=== PATIENT | female | born 1935 | race Caucasian/White ===

== ENCOUNTER → 2016-05-14 | Outpatient (CLI) | payer OTHER ==
[~2016-05-14] MED LIST: ACET-1256 PO; ASPI81TA28 PO; ATOR80TA PO; CLTP PO; CRG40 PO; CYM/30 PO; DOCU100C31 PO; GABA-112 PO; GLIM1TAB2 PO; ISOS120T5 PO; LEVO50TA PO; NTRGSL/4 UT; OMEP40CA PO; POLY1SOL6; POLY335040 PO; PSYL48.59 PO; REGADENOSON 0.4 MG/5 ML SYR ONE
--- NOTE | 2016-05-15 14:21 | MYOCARDIAL PERFUSION SCAN ---
ONE-DAY NUCLEAR MEDICINE TECHNETIUM-99M CARDIOLITE MYOCARDIAL PERFUSION SCAN CLINICAL HISTORY: The patient has known coronary artery disease and has recently developed exertional chest discomfort. COMPARISON: None. TECHNIQUE: For the stress portion of the study, 32.3 mCi of Technetium 99 m Cardiolite IV was injected at 1:45 p.m. on 05/14/2016. Thirty minutes following the injection, imaging of the heart was performed in multiple projection. For the rest portion of the study, 11.0 mCi of Technetium 99 m Cardiolite was injected IV at 11:30 a.m. One hour following the injection, imaging of the heart was performed in the same projections. For the stress portion of the study, 0.4 mg of Lexiscan was injected intravenously as per protocol. The patient tolerated the infusion without difficulty. There was no chest discomfort nor EKG changes. Following the study, the patient was hemodynamically stable without complaints. FINDINGS: The short axis, vertical long axis, and horizontal long axis images were reviewed in detail. There is normal myocardial perfusion at both stress and rest. Therefore, no evidence of a prior myocardial infarction or stress induced myocardial ischemia. The left ventricle demonstrates hyperdynamic systolic function with an ejection fraction of greater than 70%. There are no wall motion abnormalities. IMPRESSION: 1. No scintigraphic evidence of a myocardial infarction or myocardial ischemia. 2. No Lexiscan induced chest pain. 3. No Lexiscan induced EKG changes. 4. Hyperdynamic left ventricular systolic function with an ejection fraction of greater than 70%. There are no wall motion abnormalities.
== END | disposition home or self-care (01) ==
LOC: C.NUCL 10:49
PROVIDERS: ATTEND Internal Medicine Cardiovascular Disease
DX: I25.119 Atherosclerotic heart disease of native coronary artery with unspecified angina pectoris (principal); R06.02 Shortness of breath

== ENCOUNTER → 2016-06-18 | Outpatient (CLI) | payer OTHER ==
[~2016-06-18] MED LIST changes: -REGADENOSON 0.4 MG/5 ML SYR ONE
--- NOTE | 2016-06-18 18:35 | DIAGNOSTIC IMAGING REPORT ---
LEFT ANKLE 3 VIEWS HISTORY: M25.572 Ankle pain, left COMPARISON: None. FINDINGS: There is no fracture or dislocation. Soft tissues are unremarkable. No radiopaque foreign bodies. Tiny plantar heel spur. IMPRESSION: No fractures. Electronically signed by: Javier Noriega M.D. 06/18/2016 6:32 PM Dictated Date/Time: 06/18/2016 6:31 PM
--- NOTE | 2016-06-18 18:39 | DIAGNOSTIC IMAGING REPORT ---
CHEST 2 VIEWS ROUTINE HISTORY: R06.09 Dyspnea on exertion COMPARISON: Chest 04/29/2015. FINDINGS: There are few linear densities within the right medial lung base suggesting subsegmental atelectasis are scarring. The lungs are otherwise clear. No pleural effusions. No pneumothorax. Mild pectus excavatum deformity. This likely results in the slight enlargement and the cardiac silhouette. This remains unchanged. No evidence for pulmonary edema. IMPRESSION: No significant change compared to the prior study. No acute process. Electronically signed by: Javier Noriega M.D. 06/18/2016 6:37 PM Dictated Date/Time: 06/18/2016 6:35 PM
[2016-06-18 19:16] LABS: ALT/SGPT 27 U/L (12-78); AST/SGOT 18 U/L (15-37); BLOOD UREA NITROGEN 32 mg/dl (7-18); BUN/CREATININE RATIO 19.7 (10-20); CALCIUM 9.5 mg/dl (8.5-10.1); CARBON DIOXIDE 31 mmol/L (21-32); CHLORIDE 106 mmol/L (98-107); GLUCOSE 104 mg/dl (70-99); POTASSIUM 4.2 mmol/L (3.5-5.1); SODIUM 142 mmol/L (136-145)
[2016-06-18 19:18] LABS: ALB/GLOB RATIO 1.2 (0.9-2); ALKALINE PHOSPHATASE 111 U/L (45-117)
[2016-06-18 19:40] LABS: HEMATOCRIT 40.5 % (37-47); MEAN CELL VOLUME 96.4 fL (80-100); MEAN CORPUSCULAR HEMOGLOBIN 32.1 pg (25-34); MEAN CORPUSCULAR HGB CONC 33.3 g/dl (32-36); MEAN PLATELET VOLUME 9.4 fL (7.4-10.4); PLATELET COUNT 192 K/uL (130-400); WHITE BLOOD COUNT 6.91 K/uL (4.8-10.8)
== END | disposition home or self-care (01) ==
LOC: C.RAD 17:58
PROVIDERS: ATTEND Internal Medicine
DX: M25.572 Pain in left ankle and joints of left foot (principal); R06.09 Other forms of dyspnea; Z87.898 Personal history of other specified conditions

== ENCOUNTER → 2016-06-21 | Outpatient (CLI) | payer OTHER ==
--- NOTE | 2016-06-21 10:13 | DIAGNOSTIC IMAGING REPORT ---
BILATERAL CAROTID DOPPLER STUDY HISTORY: Mental status change HX SYNCOPE COMPARISON: None. TECHNIQUE: Real-time, grayscale, and color Doppler sonography of the carotid arteries was performed. Imaging reviewed in the transverse and longitudinal planes. All measurements were calculated based on NASCET criteria. FINDINGS: Antegrade flow is seen in the bilateral vertebral arteries. The brachial pressures are hemodynamically similar. Moderate plaque dimension bilaterally The peak systolic velocity within the right ICA is 67. The right systolic ratio is 0.9. The peak systolic velocity within the left ICA is 61. The left systolic ratio is 0.8. IMPRESSION: No hemodynamically significant stenosis seen within the carotid arteries. Mild plaque formation bilaterally Electronically signed by: Bowen Karimi M.D. 06/21/2016 10:11 AM Dictated Date/Time: 06/21/2016 10:11 AM
== END | disposition home or self-care (01) ==
LOC: C.ULTR 09:35
PROVIDERS: ATTEND Internal Medicine
DX: Z87.898 Personal history of other specified conditions (principal); I65.23 Occlusion and stenosis of bilateral carotid arteries

== ENCOUNTER → 2016-07-17 | Outpatient (CLI) | payer OTHER ==
--- NOTE | 2016-07-17 09:01 | DIAGNOSTIC IMAGING REPORT ---
MRI OF THE BRAIN WITHOUT CONTRAST CLINICAL HISTORY: Syncope, confusion. COMPARISON STUDY: 04/17/2009 FINDINGS: Sagittal T1, axial diffusion, proton density and T2 weighted axial, coronal FLAIR, and axial T1-weighted images were acquired. The patient was imaged under 0.7 Jessica open MRI scanner. No intra or extra-axial mass lesions are visualized Axial diffusion-weighted images reveal no evidence of acute or subacute infarction. There is no evidence of ventricular dilatation. Proton density T2-weighted and FLAIR images reveal scattered foci of increased T2 signal within the white matter, likely on a small vessel basis. The findings remain similar to the preceding study. There are no abnormal flow voids. There are foci of increased T2 signal within the left inferior mastoid, likely inflammatory. IMPRESSION: No significant change from the prior 2009 study. No acute intracranial findings. No evidence of acute or subacute infarction. Electronically signed by: Eze Lopez M.D. 07/17/2016 9:00 AM Dictated Date/Time: 07/17/2016 8:53 AM
== END | disposition home or self-care (01) ==
LOC: C.OPENMRI 07:37
PROVIDERS: ATTEND Psychiatry & Neurology Neurology
DX: F44.89 Other dissociative and conversion disorders (principal); R55 Syncope and collapse

== ENCOUNTER → 2016-07-18 | Outpatient (CLI) | payer OTHER ==
--- NOTE | 2016-07-19 16:42 | EEG Procedure Note ---
EEG Procedure Note Date of Service July 18, 2016. Start / End Times Start Time: 1408 End Time: [address] Caceres History 80 year old with confusional state and syncope, question seizure Home Medication List Scheduled Aspirin (Aspirin Ec), 81 MG PO DAILY Atorvastatin Calcium (Lipitor), 40 MG PO DAILY Calcium/Vitamin D (Caltrate 600 Plus *), 1 TAB PO QAM Docusate Sodium (Docusate Sodium), 1 CAP PO DAILY Duloxetine HCl (Cymbalta), 1 CAP PO DAILY Gabapentin (Neurontin), 2 CAP PO HS Glimepiride (Glimepiride), 0.5 TAB PO DAILY Isosorbide Mononitrate Ext Rel (Imdur Ext Rel), 120 MG PO QAM Levothyroxine Sodium (Synthroid), 50 MCG PO QAM Nadolol (Corgard *), 40 MG PO QAM Nitroglycerin (Nitrostat), 0.4 MG UT PRN Omeprazole (Prilosec), 40 MG PO DAILY PRN Polyethylene (Miralax Powder Packet), 17 GM PO DAILY Polyethylene Glycol-Propylene (Systane Ultra), UD Psyllium (Metamucil), 1 TBS PO DAILY Scheduled PRN Acetaminophen (Tylenol), 2 TAB PO TID PRN for PN Description This is a 21 electrode EEG with a single channel dedicated to limited EKG. The electrodes were placed in accordance with the International 10-20 system. Interpretation the predominant background activity consists of a somewhat irregular 8.5 Hz activity of up to 30-40 V in amplitude seen symmetrically over the posterior head regions bilaterally spreading anteriorly. This activity attenuates nicely with eye opening and other alerting procedures. A mild amount of muscle and movement artifact activity contaminated the recording but do not hinder interpretation to any significant degree. Photic stimulation produced some driving response at mid flash frequencies with no abnormalities noted. Hyperventilation was not performed. Throughout the waking portion of the recording, no focal abnormalities, potentially epileptogenic discharges or abnormal slow activity was seen. She had a drowsy state for prolonged periods of time and intermittently she went into stage II sleep without further activation or abnormalities. Overall, this 1 hour study, is unremarkable during wakefulness and sleep. No focal abnormalities were noted and no potentially epileptogenic discharges were seen Clinical Correlation a normal EEG does not exclude a seizure disorder and clinical correlation is required.
== END | disposition home or self-care (01) ==
LOC: C.NEUR 13:51
PROVIDERS: ATTEND Psychiatry & Neurology Neurology
DX: F44.89 Other dissociative and conversion disorders (principal)

== ENCOUNTER → 2016-08-27 | Outpatient (CLI) | payer OTHER ==
[2016-08-27 14:44] LABS: HEMATOCRIT 38.5 % (37-47); MEAN CELL VOLUME 99.7 fL (80-100); MEAN CORPUSCULAR HEMOGLOBIN 32.9 pg (25-34); MEAN PLATELET VOLUME 9.2 fL (7.4-10.4); PLATELET COUNT 177 K/uL (130-400); RED BLOOD COUNT 3.86 M/uL (4.2-5.4); WHITE BLOOD COUNT 5.95 K/uL (4.8-10.8)
[2016-08-27 15:10] LABS: BLOOD UREA NITROGEN 32 mg/dl (7-18); BUN/CREATININE RATIO 18.5 (10-20); CALCIUM 8.9 mg/dl (8.5-10.1); CARBON DIOXIDE 28 mmol/L (21-32); CHLORIDE 105 mmol/L (98-107); GLUCOSE 108 mg/dl (70-99); POTASSIUM 4.2 mmol/L (3.5-5.1); SODIUM 141 mmol/L (136-145)
[2016-08-27 15:22] LABS: ALB/GLOB RATIO 1.1 (0.9-2); ALKALINE PHOSPHATASE 103 U/L (45-117); ALT/SGPT 25 U/L (12-78); AST/SGOT 16 U/L (15-37); THYROID STIMULATING HORMONE 0.877 uIu/ml (0.300-4.500)
[2016-08-28 06:24] LABS: ESTIMATED AVERAGE GLUCOSE 128 mg/dl; HA1C FLAG Normal (Normal)
== END | disposition home or self-care (01) ==
LOC: C.LAB1850 12:42
PROVIDERS: ATTEND Internal Medicine
DX: E78.5 Hyperlipidemia, unspecified (principal); E11.29 Type 2 diabetes mellitus with other diabetic kidney complication; E03.9 Hypothyroidism, unspecified; I10 Essential (primary) hypertension; R42 Dizziness and giddiness; E55.9 Vitamin D deficiency, unspecified

== ENCOUNTER → 2016-08-30 | Outpatient (CLI) | payer OTHER ==
--- NOTE | 2016-09-02 13:17 | MAMMOGRAPHY REPORT ---
BILATERAL DIGITAL SCREENING MAMMOGRAM WITH CAD: 08/30/2016 CLINICAL HISTORY: Routine screening. Patient has no complaints. TECHNIQUE: Current study was also evaluated with a Computer Aided Detection (CAD) system. Bilateral CC and MLO views were obtained. COMPARISON: Comparison is made to exams dated: 08/30/2015 mammogram, 08/24/2014 ultrasound, 08/24/2014 mammogram, 08/13/2013 mammogram, 08/12/2012 mammogram, and 08/12/2011 mammogram - [facility]. BREAST COMPOSITION: The tissue of both breasts is heterogeneously dense, which may obscure small mas ses. FINDINGS: No suspicious masses, calcifications, or areas of architectural distortion are noted in ei ther breast. There has been no significant interval change compared to prior exams. Bilateral asymme tries and scattered bilateral benign-appearing calcifications are not significantly changed. IMPRESSION: ACR BI-RADS CATEGORY 2: BENIGN There is no mammographic evidence of malignancy. A 1 year screening mammogram is recommended. The pa tient will receive written notification of the results. Approximately 10% of breast cancers are not detected with mammography. A negative mammographic report should not delay biopsy if a clinically suggestive mass is present. Huma Kirk M.D. /:08/30/2016 16:27:20 Side Door Worker: Lily Vega, [facility] letter sent: Normal 1/2 BI-RADS Code: ACR BI-RADS Category 2: Benign
== END | disposition home or self-care (01) ==
LOC: C.MAMM 11:40
PROVIDERS: ATTEND Internal Medicine
DX: Z12.31 Encounter for screening mammogram for malignant neoplasm of breast (principal)

== ENCOUNTER → 2017-01-01 | Outpatient (CLI) | payer OTHER ==
[2017-01-01 12:32] LABS: ALT/SGPT 22 U/L (12-78); BLOOD UREA NITROGEN 26 mg/dl (7-18); BUN/CREATININE RATIO 16.4 (10-20); CALCIUM 9.4 mg/dl (8.5-10.1); CARBON DIOXIDE 29 mmol/L (21-32); CHLORIDE 106 mmol/L (98-107); CHOLESTEROL 157 mg/dl (0-200); CREATININE 1.57 mg/dl (0.60-1.20); GLUCOSE 145 mg/dl (70-99); POTASSIUM 4.3 mmol/L (3.5-5.1); SODIUM 141 mmol/L (136-145); TRIGLYCERIDES 100 mg/dl (0-150); VERY LOW DENSITY LIPOPROT CALC 20 mg/dl
[2017-01-01 12:34] LABS: ALB/GLOB RATIO 1.2 (0.9-2); ALKALINE PHOSPHATASE 93 U/L (45-117); AST/SGOT 13 U/L (15-37); CHOLESTEROL/HDL RATIO 2.5; HDL CHOLESTEROL 63 mg/dl; LDL CHOLESTEROL CALCULATED 74 mg/dl
[2017-01-01 12:43] LABS: ESTIMATED AVERAGE GLUCOSE 134 mg/dl; HA1C FLAG Normal (Normal)
[2017-01-01 18:16] LABS: URINE APPEARANCE CLEAR (CLEAR); URINE BILIRUBIN NEG (NEG); URINE COLOR YELLOW; URINE NITRITE NEG (NEG); URINE PH 5.5 (4.5-7.5); URINE SPECIFIC GRAVITY 1.014 (1.000-1.030); UROBILINOGEN NEG (NEG)
[2017-01-01 18:29] LABS: MANUAL MICROSCOPIC REQUIRED? NO; REVIEW REQ? NO
== END | disposition home or self-care (01) ==
LOC: C.LABBFT 07:49
PROVIDERS: ATTEND Internal Medicine
DX: R35.0 Frequency of micturition (principal); R39.15 Urgency of urination; I10 Essential (primary) hypertension; E03.9 Hypothyroidism, unspecified; E78.5 Hyperlipidemia, unspecified; E55.9 Vitamin D deficiency, unspecified; R42 Dizziness and giddiness; E11.29 Type 2 diabetes mellitus with other diabetic kidney complication

== ENCOUNTER → 2017-04-02 | Outpatient (CLI) | payer OTHER | END | disposition home or self-care (01) | LOC: C.LABSPEC 13:06 | PROVIDERS: ATTEND Internal Medicine | DX: R39.9 Unspecified symptoms and signs involving the genitourinary system (principal) ==

== ENCOUNTER → 2017-04-10 | Outpatient (CLI) | payer OTHER | END | disposition home or self-care (01) | LOC: C.LABSPEC 16:09 | PROVIDERS: ATTEND Internal Medicine | DX: R35.0 Frequency of micturition (principal); R39.15 Urgency of urination ==

== ENCOUNTER → 2017-07-01 | Outpatient (CLI) | payer OTHER ==
[2017-07-01 12:15] LABS: HEMATOCRIT 39.5 % (37-47); MEAN CORPUSCULAR HEMOGLOBIN 32.6 pg (25-34); MEAN CORPUSCULAR HGB CONC 32.9 g/dl (32-36); MEAN PLATELET VOLUME 9.6 fL (7.4-10.4); PLATELET COUNT 161 K/uL (130-400); RED CELL DISTRIBUTION WIDTH CV 14.6 % (11.5-14.5); RED CELL DISTRIBUTION WIDTH SD 52.7 fL (36.4-46.3); WHITE BLOOD COUNT 5.34 K/uL (4.8-10.8)
[2017-07-01 12:30] LABS: ALBUMIN 3.8 gm/dl (3.4-5.0); ALT/SGPT 31 U/L (12-78); AST/SGOT 21 U/L (15-37); BLOOD UREA NITROGEN 28 mg/dl (7-18); CALCIUM 9.2 mg/dl (8.5-10.1); CARBON DIOXIDE 31 mmol/L (21-32); CREATININE 1.61 mg/dl (0.60-1.20); GLUCOSE 151 mg/dl (70-99); POTASSIUM 4.5 mmol/L (3.5-5.1); SODIUM 139 mmol/L (136-145)
[2017-07-01 12:33] LABS: ALKALINE PHOSPHATASE 91 U/L (45-117)
== END | disposition home or self-care (01) ==
LOC: C.LABBFT 08:31
PROVIDERS: ATTEND Internal Medicine Nephrology
DX: I12.9 Hypertensive chronic kidney disease with stage 1 through stage 4 chronic kidney disease, or unspecified chronic kidney disease (principal); N18.3 Chronic kidney disease, stage 3 (moderate); R80.9 Proteinuria, unspecified; E55.9 Vitamin D deficiency, unspecified

== ENCOUNTER → 2017-07-03 | Outpatient (CLI) | payer OTHER ==
[2017-07-03 10:31] LABS: HEMOGLOBIN A1C 6.8 % (4.5-5.6)
== END | disposition home or self-care (01) ==
LOC: C.LAB1850 09:26
PROVIDERS: ATTEND Internal Medicine
DX: I10 Essential (primary) hypertension (principal); E11.9 Type 2 diabetes mellitus without complications; E78.5 Hyperlipidemia, unspecified; E03.9 Hypothyroidism, unspecified

== ENCOUNTER 2020-09-30 11:41 | Inpatient (IN) ==
--- NOTE | 2020-09-30 11:58 | Emergency Department Note ---
History of Present Illness General Chief Complaint: Fall Stated Complaint: FALL, WEAKNESS, GLOBAL PAIN Time Seen by Provider: 09/30/20 11:57 Source: patient and family Limitations: no limitations History of Present Illness Provider complaint: fall Onset (ago): hour(s) Fall from: out of bed Fall witnessed: no Place fall occurred: home Loss of consciousness: none Prolonged down time: no Symptoms prior to fall: none Treatments prior to arrival: + none Context: + climbed out of bed Location of injury: no head, no face, no mouth, no eyes, no neck, no chest, no back, no abdomen or no pelvis Home Medications Medication Instructions Recorded Confirmed Type aspirin 81 mg tablet,delayed 81 mg PO QAM 12/10/17 09/30/20 History release (Aspirin Low Dose) acetaminophen 325 mg tablet 325 mg PO Q4H PRN MDD 3 GM APAP05/15/19 09/30/20 History HOURS calcium carbonate 500 mg (1,250 1 tab PO QAM 05/15/19 09/30/20 History mg)-vitamin D3 200 unit tablet (Oyster Shell Calcium-Vit D3) docusate sodium 100 mg capsule 100 mg PO BID #60 cap 06/01/19 09/30/20 Rx (Stool Softener) peg 400-propylene glycol 0.4 %-0.3 1 drp OPB BID 08/19/19 09/30/20 History % eye drops nitroglycerin 0.4 mg sublingual See Rx Instructions .ROUTE 05/22/20 09/30/20 Rx tablet .COMPLEX #25 tablet pantoprazole 40 mg tablet,delayed 40 mg PO BID #180 tab 05/22/20 09/30/20 Rx release atorvastatin 40 mg tablet 40 mg PO HS 09/04/20 09/30/20 History cyanocobalamin (vitamin B-12) 500 1,000 mcg PO QAM 09/04/20 09/30/20 History mcg tablet duloxetine 30 mg capsule,delayed 30 mg PO QAM 09/04/20 09/30/20 History release (Cymbalta) gabapentin 300 mg capsule 300 mg PO HS 09/04/20 09/30/20 History isosorbide mononitrate 120 mg 120 mg PO QAM 09/04/20 09/30/20 History tablet,extended release 24 hr levothyroxine 50 mcg tablet 50 mcg PO QAM 09/04/20 09/30/20 History nadolol 40 mg tablet 40 mg PO QAM 09/04/20 09/30/20 History solifenacin 5 mg tablet (Vesicare) 5 mg PO QAM 09/04/20 09/30/20 History Allergies Allergy/AdvReac Type Severity Reaction Status Date / Time verapamil Allergy Severe RASH Verified 09/25/20 09:21 oxybutynin Allergy Intermediate ITCHING Verified 09/25/20 09:21 adhesive Allergy Mild redness Verified 09/25/20 09:21 latex Allergy Mild ITCHING Verified 09/25/20 09:21 meperidine AdvReac Severe HYPOTENSION Verified 09/25/20 09:21 sodium phosphate AdvReac Severe DECREASED Verified 09/25/20 09:21 [From OsmoPrep] KIDNEY FUNCTION atenolol AdvReac Intermediate tachycardia; Verified 09/25/20 09:21 nervousness diazepam AdvReac Intermediate crying; Verified 09/25/20 09:21 depression fluoxetine AdvReac Intermediate crying; Verified 09/25/20 09:21 depression ibuprofen AdvReac Intermediate low kidney Verified 09/25/20 09:21 function Iodinated Contrast Media AdvReac Intermediate IVP DYE - Verified 09/25/20 09:21 low kidney function lidocaine AdvReac Intermediate Altered Verified 09/25/20 09:21 Mental Status with ointment ONLY naproxen AdvReac Intermediate Low kidney Verified 09/25/20 09:21 function sertraline AdvReac Intermediate crying; Verified 09/25/20 09:21 depression venlafaxine AdvReac Intermediate Nervous Verified 09/25/20 09:21 tramadol AdvReac Mild dizziness Verified 09/25/20 09:21 Past Med/Surg History Medical History Abdominal pain (03/24/13) Anxiety CAD (coronary artery disease) Chronic back pain Chronic throat clearing CKD (chronic kidney disease), stage III Closed head injury Depression Diabetes mellitus, type 2 Diverticular disease Diverticulitis History of colon cancer Hyperlipidemia Hypertension Hypothyroidism Osteoarthritis Pneumonia SBO (small bowel obstruction) Small bowel obstruction due to adhesions Stable angina Syncope Surgical History H/O umbilical hernia repair History of bilateral tubal ligation History of bowel resection History of cardiac cath History of cataract surgery History of colonoscopy History of dilatation and curettage History of discectomy History of esophagogastroduodenoscopy (EGD) History of hysterectomy Family History Mother Heart disease Breast cancer Cancer Myocardial infarction Sister Colorectal cancer Lung disease Cancer Father Hearing loss Heart disease Other Hypertension No family history of adverse response to anesthesia Denies family history of Ovarian cancer Prostate cancer Coronary heart disease Social History Smoking Status: Never smoker Second Hand Exposure: No; Hx Alcohol Use: No Hx Substance Use: No Preferred Language: Syriac Communication Ability: Effective Hearing Ability: Normal Blood Bank Laboratory Technician Required: No Beliefs That Will Affect Care: None marital status: / Current Living Situation: Alone current occupational status: retired Feels Safe at Home: Yes Childhood Exposure to Second-Hand Smoke: No caffeine: Yes during the past year weight has: remained stable Dental Care, Regularly: Yes Physical Activity Frequency: 1-2 Times per Week Seatbelt Use: always Sunscreen Use: Yes Assistive Devices: Glasses Review of Systems See HPI for pertinent positives & negatives. and A total of 10 systems reviewed and were otherwise negative Physical Exam Vital Signs Vital Signs - 24 hr 09/30/20 11:52 09/30/20 12:42 09/30/20 13:00 Temperature 36.6 C Temperature Source Oral Pulse Rate 92 H 62 63 Pulse Rate [Radial] Respiratory Rate 18 20 17 Respiratory Effort / Characteristics Non-Labored Spontaneous Respiratory Depth Normal Respiratory Pattern Regular Blood Pressure 182/88 H 183/91 H Blood Pressure [Left Arm] Blood Pressure Mean 119 121 Blood Pressure Mean [Left Arm] Blood Pressure Position Lying Pulse Oximetry 98 98 93 Oxygen Delivery Method Room Air Room Air Sepsis Recent Fever Within 48 Hours No Sepsis New/Unexplained Change in Mental Status No Sepsis Action Taken by Nursing No Action Required 09/30/20 13:30 09/30/20 14:00 09/30/20 16:40 Temperature Temperature Source Pulse Rate 64 63 Pulse Rate [Radial] 72 Respiratory Rate 23 20 Respiratory Effort / Characteristics Respiratory Depth Respiratory Pattern Blood Pressure 170/99 H 170/106 H Blood Pressure [Left Arm] 149/81 H Blood Pressure Mean 122 127 Blood Pressure Mean [Left Arm] 103 Blood Pressure Position Pulse Oximetry 97 98 Oxygen Delivery Method Sepsis Recent Fever Within 48 Hours Sepsis New/Unexplained Change in Mental Status Sepsis Action Taken by Nursing GENERAL: Fatigued in appearance, wearing a mask. NAD, non-toxic. EYE EXAM: Normal conjunctiva. PERRL, no anisocoria and EOM's grossly intact w/o pain. OROPHARYNX: Moist mucus membranes. Grossly normal dentition. NECK: Supple, no nuchal rigidity, no adenopathy, non-tender. No signs of mening ismus. LUNGS: Clear to auscultation. Normal chest wall mechanics. HEART: NSR, no MRG. ABDOMEN: Abdomen soft, non-tender, normo-active bowel sounds, no masses, no rebound or guarding. BACK: No CVA TTP. SKIN: No rashes and no bruising. UPPER EXTREMITIES: Upper extremities are grossly normal. LOWER EXTREMITIES: Mild pain to the bilateral hips, no obvious leg length discrepancy. NEURO EXAM: A&O x3, cranial nerves II-XII grossly intact, normal speech, decreased range of motion bilateral lower extremity secondary to pain. Course Course Cardiac monitoring: An order was placed for continuous cardiac monitoring. The monitor shows a rate of 72 with sinus rhythm. Administered Medications Sodium Chloride (Nss) 500 mls @ 80 mls/hr IV .[id number] KAREN Stop: 10/30/20 14:59 Last Admin: 09/30/20 15:59 Dose: 80 mls/hr Documented by: [id number] Discontinued Medications Acetaminophen (Acetaminophen 325 Mg Tab) 650 mg PO NOW STA Stop: 09/30/20 14:49 Last Admin: 09/30/20 15:06 Dose: 650 mg Documented by: [id number] Medical Decision Making Differential Diagnosis Infection, dehydration, metabolic abnormality, hypo/hyperglycemia, electrolyte disturbance, anemia, hypoxia, cardiac sources, intracerebral event, toxicologic, neurologic, as well as other pathologies. Medical Records Attestation: I reviewed the patient's medical records. Home Medications Current Medication List: was personally reviewed by me Laboratory Data Attestation: I reviewed the patient's lab results. Result diagrams: 09/30/20 12:58 09/30/20 12:58 Lab Results 09/30/20 09/30/20 09/30/20 Range/Units 12:40 12:58 12:58 WBC 6.98 (4.8-10.8) K/uL RBC 3.80 L (4.2-5.4) M/uL Hgb 12.6 (12.0-16.0) g/dL Hct 36.9 L (37-47) % MCV 97.1 (80-100) fL MCH 33.2 (25-34) pg MCHC 34.1 (32-36) g/dL RDW Std Deviation 55.9 H (36.4-46.3) fL RDW Coeff of Shaji 15.9 H (11.5-14.5) % Plt Count 210 (130-400) K/uL MPV 8.5 (7.4-10.4) fL Immature Gran % (Auto) 0.7 % Neut % (Auto) 65.2 % Lymph % (Auto) 18.9 % Towns % (Auto) 7.7 % Eos % (Auto) 7.2 % Baso % (Auto) 0.3 % Neut # (Auto) 4.55 (1.4-6.5) K/uL Lymph # (Auto) 1.32 (1.2-3.4) K/uL Towns # (Auto) 0.54 (0.11-0.59) K/uL Eos # (Auto) 0.50 (0-0.5) K/uL Baso # (Auto) 0.02 (0-0.2) K/uL Immature Gran # (Auto) 0.05 H (0.00-0.02) K/uL Sodium 141 (136-145) mmol/L Potassium 3.6 (3.5-5.1) mmol/L Chloride 106 (98-107) mmol/L Carbon Dioxide 33 H (21-32) mmol/L Anion Gap 2.0 L (3-11) BUN 22 H (7-18) mg/dl Creatinine 1.27 H (0.6-1.2) mg/dl Est Cr Clr Drug Dosing 33.9 ml/min Est GFR ( Amer) 44.9 ml/min Est GFR (Non-Af Amer) 38.7 ml/min BUN/Creatinine Ratio 17.5 (10-20) Glucose 141 H (70-99) mg/dl Calcium 9.6 (8.5-10.1) mg/dl Total Bilirubin 1.0 (0.2-1) mg/dl AST 19 (15-37) U/L ALT 26 (12-78) U/L Alkaline Phosphatase 85 (45-117) U/L Troponin I < 0.015 (0-0.045) ng/ml Total Protein 6.9 (6.4-8.2) gm/dl Albumin 3.5 (3.4-5.0) gm/dl Globulin 3.4 (2.5-4.0) gm/dl Albumin/Globulin Ratio 1.0 (0.9-2) TSH 1.730 (0.300-4.500) uIu/ml Urine Color Yellow Urine Appearance Clear (Clear) Urine pH 8.0 H (4.5-7.5) Ur Specific [place] 1.006 (1.000-1.030) Urine Protein Negative (Negative) Urine Glucose (UA) Negative (Negative) Urine Ketones Negative (Negative) Urine Blood Negative (Negative) Urine Nitrite Negative (Negative) Urine Bilirubin Negative (Negative) Urine Urobilinogen Negative (Negative) Ur Leukocyte Esterase Negative (Negative) COVID-19 Eval Order SARS-CoV-2 (PCR) (Negative) 09/30/20 09/30/20 Range/Units 13:33 13:33 WBC (4.8-10.8) K/uL RBC (4.2-5.4) M/uL Hgb (12.0-16.0) g/dL Hct (37-47) % MCV (80-100) fL MCH (25-34) pg MCHC (32-36) g/dL RDW Std Deviation (36.4-46.3) fL RDW Coeff of Shaji (11.5-14.5) % Plt Count (130-400) K/uL MPV (7.4-10.4) fL Immature Gran % (Auto) % Neut % (Auto) % Lymph % (Auto) % Towns % (Auto) % Eos % (Auto) % Baso % (Auto) % Neut # (Auto) (1.4-6.5) K/uL Lymph # (Auto) (1.2-3.4) K/uL Towns # (Auto) (0.11-0.59) K/uL Eos # (Auto) (0-0.5) K/uL Baso # (Auto) (0-0.2) K/uL Immature Gran # (Auto) (0.00-0.02) K/uL Sodium (136-145) mmol/L Potassium (3.5-5.1) mmol/L Chloride (98-107) mmol/L Carbon Dioxide (21-32) mmol/L Anion Gap (3-11) BUN (7-18) mg/dl Creatinine (0.6-1.2) mg/dl Est Cr Clr Drug Dosing ml/min Est GFR ( Amer) ml/min Est GFR (Non-Af Amer) ml/min BUN/Creatinine Ratio (10-20) Glucose (70-99) mg/dl Calcium (8.5-10.1) mg/dl Total Bilirubin (0.2-1) mg/dl AST (15-37) U/L ALT (12-78) U/L Alkaline Phosphatase (45-117) U/L Troponin I (0-0.045) ng/ml Total Protein (6.4-8.2) gm/dl Albumin (3.4-5.0) gm/dl Globulin (2.5-4.0) gm/dl Albumin/Globulin Ratio (0.9-2) TSH (0.300-4.500) uIu/ml Urine Color Urine Appearance (Clear) Urine pH (4.5-7.5) Ur Specific [place] (1.000-1.030) Urine Protein (Negative) Urine Glucose (UA) (Negative) Urine Ketones (Negative) Urine Blood (Negative) Urine Nitrite (Negative) Urine Bilirubin (Negative) Urine Urobilinogen (Negative) Ur Leukocyte Esterase (Negative) COVID-19 Eval Order Covid19 at [facility] SARS-CoV-2 (PCR) NEGATIVE (Negative) Imaging Data Radiologist's Impression: Chest X-Ray 09/30/20 12:34 XR chest 1V portable CLINICAL HISTORY: weakness COMPARISON STUDY: Chest radiograph May 05, 2020. FINDINGS: Lung volumes are normal. Lungs are clear. There is no pneumothorax or pleural effusion. Cardiomegaly is unchanged. Mediastinal contours are normal. There is no evidence for pulmonary edema. IMPRESSION: No acute cardiopulmonary findings. No change in appearance of the chest. ACT 112: Negative or not required by law. Electronically signed by: José Luis Hudson M.D. 09/30/2020 12:[address] 09/30/20 12:34 CT OF THE HEAD WITHOUT CONTRAST CLINICAL HISTORY: weak COMPARISON STUDY: Head CT May 05, 2020. CT DOSE: 537.48 mGy.cm TECHNIQUE: Helical axial images of the head were obtained without IV contrast. Automated exposure control was utilized for the study. A dose lowering technique was utilized adhering to the principles of ALARA. FINDINGS: No acute intracranial hemorrhage, midline shift or mass effect is present. The ventricular system is unremarkable. The basal cisterns are patent. White matter hypodensities are unchanged and favor small vessel disease. No extra-axial collections are present. There are no findings to suggest acute dural sinus thrombosis or acute territorial infarct. No significant calvarial abnormalities are present. Visualized portions of the sinuses and mastoid air cells are clear. IMPRESSION: No acute intracranial findings. No change in appearance of the brain. ACT 112: Negative or not required by law. Electronically signed by: José Luis Hudson M.D. 09/30/2020 1:34 PM Hip/Pelvis X-Ray 09/30/20 12:49 XR hips MEGAN 1v w pelvis CLINICAL HISTORY: Bilateral hip pain. COMPARISON: CT of the abdomen and pelvis April 21, 2019. FINDINGS: Pelvic calcifications reflect phleboliths. No acute fracture within the pelvis or hips is identified. There is no evidence for avascular necrosis of the femoral heads. There is mild to moderate joint space narrowing and osteophytosis of both hips. IMPRESSION: 1. No acute fracture within the pelvis or hips. 2. Mild to moderate osteoarthritis of both hips. ACT 112: Negative or not required by law. Electronically signed by: José Luis Hudson M.D. 09/30/2020 1:12 PM ECG Data Attestation: I personally reviewed and interpreted this ECG as follows: Additional Comments: Normal sinus rhythm, rate of sixty-one, normal intervals, normal axis, to inversion in lead III, to inversion anteriorly. No significant change from comparison EKG May 05, 2020. MDM Narrative Patient was seen due to concern for generalized weakness. The patient reports that she had been trying to get up and out of bed but it slipped from the side of the bed downward and was unable to get back up. The patient states that she did not have any LOC or head strike. The patient has no head or neck pain. The patient denies any fevers chills chest pains or shortness of breath. Patient's had slightly decreased appetite. The patient does currently live by herself. The patient is vaccinated for Covid. The patient denies abdominal pain nausea or vomiting. Blood work was obtained along with an EKG CT head x-ray of the bilateral hips and chest x-ray. Patient has a normal white count and hemoglobin. Platelet count is unremarkable. The patient does have mild elevated creatinine at 1.27. Troponin is not detectable. Urinalysis does not show evidence of obvious infection. Covid negative. Chest x-ray clear. CT of the head with no ICH. Case management did go speak with the patient to see if she was amenable to rehab which she has not. The patient would like long-term placement at this time. This is unable to be facilitated and the patient cannot be discharged safely home at this time. I did speak the on-call hospitalist Dr. Crowley and the patient was admitted to the medicine service. Impression & Plan Weakness, Fall Discharge Plan Visit Data Chief Complaint: Fall Stated Complaint: FALL, WEAKNESS, GLOBAL PAIN ED Provider: Herve Leon Patient Disposition: Admitted As Inpatient Prescriptions Prescriptions: No Action docusate sodium [Stool Softener] 100 mg capsule 100 mg PO BID Qty: 60 RF: 2 pantoprazole 40 mg tablet,delayed release (DR/EC) 40 mg PO BID Qty: 180 RF: 3 nitroglycerin 0.4 mg tablet, sublingual See Rx Instructions .ROUTE .COMPLEX Qty: 25 RF: 3 peg 400-propylene glycol 0.4-0.3 % drops 1 drp OPB BID RF: 0 acetaminophen 325 mg Tablet 325 mg PO Q4H MDD 3 GM APAP/24 HOURS PRN (Reason: Pain) RF: 0 calcium carbonate-vitamin D3 [Oyster Shell Calcium-Vit D3] 500 mg(1,250mg) - 200 unit Tablet 1 tab PO QAM RF: 0 aspirin [Aspirin Low Dose] 81 mg Tablet,Delayed Release (Dr/Ec) 81 mg PO QAM RF: 0 atorvastatin 40 mg tablet 40 mg PO HS RF: 0 isosorbide mononitrate 120 mg tablet extended release 24 hr 120 mg PO QAM RF: 0 cyanocobalamin (vitamin B-12) 500 mcg tablet 1,000 mcg PO QAM RF: 0 levothyroxine 50 mcg tablet 50 mcg PO QAM RF: 0 gabapentin 300 mg capsule 300 mg PO HS RF: 0 nadolol 40 mg tablet 40 mg PO QAM RF: 0 duloxetine [Cymbalta] 30 mg capsule,delayed release(DR/EC) 30 mg PO QAM RF: 0 solifenacin [Vesicare] 5 mg tablet 5 mg PO QAM RF: 0
[2020-09-30 12:48] LABS: Appearance Urine Clear (Clear); Bilirubin Urine Negative (Negative); Blood Urine Negative (Negative); Color Urine Yellow; Glucose Urine UA Negative (Negative); Ketones Urine Negative (Negative); Leukocyte Esterase Urine Negative (Negative); Nitrite Urine Negative (Negative); Protein Urine Negative (Negative); Specific Gravity Urine 1.006 (1.000-1.030); Urobilinogen Urine Negative (Negative)
--- NOTE | 2020-09-30 12:50 | XRay Report ---
XR chest 1V portable CLINICAL HISTORY: weakness COMPARISON STUDY: Chest radiograph May 05, 2020. FINDINGS: Lung volumes are normal. Lungs are clear. There is no pneumothorax or pleural effusion. Car diomegaly is unchanged. Mediastinal contours are normal. There is no evidence for pulmonary edema. IMPRESSION: No acute cardiopulmonary findings. No change in appearance of the chest. ACT 112: Negative or not required by law. Electronically signed by: José Luis Hudson M.D. 09/30/2020 12:49 PM
[2020-09-30 13:04] LABS: Basophils # (auto) 0.02 K/uL (0-0.2); Basophils % (auto) 0.3 %; Eosinophils % (auto) 7.2 %; Hematocrit (blood only) 36.9 % (37-47); Hemoglobin 12.6 g/dL (12.0-16.0); Immature Granulocytes # (auto) 0.05 K/uL (0.00-0.02); Immature Granulocytes % (auto) 0.7 %; Lymphocytes # (auto) 1.32 K/uL (1.2-3.4); Lymphocytes % (auto) 18.9 %; Mean Corpuscular Hemoglobin 33.2 pg (25-34); Mean Corpuscular Hgb Conc 34.1 g/dL (32-36); Mean Corpuscular Volume 97.1 fL (80-100); Mean Platelet Volume 8.5 fL (7.4-10.4); Monocytes # (auto) 0.54 K/uL (0.11-0.59); Monocytes % (auto) 7.7 %; Neutrophils # (auto) 4.55 K/uL (1.4-6.5); Neutrophils % (auto) 65.2 %; Platelet Count 210 K/uL (130-400); RDW Coefficient of Variation 15.9 % (11.5-14.5); RDW Standard Deviation 55.9 fL (36.4-46.3); White Blood Count 6.98 K/uL (4.8-10.8)
--- NOTE | 2020-09-30 13:14 | XRay Report ---
XR hips MEGAN 1v w pelvis CLINICAL HISTORY: Bilateral hip pain. COMPARISON: CT of the abdomen and pelvis April 21, 2019. FINDINGS: Pelvic calcifications reflect phleboliths. No acute fracture within the pelvis or hips is identified. There is no evidence for avascular necrosis of the femoral heads. There is mild to modera te joint space narrowing and osteophytosis of both hips. IMPRESSION: 1. No acute fracture within the pelvis or hips. 2. Mild to moderate osteoarthritis of both hips. ACT 112: Negative or not required by law. Electronically signed by: José Luis Hudson M.D. 09/30/2020 1:12 PM
[2020-09-30 13:21] LABS: Alanine Aminotransferase 26 U/L (12-78); Albumin Level 3.5 gm/dl (3.4-5.0); Aspartate Aminotransferase 19 U/L (15-37); BUN Creatinine Ratio 17.5 (10-20); Blood Urea Nitrogen 22 mg/dl (7-18); Calcium 9.6 mg/dl (8.5-10.1); Carbon Dioxide 33 mmol/L (21-32); Chloride 106 mmol/L (98-107); Creatinine Clr Calc Pharmacy 33.9 ml/min; Est GFR (African American) 44.9 ml/min; Est GFR (Non-African American) 38.7 ml/min; Glucose 141 mg/dl (70-99); Potassium 3.6 mmol/L (3.5-5.1); Sodium 141 mmol/L (136-145)
[2020-09-30 13:31] LABS: Alkaline Phosphatase 85 U/L (45-117); Globulin 3.4 gm/dl (2.5-4.0); Total Protein 6.9 gm/dl (6.4-8.2); Troponin I < 0.015 ng/ml (0-0.045)
--- NOTE | 2020-09-30 13:35 | CT Scan Report ---
CT OF THE HEAD WITHOUT CONTRAST CLINICAL HISTORY: weak COMPARISON STUDY: Head CT May 05, 2020. CT DOSE: 537.48 mGy.cm TECHNIQUE: Helical axial images of the head were obtained without IV contrast. Automated exposure con trol was utilized for the study. A dose lowering technique was utilized adhering to the principles o f ALARA. FINDINGS: No acute intracranial hemorrhage, midline shift or mass effect is present. The ventricular system is unremarkable. The basal cisterns are patent. White matter hypodensities are unchanged and f avor small vessel disease. No extra-axial collections are present. There are no findings to suggest a cute dural sinus thrombosis or acute territorial infarct. No significant calvarial abnormalities are present. Visualized portions of the sinuses and mastoid air cells are clear. IMPRESSION: No acute intracranial findings. No change in appearance of the brain. ACT 112: Negative or not required by law. Electronically signed by: José Luis Hudson M.D. 09/30/2020 1:34 PM
[2020-09-30] MEDS ORDERED: ACETAMINOPHEN 325 MG TAB PO STA (14:48)
[2020-09-30] MEDS ORDERED: SODIUM CHLORIDE 0.9% 500 ML IV SCH (15:00)
--- NOTE | 2020-09-30 16:07 | History & Physical Report ---
Date of Service September 30, 2020 Assessment & Plan (1) Diabetes type 2, controlled: Plan: 85 y/o F Hx hypothyroid, HTN, HLD, DM II, CAD, CKD III, impaired gait. The pt states that she has spells where she is unable to bear weight. She could not apparently get out of bed today. She is reduced to crawling around in these instances. She did not suffer a fall and denies SOB, CP, nausea/vomiting, diarrhea, dysuria a rash or fevers. She denies specific joint pain but does have chronic pain in her lower extremities. She also states that recently, her lower extremity edema has worsened and her MD has ordered an echo as a result. This is currently pending. The pt has been undergoing PT at home. She states that it has not been consistent or helpful. She lives alone and is requesting placement in rehab therefore. Labs and imaging are unremarkable. She was fairly hypertensive at the time of admission. 1) Cannot ambulate - likely due to deconditioning as she does not have any focal signs or imaging abnormalities. We will consult PT/OT and case management for placement. Per her description, she may be better off with long-term or permanent placement. 2) HTN - will continue nadolol, Imdur and will add PRN hydralazine. She may need an additional agent on DC. 3) CAD - no evidence of ACS - cont Imdur, ASA, NTG PRN 4) Hypothyroidism - cont Synthroid 5) CKD - renal function is at baseline 6) DM is diet controlled Full code - Heparin prophylaxis Total time for this admit including review of labs, meds, imaging, records - discussion with pt and ER attending - 44 min (2) Hypertension: (3) Dyslipidemia: (4) Hypothyroidism: (5) Gait abnormality: History of Present Illness Chief Complaint: Cannot walk Primary Care Provider: Chris Espitia MD 85 y/o F Hx hypothyroid, HTN, HLD, DM II, CAD, CKD III, impaired gait. The pt states that she has spells where she is unable to bear weight. She could not apparently get out of bed today. She is reduced to crawling around in these instances. She did not suffer a fall and denies SOB, CP, nausea/vomiting, diarrhea, dysuria a rash or fevers. She denies specific joint pain but does have chronic pain in her lower extremities. She also states that recently, her lower extremity edema has worsened and her MD has ordered an echo as a result. This is currently pending. The pt has been undergoing PT at home. She states that it has not been consistent or helpful. She lives alone and is requesting placement in rehab therefore. Labs and imaging are unremarkable. She was fairly hypertensive at the time of admission. PMH: 1) HTN 2) HLD 3) Hypothyroid 4) DM II - diet controlled 5) CAD 6) CKD III 7) Impaired gait 8) Lower extremity edema Surgical: 1) Ventral hernia repair 2) Small bowel resection 3) Tubal ligation 4) JESUS-SBO 5) Lumbar discectomy 6) Cataracts Social: Does not drink or smoke Family: Father - CAD Mother - CAD/[place], breast CA Allergies Allergy/AdvReac Type Severity Reaction Status Date / Time verapamil Allergy Severe RASH Verified 09/25/20 09:21 oxybutynin Allergy Intermediate ITCHING Verified 09/25/20 09:21 adhesive Allergy Mild redness Verified 09/25/20 09:21 latex Allergy Mild ITCHING Verified 09/25/20 09:21 meperidine AdvReac Severe HYPOTENSION Verified 09/25/20 09:21 sodium phosphate AdvReac Severe DECREASED Verified 09/25/20 09:21 [From OsmoPrep] KIDNEY FUNCTION atenolol AdvReac Intermediate tachycardia; Verified 09/25/20 09:21 nervousness diazepam AdvReac Intermediate crying; Verified 09/25/20 09:21 depression fluoxetine AdvReac Intermediate crying; Verified 09/25/20 09:21 depression ibuprofen AdvReac Intermediate low kidney Verified 09/25/20 09:21 function Iodinated Contrast Media AdvReac Intermediate IVP DYE - Verified 09/25/20 09:21 low kidney function lidocaine AdvReac Intermediate Altered Verified 09/25/20 09:21 Mental Status with ointment ONLY naproxen AdvReac Intermediate Low kidney Verified 09/25/20 09:21 function sertraline AdvReac Intermediate crying; Verified 09/25/20 09:21 depression venlafaxine AdvReac Intermediate Nervous Verified 09/25/20 09:21 tramadol AdvReac Mild dizziness Verified 09/25/20 09:21 Home Medications Medication Instructions Recorded Confirmed Type aspirin 81 mg tablet,delayed 81 mg PO QAM 12/10/17 09/30/20 History release (Aspirin Low Dose) acetaminophen 325 mg tablet 325 mg PO Q4H PRN MDD 3 GM APAP05/15/19 09/30/20 History HOURS calcium carbonate 500 mg (1,250 1 tab PO QAM 05/15/19 09/30/20 History mg)-vitamin D3 200 unit tablet (Oyster Shell Calcium-Vit D3) docusate sodium 100 mg capsule 100 mg PO BID #60 cap 06/01/19 09/30/20 Rx (Stool Softener) peg 400-propylene glycol 0.4 %-0.3 1 drp OPB BID 08/19/19 09/30/20 History % eye drops nitroglycerin 0.4 mg sublingual See Rx Instructions .ROUTE 05/22/20 09/30/20 Rx tablet .COMPLEX #25 tablet pantoprazole 40 mg tablet,delayed 40 mg PO BID #180 tab 05/22/20 09/30/20 Rx release atorvastatin 40 mg tablet 40 mg PO HS 09/04/20 09/30/20 History cyanocobalamin (vitamin B-12) 500 1,000 mcg PO QAM 09/04/20 09/30/20 History mcg tablet duloxetine 30 mg capsule,delayed 30 mg PO QAM 09/04/20 09/30/20 History release (Cymbalta) gabapentin 300 mg capsule 300 mg PO HS 09/04/20 09/30/20 History isosorbide mononitrate 120 mg 120 mg PO QAM 09/04/20 09/30/20 History tablet,extended release 24 hr levothyroxine 50 mcg tablet 50 mcg PO QAM 09/04/20 09/30/20 History nadolol 40 mg tablet 40 mg PO QAM 09/04/20 09/30/20 History solifenacin 5 mg tablet (Vesicare) 5 mg PO QAM 09/04/20 09/30/20 History Past Med/Surg History Medical History Abdominal pain (03/24/13) Anxiety CAD (coronary artery disease) Chronic back pain Chronic throat clearing CKD (chronic kidney disease), stage III Closed head injury Depression Diabetes mellitus, type 2 Diverticular disease Diverticulitis History of colon cancer Hyperlipidemia Hypertension Hypothyroidism Osteoarthritis Pneumonia SBO (small bowel obstruction) Small bowel obstruction due to adhesions Stable angina Syncope Surgical History H/O umbilical hernia repair History of bilateral tubal ligation History of bowel resection History of cardiac cath History of cataract surgery History of colonoscopy History of dilatation and curettage History of discectomy History of esophagogastroduodenoscopy (EGD) History of hysterectomy Family History Mother Heart disease Breast cancer Cancer Myocardial infarction Sister Colorectal cancer Lung disease Cancer Father Hearing loss Heart disease Other Hypertension No family history of adverse response to anesthesia Denies family history of Ovarian cancer Prostate cancer Coronary heart disease Social History Smoking Status: Never smoker Second Hand Exposure: No; Hx Alcohol Use: No Hx Substance Use: No Preferred Language: Urdu Communication Ability: Effective Hearing Ability: Normal Personal Financial Advisor Required: No Beliefs That Will Affect Care: None marital status: / Current Living Situation: Alone current occupational status: retired Feels Safe at Home: Yes Childhood Exposure to Second-Hand Smoke: No caffeine: Yes during the past year weight has: remained stable Dental Care, Regularly: Yes Physical Activity Frequency: 1-2 Times per Week Seatbelt Use: always Sunscreen Use: Yes Assistive Devices: Glasses Review of Systems Review of Systems: Gen: Denies fevers, night sweats, rigors, fatigue, malaise, weight loss/gain ENT: Denies congestion, throat pain, hearing loss Eyes: Denies acute visual changes CV: Denies CP, palpitations Pulmonary: Denies SOB, cough, wheezing GI: Denies N/V, diarrhea, constipation Neuro: + gait impairment - cannot ambulate, no headache or acute visual changes Musculoskeletal: + edema and LE pain which is chronic Endocrine: Denies polydipsia, polyuria Skin: Denies acute rashes or ulcers Physical Exam Physical Exam: General: AAO x 3, no distress ENT: No erythema or exudates, no thrush Eyes: PEDRO PABLO, EOMI Head and neck: Normocephalic, atraumatic, No JVD, neck is supple. Chest/heart: Nontender, S1,2, RRR, no murmurs, no gallops Lungs: CTAB, no wheezing or crackles Abdomen: Nontender, nondistended, BS+ Neuro: AAO x 3, speech is clear, no unilateral weakness or loss of sensation, coordination intact Musculoskeletal: No joint inflammation + edema BL Skin: No acute rashes or ulcers Extremities: No clubbing, cyanosis Results & Data Results & Data ([facility]) Vital Signs (Past 12 Hours) Vital Signs Temp Pulse Resp BP Pulse Ox 09/30/20 14:00 63 20 170/106 H 98 09/30/20 13:30 64 23 170/99 H 97 09/30/20 13:00 63 17 183/91 H 93 09/30/20 12:42 62 20 98 09/30/20 11:52 97.9 F 92 H 18 182/88 H 98 Code Status & VTE Plan VTE Prophylaxis Plan VTE Prophylaxis will be ordered: Yes PG Care Time/CCT Total # of Minutes Spent Total Time Spent with Patient: Total time spent is greater than 50% in coordination of care (as documented) at patient's floor/unit and/or counseling patient: Coding Level of Care Code INT OBSERVATION CARE 70M LVL 3 Diagnoses Diabetes type 2, controlled E11.9 Hypertension I10 Dyslipidemia E78.5 Hypothyroidism E03.9 Gait abnormality R26.9
[2020-09-30] MEDS ORDERED: hydrALAZINE HCL 20 MG/ML VIAL IV ONE (16:18)
[2020-09-30] MEDS ORDERED: ACETAMINOPHEN 325 MG TAB PO PRN (17:00)
[2020-09-30] MEDS ORDERED: NITROGLYCERIN SL 0.4 MG/TAB TAB SL PRN (17:00)
[2020-09-30] MEDS: GABAPENTIN 300 MG CAP PO SCH (20:39)
[2020-09-30] MEDS: ATORVASTATIN 40 MG TAB PO SCH (20:39)
[2020-09-30] MEDS: DOCUSATE SODIUM 100 MG CAP PO SCH (20:39)
[2020-09-30] MEDS: PANTOprazole 40 MG TAB PO SCH (20:39)
[2020-09-30] MEDS: HEPARIN SOD 5,000 UNIT/0.5 ML VIAL SQ SCH (20:43)
[2020-10-01] MEDS: LEVOTHYROXINE SODIUM 50 MCG TABLET PO SCH (06:24)
[2020-10-01] MEDS: CYANOCOBALAMIN 500 MCG TABLET (VITAMIN B-12) PO SCH (08:09)
[2020-10-01] MEDS: HEPARIN SOD 5,000 UNIT/0.5 ML VIAL SQ SCH ×2 (08:09→21:28)
[2020-10-01] MEDS: PANTOprazole 40 MG TAB PO SCH ×2 (08:10→21:28)
[2020-10-01] MEDS: ASPIRIN 81 MG ECTAB PO SCH (08:10)
[2020-10-01] MEDS: DOCUSATE SODIUM 100 MG CAP PO SCH ×2 (08:10→21:28)
[2020-10-01] MEDS: nadoloL 40 MG TAB PO SCH (08:11)
[2020-10-01] MEDS: CALCIUM 600MG + VIT D 400 IU TAB PO SCH (08:11)
[2020-10-01] MEDS: ISOSORBIDE MONO EXTENDED REL 60 MG TABCR PO SCH (08:11)
[2020-10-01] MEDS: DULoxetine HCL 30 MG CAP PO SCH (08:12)
--- NOTE | 2020-10-01 11:28 | Electrocardiogram Report ---
Test Reason : Blood Pressure : / mmHG Vent. Rate : 061 BPM Atrial Rate : 061 BPM P-R Int : 194 ms QRS Dur : 076 ms QT Int : 448 ms P-R-T Axes : 049 -13 018 degrees QTc Int : 450 ms Normal sinus rhythm Low voltage QRS Cannot rule out Anterior infarct , age undetermined Nonspecific ST and T wave abnormality Abnormal ECG When compared with ECG of 05-MAY-2020 21:07, No significant change was found Confirmed by Jonel Hylton ([id number]) on 10/01/2020 11:28:05 AM Referred By: REFERRED SELF Confirmed By:Jonel Hylton
--- NOTE | 2020-10-01 15:45 | Hospitalist Progress Note ---
Date of Service October 01, 2020 Assessment & Plan (1) Gait abnormality: Plan: * May be secondary to diabetic peripheral neuropathy. Will obtain an A1c to assess control. * Lengthy discussion with patient that we should rule out all pathological causes for a staggering gait pattern. I wanted to pursue MRI; however, patient refusing at present. Initially refusing until I "cleared it with her it technical support specialist". I did speak with Dr. Aaron who agreed with work-up for ambula tory dysfunction. Patient now refusing until she "has a family meeting to discuss with daughters as they make decisions". I did attempt to call number listed with no answer. Will [place] back. * In the interim, will obtain a B12 level, vitamin D and A1c as mentioned above. * PT/OT consulted; however, patient claims that she is unwilling until she talks with daughters later today * In reviewing her recent visit with her PCP, PCP not overly concerned that there is in fact a medical/pathological issue ongoing but instead that patient may have progressing dementia * Currently, patient is answering all questions appropriately * Will attempt to reach out to daughters later today * Pending work-up, may benefit from neurology evaluation; however, patient not agreeable to any work-up right now (2) Edema: Plan: * Patient complains of progressive edema; however, no significant edema appreciated on exam. * Patient does have adiposity but only trace pitting edema * No BNP obtained but would be normal with right-sided CHF * Instead, I think an echocardiogram would be of value. Patient refusing for now. Initially refused until I spoke with her it technical support specialist. I have spoken to Dr. Aaron who agrees with work-up. Patient now refusing until she talks with her daughters. Lengthy discussion with patient that an echocardiogram is a noninvasive procedure but she still refuses at this time. (3) Diabetes type 2, controlled: Plan: * Obtain A1c. Perhaps contributing to her ambulatory dysfunction. Patient may have neuropathy causing a sensory ataxia (4) Hypertension: Plan: * Continue nadolol and Imdur (5) Dyslipidemia: Plan: * Continue atorvastatin (6) Hypothyroidism: Plan: * Continue Synthroid Plan: * Lengthy and multiple discussions with patient regarding her chief complaint/presentation and recommended work-up. I am uncertain as to what patient's desires are at this point. I do believe she should have a work-up to help differentiate the staggering gait pattern/ambulatory dysfunction in ad dition to an echocardiogram to assess LV function. She does not have significant pitting edema (trace at best) and has no respiratory symptoms. CXR showed no acute pulmonary vascular congestion. BNP not obtained but would not be helpful in right-sided failure if that is indeed ongoing. * No significant objective abnormality seen on exam * Patient refusing any further diagnostics or even PT/OT eval for now * Will reattempt to touch base with family later today * Patient answers all questions appropriately; however, she has a strange behavior and, uncertain if she is safe to be living alone. Admission and Anticipated Discharge Date Admission Date: October 01, 2020 Subjective Mrs. Marinelli is an 85-year-old white female who was hospitalized overnight for progressive gait abnormality with ambulatory dysfunction. She is a vague and inconsistent historian. She has a history of hypothyroidism, HLD, diabetes mellitus type 2, and CKD. She apparently lives alone and reports a staggering gait that has been progressive for the past 2 years. In addition, she has had worsening edema for approximately 3 to 4 weeks. She denies shortness of breath, dyspnea on exertion, orthopnea, PND, cough. Upon further prompting, does admit to paresthesias of her lower extremities bilaterally. Claims that she has not been evaluated for these symptoms; however, I can see that she saw her PCP on 09/25 for the symptoms. An echocardiogram was ordered but not yet performed. PCP was questioning the validity of any of the symptoms as there was nothing significant seen on exam. Dementia was considered. It is documented in his note that the patient got lost on the way to the office that day. Her granddaughter was driving and she directed her granddaughter to the wrong building despite being there for many office visits. In addition, patient reports to me that she has not seen her it technical support specialist since 2018. I see in office visit from July 2020. Patient could not give me the name of her it technical support specialist but made sure to stress the importance that I verify all orders with her it technical support specialist. Work-up in the ED was unremarkable. CBC, metabolic panel, TSH, urinalysis, Covid test all within normal limits/negative. Chest x-ray showed no acute pathology. Head CT was negative. X-ray of her right hip showed moderate arthritis but no acute pathology. I suggested further labs including a B12 in addition to an echocardiogram to assess LV function (which PCP wanted to obtain anyway). Last, I had suggested an MRI of the head to rule out any space-occupying lesion to further identify the staggering gait pattern. Patient refused until I got the blessing of her it technical support specialist. I did reach out to Dr. Aaron who agreed with working this patient up but now patient informs me that she needs to "have a family meeting with her daughters as they make all of the decisions" and she is not agreeable to any further testing until that is done. Last, patient lives alone and unsure if she can be home with this ambulatory dysfunction. She is not agreeable for placement or even PT/OT evaluation until she speaks with her daughters. patient is a diabetic but claims that she does not take medication for this as she "was told not to given the risk of her blood sugars being low as opposed to high" and she does not adhere to a carb consistent diet. Review of Systems Review of Systems: Unreliable but patient complains of edema of her upper and lower extremities, staggering gait All systems reviewed and are unremarkable except as noted in HPI and below Denies fevers, chills, headache, nasal congestion, sore throat, cough, chest pain, shortness of breath, orthopnea, PND, abdominal bloating, abdominal pain, nausea, vomiting, dysuria, hematuria, frequency, skin lesions or rashes. Physical Exam Physical Exam: General: Resting comfortably in her hospital bed. NAD. She does not have masked facies, a resting tremor or bradykinesia noted Neck: No JVD. Negative hepatojugular reflex Cardiac: RRR with 2/6 RON Lungs: CTA without W/R/R Abdomen: Normoactive X4. Soft and nontender in all quadrants. Extremities: Honestly, I do not appreciate any true pitting edema other than very mild. She does have adiposity of her upper and lower extremities but it is nonpitting Neuro: A&O. She is oriented to self/person, place, time and situation. Cranial nerves II through XII are grossly intact no focal neuro deficits. No cogwheeling. No resting tremor. Proprioception to the bilateral lower extremi ties is intact as patient able to differentiate up from down. She can differentiate sharp from dull. Skin: No obvious skin lesions or rashes Results & Data Results & Data ([facility]) Vital Signs (Past 12 Hours) Vital Signs Temp Pulse Resp BP Pulse Ox 10/01/20 15:06 36.6 C 62 16 96/60 L 94 10/01/20 07:28 36.7 C 57 L 16 142/84 H 92 Laboratory Results 09/30/20 12:58 09/30/20 12:58 Creatinine better than baseline (which seems to run 1.5-1.7) Diagnostic Findings CT of the head showed no acute pathology PG Care Time/CCT Total # of Minutes Spent Total Time Spent with Patient: Total time spent is greater than 50% in coordination of care (as documented) at patient's floor/unit and/or counseling patient: [place] [address] Subseq Hosp Care Lvl 3 Patient Type Established Medical Decision Making High Complexity Diagnoses Gait abnormality R26.9 Edema R60.9 Diabetes type 2, controlled E11.9 Hypertension I10 Dyslipidemia E78.5 Hypothyroidism E03.9 Time Spent (min) 60
[2020-10-01] MEDS ORDERED: LORazepam 1 MG TAB PO SCH (18:11)
[2020-10-01] MEDS: GABAPENTIN 300 MG CAP PO SCH (21:28)
[2020-10-01] MEDS: ATORVASTATIN 40 MG TAB PO SCH (21:28)
[2020-10-02] MEDS: LEVOTHYROXINE SODIUM 50 MCG TABLET PO SCH (06:15)
[2020-10-02 06:48] LABS: Basophils # (auto) 0.02 K/uL (0-0.2); Basophils % (auto) 0.3 %; Eosinophils # (auto) 0.56 K/uL (0-0.5); Eosinophils % (auto) 9.7 %; Hematocrit (blood only) 36.1 % (37-47); Hemoglobin 11.8 g/dL (12.0-16.0); Immature Granulocytes # (auto) 0.04 K/uL (0.00-0.02); Immature Granulocytes % (auto) 0.7 %; Lymphocytes # (auto) 1.91 K/uL (1.2-3.4); Mean Corpuscular Hemoglobin 32.9 pg (25-34); Mean Corpuscular Hgb Conc 32.7 g/dL (32-36); Mean Corpuscular Volume 100.6 fL (80-100); Mean Platelet Volume 8.7 fL (7.4-10.4); Monocytes # (auto) 0.44 K/uL (0.11-0.59); Monocytes % (auto) 7.6 %; Neutrophils # (auto) 2.81 K/uL (1.4-6.5); Neutrophils % (auto) 48.7 %; Platelet Count 231 K/uL (130-400); RDW Coefficient of Variation 16.3 % (11.5-14.5); RDW Standard Deviation 60.2 fL (36.4-46.3); Red Blood Count 3.59 M/uL (4.2-5.4); White Blood Count 5.78 K/uL (4.8-10.8)
--- NOTE | 2020-10-02 07:20 | Magnetic Resonance Report ---
MRI OF THE BRAIN WITHOUT CONTRAST CLINICAL HISTORY: abnormal gait COMPARISON STUDY: MRI of the brain July 17, 2016. Head CT September 30, 2020. TECHNIQUE: Utilizing a 1.5 Jessica magnet and dedicated coil, multiplanar, multiecho imaging of the bra in was performed without IV contrast. FINDINGS: There are no foci of restricted diffusion to suggest acute infarct. No acute intracranial h emorrhage, midline shift or mass effect is present. Ventricular system is unremarkable. Basal cistern s are patent. There are no extra-axial collections. No intracranial masses identified on this unenhan ramón examination. Numerous white matter T2 hyperintense foci suggest small vessel disease. These are s imilar to prior MRI. Calvarial signal is normal. IMPRESSION: 1. No acute intracranial findings. 2. No significant change in appearance of the brain since MRI of July 17, 2016. Numerous white matter T2 hyperintense foci suggestive of small vessel disease. ACT 112: Negative or not required by law. Electronically signed by: José Luis Hudson M.D. 10/02/2020 7:19 AM
[2020-10-02 07:25] LABS: BUN Creatinine Ratio 18.3 (10-20); Calcium 9.1 mg/dl (8.5-10.1); Creatinine Clr Calc Pharmacy 28.9 ml/min; Est GFR (Non-African American) 31.9 ml/min; Magnesium 2.1 mg/dl (1.8-2.4); Potassium 3.2 mmol/L (3.5-5.1)
[2020-10-02 07:33] LABS: Estimated Average Glucose 166 mg/dl; Hemoglobin A1C 7.4 % (4.5-5.6)
[2020-10-02] MEDS: CALCIUM 600MG + VIT D 400 IU TAB PO SCH (08:51)
[2020-10-02] MEDS: ISOSORBIDE MONO EXTENDED REL 60 MG TABCR PO SCH (08:51)
[2020-10-02] MEDS: ASPIRIN 81 MG ECTAB PO SCH (08:51)
[2020-10-02] MEDS: nadoloL 40 MG TAB PO SCH (08:51)
[2020-10-02] MEDS: CYANOCOBALAMIN 500 MCG TABLET (VITAMIN B-12) PO SCH (08:52)
[2020-10-02] MEDS: PANTOprazole 40 MG TAB PO SCH ×2 (08:52→20:52)
[2020-10-02] MEDS: DULoxetine HCL 30 MG CAP PO SCH (08:52)
[2020-10-02] MEDS: DOCUSATE SODIUM 100 MG CAP PO SCH ×2 (08:52→20:52)
[2020-10-02] MEDS: HEPARIN SOD 5,000 UNIT/0.5 ML VIAL SQ SCH ×2 (08:53→20:51)
--- NOTE | 2020-10-02 10:00 | XCELERA ---
[id number]
[2020-10-02] MEDS: POTASSIUM CHLORIDE CRTAB 20 MEQ TABCR PO SCH ×2 (10:35→20:51)
[2020-10-02] MEDS: ATORVASTATIN 40 MG TAB PO SCH (20:52)
[2020-10-02] MEDS: GABAPENTIN 300 MG CAP PO SCH (20:52)
--- NOTE | 2020-10-02 21:09 | Hospitalist Progress Note ---
Date of Service October 02, 2020 Assessment & Plan (1) Gait abnormality: Plan: * May be secondary to diabetic peripheral neuropathy. * MRI to evaluate for normal pressure hydrocephalus; however, patient refusing at present. Initially refusing until I "cleared it with her fan runner". Darcy Lucero did speak with Dr. Aaron who agreed with work-up for ambulatory dysfunction. Patient now refusing until she "has a family meeting to discuss with daughters as they make decisions". Darcy Lucero did attempt to call number listed with no answer. Will [place] back. * In the interim, supratherapeutic B12 level, normal vitamin D and A1c 7.4, she has had low thiamine level in the past * PT/OT consulted; however, patient claims that she is unwilling until she talks with daughters later today * In reviewing her recent visit with her PCP, PCP not overly concerned that there is in fact a medical/pathological issue ongoing but instead that patient may have progressing dementia * Currently, patient is answering all questions appropriately (2) Edema: Plan: * Patient complains of progressive edema; however, no significant edema appreciated on exam. * Patient does have adiposity but only trace pitting edema * No BNP obtained but would be normal with right-sided CHF * Echocardiogram performed October 02 shows preserved ejection fraction no significant valvular abnormalities mildly elevated right heart pressure (3) Diabetes type 2, controlled: Plan: * 7.4 A1c. Perhaps contributing to her ambulatory dysfunction. Patient may have neuropathy causing a sensory ataxia (4) Hypertension: Plan: * Continue nadolol and Imdur (5) Dyslipidemia: Plan: * Continue atorvastatin (6) Hypothyroidism: Plan: * Continue Synthroid Plan: * Lengthy and multiple discussions with patient regarding her chief complaint/presentation and recommended work-up. * Multiple somatic complaints seemingly none corroborated by physical exam perhaps thiamine deficiency we will institute thiamine replacement therapy and see if she improves continuing to offer physical occupational therapy Admission and Anticipated Discharge Date Admission Date: October 01, 2020 Subjective Patient remains having lengthy discussions regarding her difficulty ambulating without a direct focused inciting event stating that she has been feeling physical therapy as an outpatient and not been too tired to perform therapy when they came to see her Review of Systems Review of Systems: Mild distress and fatigue positive somatic complaints mostly related around weakness in lower extremity fatigue no headache, no visual changes no speech or swallowing issues no chest pain, pressure or palpitations no shortness of breath, cough or wheezes no abdominal pain, nausea or vomiting, diarrhea or constipation no dysuria, hematuria or frequency no focal joint pain or swelling no back pain, CVA tenderness or radicular pain states her back hurts all over no bruising, bleeding or rashes no focal signs of weakness or numbness or altered sensation states lower and upper extremities are extremely weak and no complaints of anxiety or depression.. Physical Exam Physical Exam: The patient appeared well nourished and normally developed. Vital signs as documented. Head exam is normocephalic atraumatic Neck is without JVD, thyromegaly, or carotid bruits. Lungs are clear to auscultation, no focal loss of breath sounds Cardiac exam, Rhythm is regular.. No murmurs, rubs or gallops. Abdominal exam reveals normal bowel sounds, soft non tender, no masses Extremities are nonedematous and both pedal pulses are present There is no pain with straight leg raising she is 4/5 strength bilateral lower extremities and upper extremities sensation is grossly intact Neurologic exam is alert and oriented, no focal loss of strength (although slightly less than expected) or sensation Skin is without bruises or rashes Psychologically is with questionably depression Results & Data Results & Data ([facility]) Vital Signs (Past 12 Hours) Vital Signs Temp Pulse Resp BP Pulse Ox 10/02/20 15:59 97.5 F L 58 L 18 124/77 97 PG Care Time/CCT Total # of Minutes Spent Total Time Spent with Patient: Total time spent is greater than 50% in coordination of care (as documented) at patient's floor/unit and/or counseling patient: Coding Level of Care Code 99544 Subseq Hosp Care Lvl 2 Diagnoses Gait abnormality R26.9 Edema R60.9 Diabetes type 2, controlled E11.9 Hypertension I10 Dyslipidemia E78.5 Hypothyroidism E03.9
[2020-10-02] MEDS ORDERED: THIAMINE HCL 200 MG in SODIUM CHLORIDE 0.9% 50 ML IV ONE (21:45)
[2020-10-03] MEDS: LEVOTHYROXINE SODIUM 50 MCG TABLET PO SCH (05:57)
[2020-10-03] MEDS: HEPARIN SOD 5,000 UNIT/0.5 ML VIAL SQ SCH ×2 (09:05→20:32)
[2020-10-03] MEDS: DULoxetine HCL 30 MG CAP PO SCH (09:06)
[2020-10-03] MEDS: ASPIRIN 81 MG ECTAB PO SCH (09:06)
[2020-10-03] MEDS: DOCUSATE SODIUM 100 MG CAP PO SCH ×2 (09:06→20:32)
[2020-10-03] MEDS: CYANOCOBALAMIN 500 MCG TABLET (VITAMIN B-12) PO SCH (09:06)
[2020-10-03] MEDS: ISOSORBIDE MONO EXTENDED REL 60 MG TABCR PO SCH (09:06)
[2020-10-03] MEDS: PANTOprazole 40 MG TAB PO SCH ×2 (09:06→20:33)
[2020-10-03] MEDS: CALCIUM 600MG + VIT D 400 IU TAB PO SCH (09:06)
[2020-10-03] MEDS: POTASSIUM CHLORIDE CRTAB 20 MEQ TABCR PO SCH (09:07)
[2020-10-03] MEDS: nadoloL 40 MG TAB PO SCH (09:07)
[2020-10-03] MEDS: THIAMINE HCL 200 MG in SODIUM CHLORIDE 0.9% 50 ML IV SCH (09:10)
[2020-10-03 13:46] LABS: BUN Creatinine Ratio 18.4 (10-20); Calcium 9.3 mg/dl (8.5-10.1); Creatinine Clr Calc Pharmacy 27.4 ml/min; Est GFR (African American) 34.7 ml/min; Potassium 4.4 mmol/L (3.5-5.1)
--- NOTE | 2020-10-03 18:42 | Hospitalist Progress Note ---
Date of Service October 03, 2020 Assessment & Plan (1) Gait abnormality: Plan: Unclear as to what etiology may be Differential diagnosis includes diabetic peripheral neuropathy, age, progressive dementia, vitamin imbalance Doing better with physical therapy Recommend snf for rehab with possible transition to long-term residence Accepted to [facility]. They will have a bed available on For now, continue PT OT Discussed with daughter Debbie on the phone. She is in agreement with plan (2) Edema: Plan: This seems to be improved. There is only trace edema on examination History of right-sided heart failure Preserved left ventricular ejection fraction with mildly elevated right heart pressure on previous echocardiogram Continue to monitor (3) Diabetes type 2, controlled: Plan: Hemoglobin A 1C is 7.4% Diet controlled Outpatient management (4) Hypertension: Plan: Generally controlled Continue Haldol Continue Imdur Monitor vital signs per protocol (5) Dyslipidemia: Plan: Continue atorvastatin Outpatient management (6) Hypothyroidism: Plan: Continue Synthroid (7) CKD (chronic kidney disease), stage III: Plan: Creatinine 1.57 This appears to be stable and consistent with baseline creatinine (8) Hypokalemia: Plan: Resolved Potassium 3.2 yesterday and 4.4 today (9) DVT prophylaxis: Plan: Heparin 5000 units subcu every 12 hours (10) Diabetic neuropathy: Plan: Disposition: Referral made to [facility] today Patient was accepted and a bed will be available on Discussed with patient and daughter who are in agreement Admission and Anticipated Discharge Date Admission Date: October 01, 2020 Subjective Attending: Dr. Joseph Patient doing well this morning Seen in bedside chair Discussion with daughter Patient doing better with physical therapy and denies pain with ambulation Continues with weakness per patient report Awaiting bed placement at [facility] No further acute complaints Review of Systems Review of Systems: All systems reviewed & are unremarkable except as noted in Subjective Physical Exam Physical Exam: GENERAL : No acute distress EYES: No icterus, gaze conjugate NOSE: No evidence of epistaxis MOUTH: No lesions or candidiasis NECK: Supple LUNGS: CTA B/L, no wheezes, rales or rhonchi HEART: Regular, rate controlled ABDOMEN: Soft, NT, ND, BS Present EXTREMITIES: Trace bilateral LE edema, pedal pulses intact and equal bilaterally. NEURO: A&OX3 Results & Data Results & Data ([facility]) Vital Signs (Past 12 Hours) Vital Signs Temp Pulse Resp BP Pulse Ox 10/03/20 15:14 36.4 C L 61 16 108/71 95 10/03/20 07:46 36.5 C 60 18 174/97 H 97 Laboratory Results 10/02/20 06:22 10/03/20 13:03 PG Care Time/CCT Total # of Minutes Spent Total Time Spent with Patient: Total time spent is greater than 50% in coordination of care (as documented) at patient's floor/unit and/or counseling patient: Coding Level of Care Code 21780 Subseq Hosp Care Lvl 2 Diagnoses Gait abnormality R26.9 Edema R60.9 Diabetes type 2, controlled E11.9 Hypertension I10 Dyslipidemia E78.5 Hypothyroidism E03.9 CKD (chronic kidney disease), stage III N18.3 Hypokalemia E87.6 DVT prophylaxis Z29.9 Diabetic neuropathy E11.40 Time Spent (min) 40 Comment Total 40-minute spent including discharge planning with case management, patient, daughter
[2020-10-03] MEDS: ATORVASTATIN 40 MG TAB PO SCH (20:31)
[2020-10-03] MEDS: GABAPENTIN 300 MG CAP PO SCH (20:32)
[2020-10-04] MEDS: LEVOTHYROXINE SODIUM 50 MCG TABLET PO SCH (06:06)
[2020-10-04] MEDS: DOCUSATE SODIUM 100 MG CAP PO SCH ×2 (08:58→21:09)
[2020-10-04] MEDS: CYANOCOBALAMIN 500 MCG TABLET (VITAMIN B-12) PO SCH (08:59)
[2020-10-04] MEDS: CALCIUM 600MG + VIT D 400 IU TAB PO SCH (08:59)
[2020-10-04] MEDS: ASPIRIN 81 MG ECTAB PO SCH (08:59)
[2020-10-04] MEDS: ISOSORBIDE MONO EXTENDED REL 60 MG TABCR PO SCH (09:00)
[2020-10-04] MEDS: HEPARIN SOD 5,000 UNIT/0.5 ML VIAL SQ SCH ×2 (09:00→21:08)
[2020-10-04] MEDS: nadoloL 40 MG TAB PO SCH (09:00)
[2020-10-04] MEDS: PANTOprazole 40 MG TAB PO SCH ×2 (09:00→21:09)
[2020-10-04] MEDS: DULoxetine HCL 30 MG CAP PO SCH (09:00)
[2020-10-04] MEDS: THIAMINE HCL 200 MG in SODIUM CHLORIDE 0.9% 50 ML IV SCH (10:55)
--- NOTE | 2020-10-04 16:04 | Hospitalist Progress Note ---
Date of Service October 04, 2020 Assessment & Plan (1) Gait abnormality: Plan: Unclear as to what etiology may be Differential diagnosis includes diabetic peripheral neuropathy, age, progressive dementia, vitamin imbalance Doing better with physical therapy Recommend fci for rehab with possible transition to long-term residence Accepted to [facility]. They will have a bed available on For now, continue PT OT Anticipate discharge transfer tomorrow (2) Edema: Plan: Trace edema on examination Pulmonary examination benign History of right-sided heart failure Preserved left ventricular ejection fraction with mildly elevated right heart pressure on previous echocardiogram Continue to monitor (3) Diabetes type 2, controlled: Plan: Hemoglobin A 1C is 7.4% Diet controlled No report of insulin use at home Outpatient management (4) Hypertension: Plan: Generally controlled Continue nadolol Continue Imdur Monitor vital signs per protocol (5) Dyslipidemia: Plan: Continue atorvastatin Outpatient management (6) Hypothyroidism: Plan: Continue Synthroid (7) CKD (chronic kidney disease), stage III: Plan: Creatinine 1.57 yesterday. This appears to be stable and consistent with baseline creatinine (8) Hypokalemia: Plan: Resolved Potassium 4.4 yesterday (9) DVT prophylaxis: Plan: Heparin 5000 units subcu every 12 hours Plan: Disposition: Referral made to [facility] and patient was accepted Anticipate transfer tomorrow Admission and Anticipated Discharge Date Admission Date: October 01, 2020 Subjective Attending: Dr. Joseph Patient seen at bedside. She is in bed sleeping. She was easily awoken. States that she did not sleep well last night and this is a first time she slept comfortably. Hallucinations have resolved with the increase in risperidone. No shortness of breath. No dyspnea with laying completely flat. No acute complaints. Review of Systems Review of Systems: All systems reviewed & are unremarkable except as noted in Subjective Physical Exam Physical Exam: GENERAL : No acute distress EYES: No icterus, gaze conjugate NOSE: No evidence of epistaxis MOUTH: No lesions or candidiasis NECK: Supple LUNGS: CTA B/L, no wheezes, rales or rhonchi HEART: Regular, rate controlled ABDOMEN: Soft, NT, ND, BS Present EXTREMITIES: Trace bilateral LE edema, pedal pulses intact and equal bilaterally. NEURO: A&OX3 Results & Data Results & Data ([facility]) Vital Signs (Past 12 Hours) Vital Signs Temp Pulse Resp BP BP Pulse Ox 10/04/20 15:53 36.2 C L 55 L 22 117/72 94 10/04/20 07:38 36.7 C 59 L 18 127/79 97 Laboratory Results 10/02/20 06:22 10/03/20 13:03 Diagnostic Findings No further imaging PG Care Time/CCT Total # of Minutes Spent Total Time Spent with Patient: Total time spent is greater than 50% in coordination of care (as documented) at patient's floor/unit and/or counseling patient: 20 minutes Coding Level of Care Code 76767 Inpt Consult Level 2 Diagnoses Gait abnormality R26.9 Edema R60.9 Diabetes type 2, controlled E11.9 Hypertension I10 Dyslipidemia E78.5 Hypothyroidism E03.9 CKD (chronic kidney disease), stage III N18.3 Hypokalemia E87.6 DVT prophylaxis Z29.9 Time Spent (min) 20
[2020-10-04] MEDS: ATORVASTATIN 40 MG TAB PO SCH (21:07)
[2020-10-04] MEDS: GABAPENTIN 300 MG CAP PO SCH (21:08)
[2020-10-05] MEDS: LEVOTHYROXINE SODIUM 50 MCG TABLET PO SCH (05:52)
[2020-10-05] MEDS: ASPIRIN 81 MG ECTAB PO SCH (09:05)
[2020-10-05] MEDS: PANTOprazole 40 MG TAB PO SCH (09:06)
[2020-10-05] MEDS: DULoxetine HCL 30 MG CAP PO SCH (09:06)
[2020-10-05] MEDS: nadoloL 40 MG TAB PO SCH (09:06)
[2020-10-05] MEDS: DOCUSATE SODIUM 100 MG CAP PO SCH (09:06)
[2020-10-05] MEDS: CALCIUM 600MG + VIT D 400 IU TAB PO SCH (09:06)
[2020-10-05] MEDS: ISOSORBIDE MONO EXTENDED REL 60 MG TABCR PO SCH (09:06)
[2020-10-05] MEDS: CYANOCOBALAMIN 500 MCG TABLET (VITAMIN B-12) PO SCH (09:06)
[2020-10-05] MEDS: HEPARIN SOD 5,000 UNIT/0.5 ML VIAL SQ SCH (09:11)
[2020-10-05] MEDS: THIAMINE HCL 200 MG in SODIUM CHLORIDE 0.9% 50 ML IV SCH (09:15)
--- NOTE | 2020-10-05 12:10 | Discharge Summary ---
Date of Service October 05, 2020 Admission HPI Per Admitting Provider 85 y/o F Hx hypothyroid, HTN, HLD, DM II, CAD, CKD III, impaired gait. The pt states that she has spells where she is unable to bear weight. She could not apparently get out of bed today. She is reduced to crawling around in these instances. She did not suffer a fall and denies SOB, CP, nausea/vomiting, diarrhea, dysuria a rash or fevers. She denies specific joint pain but does have chronic pain in her lower extremities. She also states that recently, her lower extremity edema has worsened and her MD has ordered an echo as a result. This is currently pending. The pt has been undergoing PT at home. She states that it has not been consistent or helpful. She lives alone and is requesting placement in rehab therefore. Labs and imaging are unremarkable. She was fairly hypertensive at the time of admission. PMH: 1) HTN 2) HLD 3) Hypothyroid 4) DM II - diet controlled 5) CAD 6) CKD III 7) Impaired gait 8) Lower extremity edema Surgical: 1) Ventral hernia repair 2) Small bowel resection 3) Tubal ligation 4) JESUS-SBO 5) Lumbar discectomy 6) Cataracts Social: Does not drink or smoke Family: Father - CAD Mother - CAD/IA, breast CA Admission Exam Per Admitting Provider General: AAO x 3, no distress ENT: No erythema or exudates, no thrush Eyes: PEDRO PABLO, EOMI Head and neck: Normocephalic, atraumatic, No JVD, neck is supple. Chest/heart: Nontender, S1,2, RRR, no murmurs, no gallops Lungs: CTAB, no wheezing or crackles Abdomen: Nontender, nondistended, BS+ Neuro: AAO x 3, speech is clear, no unilateral weakness or loss of sensation, coordination intact Musculoskeletal: No joint inflammation + edema BL Skin: No acute rashes or ulcers Extremities: No clubbing, cyanosis Principal Diagnosis Ambulatory dysfunction secondary to weakness and deconditioning Discharge Exam GENERAL : No acute distress EYES: No icterus, gaze conjugate NOSE: No evidence of epistaxis MOUTH: No lesions or candidiasis NECK: Supple LUNGS: CTA B/L, no wheezes, rales or rhonchi HEART: Regular, rate controlled ABDOMEN: Soft, NT, ND, BS Present EXTREMITIES: Trace bilateral LE edema, pedal pulses intact and equal bilaterally. NEURO: A&OX3 Discharge Data Allergies Allergy/AdvReac Type Severity Reaction Status Date / Time verapamil Allergy Severe RASH Verified 09/25/20 09:21 oxybutynin Allergy Intermediate ITCHING Verified 09/25/20 09:21 adhesive Allergy Mild redness Verified 09/25/20 09:21 latex Allergy Mild ITCHING Verified 09/25/20 09:21 meperidine AdvReac Severe HYPOTENSION Verified 09/25/20 09:21 sodium phosphate AdvReac Severe DECREASED Verified 09/25/20 09:21 [From OsmoPrep] KIDNEY FUNCTION atenolol AdvReac Intermediate tachycardia; Verified 09/25/20 09:21 nervousness diazepam AdvReac Intermediate crying; Verified 09/25/20 09:21 depression fluoxetine AdvReac Intermediate crying; Verified 09/25/20 09:21 depression ibuprofen AdvReac Intermediate low kidney Verified 09/25/20 09:21 function Iodinated Contrast Media AdvReac Intermediate IVP DYE - Verified 09/25/20 09:21 low kidney function lidocaine AdvReac Intermediate Altered Verified 09/25/20 09:21 Mental Status with ointment ONLY naproxen AdvReac Intermediate Low kidney Verified 09/25/20 09:21 function sertraline AdvReac Intermediate crying; Verified 09/25/20 09:21 depression venlafaxine AdvReac Intermediate Nervous Verified 09/25/20 09:21 tramadol AdvReac Mild dizziness Verified 09/25/20 09:21 Consultations 09/30/20 14:48 ED Decision to Admit Stat Ordered Studies 09/30/20 12:34 CT head/brain wo con Stat 10/02/20 18:15 MR brain wo con Routine Hospital Course (1) Gait abnormality: Unclear as to what etiology may be Differential diagnosis includes diabetic peripheral neuropathy, age, progressive dementia, vitamin imbalance, deconditioning, weakness Doing better with physical therapy Recommend correction for rehab with possible transition to long-term residence Accepted to [facility]. Discharge for PT OT and strengthening (2) Edema: Trace edema on examination Pulmonary examination benign History of right-sided heart failure Preserved left ventricular ejection fraction with mildly elevated right heart pressure on previous echocardiogram Continue to monitor (3) Diabetes type 2, controlled: Hemoglobin A 1C is 7.4% Diet controlled No report of insulin use at home Outpatient management with PCP (4) Hypertension: Generally controlled Continue nadolol Continue Imdur (5) Dyslipidemia: Continue atorvastatin Outpatient management (6) Hypothyroidism: Continue Synthroid (7) CKD (chronic kidney disease), stage III: Creatinine 1.57 This appears to be stable and consistent with baseline creatinine Outpatient management (8) Hypokalemia: Resolved Potassium 4.4 Disposition: Discharged to [facility] Total Time Total Time Spent Total Time Spent (In Minutes): 35 minutes Discharge Plan Discharge Items Patient Disposition: Personal Shelter Reason For Visit: CANNOT WALK Discharge Diagnosis: Generalized weakness, ambulatory dysfunction Activity: Resume your previous activity Activity Comment: Home health and physical therapy scheduled Lifting: Gradually increase as tolerated Bathing: No limitations Exercise/Sports: Gradually increase as tolerated Weightbearing: Full weightbearing Non-emergency contact: Primary Care Provider Call non-emergency contact if: you have any medication questions, your symptoms worsen and you have a fever Follow-up/Referrals: Chris Espitia III, MD [Primary Care Provider] - 10/10/20 3:00 pm (You will be seeing Drake Alegria PA-C) Diet: Carb Consistent or DM2 and Heart Healthy Addtl Attending Provider Instructions: You were admitted for weakness and inability to ambulate. You has shown improvement with physical therapy. [facility] are being transferred to [facility] for rehabilitation. Please keep all of your outpatient appointments. Follow-up with your primary care provider with any questions or new concerns. Pending Studies at Discharge: No Stand-Alone Forms: My [employer], Smoking Cessation Skilled Items Patient informed of condition?: Yes DNR: No Discharge Level of Care: Skilled Communicable Disease: No Discharge Prognosis: Improving Lines: None Urinary Catheter: No Medications and DC Order Prescriptions: Continued docusate sodium [Stool Softener] 100 mg capsule 100 mg PO BID Qty: 60 RF: 2 pantoprazole 40 mg tablet,delayed release (DR/EC) 40 mg PO BID Qty: 180 RF: 3 nitroglycerin 0.4 mg tablet, sublingual See Rx Instructions .ROUTE .COMPLEX Qty: 25 RF: 3 (DME) Accu-Chek Debbie Plus test strp Strip See Rx Instructions .Route Qty: 100 RF: 5 peg 400-propylene glycol 0.4-0.3 % drops 1 drp OPB BID RF: 0 acetaminophen 325 mg Tablet 325 mg PO Q4H MDD 3 GM APAP/24 HOURS PRN (Reason: Pain) RF: 0 calcium carbonate-vitamin D3 [Oyster Shell Calcium-Vit D3] 500 mg(1,250mg) - 200 unit Tablet 1 tab PO QAM RF: 0 aspirin [Aspirin Low Dose] 81 mg Tablet,Delayed Release (Dr/Ec) 81 mg PO QAM RF: 0 atorvastatin 40 mg tablet 40 mg PO HS RF: 0 isosorbide mononitrate 120 mg tablet extended release 24 hr 120 mg PO QAM RF: 0 cyanocobalamin (vitamin B-12) 500 mcg tablet 1,000 mcg PO QAM RF: 0 levothyroxine 50 mcg tablet 50 mcg PO QAM RF: 0 gabapentin 300 mg capsule 300 mg PO HS RF: 0 nadolol 40 mg tablet 40 mg PO QAM RF: 0 duloxetine [Cymbalta] 30 mg capsule,delayed release(DR/EC) 30 mg PO QAM RF: 0 solifenacin [Vesicare] 5 mg tablet 5 mg PO QAM RF: 0 No Action diphenhydramine HCl [Benadryl] 25 mg capsule 25 mg PO HS PRN (Reason: sleep ) RF: 0 Discharge Orders: Discharge Order (Routine); Ordered 10/05/20 Ordered By: Hilton Nuñez/Other Patient Handouts: A1C, Managing Type 2 Diabetes, Fall Prevention Assessing Risk Admission Data Admit Date/Time: 10/01/20 12:42 Attending Provider: [place] Admit Provider: Swapnil Crowley Primary Care Provider: Chris Espitia III Other Providers: Swapnil Crowley Other Interventions: Discharge Summary Assessment (RN) Last Done: 10/05/20 10:18 Coding Level of Care Code D/C DAY MANAGEMENT >30 MINS Diagnoses Gait abnormality R26.9 Edema R60.9 Diabetes type 2, controlled E11.9 Hypertension I10 Dyslipidemia E78.5 Hypothyroidism E03.9 CKD (chronic kidney disease), stage III N18.3 Hypokalemia E87.6 Time Spent (min) 35
== END 2020-10-05 11:42 | disposition home or self-care (01) | DRG 74 ==
LOC: 3W 11:41 → ED 11:41 → SUATTDRO 15:45 → 3W 17:11 → SUATTDRO 10-01 12:42

== ENCOUNTER 2022-04-27 11:54 | Inpatient (IN) ==
--- NOTE | 2022-04-27 12:17 | Emergency Department Note ---
Impression & Plan COVID-19, Weakness, Acute hypokalemia ED Provider Note NAME: MICHELLE STEWART AGE: 86 SEX: F : 1935 ARRIVES VIA: Ambulance INFORMANT: Patient ED PROVIDER(S): Dillan Markham DO CHIEF COMPLAINT: fall HPI: Patient is an 86-year-old female with past medical history of CKD, CAD, hypertension, hyperlipidemia, who presents to the ER as she was getting up from toilet and fell. She denies hitting her head. No neck pain. No chest pain, shortness of breath, nausea, vomiting, or diarrhea. She denies all other complaints. Admits to chronic swelling of her lower extremities. Denies any fevers. Report notes that patient has had some cough and watery eyes. PAST MEDICAL HISTORY:See Below PAST SURGICAL HISTORY:See Below FAMILY HISTORY:See Below SOCIAL HISTORY:See Below HOME MEDICATIONS:See Below ALLERGIES:See Below VITALS:See Below PHYSICAL EXAMINATION: GENERAL: Sitting up in bed, alert, well appearing, well nourished, no distress, non-toxic EYE EXAM: normal conjunctiva. PERRL and EOM's grossly intact. OROPHARYNX: no exudate, no erythema, lips, buccal mucosa, and tongue normal and mucous membranes are moist NECK: supple, no nuchal rigidity, no adenopathy, non-tender LUNGS: Clear to auscultation. Normal chest wall mechanics HEART: no murmurs, S1 normal and S2 normal ABDOMEN: abdomen soft, non-tender, normo-active bowel sounds, no masses, no rebound or guarding. BACK: Back is symmetrical on inspection and there is no deformity, midline tenderness in the lower lumbar with bruising UPPER EXTREMITIES: upper extremities are grossly normal. LOWER EXTREMITIES: No pitting edema. NEURO EXAM: Normal sensorium, cranial nerves II-XII grossly intact, normal speech, no gross weakness of arms, no gross weakness of legs. MEDICAL DECISION MAKING: Patient is a 86-year-old female who presents the ER for cough, weakness and a fall. IV was established blood work was obtained. Labs show no significant leukocytosis. Mild anemia 11. BMP with a mild hypokalemia 3.3. Creatinine 1.4. LFTs bilirubin was unremarkable. Troponin was negative. UA was clean. Patient is positive for COVID. Chest x-ray was negative per my read. CT head and x-rays of lumbar spine were unremarkable. Patient was given IV fluids. She is updated bedside. She was unable to ambulate and consequently was discussed with patrizia self for further evaluation treatment and management from the hospitalist service. Family was updated at bedside as well. External records were reviewed. Report was obtained from EMS. Triage Nursing notes reviewed. Limited review of prior medical records performed Vital Signs: reviewed and remarkable for no significant abnormalities Differential diagnosis: Infection, dehydration, metabolic abnormality, hypo/hyperglycemia, electrolyte disturbance, anemia, hypoxia, cardiac sources, intracerebral event, toxicologic, neurologic, as well as other pathologies. ER treatment provided: See below Diagnostics interpreted by me include EKG and cardiac monitoring as listed below: -Cardiac Monitoring: An order was placed for continuous cardiac monitoring. The monitor shows a rate of 70 with sinus rhythm. -ECG: Sinus rhythm rate 61 T wave inversion in septal leads ST depressions in V3 QTc 465 -Laboratory studies:Interpreted by me as stated above in MDM and shown below. Imaging studies: Xrays: As interpreted by me: Portable AP upright 1 view per my read shows no focal infiltrate CTs show: CT head was negative X-rays of lumbar spine showed no acute fracture Consultation(s): As described in MDM Procedures:none Critical Care: None Past Med/Surg History Medical History Abdominal pain (03/24/13) Anxiety CAD (coronary artery disease) Chronic back pain Chronic throat clearing CKD (chronic kidney disease), stage III Closed head injury Depression Diabetes mellitus, type 2 NO MEDICATIONS. Diverticular disease Diverticulitis History of colon cancer 2011 -- COLON RESECTION. NO CHEMO/RADIATION Hyperlipidemia Hypertension Hypothyroidism Osteoarthritis Pneumonia hx of 2015 SBO (small bowel obstruction) Small bowel obstruction due to adhesions Stable angina LAST USED NITRO ~AUGUST 2017 Syncope HAS HAD CARDIAC WORK UP, EEG, AND MRI OF BRAIN WITH NO ABNORMALITIES Surgical History H/O umbilical hernia repair History of bilateral tubal ligation History of bowel resection 2011 History of cardiac cath NO STENTS. (2007) History of cataract surgery BILATERAL History of colonoscopy History of dilatation and curettage History of discectomy LUMBAR REGION History of esophagogastroduodenoscopy (EGD) History of hysterectomy JESUS WITH BSO Family History Mother Heart disease Breast cancer Cancer Myocardial infarction Sister Colorectal cancer Lung disease Cancer Father Hearing loss Heart disease Other Hypertension No family history of adverse response to anesthesia Denies family history of Ovarian cancer Prostate cancer Coronary heart disease Social History Smoking Status: Never smoker Second Hand Exposure: No; Hx Alcohol Use: No Hx Substance Use: No Preferred Language: [place]ican Communication Ability: Effective Hearing Ability: Normal 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 Beliefs That Will Affect Care: None marital status: / Current Living Situation: Personal Care Facility and Other Current Living Situation Comment: [facility] current occupational status: retired Feels Safe at Home: Yes Childhood Exposure to Second-Hand Smoke: No caffeine: Yes during the past year weight has: remained stable Dental Care, Regularly: Yes Physical Activity Frequency: 1-2 Times per Week Seatbelt Use: always Sunscreen Use: Yes Assistive Devices: Walker Allergies Allergies Allergy/AdvReac Type Severity Reaction Status Date / Time verapamil Allergy Severe RASH Verified 04/11/22 13:42 latex Allergy Intermediate ITCHING Verified 04/11/22 13:42 oxybutynin Allergy Intermediate ITCHING Verified 04/11/22 13:42 adhesive Allergy Mild redness Verified 04/11/22 13:42 meperidine AdvReac Severe HYPOTENSION Verified 04/11/22 13:42 sodium phosphate AdvReac Severe DECREASED Verified 04/11/22 13:42 [From OsmoPrep] KIDNEY FUNCTION atenolol AdvReac Intermediate tachycardia; Verified 04/11/22 13:42 nervousness diazepam AdvReac Intermediate crying; Verified 04/11/22 13:42 depression fluoxetine AdvReac Intermediate crying; Verified 04/11/22 13:42 depression ibuprofen AdvReac Intermediate low kidney Verified 04/11/22 13:42 function Iodinated Contrast Media AdvReac Intermediate IVP DYE - Verified 04/11/22 13:42 low kidney function lidocaine AdvReac Intermediate Altered Verified 04/11/22 13:42 Mental Status with ointment ONLY naproxen AdvReac Intermediate Low kidney Verified 04/11/22 13:42 function sertraline AdvReac Intermediate crying; Verified 04/11/22 13:42 depression tramadol AdvReac Intermediate dizziness Verified 04/11/22 13:42 venlafaxine AdvReac Intermediate Nervous Verified 04/11/22 13:42 Home Meds Home Medications Medication Instructions Recorded Confirmed aspirin 81 mg tablet,delayed 81 mg PO QAM 12/10/17 04/27/22 release (Wilma Low Dose Aspirin) calcium carbonate 500 mg-vitamin 1 tab PO QAM 05/15/19 04/27/22 D3 5 mcg (200 unit) tablet (Oyster Shell Calcium-Vitamin D3) acetaminophen 500 mg tablet 1,000 mg PO Q6H PRN Fever Or Pain 08/22/21 04/27/22 ondansetron HCl 4 mg tablet 4 mg PO Q6 PRN Nausea And Vomiting 08/22/21 04/27/22 bismuth subsalicylate 262 mg/15 mL 524 mg PO QID PRN 03/14/22 04/27/22 oral suspension (Pepto-Bismol) HEARTBURN/DIARRHEA diclofenac sodium 1 % topical gel 2 g topical TID PRN RIGHT SHOULDER 03/14/22 04/27/22 PAIN furosemide 40 mg tablet (Lasix) 40 mg PO QAM 03/14/22 04/27/22 loperamide 2 mg tablet 2 mg PO DIRECTED PRN Diarrhea 03/14/22 04/27/22 nitroglycerin 0.4 mg sublingual 0.4 mg sublingual DIRECTED PRN 04/08/22 04/27/22 tablet Chest Pain Previous Rx's Medication Instructions Recorded docusate sodium 100 mg capsule 100 mg PO BID #60 caps 06/01/19 (Stool Softener) gabapentin 300 mg capsule 300 mg PO HS Pain #90 caps 05/09/21 duloxetine 60 mg capsule,delayed 60 mg PO DAILY #90 caps 07/12/21 release omeprazole 40 mg capsule,delayed 40 mg PO DAILY Heartburn #90 caps 11/09/21 release levothyroxine 50 mcg tablet 50 mcg PO DAILYBB #90 tabs 11/15/21 isosorbide mononitrate 120 mg 120 mg PO DAILY #90 tabs 11/16/21 tablet,extended release 24 hr nadolol 40 mg tablet 40 mg PO QAM #30 tabs 01/08/22 famotidine 40 mg tablet (Pepcid) 40 mg PO DAILY #90 tabs 01/09/22 atorvastatin 40 mg tablet 40 mg PO HS #90 tabs 01/28/22 sitagliptin phosphate 25 mg tablet 25 mg PO DAILY #30 tabs 03/22/22 (Januvia) donepezil 10 mg tablet (Aricept) 10 mg PO DAILY 30 days #30 tabs 04/06/22 Results & Data (ED) Vital Signs Vital Signs - 24 hr 04/27/22 12:08 04/27/22 12:17 04/27/22 12:33 Temperature Temperature Source Pulse Rate 72 64 Pulse Rate [Apical] Pulse Rate from SpO2 Sensor Respiratory Rate 16 Respiratory Effort / Characteristics Non-Labored Respiratory Depth Normal Blood Pressure 129/62 Blood Pressure [Right Arm] Blood Pressure Mean 84 Blood Pressure Mean [Right Arm] Pulse Oximetry 97 Oxygen Delivery Method Room Air Room Air Sepsis Recent Fever Within 48 Hours No Sepsis New/Unexplained Change in Mental Status No Sepsis Action Taken by Nursing No Action Required 04/27/22 14:08 04/27/22 15:06 04/27/22 12:32 Temperature 36.9 C Temperature Source Oral Pulse Rate 64 Pulse Rate [Apical] 64 Pulse Rate from SpO2 Sensor Respiratory Rate 16 18 Respiratory Effort / Characteristics Non-Labored Respiratory Depth Normal Blood Pressure Blood Pressure [Right Arm] 129/64 Blood Pressure Mean Blood Pressure Mean [Right Arm] 85 Pulse Oximetry 99 Oxygen Delivery Method Room Air Sepsis Recent Fever Within 48 Hours Sepsis New/Unexplained Change in Mental Status Sepsis Action Taken by Nursing 04/27/22 14:18 04/27/22 14:20 04/27/22 14:30 Temperature Temperature Source Pulse Rate 68 63 63 Pulse Rate [Apical] Pulse Rate from SpO2 Sensor 63 63 63 Respiratory Rate 14 16 18 Respiratory Effort / Characteristics Respiratory Depth Blood Pressure Blood Pressure [Right Arm] Blood Pressure Mean Blood Pressure Mean [Right Arm] Pulse Oximetry 97 98 98 Oxygen Delivery Method Sepsis Recent Fever Within 48 Hours Sepsis New/Unexplained Change in Mental Status Sepsis Action Taken by Nursing 04/27/22 14:40 04/27/22 14:50 04/27/22 15:00 Temperature Temperature Source Pulse Rate 65 65 65 Pulse Rate [Apical] Pulse Rate from SpO2 Sensor 64 64 65 Respiratory Rate 18 19 32 H Respiratory Effort / Characteristics Respiratory Depth Blood Pressure Blood Pressure [Right Arm] Blood Pressure Mean Blood Pressure Mean [Right Arm] Pulse Oximetry 98 99 98 Oxygen Delivery Method Sepsis Recent Fever Within 48 Hours Sepsis New/Unexplained Change in Mental Status Sepsis Action Taken by Nursing 04/27/22 15:10 04/27/22 15:11 04/27/22 15:11 Temperature Temperature Source Pulse Rate 63 65 Pulse Rate [Apical] Pulse Rate from SpO2 Sensor 65 65 Respiratory Rate 18 20 Respiratory Effort / Characteristics Respiratory Depth Blood Pressure 176/81 H Blood Pressure [Right Arm] Blood Pressure Mean 112 Blood Pressure Mean [Right Arm] Pulse Oximetry 98 99 Oxygen Delivery Method Sepsis Recent Fever Within 48 Hours Sepsis New/Unexplained Change in Mental Status Sepsis Action Taken by Nursing 04/27/22 15:20 04/27/22 15:30 04/27/22 15:30 Temperature Temperature Source Pulse Rate 66 66 Pulse Rate [Apical] Pulse Rate from SpO2 Sensor 66 Respiratory Rate 22 17 Respiratory Effort / Characteristics Respiratory Depth Blood Pressure 155/89 H Blood Pressure [Right Arm] Blood Pressure Mean 111 Blood Pressure Mean [Right Arm] Pulse Oximetry 99 Oxygen Delivery Method Sepsis Recent Fever Within 48 Hours Sepsis New/Unexplained Change in Mental Status Sepsis Action Taken by Nursing 04/27/22 15:40 04/27/22 15:50 04/27/22 16:00 Temperature Temperature Source Pulse Rate 66 64 Pulse Rate [Apical] Pulse Rate from SpO2 Sensor 66 65 Respiratory Rate 19 14 Respiratory Effort / Characteristics Respiratory Depth Blood Pressure 157/81 H Blood Pressure [Right Arm] Blood Pressure Mean 106 Blood Pressure Mean [Right Arm] Pulse Oximetry 99 98 Oxygen Delivery Method Sepsis Recent Fever Within 48 Hours Sepsis New/Unexplained Change in Mental Status Sepsis Action Taken by Nursing 04/27/22 16:00 04/27/22 16:10 04/27/22 16:20 Temperature Temperature Source Pulse Rate 66 66 139 H Pulse Rate [Apical] Pulse Rate from SpO2 Sensor 68 67 Respiratory Rate 21 24 27 H Respiratory Effort / Characteristics Respiratory Depth Blood Pressure Blood Pressure [Right Arm] Blood Pressure Mean Blood Pressure Mean [Right Arm] Pulse Oximetry 99 99 Oxygen Delivery Method Sepsis Recent Fever Within 48 Hours Sepsis New/Unexplained Change in Mental Status Sepsis Action Taken by Nursing 04/27/22 16:30 04/27/22 16:30 04/27/22 16:53 Temperature Temperature Source Pulse Rate 65 67 Pulse Rate [Apical] Pulse Rate from SpO2 Sensor 63 Respiratory Rate 15 Respiratory Effort / Characteristics Respiratory Depth Blood Pressure 170/81 H Blood Pressure [Right Arm] Blood Pressure Mean 110 Blood Pressure Mean [Right Arm] Pulse Oximetry 98 Oxygen Delivery Method Sepsis Recent Fever Within 48 Hours Sepsis New/Unexplained Change in Mental Status Sepsis Action Taken by Nursing Laboratory Data 04/27/22 12:05 04/27/22 12:05 Lab Results 04/27/22 04/27/22 04/27/22 Range/Units 12:05 12:05 12:22 WBC 7.36 (4.8-10.8) K/ul RBC 3.36 L (4.20-5.40) M/uL Hgb 11.0 L (12.0-16.0) g/dl Hct 33.0 L (37.0-47.0) % MCV 98.2 (80.0-100.0) fL MCH 32.7 (25.0-34.0) pg MCHC 33.3 (32.0-36.0) g/dL RDW Std Deviation 53.6 H (36.4-46.3) fL RDW Coeff of Shaji 15.0 H (11.5-14.5) % Plt Count 174 (130-400) K/uL MPV 9.3 L (9.4-12.4) fL Immature Gran % (Auto) 0.5 % Neut % (Auto) 70.5 % Lymph % (Auto) 15.8 % [place] % (Auto) 11.7 % Eos % (Auto) 1.2 % Baso % (Auto) 0.3 % Neut # (Auto) 5.19 (1.40-6.50) K/uL Lymph # (Auto) 1.16 L (1.2-3.4) K/uL [place] # (Auto) 0.86 H (0.11-0.59) K/uL Eos # (Auto) 0.09 (0-0.50) K/uL Baso # (Auto) 0.02 (0-0.2) K/uL Immature Gran # (Auto) 0.04 (0.01-0.20) K/uL Sodium 138 (136-145) mmol/L Potassium 3.3 L (3.5-5.1) mmol/L Chloride 97 L (98-107) mmol/L Carbon Dioxide 34 H (21-32) mmol/L Anion Gap 7 (3-11) BUN 21 (6-23) mg/dl Creatinine 1.48 H (0.6-1.2) mg/dl Est Cr Clr Drug Dosing Not Reportable Est GFR ( Amer) 37.0 ml/min Est GFR (Non-Af Amer) 32.0 ml/min BUN/Creatinine Ratio 14.2 (10-20) Glucose 219 H (70-99(Fasting)) mg/dl Calcium 9.5 (8.5-10.1) mg/dl Total Bilirubin 0.7 (0.2-1.0) mg/dl AST 10 L (13-39) U/L ALT 11 (7-52) U/L Alkaline Phosphatase 78 (34-104) U/L Troponin I High Sens 6.6 (0-14) pg/ml Total Protein 6.5 (6.0-8.3) gm/dl Albumin 3.8 (3.4-5.0) gm/dl Globulin 2.7 (2.5-4.0) gm/dl Albumin/Globulin Ratio 1.4 (0.9-2) Lipase 19 (11-82) U/L Urine Color Urine Appearance (Clear) Urine pH (4.5-7.5) Ur Specific [place] (1.000-1.030) Urine Protein (Negative) Urine Glucose (UA) (Negative) Urine Ketones (Negative) Urine Blood (Negative) Urine Nitrite (Negative) Urine Bilirubin (Negative) Urine Urobilinogen (Negative) Ur Leukocyte Esterase (Negative) SARS-CoV-2 (PCR) POSITIVE A* (Negative) Influenza Type A (PCR) Negative (Neg) Influenza Type B (PCR) Negative (Neg) RSV (RT-PCR) Negative (Neg) 04/27/22 Range/Units 12:56 WBC (4.8-10.8) K/ul RBC (4.20-5.40) M/uL Hgb (12.0-16.0) g/dl Hct (37.0-47.0) % MCV (80.0-100.0) fL MCH (25.0-34.0) pg MCHC (32.0-36.0) g/dL RDW Std Deviation (36.4-46.3) fL RDW Coeff of Shaji (11.5-14.5) % Plt Count (130-400) K/uL MPV (9.4-12.4) fL Immature Gran % (Auto) % Neut % (Auto) % Lymph % (Auto) % [place] % (Auto) % Eos % (Auto) % Baso % (Auto) % Neut # (Auto) (1.40-6.50) K/uL Lymph # (Auto) (1.2-3.4) K/uL [place] # (Auto) (0.11-0.59) K/uL Eos # (Auto) (0-0.50) K/uL Baso # (Auto) (0-0.2) K/uL Immature Gran # (Auto) (0.01-0.20) K/uL Sodium (136-145) mmol/L Potassium (3.5-5.1) mmol/L Chloride (98-107) mmol/L Carbon Dioxide (21-32) mmol/L Anion Gap (3-11) BUN (6-23) mg/dl Creatinine (0.6-1.2) mg/dl Est Cr Clr Drug Dosing Est GFR ( Amer) ml/min Est GFR (Non-Af Amer) ml/min BUN/Creatinine Ratio (10-20) Glucose (70-99(Fasting)) mg/dl Calcium (8.5-10.1) mg/dl Total Bilirubin (0.2-1.0) mg/dl AST (13-39) U/L ALT (7-52) U/L Alkaline Phosphatase (34-104) U/L Troponin I High Sens (0-14) pg/ml Total Protein (6.0-8.3) gm/dl Albumin (3.4-5.0) gm/dl Globulin (2.5-4.0) gm/dl Albumin/Globulin Ratio (0.9-2) Lipase (11-82) U/L Urine Color Yellow Urine Appearance Clear (Clear) Urine pH 7.5 (4.5-7.5) Ur Specific [place] 1.007 (1.000-1.030) Urine Protein Negative (Negative) Urine Glucose (UA) Negative (Negative) Urine Ketones Negative (Negative) Urine Blood Negative (Negative) Urine Nitrite Negative (Negative) Urine Bilirubin Negative (Negative) Urine Urobilinogen Negative (Negative) Ur Leukocyte Esterase Negative (Negative) SARS-CoV-2 (PCR) (Negative) Influenza Type A (PCR) (Neg) Influenza Type B (PCR) (Neg) RSV (RT-PCR) (Neg) Administered Medications Discontinued Medications Sodium Chloride (Nss) 500 mls @ 999 mls/hr IV .Q31M ONE Stop: 04/27/22 12:48 Last Infusion: 04/27/22 14:25 Dose: 0 mls/hr Documented By: Admin: 04/27/22 12:21 Dose: 999 mls/hr Documented By: BASILIA Imaging Data Radiologist's Impression: Lumbar Spine X-Ray 04/27/22 12:14 XR lumbar spine 2-3V HISTORY: 86 years-old Female lower back pain . Acute low back pain without reported trauma COMPARISON: CT abdomen and pelvis 04/08/2022 TECHNIQUE: 3 views of the lumbar spine FINDINGS: Atherosclerosis of the aorta. Moderate colonic fecal retention. Demineralized appearance of the bones. Multilevel degenerative changes of the lumbar spine include severe disc space narrowing 2-L3, L4-L5 and L5-S1 with associated moderate spondylitic spurring and moderate to severe facet arthrosis. No acute fracture, subluxation or endplate erosion. IMPRESSION: No acute fracture or subluxation identified. ACT 112: Negative or not required by law. The above report was generated using voice recognition software. It may contain grammatical, syntax or spelling errors. Electronically signed by: Frank Andrade M.D. 04/27/2022 2:[address] 04/27/22 12:17 CT head/brain wo con CLINICAL HISTORY: 86 years-old Female with fall hxt of dementia. Acute head trauma status post fall TECHNIQUE: Multiple axial CT images of the head were obtained without contrast. A dose lowering technique was utilized adhering to the principles of ALARA. CT DOSE: 773.57 mGy.cm COMPARISON: 08/22/2021 FINDINGS: No acute intracranial hemorrhage, midline shift, intracranial mass, hydrocephalus, territorial ischemia or abnormal extra-axial collection. Involutional changes with chronic microvascular ischemic disease. Cerebral vascu lar calcifications. The calvarium is intact. Prior bilateral lens repair. The paranasal sinuses, mastoid air cells, and middle ear cavities are clear. IMPRESSION: No acute intracranial abnormality or calvarial fracture. ACT 112: Negative or not required by law. The above report was generated using voice recognition software. It may contain grammatical, syntax or spelling errors. Electronically signed by: Frank Andrade M.D. 04/27/2022 2:56 PM Chest X-Ray 04/27/22 15:06 XR chest 1V portable HISTORY: 86 years-old Female cough acute cough COMPARISON: 04/08/2022 TECHNIQUE: AP view of the chest FINDINGS: Cardiac silhouette is enlarged. No pneumothorax, pleural effusion, airspace consolidation or overt pulmonary edema. Mild right hemidiaphragmatic elevation. Degenerative changes of the shoulders and spine. Bilateral rotator cuff calcific tendinosis. IMPRESSION: No acute process. ACT 112: Negative or not required by law. The above report was generated using voice recognition software. It may contain grammatical, syntax or spelling errors. Electronically signed by: Frank Andrade M.D. 04/27/2022 3:59 PM Discharge Plan Visit Data Chief Complaint: Fall Stated Complaint: FALL, HEAD PAIN ED Provider: Dillan Markham Discharge Problem: COVID-19, Weakness, Acute hypokalemia Forms Stand Alone Forms: [facility] Prescriptions Prescriptions: No Action docusate sodium [Stool Softener] 100 mg capsule 100 mg PO BID Qty: 60 2RF gabapentin 300 mg capsule 300 mg PO HS Qty: 90 3RF omeprazole 40 mg capsule,delayed release(DR/EC) 40 mg PO DAILY Qty: 90 3RF levothyroxine 50 mcg tablet 50 mcg PO DAILYBB Qty: 90 1RF Rx Instructions: TAKE 1 TABLET BY MOUTH EVERY DAY isosorbide mononitrate 120 mg tablet extended release 24 hr 120 mg PO DAILY Qty: 90 3RF Rx Instructions: TAKE 1 TABLET BY MOUTH EVERY DAY nadolol 40 mg tablet 40 mg PO QAM Qty: 30 3RF famotidine [Pepcid] 40 mg tablet 40 mg PO DAILY Qty: 90 2RF atorvastatin 40 mg tablet 40 mg PO HS Qty: 90 3RF Hold Instructions: leg pain donepezil [Aricept] 10 mg tablet 10 mg PO DAILY 30 Days Qty: 30 2RF duloxetine 60 mg capsule,delayed release(DR/EC) 60 mg PO DAILY Qty: 90 3RF Januvia 25 mg tablet 25 mg PO DAILY Qty: 30 11RF calcium carbonate-vitamin D3 [Oyster Shell Calcium-Vit D3] 500 mg(1,250mg) - 200 unit Tablet 1 tab PO QAM aspirin [Wilma Low Dose Aspirin] 81 mg Tablet,Delayed Release (Dr/Ec) 81 mg PO QAM ondansetron HCl 4 mg tablet 4 mg PO Q6 PRN (Reason: Nausea And Vomiting) acetaminophen 500 mg Tablet 1,000 mg PO Q6H MDD 3 GRAMS/24 HOURS PRN (Reason: Fever Or Pain) furosemide [Lasix] 40 mg Tablet 40 mg PO QAM loperamide [Anti-Diarrhea] 2 mg Tablet 2 mg PO DIRECTED MDD 4 TABS/24 HOURS PRN (Reason: Diarrhea) Rx Instructions: TAKE 2 TABS AT START OF LOOSE STOOL, THEN 1 TAB AFTER EACH LOOSE STOOL, MAX 4 TABS/24 HOURS. bismuth subsalicylate [Pepto-Bismol] 262 mg/15 mL Suspension 524 mg PO QID PRN (Reason: HEARTBURN/DIARRHEA) diclofenac sodium [Voltaren] 1 % Gel 2 g TOPICAL TID PRN (Reason: RIGHT SHOULDER PAIN) nitroglycerin 0.4 mg tablet, sublingual 0.4 mg sublingual DIRECTED PRN (Reason: Chest Pain) Rx Instructions: 1 TAB UNDER THE TONGUE EVERY 5 MIN FOR UP TO 3 DOSE NEEDED FOR CHEST PAIN. CALL 911 PAIN PERSISTS Not for independent use. Needs supervision. Referrals Referrals: Jennifer Lyn MD [Primary Care Provider] -
[2022-04-27] MEDS ORDERED: SODIUM CHLORIDE 0.9% 500 ML IV ONE (12:18)
[2022-04-27 12:43] LABS: Basophils # (auto) 0.02 K/uL (0-0.2); Basophils % (auto) 0.3 %; Eosinophils # (auto) 0.09 K/uL (0-0.50); Eosinophils % (auto) 1.2 %; Immature Granulocytes # (auto) 0.04 K/uL (0.01-0.20); Immature Granulocytes % (auto) 0.5 %; Lymphocytes # (auto) 1.16 K/uL (1.2-3.4); Lymphocytes % (auto) 15.8 %; Mean Corpuscular Hemoglobin 32.7 pg (25.0-34.0); Mean Corpuscular Hgb Conc 33.3 g/dL (32.0-36.0); Mean Corpuscular Volume 98.2 fL (80.0-100.0); Mean Platelet Volume 9.3 fL (9.4-12.4); Monocytes # (auto) 0.86 K/uL (0.11-0.59); Monocytes % (auto) 11.7 %; Neutrophils # (auto) 5.19 K/uL (1.40-6.50); Neutrophils % (auto) 70.5 %; Platelet Count 174 K/uL (130-400); RDW Standard Deviation 53.6 fL (36.4-46.3); Red Blood Count 3.36 M/uL (4.20-5.40); White Blood Count 7.36 K/ul (4.8-10.8)
[2022-04-27 12:53] LABS: Alanine Aminotransferase 11 U/L (7-52); Albumin Globulin Ratio 1.4 (0.9-2); Albumin Level 3.8 gm/dl (3.4-5.0); Alkaline Phosphatase 78 U/L (34-104); Anion Gap 7 (3-11); Aspartate Aminotransferase 10 U/L (13-39); BUN Creatinine Ratio 14.2 (10-20); Bilirubin,Total 0.7 mg/dl (0.2-1.0); Blood Urea Nitrogen 21 mg/dl (6-23); Calcium 9.5 mg/dl (8.5-10.1); Carbon Dioxide 34 mmol/L (21-32); Chloride 97 mmol/L (98-107); Globulin 2.7 gm/dl (2.5-4.0); Glucose 219 mg/dl (70-99(Fasting)); Lipase 19 U/L (11-82); Potassium 3.3 mmol/L (3.5-5.1); Sodium 138 mmol/L (136-145); Total Protein 6.5 gm/dl (6.0-8.3)
[2022-04-27 12:59] LABS: Troponin I High Sensitivity 6.6 pg/ml (0-14)
[2022-04-27 13:08] LABS: Appearance Urine Clear (Clear); Bilirubin Urine Negative (Negative); Blood Urine Negative (Negative); Color Urine Yellow; Glucose Urine UA Negative (Negative); Ketones Urine Negative (Negative); Leukocyte Esterase Urine Negative (Negative); Nitrite Urine Negative (Negative); Protein Urine Negative (Negative); Specific Gravity Urine 1.007 (1.000-1.030); Urobilinogen Urine Negative (Negative); pH Urine 7.5 (4.5-7.5)
[2022-04-27 13:13] LABS: Influenza A virus by PCR Negative (Neg); Influenza B virus by PCR Negative (Neg); RSV by PCR Negative (Neg)
[2022-04-27 13:52] LABS: SARS CoV2 RNA(COVID-19) Ceph POSITIVE (Negative)
--- NOTE | 2022-04-27 14:29 | XRay Report ---
XR lumbar spine 2-3V HISTORY: 86 years-old Female lower back pain . Acute low back pain without reported trauma COMPARISON: CT abdomen and pelvis 04/08/2022 TECHNIQUE: 3 views of the lumbar spine FINDINGS: Atherosclerosis of the aorta. Moderate colonic fecal retention. Demineralized appearance of the bones . Multilevel degenerative changes of the lumbar spine include severe disc space narrowing 2-L3, L4-L5 and L5-S1 with associated moderate spondylitic spurring and moderate to severe facet arthrosis. No a cute fracture, subluxation or endplate erosion. IMPRESSION: No acute fracture or subluxation identified. ACT 112: Negative or not required by law. The above report was generated using voice recognition software. It may contain grammatical, syntax o r spelling errors. Electronically signed by: Frank Andrade M.D. 04/27/2022 2:27 PM
--- NOTE | 2022-04-27 14:58 | CT Scan Report ---
CT head/brain wo con CLINICAL HISTORY: 86 years-old Female with fall hxt of dementia. Acute head trauma status post fall TECHNIQUE: Multiple axial CT images of the head were obtained without contrast. A dose lowering tech nique was utilized adhering to the principles of ALARA. CT DOSE: 773.57 mGy.cm COMPARISON: 08/22/2021 FINDINGS: No acute intracranial hemorrhage, midline shift, intracranial mass, hydrocephalus, territorial ischem ia or abnormal extra-axial collection. Involutional changes with chronic microvascular ischemic disea se. Cerebral vascular calcifications. The calvarium is intact. Prior bilateral lens repair. The paranasal sinuses, mastoid air cells, and m iddle ear cavities are clear. IMPRESSION: No acute intracranial abnormality or calvarial fracture. ACT 112: Negative or not required by law. The above report was generated using voice recognition software. It may contain grammatical, syntax o r spelling errors. Electronically signed by: Frank Andrade M.D. 04/27/2022 2:56 PM
--- NOTE | 2022-04-27 16:01 | XRay Report ---
XR chest 1V portable HISTORY: 86 years-old Female cough acute cough COMPARISON: 04/08/2022 TECHNIQUE: AP view of the chest FINDINGS: Cardiac silhouette is enlarged. No pneumothorax, pleural effusion, airspace consolidation or overt pu lmonary edema. Mild right hemidiaphragmatic elevation. Degenerative changes of the shoulders and spin e. Bilateral rotator cuff calcific tendinosis. IMPRESSION: No acute process. ACT 112: Negative or not required by law. The above report was generated using voice recognition software. It may contain grammatical, syntax o r spelling errors. Electronically signed by: Frank Andrade M.D. 04/27/2022 3:59 PM
--- NOTE | 2022-04-27 16:38 | History & Physical Report ---
Date of Service April 27, 2022 Assessment & Plan (1) COVID: Plan: COVID-positive O2 sat 99% on room air CXR normal Creatinine 1.41.57 on baseline, admitting creatinine 1.48. Age-adjusted GFR 32. Congestive you are not currently indicated. EKG without acute changes, at bedtime troponin normal In absence of hypoxia will defer remdesivir/dexamethasone at this time Isolation precautions PT/OT pending Venous Stasis vs CHF - Chronic leg swelling, gradually worsening bilat - REd, warm but bilateral - Nontender to the touch - Continue lasix, suspect stasis CAD History of RCA disease, stress echo 2014 with mild ischemia Continue compression stockings Lasix 40 mg daily Aspirin daily Atorvastatin daily DM Hold home antiglycemic's SSI Hypothyroidism Continue Synthroid TSH pending Age-related cognitive decline Continue donepezil, delirium precautions DVT prophylaxis: Heparin CODE STATUS: Disposition: Medical surgical Diet: Heart healthy, DM 2 (2) CAD (coronary artery disease): (3) Acute hypokalemia: (4) Hypothyroidism: (5) Weakness: History of Present Illness Primary Care Provider: Jennifer Lyn MD Pura Marinelli is an 86-year-old female with past medical history of CKD, CAD, hyperlipidemia, hypertension who fell getting up from the toilet. Patient is COVID-positive, is not hypoxic but is with significantly worsened weakness and unable to ambulate and perform ADLs/IADLs and has been recommended for admission for monitoring of COVID and ambulatory dysfunction. No leukocytosis Hemoglobin 11.0 Sodium is normal Potassium is 3.3 Creatinine is with baseline appearing around 1.41.57, creatinine on admission 1.48. High-sensitivity troponin is normal UA is uninfected appearing CXR: Normal CThead: No acute findings L-spine: No acute findings EKG: Poor quality tracing, no territorial ST segment elevations depressions +cough, sore throat for 3-4 days few days of loose bowels 2-3 days ago +fatigue x1 week CAD no history of stends Chronic falls with bruises Globally weak, no focal weakness chronic leg swelling for several months. increased redness bilaterally and soreness Medical History: Reviewed Medications: Reviewed Surgical History: Reviewed Allergies: Reviewed Social History: No tobacco product use, no alcohol use Code Status: DNR Allergies Allergy/AdvReac Type Severity Reaction Status Date / Time verapamil Allergy Severe RASH Verified 04/11/22 13:42 latex Allergy Intermediate ITCHING Verified 04/11/22 13:42 oxybutynin Allergy Intermediate ITCHING Verified 04/11/22 13:42 adhesive Allergy Mild redness Verified 04/11/22 13:42 meperidine AdvReac Severe HYPOTENSION Verified 04/11/22 13:42 sodium phosphate AdvReac Severe DECREASED Verified 04/11/22 13:42 [From OsmoPrep] KIDNEY FUNCTION atenolol AdvReac Intermediate tachycardia; Verified 04/11/22 13:42 nervousness diazepam AdvReac Intermediate crying; Verified 04/11/22 13:42 depression fluoxetine AdvReac Intermediate crying; Verified 04/11/22 13:42 depression ibuprofen AdvReac Intermediate low kidney Verified 04/11/22 13:42 function Iodinated Contrast Media AdvReac Intermediate IVP DYE - Verified 04/11/22 13:42 low kidney function lidocaine AdvReac Intermediate Altered Verified 04/11/22 13:42 Mental Status with ointment ONLY naproxen AdvReac Intermediate Low kidney Verified 04/11/22 13:42 function sertraline AdvReac Intermediate crying; Verified 04/11/22 13:42 depression tramadol AdvReac Intermediate dizziness Verified 04/11/22 13:42 venlafaxine AdvReac Intermediate Nervous Verified 04/11/22 13:42 Home Medications Medication Instructions Recorded Confirmed Type aspirin 81 mg tablet,delayed 81 mg PO QAM 12/10/17 04/27/22 History release (Wilma Low Dose Aspirin) calcium carbonate 500 mg-vitamin 1 tab PO QAM 05/15/19 04/27/22 History D3 5 mcg (200 unit) tablet (Oyster Shell Calcium-Vitamin D3) docusate sodium 100 mg capsule 100 mg PO BID #60 caps 06/01/19 04/27/22 Rx (Stool Softener) gabapentin 300 mg capsule 300 mg PO HS Pain #90 caps 05/09/21 04/27/22 Rx duloxetine 60 mg capsule,delayed 60 mg PO DAILY #90 caps 07/12/21 04/27/22 Rx release acetaminophen 500 mg tablet 1,000 mg PO Q6H PRN Fever Or Pain 08/22/21 04/27/22 History ondansetron HCl 4 mg tablet 4 mg PO Q6 PRN Nausea And Vomiting 08/22/21 04/27/22 History omeprazole 40 mg capsule,delayed 40 mg PO DAILY Heartburn #90 caps 11/09/21 04/27/22 Rx release levothyroxine 50 mcg tablet 50 mcg PO DAILYBB #90 tabs 11/15/21 04/27/22 Rx isosorbide mononitrate 120 mg 120 mg PO DAILY #90 tabs 11/16/21 04/27/22 Rx tablet,extended release 24 hr nadolol 40 mg tablet 40 mg PO QAM #30 tabs 01/08/22 04/27/22 Rx famotidine 40 mg tablet (Pepcid) 40 mg PO DAILY #90 tabs 01/09/22 04/27/22 Rx atorvastatin 40 mg tablet 40 mg PO HS #90 tabs 01/28/22 04/27/22 Rx bismuth subsalicylate 262 mg/15 mL 524 mg PO QID PRN 03/14/22 04/27/22 History oral suspension (Pepto-Bismol) HEARTBURN/DIARRHEA diclofenac sodium 1 % topical gel 2 g topical TID PRN RIGHT SHOULDER 03/14/22 04/27/22 History PAIN furosemide 40 mg tablet (Lasix) 40 mg PO QAM 03/14/22 04/27/22 History loperamide 2 mg tablet 2 mg PO DIRECTED PRN Diarrhea 03/14/22 04/27/22 History sitagliptin phosphate 25 mg tablet 25 mg PO DAILY #30 tabs 03/22/22 04/27/22 Rx (Januvia) donepezil 10 mg tablet (Aricept) 10 mg PO DAILY 30 days #30 tabs 04/06/22 04/27/22 Rx nitroglycerin 0.4 mg sublingual 0.4 mg sublingual DIRECTED PRN 04/08/22 04/27/22 History tablet Chest Pain Past Med/Surg History Medical History (Updated 04/27/22 @ 19:49 by Kam Camp MD) Abdominal pain (03/24/13) Anxiety CAD (coronary artery disease) Chronic back pain Chronic throat clearing CKD (chronic kidney disease), stage III Closed head injury Depression Diabetes mellitus, type 2 NO MEDICATIONS. Diverticular disease Diverticulitis History of colon cancer 2011 -- COLON RESECTION. NO CHEMO/RADIATION Hyperlipidemia Hypertension Hypothyroidism Osteoarthritis Pneumonia hx of 2015 SBO (small bowel obstruction) Small bowel obstruction due to adhesions Stable angina LAST USED NITRO ~AUGUST 2017 Syncope HAS HAD CARDIAC WORK UP, EEG, AND MRI OF BRAIN WITH NO ABNORMALITIES Surgical History H/O umbilical hernia repair History of bilateral tubal ligation History of bowel resection 2011 History of cardiac cath NO STENTS. (2007) History of cataract surgery BILATERAL History of colonoscopy History of dilatation and curettage History of discectomy LUMBAR REGION History of esophagogastroduodenoscopy (EGD) History of hysterectomy JESUS WITH BSO Family History Mother Heart disease Breast cancer Cancer Myocardial infarction Sister Colorectal cancer Lung disease Cancer Father Hearing loss Heart disease Other Hypertension No family history of adverse response to anesthesia Denies family history of Ovarian cancer Prostate cancer Coronary heart disease Social History Smoking Status: Never smoker Second Hand Exposure: No; Hx Alcohol Use: No Hx Substance Use: No Preferred Language: Tajik Communication Ability: Effective Hearing Ability: Normal Collection Systems Worker Required: No Beliefs That Will Affect Care: None marital status: / Current Living Situation: Personal Care Facility and Other Current Living Situation Comment: [facility] current occupational status: retired Feels Safe at Home: Yes Childhood Exposure to Second-Hand Smoke: No caffeine: Yes during the past year weight has: remained stable Dental Care, Regularly: Yes Physical Activity Frequency: 1-2 Times per Week Seatbelt Use: always Sunscreen Use: Yes Assistive Devices: Walker Review of Systems Review of Systems: All systems reviewed & are unremarkable except as noted in Subjective Physical Exam Physical Exam: General: A&Ox3. NAD. Cooperative. HEENT: Atraumatic, normocephalic. Pulm: CTAB A&P. -wheezes, -rales, -rhonchi. Symmetrical chest rise. No increased work of breathing. No respiratory distress. Cardiac: RRR, -mrg. Radial pulses intact and symmetrical. Abdominal: Nontender, nondistended, soft. BS present. Results & Data Results & Data ([facility]) Vital Signs (Past 12 Hours) Vital Signs Temp Pulse Pulse Resp BP BP Pulse Ox 04/27/22 16:30 65 15 98 04/27/22 16:30 170/81 H 04/27/22 16:20 139 H 27 H 04/27/22 16:10 66 24 99 04/27/22 16:00 66 21 99 04/27/22 16:00 157/81 H 04/27/22 15:50 64 14 98 04/27/22 15:40 66 19 99 04/27/22 15:30 66 17 04/27/22 15:30 155/89 H 04/27/22 15:20 66 22 99 04/27/22 15:11 65 20 99 04/27/22 15:11 176/81 H 04/27/22 15:10 63 18 98 04/27/22 15:00 65 32 H 98 04/27/22 14:50 65 19 99 04/27/22 14:40 65 18 98 04/27/22 14:30 63 18 98 04/27/22 14:20 63 16 98 04/27/22 14:18 68 14 97 04/27/22 12:32 64 18 04/27/22 15:06 36.9 C 04/27/22 14:08 64 16 129/64 99 04/27/22 12:33 64 04/27/22 12:17 04/27/22 12:08 72 16 129/62 97 O2 Del Method 04/27/22 16:30 04/27/22 16:30 04/27/22 16:20 04/27/22 16:10 04/27/22 16:00 04/27/22 16:00 04/27/22 15:50 04/27/22 15:40 04/27/22 15:30 04/27/22 15:30 04/27/22 15:20 04/27/22 15:11 04/27/22 15:11 04/27/22 15:10 04/27/22 15:00 04/27/22 14:50 04/27/22 14:40 04/27/22 14:30 04/27/22 14:20 04/27/22 14:18 04/27/22 12:32 04/27/22 15:06 04/27/22 14:08 Room Air 04/27/22 12:33 04/27/22 12:17 Room Air 04/27/22 12:08 Room Air PG Care Time/CCT Total # of Minutes Spent Total Time Spent with Patient: Total time spent is greater than 50% in coordination of care (as documented) at patient's floor/unit and/or counseling patient: Coding Level of Care Code 34488 INT INP/OBS CARE MIN Diagnoses COVID U07.1 CAD (coronary artery disease) I25.10 Acute hypokalemia E87.6 Hypothyroidism E03.9 Weakness R53.1
[2022-04-27] MEDS ORDERED: GLUCAGON FOR INJ 1 MG VIAL SQ PRN (19:59)
[2022-04-27] MEDS ORDERED: CARBOHYDRATES FOR HYPOGLYCEMIA PO PRN (19:59)
[2022-04-27] MEDS ORDERED: GLUCOSE 40% GEL 15 GM TUBE PO PRN (19:59)
[2022-04-27] MEDS ORDERED: GLUCOSE 10 TAB/TUBE PO PRN (19:59)
[2022-04-27] MEDS ORDERED: DEXTROSE 50% 50 ML SYRINGE IV PRN (19:59)
[2022-04-27] MEDS ORDERED: PHARMACY GLYCEMIC MGMT CONSULT PRN (19:59)
[2022-04-27] MEDS ORDERED: ONDANSETRON 4 MG OD TAB PO PRN (20:08)
[2022-04-27] MEDS: FUROSEMIDE 40 MG TAB PO SCH (20:40)
[2022-04-27] MEDS ORDERED: LANTUS PER UNIT CHARGE SQ SCH (21:00)
[2022-04-27] MEDS: INSULIN ASPART PER UNIT SC SCH (21:28)
[2022-04-27] MEDS: POTASSIUM CHLORIDE CRTAB 20 MEQ TABCR PO SCH (22:03)
[2022-04-27] MEDS: ATORVASTATIN 40 MG TAB PO SCH (22:04)
[2022-04-27] MEDS: DOCUSATE SODIUM 100 MG CAP PO SCH (22:04)
[2022-04-27] MEDS: GABAPENTIN 300 MG CAP PO SCH (22:04)
[2022-04-27] MEDS: HEPARIN SOD 5,000 UNIT/0.5 ML VIAL SQ SCH (22:37)
[2022-04-28] MEDS: HEPARIN SOD 5,000 UNIT/0.5 ML VIAL SQ SCH ×3 (04:05→20:34)
[2022-04-28] MEDS: LEVOTHYROXINE SODIUM 50 MCG TABLET PO SCH (04:05)
[2022-04-28 07:53] LABS: Basophils # (auto) 0.02 K/uL (0-0.2); Basophils % (auto) 0.3 %; Eosinophils # (auto) 0.04 K/uL (0-0.50); Eosinophils % (auto) 0.7 %; Hematocrit (blood only) 34.6 % (37.0-47.0); Hemoglobin 11.7 g/dl (12.0-16.0); Immature Granulocytes # (auto) 0.05 K/uL (0.01-0.20); Immature Granulocytes % (auto) 0.9 %; Lymphocytes % (auto) 20.9 %; Mean Corpuscular Hemoglobin 33.1 pg (25.0-34.0); Mean Corpuscular Hgb Conc 33.8 g/dL (32.0-36.0); Mean Corpuscular Volume 97.7 fL (80.0-100.0); Mean Platelet Volume 9.2 fL (9.4-12.4); Monocytes # (auto) 0.93 K/uL (0.11-0.59); Monocytes % (auto) 16.2 %; Platelet Count 159 K/uL (130-400); RDW Coefficient of Variation 15.1 % (11.5-14.5); Red Blood Count 3.54 M/uL (4.20-5.40); White Blood Count 5.74 K/ul (4.8-10.8)
[2022-04-28 08:00] LABS: Anion Gap 7 (3-11); BUN Creatinine Ratio 13.1 (10-20); Blood Urea Nitrogen 19 mg/dl (6-23); Calcium 9.1 mg/dl (8.5-10.1); Carbon Dioxide 36 mmol/L (21-32); Chloride 98 mmol/L (98-107); Est GFR (Non-African American) 32.8 ml/min; Glucose 188 mg/dl (70-99(Fasting)); Potassium 3.3 mmol/L (3.5-5.1); Sodium 141 mmol/L (136-145)
[2022-04-28] MEDS: POTASSIUM CHLORIDE CRTAB 20 MEQ TABCR PO SCH ×2 (08:12→12:17)
[2022-04-28] MEDS: FUROSEMIDE 40 MG TAB PO SCH (08:12)
[2022-04-28] MEDS: FAMOTIDINE 40 MG TABLET PO SCH (08:12)
[2022-04-28] MEDS: DONEPEZIL HCL 10 MG TAB PO SCH (08:13)
[2022-04-28] MEDS: DULoxetine HCL 60 MG CAP PO SCH (08:13)
[2022-04-28] MEDS: DOCUSATE SODIUM 100 MG CAP PO SCH ×3 (08:13→21:04)
[2022-04-28] MEDS: nadoloL 40 MG TAB PO SCH (08:13)
[2022-04-28] MEDS: ASPIRIN 81 MG ECTAB PO SCH (08:13)
[2022-04-28] MEDS: ISOSORBIDE MONO EXTENDED REL 60 MG TABCR PO SCH (08:13)
[2022-04-28] MEDS ORDERED: POTASSIUM CHLORIDE CRTAB 20 MEQ TABCR PO STA (08:22)
[2022-04-28] MEDS: INSULIN ASPART PER UNIT SC SCH ×4 (08:33→20:45)
[2022-04-28] MEDS: LANTUS PER UNIT CHARGE SQ SCH ×2 (08:34→20:46)
[2022-04-28] MEDS ORDERED: LANTUS PER UNIT CHARGE SQ SCH (09:00)
[2022-04-28 09:11] LABS: Magnesium 1.8 mg/dl (1.7-2.4)
--- NOTE | 2022-04-28 11:07 | Electrocardiogram Report ---
Test Reason : Blood Pressure : / mmHG Vent. Rate : 061 BPM Atrial Rate : 061 BPM P-R Int : 200 ms QRS Dur : 080 ms QT Int : 462 ms P-R-T Axes : 059 -14 003 degrees QTc Int : 465 ms Poor data quality, interpretation may be adversely affected Normal sinus rhythm Abnormal ECG When compared with ECG of 08-APR-2022 16:01, Significant changes have occurred Confirmed by Jonel Hylton ([id number]) on 04/28/2022 11:06:44 AM Referred By: REFERRED SELF Confirmed By:Jonel Hylton
--- NOTE | 2022-04-28 12:07 | Pharmacy Report ---
Pharmacy Glycemic Short Note 2 - Date of Service April 28, 2022 - Glycemic Short BSG Results (Last 24 hours): 04/27/22 04/27/22 04/28/22 12:05 20:43 07:27 Glucose 219 H 188 H POC Glucose 169 H 04/28/22 04/28/22 07:55 11:37 Glucose POC Glucose 175 H 193 H OUTPATIENT ANTIDIABETIC REGIMEN: * Januvia 25 mg PO daily * HbA1C = 9% (02/15/22) ASSESSMENT: * Ms Marinelli is an 86 y/o F with a PMH of T2DM who presents with COVID and ambulatory dysfuntion. * BSG on admission was 169 mg/dL. Patient received no insulin on day of admission. * Fasting today is 175 mg/dL. * Start Lantus weight-based stress of 2. Lower dose available for lower BSG. * Novolog weight-based stress of 2. PLAN FOR INPATIENT GLYCEMIC CONTROL: * Hold outpatient oral diabetes medications * Basal insulin * Lantus 15 units SQ BID (10 units if BSG < 140 mg/dL) * Bolus insulin * NovoLog per scale ACHS or Q6hrs while NPO * Goal Range: Low 110 mg/dL - High 140 mg/dL * Correction Factor: 30 mg/dL/unit * Nutritional / Prandial insulin per carb ratio of 1 unit per 10 grams CHO consumed
--- NOTE | 2022-04-28 14:54 | Hospitalist Progress Note ---
Date of Service April 28, 2022 Assessment & Plan (1) COVID: Plan: Patient has typical "flu-like" symptoms from her COVID. Fortunately lung exam is normal, O2 sats are high 90s in RA, and CXR is clear. At this time no indication for steroids or Remdesivir. CRP is elevated; will repeat in am. Weakness/fatigue is largest complaint - will ask PT/OT to see. Pt appears mildly volume contracted - give 500cc of fluid today; hold afternoon lasix. Cont airborne isolation. (2) CAD (coronary artery disease): Plan: no ischemic symptoms at this time cont statin cont asa 81mg daily cont imdur no beta shahzad due to bradycardia? (3) Acute hypokalemia: Plan: replete repeat BMP am mag level noted to be normal (4) Hypothyroidism: Plan: check TSH am cont synthroid (5) Weakness: Plan: 2nd to #1 above PT, OT evals (6) Chronic kidney disease, stage IV (severe): Plan: CrCl baseline is 25-30 daily BMP for stability especially given lasix usage (7) Diabetes mellitus, type 2: Plan: a1c pending pharmacy on consult for glycemic management appreciate their assistance cont basal-bolus SC insulin (8) History of colon cancer: (9) Cognitive impairment: Plan: noted (10) Frequent falls: Plan: despite h/o recent fall no apparent injuries on exam today CT head neg l-spine x-rays neg for acute fracture PT, OT evals (11) DVT prophylaxis: Plan: heparin 5000 TID Plan daughter updated by phone this evening Admission and Anticipated Discharge Date Admission Date: April 27, 2022 Subjective patient with multiple COVID complaints including fatigue, weakness, poor PO intake, myalgias, cough, a little nausea no dyspnea no orthopnea staff report she is weak with trying to walk having chills at times Review of Systems Review of Systems: cv - denies chest pain; no pleuritic pain pulm - no dyspnea at rest musculo - myalgias; no focal limb pain despite report of falls recently neuro - no headache this am GI - no vomiting; having constipation Physical Exam Physical Exam: gen - NAD; weak & fatigued, however mouth - MM slightly dry neck - no JVD heart - RRR, s1 s2 lungs - CTA b/l, no rales, no wheeze abd - soft NT BS+; slightly distended ext - trace edema, chronic venous stasis changes b/l shins (hyperpigmentation with slightly pink skin) musculo - with passive ROM of hips she has no pain; with passive ROM of arms no pain; palpation of pelvis - no pain; no deformities any location Results & Data Results & Data ([facility]) Vital Signs (Past 12 Hours) Vital Signs Temp Pulse Resp BP BP Pulse Ox O2 Del Method 04/28/22 11:30 36.5 C 56 L 18 110/72 91 Room Air 04/28/22 07:43 37.6 C H 65 20 120/75 94 Room Air Laboratory Results Laboratory Results - last 48 hr 04/27/22 04/27/22 04/27/22 12:05 12:05 12:22 WBC 7.36 RBC 3.36 L Hgb 11.0 L Hct 33.0 L MCV 98.2 MCH 32.7 MCHC 33.3 RDW Std Deviation 53.6 H RDW Coeff of Shaji 15.0 H Plt Count 174 MPV 9.3 L Immature Gran % (Auto) 0.5 Neut % (Auto) 70.5 Lymph % (Auto) 15.8 Casey % (Auto) 11.7 Eos % (Auto) 1.2 Baso % (Auto) 0.3 Neut # (Auto) 5.19 Lymph # (Auto) 1.16 L Casey # (Auto) 0.86 H Eos # (Auto) 0.09 Baso # (Auto) 0.02 Immature Gran # (Auto) 0.04 Sodium 138 Potassium 3.3 L Chloride 97 L Carbon Dioxide 34 H Anion Gap 7 BUN 21 Creatinine 1.48 H Est Cr Clr Drug Dosing Not Reportable Est GFR ( Amer) 37.0 Est GFR (Non-Af Amer) 32.0 BUN/Creatinine Ratio 14.2 Glucose 219 H POC Glucose Estimat Average Glucose Hemoglobin A1c Calcium 9.5 Magnesium Total Bilirubin 0.7 AST 10 L ALT 11 Alkaline Phosphatase 78 Total Creatine Kinase Troponin I High Sens 6.6 C-Reactive Protein Total Protein 6.5 Albumin 3.8 Globulin 2.7 Albumin/Globulin Ratio 1.4 Lipase 19 TSH Urine Color Urine Appearance Urine pH Ur Specific Hesperus Urine Protein Urine Glucose (UA) Urine Ketones Urine Blood Urine Nitrite Urine Bilirubin Urine Urobilinogen Ur Leukocyte Esterase SARS-CoV-2 (PCR) POSITIVE A* Influenza Type A (PCR) Negative Influenza Type B (PCR) Negative RSV (RT-PCR) Negative 04/27/22 04/27/22 04/28/22 12:56 20:43 07:27 WBC RBC Hgb Hct MCV MCH MCHC RDW Std Deviation RDW Coeff of Shaji Plt Count MPV Immature Gran % (Auto) Neut % (Auto) Lymph % (Auto) Casey % (Auto) Eos % (Auto) Baso % (Auto) Neut # (Auto) Lymph # (Auto) Casey # (Auto) Eos # (Auto) Baso # (Auto) Immature Gran # (Auto) Sodium 141 Potassium 3.3 L Chloride 98 Carbon Dioxide 36 H Anion Gap 7 BUN 19 Creatinine 1.45 H Est Cr Clr Drug Dosing Not Reportable Est GFR ( Amer) 38.0 Est GFR (Non-Af Amer) 32.8 BUN/Creatinine Ratio 13.1 Glucose 188 H POC Glucose 169 H Estimat Average Glucose Hemoglobin A1c Calcium 9.1 Magnesium Total Bilirubin AST ALT Alkaline Phosphatase Total Creatine Kinase Troponin I High Sens C-Reactive Protein 11.40 H Total Protein Albumin Globulin Albumin/Globulin Ratio Lipase TSH Urine Color Yellow Urine Appearance Clear Urine pH 7.5 Ur Specific Hesperus 1.007 Urine Protein Negative Urine Glucose (UA) Negative Urine Ketones Negative Urine Blood Negative Urine Nitrite Negative Urine Bilirubin Negative Urine Urobilinogen Negative Ur Leukocyte Esterase Negative SARS-CoV-2 (PCR) Influenza Type A (PCR) Influenza Type B (PCR) RSV (RT-PCR) 04/28/22 04/28/22 04/28/22 07:27 07:27 07:27 WBC 5.74 RBC 3.54 L Hgb 11.7 L Hct 34.6 L MCV 97.7 MCH 33.1 MCHC 33.8 RDW Std Deviation 54.0 H RDW Coeff of Shaji 15.1 H Plt Count 159 MPV 9.2 L Immature Gran % (Auto) 0.9 Neut % (Auto) 61.0 Lymph % (Auto) 20.9 Casey % (Auto) 16.2 Eos % (Auto) 0.7 Baso % (Auto) 0.3 Neut # (Auto) 3.50 Lymph # (Auto) 1.20 Casey # (Auto) 0.93 H Eos # (Auto) 0.04 Baso # (Auto) 0.02 Immature Gran # (Auto) 0.05 Sodium Potassium Chloride Carbon Dioxide Anion Gap BUN Creatinine Est Cr Clr Drug Dosing Est GFR ( Amer) Est GFR (Non-Af Amer) BUN/Creatinine Ratio Glucose POC Glucose Estimat Average Glucose 186 Hemoglobin A1c 8.1 H Calcium Magnesium 1.8 Total Bilirubin AST ALT Alkaline Phosphatase Total Creatine Kinase 93 Troponin I High Sens C-Reactive Protein Total Protein Albumin Globulin Albumin/Globulin Ratio Lipase TSH Urine Color Urine Appearance Urine pH Ur Specific Hesperus Urine Protein Urine Glucose (UA) Urine Ketones Urine Blood Urine Nitrite Urine Bilirubin Urine Urobilinogen Ur Leukocyte Esterase SARS-CoV-2 (PCR) Influenza Type A (PCR) Influenza Type B (PCR) RSV (RT-PCR) 04/28/22 04/28/22 04/28/22 07:55 11:37 17:18 WBC RBC Hgb Hct MCV MCH MCHC RDW Std Deviation RDW Coeff of Shaji Plt Count MPV Immature Gran % (Auto) Neut % (Auto) Lymph % (Auto) Casey % (Auto) Eos % (Auto) Baso % (Auto) Neut # (Auto) Lymph # (Auto) Casey # (Auto) Eos # (Auto) Baso # (Auto) Immature Gran # (Auto) Sodium Potassium Chloride Carbon Dioxide Anion Gap BUN Creatinine Est Cr Clr Drug Dosing Est GFR ( Amer) Est GFR (Non-Af Amer) BUN/Creatinine Ratio Glucose POC Glucose 175 H 193 H 138 H Estimat Average Glucose Hemoglobin A1c Calcium Magnesium Total Bilirubin AST ALT Alkaline Phosphatase Total Creatine Kinase Troponin I High Sens C-Reactive Protein Total Protein Albumin Globulin Albumin/Globulin Ratio Lipase TSH Urine Color Urine Appearance Urine pH Ur Specific Hesperus Urine Protein Urine Glucose (UA) Urine Ketones Urine Blood Urine Nitrite Urine Bilirubin Urine Urobilinogen Ur Leukocyte Esterase SARS-CoV-2 (PCR) Influenza Type A (PCR) Influenza Type B (PCR) RSV (RT-PCR) PG Care Time/CCT Total # of Minutes Spent Total Time Spent with Patient: Total time spent is greater than 50% in coordination of care (as documented) at patient's floor/unit and/or counseling patient: Coding Level of Care Code 57948 SUB INP/OBS CARE 2/35MIN Diagnoses COVID U07.1 CAD (coronary artery disease) I25.10 Acute hypokalemia E87.6 Hypothyroidism E03.9 Weakness R53.1 Chronic kidney disease, stage IV (severe) N18.4 Diabetes mellitus, type 2 E11.9 History of colon cancer Z85.038 Cognitive impairment R41.89 Frequent falls R29.6 DVT prophylaxis Z29.9
[2022-04-28] MEDS: POLYETHYLENE (MIRALAX) 17 GM PACK PO SCH (16:07)
[2022-04-28] MEDS ORDERED: SODIUM CHLORIDE 0.9% 500 ML IV SCH (18:30)
[2022-04-28] MEDS: ATORVASTATIN 40 MG TAB PO SCH (20:31)
[2022-04-28] MEDS: GABAPENTIN 300 MG CAP PO SCH (20:31)
[2022-04-29] MEDS: HEPARIN SOD 5,000 UNIT/0.5 ML VIAL SQ SCH ×3 (06:17→21:52)
[2022-04-29] MEDS: LEVOTHYROXINE SODIUM 50 MCG TABLET PO SCH (06:17)
[2022-04-29 06:56] LABS: Basophils # (auto) 0.02 K/uL (0-0.2); Basophils % (auto) 0.4 %; Eosinophils # (auto) 0.06 K/uL (0-0.50); Eosinophils % (auto) 1.1 %; Hemoglobin 10.6 g/dl (12.0-16.0); Immature Granulocytes # (auto) 0.03 K/uL (0.01-0.20); Immature Granulocytes % (auto) 0.5 %; Lymphocytes # (auto) 1.65 K/uL (1.2-3.4); Lymphocytes % (auto) 29.4 %; Mean Corpuscular Hemoglobin 32.9 pg (25.0-34.0); Mean Corpuscular Hgb Conc 34.2 g/dL (32.0-36.0); Mean Corpuscular Volume 96.3 fL (80.0-100.0); Mean Platelet Volume 9.3 fL (9.4-12.4); Monocytes % (auto) 14.2 %; Neutrophils # (auto) 3.06 K/uL (1.40-6.50); Neutrophils % (auto) 54.4 %; Platelet Count 152 K/uL (130-400); RDW Coefficient of Variation 15.2 % (11.5-14.5); Red Blood Count 3.22 M/uL (4.20-5.40); White Blood Count 5.62 K/ul (4.8-10.8)
[2022-04-29 07:08] LABS: Anion Gap 5 (3-11); BUN Creatinine Ratio 14.8 (10-20); Blood Urea Nitrogen 22 mg/dl (6-23); C Reactive Protein 9.41 mg/dl (0-0.5); Calcium 9.2 mg/dl (8.5-10.1); Carbon Dioxide 32 mmol/L (21-32); Chloride 102 mmol/L (98-107); Est GFR (African American) 36.7 ml/min; Est GFR (Non-African American) 31.7 ml/min; Glucose 136 mg/dl (70-99(Fasting)); Potassium 3.8 mmol/L (3.5-5.1); Sodium 139 mmol/L (136-145)
[2022-04-29 08:06] LABS: Estimated Average Glucose 186 mg/dl; Hemoglobin A1C 8.1 % (4.5-5.6)
[2022-04-29] MEDS: ISOSORBIDE MONO EXTENDED REL 60 MG TABCR PO SCH (08:53)
[2022-04-29] MEDS: DONEPEZIL HCL 10 MG TAB PO SCH (08:54)
[2022-04-29] MEDS: DULoxetine HCL 60 MG CAP PO SCH (08:54)
[2022-04-29] MEDS: FAMOTIDINE 40 MG TABLET PO SCH (08:54)
[2022-04-29] MEDS: nadoloL 40 MG TAB PO SCH (08:54)
[2022-04-29] MEDS: FUROSEMIDE 40 MG TAB PO SCH (08:54)
[2022-04-29] MEDS: ASPIRIN 81 MG ECTAB PO SCH (08:54)
[2022-04-29] MEDS: DOCUSATE SODIUM 100 MG CAP PO SCH ×2 (08:56→21:52)
[2022-04-29] MEDS: POLYETHYLENE (MIRALAX) 17 GM PACK PO SCH (08:57)
[2022-04-29] MEDS: LANTUS PER UNIT CHARGE SQ SCH ×2 (09:16→21:30)
[2022-04-29] MEDS: INSULIN ASPART PER UNIT SC SCH ×4 (09:16→21:29)
--- NOTE | 2022-04-29 18:42 | Hospitalist Progress Note ---
Date of Service April 29, 2022 Assessment & Plan (1) COVID: Plan: Stable, improving. Lingering weakness/fatigue. Fortunately lung exam remains normal, O2 sats wnl, and CXR is clear. Still no indication for steroids or Remdesivir. CRP still elevated but improved (11 --> 9). Cont airborne isolation. Cont supportive care. Cont PT/OT. Will likely need SNF for rehab unless [facility] feels they can accommodate her needs in current state. (2) CAD (coronary artery disease): Plan: no ischemic symptoms cont statin cont asa 81mg daily cont imdur no beta shahzad due to bradycardia? (3) Acute hypokalemia: Plan: repleted resolved mag level noted to be normal (4) Hypothyroidism: Plan: TSH wnl cont synthroid (5) Weakness: Plan: 2nd to #1 above PT, OT appreciated (6) Chronic kidney disease, stage IV (severe): Plan: CrCl baseline is 25-30 BMP stable today (7) Diabetes mellitus, type 2: Plan: a1c 8.1% pharmacy on consult for glycemic management appreciate their assistance cont basal-bolus SC insulin (8) History of colon cancer: Plan: noted no GI symptoms at this time (9) Cognitive impairment: Plan: mild (10) Frequent falls: Plan: despite h/o recent fall no apparent bony injuries (scattered bruises but nothing more severe) CT head neg l-spine x-rays neg for acute fracture cont PT, OT (11) DVT prophylaxis: Plan: heparin 5000 TID Plan daughter updated by phone this evening as well as yesterday she is aware of PT/OT findings and probable need for SNF she agrees her mother is very weak Admission and Anticipated Discharge Date Admission Date: April 28, 2022 Subjective sitting in chair during my visit OT was working with her while I was there she needed considerable assistance to stand from the chair only able to take a few steps with rolling walker she typically is able to get up from a chair and walk fully unassisted at [facility] pt reports "feeling better" today staff report good appetite still very tired, however myalgias still remain minimal cough no dyspnea or ISLAS no pain any location Review of Systems Review of Systems: gen - no fevers or chills cv - no cp, no chest tightness pulm - minimal cough without dyspnea GI - no abd pain, nausea, emesis Physical Exam Physical Exam: gen - NAD; weak, but looks better today mouth - MMM neck - no JVD heart - RRR, s1 s2, no murmur lungs - CTA b/l, no rales, no wheeze abd - soft NT BS+ ND ext - trace-1+ edema b/l, chronic venous stasis changes b/l shins (hyperpigmentation with slightly pink skin with scale) skin - scattered bruises base of back/flank; bruise right elbow region (recent falls) Results & Data Results & Data ([facility]) Vital Signs (Past 12 Hours) Vital Signs Temp Pulse Resp BP BP Pulse Ox O2 Del Method 04/29/22 17:46 36.7 C 88 18 115/70 95 Room Air 04/29/22 15:00 36.3 C L 60 18 98/61 L 93 Room Air 04/29/22 08:17 37.1 C 58 L 18 131/75 93 Room Air Laboratory Results Laboratory Results - last 24 hr 04/28/22 04/28/22 04/29/22 07:27 20:37 06:10 WBC 5.62 RBC 3.22 L Hgb 10.6 L Hct 31.0 L MCV 96.3 MCH 32.9 MCHC 34.2 RDW Std Deviation 54.0 H RDW Coeff of Shaji 15.2 H Plt Count 152 MPV 9.3 L Immature Gran % (Auto) 0.5 Neut % (Auto) 54.4 Lymph % (Auto) 29.4 [place] % (Auto) 14.2 Eos % (Auto) 1.1 Baso % (Auto) 0.4 Neut # (Auto) 3.06 Lymph # (Auto) 1.65 [place] # (Auto) 0.80 H Eos # (Auto) 0.06 Baso # (Auto) 0.02 Immature Gran # (Auto) 0.03 Sodium Potassium Chloride Carbon Dioxide Anion Gap BUN Creatinine Est Cr Clr Drug Dosing Est GFR ( Amer) Est GFR (Non-Af Amer) BUN/Creatinine Ratio Glucose POC Glucose 110 H Estimat Average Glucose 186 Hemoglobin A1c 8.1 H Calcium C-Reactive Protein TSH 04/29/22 04/29/22 04/29/22 06:10 06:10 08:15 WBC RBC Hgb Hct MCV MCH MCHC RDW Std Deviation RDW Coeff of Shaji Plt Count MPV Immature Gran % (Auto) Neut % (Auto) Lymph % (Auto) [place] % (Auto) Eos % (Auto) Baso % (Auto) Neut # (Auto) Lymph # (Auto) [place] # (Auto) Eos # (Auto) Baso # (Auto) Immature Gran # (Auto) Sodium 139 Potassium 3.8 Chloride 102 Carbon Dioxide 32 Anion Gap 5 BUN 22 Creatinine 1.49 H Est Cr Clr Drug Dosing Not Reportable Est GFR ( Amer) 36.7 Est GFR (Non-Af Amer) 31.7 BUN/Creatinine Ratio 14.8 Glucose 136 H POC Glucose 152 H Estimat Average Glucose Hemoglobin A1c Calcium 9.2 C-Reactive Protein 9.41 H TSH 1.897 04/29/22 04/29/22 12:18 17:01 WBC RBC Hgb Hct MCV MCH MCHC RDW Std Deviation RDW Coeff of Shaji Plt Count MPV Immature Gran % (Auto) Neut % (Auto) Lymph % (Auto) [place] % (Auto) Eos % (Auto) Baso % (Auto) Neut # (Auto) Lymph # (Auto) [place] # (Auto) Eos # (Auto) Baso # (Auto) Immature Gran # (Auto) Sodium Potassium Chloride Carbon Dioxide Anion Gap BUN Creatinine Est Cr Clr Drug Dosing Est GFR ( Amer) Est GFR (Non-Af Amer) BUN/Creatinine Ratio Glucose POC Glucose 179 H 155 H Estimat Average Glucose Hemoglobin A1c Calcium C-Reactive Protein TSH PG Care Time/CCT Total # of Minutes Spent Total Time Spent with Patient: Total time spent is greater than 50% in coordination of care (as documented) at patient's floor/unit and/or counseling patient: Coding Level of Care Code 27437 SUB INP/OBS CARE 2/35MIN Diagnoses COVID U07.1 CAD (coronary artery disease) I25.10 Acute hypokalemia E87.6 Hypothyroidism E03.9 Weakness R53.1 Chronic kidney disease, stage IV (severe) N18.4 Diabetes mellitus, type 2 E11.9 History of colon cancer Z85.038 Cognitive impairment R41.89 Frequent falls R29.6 DVT prophylaxis Z29.9
[2022-04-29] MEDS: GABAPENTIN 300 MG CAP PO SCH (21:52)
[2022-04-29] MEDS: ATORVASTATIN 40 MG TAB PO SCH (21:52)
[2022-04-30] MEDS: HEPARIN SOD 5,000 UNIT/0.5 ML VIAL SQ SCH ×3 (05:22→21:52)
[2022-04-30] MEDS: LEVOTHYROXINE SODIUM 50 MCG TABLET PO SCH (05:22)
--- NOTE | 2022-04-30 08:18 | Hospitalist Progress Note ---
Date of Service April 30, 2022 Assessment & Plan (1) COVID: Plan: Acute moderate risk, no respiratory symptoms just profound fatigue and mechanical fall Metabolic encephalopathy secondary to covid and impacting baseline memory impairment/Dementia Lingering weakness/fatigue. lung exam remains normal, O2 sats wnl, and CXR is clear. no indication for steroids or Remdesivir. CRP elevated Cont airborne isolation. Cont PT/OT. supportive care Will likely need SNF for rehab unless [facility] feels they can accommodate her needs in current state. (2) CAD (coronary artery disease): Plan: Chronic stable no ischemic symptoms cont asa 81mg daily, imdur atorvastatin no beta shahzad due to bradycardia? (3) Diabetes mellitus, type 2: Plan: chronic and unstable , a1c 8.1% pharmacy on consult for glycemic management cont basal-bolus SC insulin (4) Acute hypokalemia: Plan: acute self limited repleted mag level noted to be normal (5) Hypothyroidism: Plan: TSH wnl cont synthroid (6) Chronic kidney disease, stage IV (severe): Plan: chronic and stable (7) DVT prophylaxis: Plan: heparin 5000 TID Admission and Anticipated Discharge Date Admission Date: April 28, 2022 Subjective pt was doing well, sitting up in bed, she had no focal complaints but was feeling very fatigued and just wanted to sleep Physical Exam Physical Exam: Patient was awake and alert appropriate she was fatigued her neck is without lymphadenopathy her lungs were clear with decreased breath sounds at the bases but no wheezes or concerning auscultative sounds. Her abdomen NABS soft and nontender and extremities without edema Results & Data Results & Data ([facility]) Vital Signs (Past 12 Hours) Vital Signs Temp Pulse Resp BP Pulse Ox O2 Del Method 04/29/22 21:51 63 94 Room Air 04/29/22 20:33 60 16 04/29/22 20:32 97.9 F 59 L 16 105/66 93 Room Air PG Care Time/CCT Total # of Minutes Spent Total Time Spent with Patient: Total time spent is greater than 50% in coordination of care (as documented) at patient's floor/unit and/or counseling patient: Coding Level of Care Code 01375 SUB INP/OBS CARE 2/35MIN Diagnoses COVID U07.1 CAD (coronary artery disease) I25.10 Diabetes mellitus, type 2 E11.9 Acute hypokalemia E87.6 Hypothyroidism E03.9 Chronic kidney disease, stage IV (severe) N18.4 DVT prophylaxis Z29.9
[2022-04-30] MEDS: ASPIRIN 81 MG ECTAB PO SCH (08:46)
[2022-04-30] MEDS: ISOSORBIDE MONO EXTENDED REL 60 MG TABCR PO SCH (08:46)
[2022-04-30] MEDS: FUROSEMIDE 40 MG TAB PO SCH (08:46)
[2022-04-30] MEDS: DONEPEZIL HCL 10 MG TAB PO SCH (08:46)
[2022-04-30] MEDS: POLYETHYLENE (MIRALAX) 17 GM PACK PO SCH (08:47)
[2022-04-30] MEDS: FAMOTIDINE 40 MG TABLET PO SCH (08:47)
[2022-04-30] MEDS: nadoloL 40 MG TAB PO SCH (08:47)
[2022-04-30] MEDS: DOCUSATE SODIUM 100 MG CAP PO SCH ×2 (08:47→21:52)
[2022-04-30] MEDS: DULoxetine HCL 60 MG CAP PO SCH (08:47)
--- NOTE | 2022-04-30 08:53 | Pharmacy Report ---
Pharmacy Glycemic Short Note 2 - Date of Service April 30, 2022 - Glycemic Short BSG Results (Last 24 hours): 04/29/22 04/29/22 04/29/22 12:18 17:01 20:29 POC Glucose 179 H 155 H 150 H 04/30/22 08:45 POC Glucose 135 H OUTPATIENT ANTIDIABETIC REGIMEN: * Januvia 25 mg PO daily * HbA1C = 9% (02/15/22) ASSESSMENT: 04/30 * Patient received total of 45 units of insulin yesterday, of which 25 units were basal insulin * Fasting BSG 135 mg/dL - will continue with same basal insulin today * BSGs slightly above goal range yesterday, may tighten CF more today 04/28 * Ms Marinelli is an 86 y/o F with a PMH of T2DM who presents with COVID and ambulatory dysfuntion. * BSG on admission was 169 mg/dL. Patient received no insulin on day of admission. * Fasting today is 175 mg/dL. * Start Lantus weight-based stress of 2. Lower dose available for lower BSG. * Novolog weight-based stress of 2. PLAN FOR INPATIENT GLYCEMIC CONTROL: * Hold outpatient oral diabetes medications * Basal insulin * Lantus 15 units Qam * Lantus 10 units Qpm * Bolus insulin * NovoLog per scale ACHS or Q6hrs while NPO * Goal Range: Low 110 mg/dL - High 140 mg/dL * Correction Factor: 30 mg/dL/unit * Nutritional / Prandial insulin per carb ratio of 1 unit per 10 grams CHO consumed
[2022-04-30] MEDS: INSULIN ASPART PER UNIT SC SCH ×4 (09:28→21:25)
[2022-04-30] MEDS: LANTUS PER UNIT CHARGE SQ SCH ×2 (09:29→21:25)
[2022-04-30] MEDS: ATORVASTATIN 40 MG TAB PO SCH (21:51)
[2022-04-30] MEDS: ACETAMINOPHEN 500 MG TAB PO PRN (21:52)
[2022-04-30] MEDS: GABAPENTIN 300 MG CAP PO SCH (21:52)
[2022-05-01] MEDS: HEPARIN SOD 5,000 UNIT/0.5 ML VIAL SQ SCH ×3 (05:33→23:35)
[2022-05-01] MEDS: LEVOTHYROXINE SODIUM 50 MCG TABLET PO SCH (05:33)
[2022-05-01] MEDS: FUROSEMIDE 40 MG TAB PO SCH (09:35)
[2022-05-01] MEDS: nadoloL 40 MG TAB PO SCH (09:36)
[2022-05-01] MEDS: ISOSORBIDE MONO EXTENDED REL 60 MG TABCR PO SCH (09:36)
[2022-05-01] MEDS: FAMOTIDINE 40 MG TABLET PO SCH (09:36)
[2022-05-01] MEDS: DONEPEZIL HCL 10 MG TAB PO SCH (09:37)
[2022-05-01] MEDS: ASPIRIN 81 MG ECTAB PO SCH (09:37)
[2022-05-01] MEDS: DOCUSATE SODIUM 100 MG CAP PO SCH ×2 (09:37→20:07)
[2022-05-01] MEDS: DULoxetine HCL 60 MG CAP PO SCH (09:37)
[2022-05-01] MEDS: POLYETHYLENE (MIRALAX) 17 GM PACK PO SCH (09:38)
[2022-05-01] MEDS: INSULIN ASPART PER UNIT SC SCH ×4 (09:41→22:29)
[2022-05-01] MEDS: LANTUS PER UNIT CHARGE SQ SCH ×2 (09:46→22:52)
--- NOTE | 2022-05-01 17:48 | Hospitalist Progress Note ---
Date of Service May 01, 2022 Assessment & Plan (1) COVID: Plan: Acute moderate risk, no respiratory symptoms just profound fatigue and mechanical fall Metabolic encephalopathy secondary to covid and impacting baseline memory impairment/Dementia Lingering weakness/fatigue. Metabolic encephalopathy limits/inhibits her ability to return to personal-[facility] lung exam remains normal, O2 sats wnl, and CXR is clear. no indication for steroids or Remdesivir. CRP elevated Cont airborne isolation. Cont PT/OT. supportive care Will likely need SNF patient will need to be on 10-day isolation before being able to go to senior care facility to be May 07, 2022 or later (2) CAD (coronary artery disease): Plan: Chronic stable no ischemic symptoms cont asa 81mg daily, imdur atorvastatin no beta shahzad due to bradycardia (3) Diabetes mellitus, type 2: Plan: chronic and unstable , a1c 8.1% pharmacy on consult for glycemic management cont basal-bolus SC insulin (4) Acute hypokalemia: Plan: acute self limited repleted mag level noted to be normal (5) Hypothyroidism: Plan: TSH wnl cont synthroid (6) Chronic kidney disease, stage IV (severe): Plan: chronic and stable (7) DVT prophylaxis: Plan: heparin 5000 TID Admission and Anticipated Discharge Date Admission Date: April 28, 2022 Subjective pt was doing well, sitting up in bed, she had no focal complaints patient feels improved she is up in her room her blinds are open sunshine is coming and she is sitting on the potty chair she has no focal complaints or problems Physical Exam Physical Exam: Patient was awake and alert appropriate she was fatigued her neck is without lymphadenopathy her lungs were clear with decreased breath sounds at the bases but no wheezes or concerning auscultative sounds. Her abdomen NABS soft and nontender and extremities without edema Results & Data Results & Data ([facility]) Vital Signs (Past 12 Hours) Vital Signs Temp Pulse Resp BP Pulse Ox O2 Del Method 05/01/22 15:10 97.9 F 60 18 127/75 93 Room Air 05/01/22 07:17 Room Air 05/01/22 07:11 97.9 F 55 L 18 123/71 96 Room Air PG Care Time/CCT Total # of Minutes Spent Total Time Spent with Patient: Total time spent is greater than 50% in coordination of care (as documented) at patient's floor/unit and/or counseling patient: Coding Level of Care Code 48379 SUB INP/OBS CARE MIN Diagnoses COVID U07.1 CAD (coronary artery disease) I25.10 Diabetes mellitus, type 2 E11.9 Acute hypokalemia E87.6 Hypothyroidism E03.9 Chronic kidney disease, stage IV (severe) N18.4 DVT prophylaxis Z29.9
[2022-05-01] MEDS: GABAPENTIN 300 MG CAP PO SCH (20:05)
[2022-05-01] MEDS: ATORVASTATIN 40 MG TAB PO SCH (20:05)
[2022-05-02] MEDS: LEVOTHYROXINE SODIUM 50 MCG TABLET PO SCH (06:34)
[2022-05-02] MEDS: HEPARIN SOD 5,000 UNIT/0.5 ML VIAL SQ SCH ×3 (06:34→23:44)
[2022-05-02] MEDS: nadoloL 40 MG TAB PO SCH (08:37)
[2022-05-02] MEDS: FUROSEMIDE 40 MG TAB PO SCH (08:37)
[2022-05-02] MEDS: ASPIRIN 81 MG ECTAB PO SCH (08:37)
[2022-05-02] MEDS: FAMOTIDINE 40 MG TABLET PO SCH (08:37)
[2022-05-02] MEDS: DONEPEZIL HCL 10 MG TAB PO SCH (08:37)
[2022-05-02] MEDS: DULoxetine HCL 60 MG CAP PO SCH (08:38)
[2022-05-02] MEDS: ISOSORBIDE MONO EXTENDED REL 60 MG TABCR PO SCH (08:38)
[2022-05-02] MEDS: DOCUSATE SODIUM 100 MG CAP PO SCH ×2 (08:38→21:22)
[2022-05-02] MEDS: POLYETHYLENE (MIRALAX) 17 GM PACK PO SCH (08:39)
[2022-05-02] MEDS: INSULIN ASPART PER UNIT SC SCH ×4 (08:42→23:24)
[2022-05-02] MEDS: LANTUS PER UNIT CHARGE SQ SCH (08:44)
[2022-05-02] MEDS: ACETAMINOPHEN 500 MG TAB PO PRN (08:49)
[2022-05-02 08:51] LABS: Anion Gap 7 (3-11); Blood Urea Nitrogen 27 mg/dl (6-23); Carbon Dioxide 30 mmol/L (21-32); Chloride 104 mmol/L (98-107); Est GFR (Non-African American) 29.3 ml/min; Glucose 106 mg/dl (70-99(Fasting)); Potassium 3.5 mmol/L (3.5-5.1); Sodium 141 mmol/L (136-145)
--- NOTE | 2022-05-02 12:32 | Pharmacy Report ---
Pharmacy Glycemic Short Note 2 - Date of Service May 02, 2022 - Glycemic Short BSG Results (Last 24 hours): 05/01/22 05/01/22 05/01/22 12:40 17:25 21:20 Glucose POC Glucose 188 H 117 H 127 H 05/02/22 05/02/22 05/02/22 07:45 08:30 12:05 Glucose 106 H POC Glucose 137 H 226 H OUTPATIENT ANTIDIABETIC REGIMEN: * Januvia 25 mg PO daily * HbA1C = 9% (02/15/22) ASSESSMENT: 05/02 * Patient fasting blood sugar at goal past two days, continue current regimen * Blood sugars rising throughout the day, especially breakfast to lunch, tightened CR, if this continues will consider tighter CR at breakfast only 04/30 * Patient received total of 45 units of insulin yesterday, of which 25 units were basal insulin * Fasting BSG 135 mg/dL - will continue with same basal insulin today * BSGs slightly above goal range yesterday, may tighten CF more today 04/28 * Ms Marinelli is an 86 y/o F with a PMH of T2DM who presents with COVID and ambulatory dysfuntion. * BSG on admission was 169 mg/dL. Patient received no insulin on day of admission. * Fasting today is 175 mg/dL. * Start Lantus weight-based stress of 2. Lower dose available for lower BSG. * Novolog weight-based stress of 2. PLAN FOR INPATIENT GLYCEMIC CONTROL: * Hold outpatient oral diabetes medications * Basal insulin * Lantus 15 units Qam * Lantus 10 units Qpm * Bolus insulin * NovoLog per scale ACHS or Q6hrs while NPO * Goal Range: Low 110 mg/dL - High 140 mg/dL * Correction Factor: 30 mg/dL/unit * Nutritional / Prandial insulin per carb ratio of 1 unit per 8 grams CHO consumed
--- NOTE | 2022-05-02 16:49 | Hospitalist Progress Note ---
Date of Service May 02, 2022 Assessment & Plan (1) COVID: Plan: Acute moderate risk, no respiratory symptoms just profound fatigue and mechanical fall Metabolic encephalopathy secondary to covid and impacting baseline memory impairment/Dementia Lingering weakness/fatigue. Metabolic encephalopathy limits/inhibits her ability to return to personal-assisted lung exam remains normal, O2 sats wnl, and CXR is clear. no indication for steroids or Remdesivir. CRP elevated Cont airborne isolation. Cont PT/OT. supportive care Will likely need SNF patient will need to be on 10-day isolation before being able to go to snf facility to be May 07, 2022 or later Patient is stable on 05/03 (2) CAD (coronary artery disease): Plan: Chronic stable no ischemic symptoms cont asa 81mg daily, imdur atorvastatin no beta shahzad due to bradycardia (3) Diabetes mellitus, type 2: Plan: chronic and unstable , a1c 8.1% pharmacy on consult for glycemic management cont basal-bolus SC insulin (4) Acute hypokalemia: Plan: acute self limited repleted mag level noted to be normal (5) Hypothyroidism: Plan: TSH wnl cont synthroid (6) Chronic kidney disease, stage IV (severe): Plan: chronic and stable (7) DVT prophylaxis: Plan: heparin 5000 TID Admission and Anticipated Discharge Date Admission Date: April 28, 2022 Subjective 86 yo female reports feeling well. She has no new complaints. Review of Systems Review of Systems: All systems reviewed & are unremarkable except as noted in HPI & below Physical Exam Physical Exam: Patient was awake and alert appropriate her neck is without lymphadenopathy her lungs were clear with decreased breath sounds at the bases but no wheezes or concerning auscultative sounds. Her abdomen NABS soft and nontender and extremities without edema Results & Data Results & Data ([facility]) Vital Signs (Past 12 Hours) Vital Signs Temp Pulse Resp BP Pulse Ox O2 Del Method 05/02/22 07:13 36.4 C L 52 L 16 125/70 98 Room Air PG Care Time/CCT Total # of Minutes Spent Total Time Spent with Patient: Total time spent is greater than 50% in coordination of care (as documented) at patient's floor/unit and/or counseling patient: Coding Level of Care Code 30471 SUB INP/OBS CARE 2/35MIN Diagnoses COVID U07.1 CAD (coronary artery disease) I25.10 Diabetes mellitus, type 2 E11.9 Acute hypokalemia E87.6 Hypothyroidism E03.9 Chronic kidney disease, stage IV (severe) N18.4 DVT prophylaxis Z29.9
[2022-05-02] MEDS: GABAPENTIN 300 MG CAP PO SCH (21:22)
[2022-05-02] MEDS: ATORVASTATIN 40 MG TAB PO SCH (21:22)
[2022-05-03] MEDS: LANTUS PER UNIT CHARGE SQ SCH ×3 (00:05→21:31)
[2022-05-03] MEDS: LEVOTHYROXINE SODIUM 50 MCG TABLET PO SCH (06:06)
[2022-05-03] MEDS: HEPARIN SOD 5,000 UNIT/0.5 ML VIAL SQ SCH ×3 (06:06→21:35)
[2022-05-03] MEDS: INSULIN ASPART PER UNIT SC SCH ×4 (09:34→21:21)
[2022-05-03] MEDS: FUROSEMIDE 40 MG TAB PO SCH (09:41)
[2022-05-03] MEDS: FAMOTIDINE 40 MG TABLET PO SCH (09:41)
[2022-05-03] MEDS: ISOSORBIDE MONO EXTENDED REL 60 MG TABCR PO SCH (09:42)
[2022-05-03] MEDS: ASPIRIN 81 MG ECTAB PO SCH (09:42)
[2022-05-03] MEDS: nadoloL 40 MG TAB PO SCH (09:42)
[2022-05-03] MEDS: DOCUSATE SODIUM 100 MG CAP PO SCH ×2 (09:43→21:36)
[2022-05-03] MEDS: DONEPEZIL HCL 10 MG TAB PO SCH (09:43)
[2022-05-03] MEDS: DULoxetine HCL 60 MG CAP PO SCH (09:43)
[2022-05-03] MEDS: POLYETHYLENE (MIRALAX) 17 GM PACK PO SCH (09:44)
--- NOTE | 2022-05-03 14:28 | Pharmacy Report ---
Pharmacy Glycemic Short Note 2 - Date of Service May 03, 2022 - Glycemic Short BSG Results (Last 24 hours): 05/02/22 05/02/22 05/02/22 17:07 21:04 23:53 POC Glucose 98 126 H 120 H 05/03/22 05/03/22 08:27 12:03 POC Glucose 126 H 259 H OUTPATIENT ANTIDIABETIC REGIMEN: * Januvia 25 mg PO daily * HbA1C = 9% (02/15/22) ASSESSMENT: 05/03/22 * Patient's BSGs yesterday were 957-831-71-126 mg/dL. Patient received 43 units of insulin (25 units of basal and 18 units of bolus). * Fasting today is 126 mg/dL. Continue basal. * For Novolog, had tightened CR to 6 for breakfast but lunch was elevated at 259 mg/dL. * For Novolog, will continue this tighter CR at breakfast (now changed to 5). Loosen CF since patient tends to overcorrect at higher BSGs. 05/02 * Patient fasting blood sugar at goal past two days, continue current regimen * Blood sugars rising throughout the day, especially breakfast to lunch, tightened CR, if this continues will consider tighter CR at breakfast only 04/30 * Patient received total of 45 units of insulin yesterday, of which 25 units were basal insulin * Fasting BSG 135 mg/dL - will continue with same basal insulin today * BSGs slightly above goal range yesterday, may tighten CF more today 04/28 * Ms Marinelli is an 86 y/o F with a PMH of T2DM who presents with COVID and ambulatory dysfuntion. * BSG on admission was 169 mg/dL. Patient received no insulin on day of admission. * Fasting today is 175 mg/dL. * Start Lantus weight-based stress of 2. Lower dose available for lower BSG. * Novolog weight-based stress of 2. PLAN FOR INPATIENT GLYCEMIC CONTROL: * Hold outpatient oral diabetes medications * Basal insulin * Lantus 15 units Qam * Lantus 10 units Qpm * Bolus insulin * NovoLog per scale ACHS or Q6hrs while NPO * Goal Range: Low 110 mg/dL - High 140 mg/dL * Correction Factor: 40 mg/dL/unit * Nutritional / Prandial insulin per carb ratio of 1 unit per 8 grams CHO consumed ( 1 unit per 5 grams CHO consumed at breakfast)
[2022-05-03] MEDS: GABAPENTIN 300 MG CAP PO SCH (21:35)
[2022-05-03] MEDS: ATORVASTATIN 40 MG TAB PO SCH (21:35)
--- NOTE | 2022-05-03 22:25 | Hospitalist Progress Note ---
Date of Service May 03, 2022 Assessment & Plan (1) COVID: Plan: Acute moderate risk, no respiratory symptoms just profound fatigue and mechanical fall Metabolic encephalopathy secondary to covid and impacting baseline memory impairment/Dementia Lingering weakness/fatigue. Metabolic encephalopathy limits/inhibits her ability to return to personal-skilled nursing lung exam remains normal, O2 sats wnl, and CXR is clear. no indication for steroids or Remdesivir. CRP elevated Cont airborne isolation. Cont PT/OT. supportive care Will likely need SNF patient will need to be on 10-day isolation before being able to go to [facility]pc facility to be May 07, 2022 or later No changes to above plan, remains on room air. (2) CAD (coronary artery disease): Plan: Chronic stable no ischemic symptoms cont asa 81mg daily, imdur atorvastatin no beta shahzad due to bradycardia (3) Diabetes mellitus, type 2: Plan: chronic and unstable , a1c 8.1% pharmacy on consult for glycemic management cont basal-bolus SC insulin (4) Acute hypokalemia: Plan: acute self limited repleted mag level noted to be normal (5) Hypothyroidism: Plan: TSH wnl cont synthroid (6) Chronic kidney disease, stage IV (severe): Plan: chronic and stable (7) DVT prophylaxis: Plan: heparin 5000 TID Admission and Anticipated Discharge Date Admission Date: April 28, 2022 Subjective Patient reports no new symptoms. Review of Systems Review of Systems: All systems reviewed & are unremarkable except as noted in HPI & below Physical Exam Physical Exam: Patient was awake and alert appropriate her neck is without lymphadenopathy her lungs were clear with decreased breath sounds at the bases but no wheezes or concerning auscultative sounds. Her abdomen NABS soft and nontender and extremities without edema Results & Data Results & Data ([facility]) Vital Signs (Past 12 Hours) Vital Signs Temp Pulse Resp BP Pulse Ox O2 Del Method 05/03/22 21:08 36.5 C 68 16 118/71 96 Room Air 05/03/22 16:14 36.7 C 59 L 18 131/73 96 Room Air PG Care Time/CCT Total # of Minutes Spent Total Time Spent with Patient: Total time spent is greater than 50% in coordination of care (as documented) at patient's floor/unit and/or counseling patient: Coding Level of Care Code 72399 SUB INP/OBS CARE 2/35MIN Diagnoses COVID U07.1 CAD (coronary artery disease) I25.10 Diabetes mellitus, type 2 E11.9 Acute hypokalemia E87.6 Hypothyroidism E03.9 Chronic kidney disease, stage IV (severe) N18.4 DVT prophylaxis Z29.9
[2022-05-04] MEDS: HEPARIN SOD 5,000 UNIT/0.5 ML VIAL SQ SCH ×3 (05:30→20:59)
[2022-05-04] MEDS: LEVOTHYROXINE SODIUM 50 MCG TABLET PO SCH (05:30)
[2022-05-04] MEDS: INSULIN ASPART PER UNIT SC SCH ×4 (08:54→20:47)
[2022-05-04] MEDS: LANTUS PER UNIT CHARGE SQ SCH ×2 (08:55→20:47)
[2022-05-04] MEDS: nadoloL 40 MG TAB PO SCH (09:01)
[2022-05-04] MEDS: DONEPEZIL HCL 10 MG TAB PO SCH (09:01)
[2022-05-04] MEDS: FUROSEMIDE 40 MG TAB PO SCH (09:01)
[2022-05-04] MEDS: DULoxetine HCL 60 MG CAP PO SCH (09:01)
[2022-05-04] MEDS: FAMOTIDINE 40 MG TABLET PO SCH (09:01)
[2022-05-04] MEDS: ISOSORBIDE MONO EXTENDED REL 60 MG TABCR PO SCH (09:01)
[2022-05-04] MEDS: POLYETHYLENE (MIRALAX) 17 GM PACK PO SCH (09:01)
[2022-05-04] MEDS: ASPIRIN 81 MG ECTAB PO SCH (09:02)
[2022-05-04] MEDS: DOCUSATE SODIUM 100 MG CAP PO SCH ×2 (09:02→21:00)
[2022-05-04] MEDS: ATORVASTATIN 40 MG TAB PO SCH (20:59)
[2022-05-04] MEDS: GABAPENTIN 300 MG CAP PO SCH (20:59)
--- NOTE | 2022-05-04 22:52 | Hospitalist Progress Note ---
Date of Service May 04, 2022 Assessment & Plan (1) COVID: Plan: Acute moderate risk, no respiratory symptoms just profound fatigue and mechanical fall Metabolic encephalopathy secondary to covid and impacting baseline memory impairment/Dementia Lingering weakness/fatigue. Metabolic encephalopathy limits/inhibits her ability to return to personal-[facility] lung exam remains normal, O2 sats wnl, and CXR is clear. no indication for steroids or Remdesivir. CRP elevated Cont airborne isolation. Cont PT/OT. supportive care Will likely need SNF patient will need to be on 10-day isolation before being able to go to detention facility to be May 07, 2022 or later No changes to above plan, remains on room air. Plan to discharge on 05/07 (2) CAD (coronary artery disease): Plan: Chronic stable no ischemic symptoms cont asa 81mg daily, imdur atorvastatin no beta shahzad due to bradycardia (3) Diabetes mellitus, type 2: Plan: chronic and unstable , a1c 8.1% pharmacy on consult for glycemic management cont basal-bolus SC insulin (4) Acute hypokalemia: Plan: acute self limited repleted mag level noted to be normal (5) Hypothyroidism: Plan: TSH wnl cont synthroid (6) Chronic kidney disease, stage IV (severe): Plan: chronic and stable (7) DVT prophylaxis: Plan: heparin 5000 TID Admission and Anticipated Discharge Date Admission Date: April 28, 2022 Subjective Patient reports feeling well. She has no new complaints. Review of Systems Review of Systems: All systems reviewed & are unremarkable except as noted in HPI & below Physical Exam Physical Exam: Patient was awake and alert appropriate her neck is without lymphadenopathy her lungs were clear Her abdomen NABS soft and nontender and extremities without edema Results & Data Results & Data ([facility]) Vital Signs (Past 12 Hours) Vital Signs Temp Pulse Resp BP Pulse Ox O2 Del Method 05/04/22 20:47 36.8 C 62 16 123/73 98 Room Air PG Care Time/CCT Total # of Minutes Spent Total Time Spent with Patient: Total time spent is greater than 50% in coordination of care (as documented) at patient's floor/unit and/or counseling patient: Coding Level of Care Code 58769 SUB INP/OBS CARE 2/35MIN Diagnoses COVID U07.1 CAD (coronary artery disease) I25.10 Diabetes mellitus, type 2 E11.9 Acute hypokalemia E87.6 Hypothyroidism E03.9 Chronic kidney disease, stage IV (severe) N18.4 DVT prophylaxis Z29.9
[2022-05-05] MEDS: LEVOTHYROXINE SODIUM 50 MCG TABLET PO SCH (05:39)
[2022-05-05] MEDS: HEPARIN SOD 5,000 UNIT/0.5 ML VIAL SQ SCH ×3 (05:39→21:00)
[2022-05-05] MEDS: INSULIN ASPART PER UNIT SC SCH ×4 (09:36→20:40)
[2022-05-05] MEDS: LANTUS PER UNIT CHARGE SQ SCH ×2 (09:47→20:40)
[2022-05-05] MEDS: ASPIRIN 81 MG ECTAB PO SCH (09:55)
[2022-05-05] MEDS: DULoxetine HCL 60 MG CAP PO SCH (09:56)
[2022-05-05] MEDS: FUROSEMIDE 40 MG TAB PO SCH (09:56)
[2022-05-05] MEDS: DONEPEZIL HCL 10 MG TAB PO SCH (09:56)
[2022-05-05] MEDS: ISOSORBIDE MONO EXTENDED REL 60 MG TABCR PO SCH (09:56)
[2022-05-05] MEDS: FAMOTIDINE 40 MG TABLET PO SCH (09:56)
[2022-05-05] MEDS: nadoloL 40 MG TAB PO SCH (09:56)
[2022-05-05] MEDS: DOCUSATE SODIUM 100 MG CAP PO SCH ×2 (09:56→20:56)
[2022-05-05] MEDS: ACETAMINOPHEN 500 MG TAB PO PRN (09:57)
[2022-05-05] MEDS: POLYETHYLENE (MIRALAX) 17 GM PACK PO SCH (09:57)
[2022-05-05] MEDS: ATORVASTATIN 40 MG TAB PO SCH (20:59)
[2022-05-05] MEDS: GABAPENTIN 300 MG CAP PO SCH (21:00)
--- NOTE | 2022-05-05 22:22 | Hospitalist Progress Note ---
Date of Service May 05, 2022 Assessment & Plan (1) COVID: Plan: Acute moderate risk, no respiratory symptoms just profound fatigue and mechanical fall Metabolic encephalopathy secondary to covid and impacting baseline memory impairment/Dementia Lingering weakness/fatigue. Metabolic encephalopathy limits/inhibits her ability to return to personal-snf lung exam remains normal, O2 sats wnl, and CXR is clear. no indication for steroids or Remdesivir. CRP elevated Cont airborne isolation. Cont PT/OT. supportive care Will likely need SNF patient will need to be on 10-day isolation before being able to go to assisted facility to be May 07, 2022 or later No changes to above plan, remains on room air. Plan to discharge on 05/06. (2) CAD (coronary artery disease): Plan: Chronic stable no ischemic symptoms cont asa 81mg daily, imdur atorvastatin no beta shahzad due to bradycardia (3) Diabetes mellitus, type 2: Plan: chronic and unstable , a1c 8.1% pharmacy on consult for glycemic management cont basal-bolus SC insulin (4) Acute hypokalemia: Plan: acute self limited repleted mag level noted to be normal (5) Hypothyroidism: Plan: TSH wnl cont synthroid (6) Chronic kidney disease, stage IV (severe): Plan: chronic and stable (7) DVT prophylaxis: Plan: heparin 5000 TID Admission and Anticipated Discharge Date Admission Date: April 28, 2022 Subjective 86 yo female reports no new symptoms. Review of Systems Review of Systems: All systems reviewed & are unremarkable except as noted in HPI & below Physical Exam Physical Exam: Patient was awake and alert appropriate her neck is without lymphadenopathy her lungs were clear Her abdomen NABS soft and nontender and extremities without edema Results & Data Results & Data ([facility]) Vital Signs (Past 12 Hours) Vital Signs Temp Pulse Resp BP BP Pulse Ox O2 Del Method 05/05/22 20:25 36.2 C L 61 16 112/69 95 Room Air 05/05/22 16:45 36.5 C 53 L 18 111/71 99 Room Air PG Care Time/CCT Total # of Minutes Spent Total Time Spent with Patient: Total time spent is greater than 50% in coordination of care (as documented) at patient's floor/unit and/or counseling patient: Coding Level of Care Code 02926 SUB INP/OBS CARE 2/35MIN Diagnoses COVID U07.1 CAD (coronary artery disease) I25.10 Diabetes mellitus, type 2 E11.9 Acute hypokalemia E87.6 Hypothyroidism E03.9 Chronic kidney disease, stage IV (severe) N18.4 DVT prophylaxis Z29.9
[2022-05-06] MEDS: HEPARIN SOD 5,000 UNIT/0.5 ML VIAL SQ SCH (06:23)
[2022-05-06] MEDS: LEVOTHYROXINE SODIUM 50 MCG TABLET PO SCH (06:23)
[2022-05-06] MEDS: INSULIN ASPART PER UNIT SC SCH (08:39)
[2022-05-06] MEDS: LANTUS PER UNIT CHARGE SQ SCH (08:40)
[2022-05-06] MEDS: DULoxetine HCL 60 MG CAP PO SCH (08:51)
[2022-05-06] MEDS: ISOSORBIDE MONO EXTENDED REL 60 MG TABCR PO SCH (08:51)
[2022-05-06] MEDS: FAMOTIDINE 40 MG TABLET PO SCH (08:52)
[2022-05-06] MEDS: nadoloL 40 MG TAB PO SCH (08:52)
[2022-05-06] MEDS: ASPIRIN 81 MG ECTAB PO SCH (08:52)
[2022-05-06] MEDS: FUROSEMIDE 40 MG TAB PO SCH (08:52)
[2022-05-06] MEDS: POLYETHYLENE (MIRALAX) 17 GM PACK PO SCH (08:53)
[2022-05-06] MEDS: DONEPEZIL HCL 10 MG TAB PO SCH (08:53)
[2022-05-06] MEDS: DOCUSATE SODIUM 100 MG CAP PO SCH (08:54)
--- NOTE | 2022-05-06 10:25 | Discharge Summary ---
Date of Service May 06, 2022 Admission HPI Per Admitting Provider Pura Marinelli is an 86-year-old female with past medical history of CKD, CAD, hyperlipidemia, hypertension who fell getting up from the toilet. Patient is COVID-positive, is not hypoxic but is with significantly worsened weakness and unable to ambulate and perform ADLs/IADLs and has been recommended for admission for monitoring of COVID and ambulatory dysfunction. No leukocytosis Hemoglobin 11.0 Sodium is normal Potassium is 3.3 Creatinine is with baseline appearing around 1.41.57, creatinine on admission 1.48. High-sensitivity troponin is normal UA is uninfected appearing CXR: Normal CThead: No acute findings L-spine: No acute findings EKG: Poor quality tracing, no territorial ST segment elevations depressions +cough, sore throat for 3-4 days few days of loose bowels 2-3 days ago +fatigue x1 week CAD no history of stends Chronic falls with bruises Globally weak, no focal weakness chronic leg swelling for several months. increased redness bilaterally and soreness Medical History: Reviewed Medications: Reviewed Surgical History: Reviewed Allergies: Reviewed Social History: No tobacco product use, no alcohol use Code Status: DNR Principal Diagnosis COVID 19 Discharge Exam Patient was awake and alert appropriate her neck is without lymphadenopathy her lungs were clear Her abdomen NABS soft and nontender and extremities without edema Discharge Data Allergies Allergy/AdvReac Type Severity Reaction Status Date / Time verapamil Allergy Severe RASH Verified 04/11/22 13:42 latex Allergy Intermediate ITCHING Verified 04/11/22 13:42 oxybutynin Allergy Intermediate ITCHING Verified 04/11/22 13:42 adhesive Allergy Mild redness Verified 04/11/22 13:42 meperidine AdvReac Severe HYPOTENSION Verified 04/11/22 13:42 sodium phosphate AdvReac Severe DECREASED Verified 04/11/22 13:42 [From OsmoPrep] KIDNEY FUNCTION atenolol AdvReac Intermediate tachycardia; Verified 04/11/22 13:42 nervousness diazepam AdvReac Intermediate crying; Verified 04/11/22 13:42 depression fluoxetine AdvReac Intermediate crying; Verified 04/11/22 13:42 depression ibuprofen AdvReac Intermediate low kidney Verified 04/11/22 13:42 function Iodinated Contrast Media AdvReac Intermediate IVP DYE - Verified 04/11/22 13:42 low kidney function lidocaine AdvReac Intermediate Altered Verified 04/11/22 13:42 Mental Status with ointment ONLY naproxen AdvReac Intermediate Low kidney Verified 04/11/22 13:42 function sertraline AdvReac Intermediate crying; Verified 04/11/22 13:42 depression tramadol AdvReac Intermediate dizziness Verified 04/11/22 13:42 venlafaxine AdvReac Intermediate Nervous Verified 04/11/22 13:42 Consultations 04/27/22 16:25 ED Decision to Admit Stat Ordered Studies 04/27/22 12:17 CT head/brain wo con Stat Hospital Course (1) COVID: Acute moderate risk, no respiratory symptoms just profound fatigue and mechanical fall Metabolic encephalopathy secondary to covid and impacting baseline memory impairment/Dementia Lingering weakness/fatigue. Metabolic encephalopathy limits/inhibits her ability to return to personal-custodial lung exam remains normal, O2 sats wnl, and CXR is clear. no indication for steroids or Remdesivir. CRP elevated Cont airborne isolation. Cont PT/OT. supportive care Once patient completed 10 day isolation, patient will be transferred to Will obtain PT while at SNF in hopes she can return to home. (2) CAD (coronary artery disease): Chronic stable no ischemic symptoms cont asa 81mg daily, imdur atorvastatin no beta shahzad due to bradycardia (3) Diabetes mellitus, type 2: chronic and unstable , a1c 8.1% pharmacy on consult for glycemic management cont basal-bolus SC insulin (4) Acute hypokalemia: acute self limited repleted mag level noted to be normal (5) Hypothyroidism: TSH wnl cont synthroid (6) Chronic kidney disease, stage IV (severe): chronic and stable (7) DVT prophylaxis: heparin 5000 TID Total Time Total Time Spent Total Time Spent (In Minutes): 32 Discharge Plan Discharge Items Patient Disposition: Transfer [facility] Reason For Visit: COVID,WEAKNESS Discharge Diagnosis: COVID Activity: Resume your previous activity Non-emergency contact: Primary Care Provider Call non-emergency contact if: you have any medication questions Follow-up/Referrals: Jennifer Lyn MD [Primary Care Provider] - Diet: Regular Addtl Attending Provider Instructions: You were hospitalized for weakness after a COVID 19 infection. Thankfully, your breathing was not an issue while you were here and you have been stable for the past few days. You will benefit from continued PT, and will recommend follow up with your PCP in 1-2 weeks. Pending Studies at Discharge: No Stand-Alone Forms: [facility] Skilled Items Patient informed of condition?: Yes DNR: Yes Discharge Level of Care: Skilled Communicable Disease: No Discharge Prognosis: Stable Lines: None Urinary Catheter: No Medications and DC Order Prescriptions: Continued docusate sodium [Stool Softener] 100 mg capsule 100 mg PO BID Qty: 60 2RF gabapentin 300 mg capsule 300 mg PO HS Qty: 90 3RF levothyroxine 50 mcg tablet 50 mcg PO DAILYBB Qty: 90 1RF Rx Instructions: TAKE 1 TABLET BY MOUTH EVERY DAY isosorbide mononitrate 120 mg tablet extended release 24 hr 120 mg PO DAILY Qty: 90 3RF Rx Instructions: TAKE 1 TABLET BY MOUTH EVERY DAY nadolol 40 mg tablet 40 mg PO QAM Qty: 30 3RF famotidine [Pepcid] 40 mg tablet 40 mg PO DAILY Qty: 90 2RF atorvastatin 40 mg tablet 40 mg PO HS Qty: 90 3RF Hold Instructions: leg pain donepezil [Aricept] 10 mg tablet 10 mg PO DAILY 30 Days Qty: 30 2RF duloxetine 60 mg capsule,delayed release(DR/EC) 60 mg PO DAILY Qty: 90 3RF Januvia 25 mg tablet 25 mg PO DAILY Qty: 30 11RF calcium carbonate-vitamin D3 [Oyster Shell Calcium-Vit D3] 500 mg(1,250mg) - 200 unit Tablet 1 tab PO QAM aspirin [Wilma Low Dose Aspirin] 81 mg Tablet,Delayed Release (Dr/Ec) 81 mg PO QAM ondansetron HCl 4 mg tablet 4 mg PO Q6 PRN (Reason: Nausea And Vomiting) acetaminophen 500 mg Tablet 1,000 mg PO Q6H MDD 3 GRAMS/24 HOURS PRN (Reason: Fever Or Pain) furosemide [Lasix] 40 mg Tablet 40 mg PO QAM loperamide 2 mg Tablet 2 mg PO DIRECTED MDD 4 TABS/24 HOURS PRN (Reason: Diarrhea) Rx Instructions: TAKE 2 TABS AT START OF LOOSE STOOL, THEN 1 TAB AFTER EACH LOOSE STOOL, MAX 4 TABS/24 HOURS. bismuth subsalicylate [Pepto-Bismol] 262 mg/15 mL Suspension 524 mg PO QID PRN (Reason: HEARTBURN/DIARRHEA) diclofenac sodium 1 % Gel 2 g TOPICAL TID PRN (Reason: RIGHT SHOULDER PAIN) nitroglycerin 0.4 mg tablet, sublingual 0.4 mg sublingual DIRECTED PRN (Reason: Chest Pain) Rx Instructions: 1 TAB UNDER THE TONGUE EVERY 5 MIN FOR UP TO 3 DOSE NEEDED FOR CHEST PAIN. CALL 911 PAIN PERSISTS Not for independent use. Needs supervision. Discontinued omeprazole 40 mg capsule,delayed release(DR/EC) 40 mg PO DAILY Qty: 90 3RF Discharge Orders: Discharge Order (Routine); Ordered 05/06/22 Ordered By: Oscar Nuñez/Other Patient Handouts: COVID-19 Home Care, Managing Type 2 Diabetes Admission Data Admit Date/Time: 04/28/22 14:53 Attending Provider: Oscar Junior Admit Provider: Kam Camp Primary Care Provider: Jennifer Lyn Other Providers: Kam Camp ; Rosamond,Care Other Interventions: Discharge Summary Assessment (RN) Last Done: 05/06/22 10:00 Coding Level of Care Code HOSP INP/OBS DISCH >30 MIN Diagnoses COVID U07.1 CAD (coronary artery disease) I25.10 Diabetes mellitus, type 2 E11.9 Acute hypokalemia E87.6 Hypothyroidism E03.9 Chronic kidney disease, stage IV (severe) N18.4 DVT prophylaxis Z29.9
== END 2022-05-06 10:56 | DRG 177 ==
LOC: ED 11:54 → EDINP 11:54 → SUATTDRO 16:53 → 2N 19:55 → SUATTDRO 04-28 14:53 → 3E 04-28 15:53

== ENCOUNTER 2023-06-15 13:19 | Inpatient (IN) ==
--- NOTE | 2023-06-15 13:49 | Emergency Department Note ---
Impression & Plan Hematoma of right lower extremity, Generalized weakness, Ambulatory dysfunction ED Provider Note Name: MICHELLE STEWART Age: 87 Sex: Female Arrives Via: Walk-In Informant: Patient and daughters ED Provider: Augusto Villegas MD Chief Complaint: Weakness Impression: As per impressions above Medical Decision Makin-year-old female from [facility] arrives for evaluation of rapidly worsening weakness over the last few days. Patient went from using her walker within the last week to now needing Tracy lift to be moved. She is alert and oriented though somewhat exhausted appearing. She had had an injury to the right lower leg about 2 weeks ago and now has a very large hematoma with overlying eschar/necrotic hematoma. Mild surrounding erythema though no overt evidence that it is clearly infected. I am worried though of underlying infection thus cultures lactic acid obtained. She reportedly had a UTI diagnosed yesterday/today. A straight cath UA does show some leuk esterase but no overt bacteria. I am not convinced that there is UTI. She is not septic appearing and I do not feel she is severe sepsis at time of hospitalization. I did discuss with the hospitalist given how weak she is in this very concerning hematoma bring her in and they agree. Discussed antibiotics with them and they will manage. I did touch base with general surgery who note they can be consulted during inpatient stay. At time of hospitalization there is no evidence of necrotizing fasciitis or severe sepsis. Triage/Nursing Notes reviewed by Me Differential:Infection, dehydration, metabolic abnormality, hypo/hyperglycemia, electrolyte disturbance, anemia, hypoxia, cardiac sources, intracerebral event, toxicologic, neurologic, as well as other pathologies. Vital Signs: reviewed and remarkable for no significant abnormalities Interventions: Dilaudid IV, normal saline bolus IV Labs:ED labs Reviewed by me and remarkable for no significant abnormalities Imaging:X-rays right tib-fib as per my interpretation no fracture or dislocation. No free air. Significant soft tissue edema x-ray chest 1 view as per my interpretation. No infiltrate, no effusion. chronic lung disease noted EKG: as per my interpretation. Indication weakness. Sinus bradycardia 57 bpm and PAC noted. There is no ischemia. QTc 463. Compared to EKG April 27, 2022 no significant change. Cardiac/Tele Monitoring: Cardiac Monitoring: An Order was placed for continuous cardiac monitoring. The monitor shows a rate of 60 with a normal sinus rhythm. Consults:Dr. Monroy of general surgery agrees that can be evaled as inpatient. [facility] discussion and will bring in for further management. Plan: Disposition:Hospitalization. Condition: Good History of Present Illness: 87-year-old female arrives for evaluation of worsening weakness. Patient with increasing weakness fatigue lack of appetite over the last 3 days. She lives at local nursing facility and has been getting around with a walker and wheelchair however the last 3 days not even getting out of bed. Associated with some mild confusion. Was reportedly diagnosed with a UTI this morning at her nursing facility. She also has increasing wound of the right lower leg. She had bumped it about 2 weeks ago diagnosed with a hematoma. It is increased in size, redness and now developing a black area over the top of it. No fevers, vomiting, headache, chest pain, shortness of breath or other concerning signs or symptoms. Past Medical History:See Below Home Medications:See Below Allergies:See Below Vitals:Blood Pressure: 113/61, Pulse 60, RR 20, T 36.8 C, O2 95% on RA Physical Exam: GENERAL: Patient is elderly/weak appearing and in moderate distress. Dehydrated and uncomfortable appearing RESPIRATORY: No dyspnea. Clear to auscultation and equal bilaterally. CARDIOVASCULAR: Regular rate and rhythm.No murmur appreciated. GASTROINTESTINAL: Abdomen soft, non-tender, no peritonitis. EXTREMITIES: Generalized weakness all extremities no cyanosis good pulses all 4. Moderate edema bilateral lower legs. There is a very large hematoma over the right lower anterior medial gaspar. There is surrounding mild erythema. There is a large central area of blackened/necrotic skin overlying the hematoma. NEUROLOGIC: Alert and oriented. No focal neurologic deficits appreciated generalized weakness SKIN: No rash, no jaundice, no diaphoresis. PSYCH: Appropriate GCS: 15 ED Course: Times/Reassessments: Patient stable. Mild hypoxia post narcotic. Agreeable to hospitalization. Augusto Villegas MD Past Med/Surg History Medical History DVT prophylaxis Closed head injury Chronic throat clearing Small bowel obstruction due to adhesions CKD (chronic kidney disease), stage III Diverticular disease Osteoarthritis Chronic back pain Depression Anxiety Diabetes mellitus, type 2 NO MEDICATIONS. Hypothyroidism History of colon cancer 2011 -- COLON RESECTION. NO CHEMO/RADIATION Syncope HAS HAD CARDIAC WORK UP, EEG, AND MRI OF BRAIN WITH NO ABNORMALITIES Pneumonia hx of 2016 Stable angina LAST USED NITRO ~AUGUST 2017 Hyperlipidemia Hypertension SBO (small bowel obstruction) Abdominal pain (03/24/13) CAD (coronary artery disease) Diverticulitis Surgical History History of esophagogastroduodenoscopy (EGD) History of dilatation and curettage History of bilateral tubal ligation History of cataract surgery BILATERAL History of discectomy LUMBAR REGION History of hysterectomy JESUS WITH BSO H/O umbilical hernia repair History of bowel resection 2011 History of colonoscopy History of cardiac cath NO STENTS. (2007) Family History Mother Heart disease Breast cancer Cancer Myocardial infarction Sister Colorectal cancer Lung disease Cancer Father Hearing loss Heart disease Other Hypertension No family history of adverse response to anesthesia Denies family history of Ovarian cancer Prostate cancer Coronary heart disease Social History Smoking Status: Never smoker Second Hand Exposure: No; Do You Dip or Chew Tobacco: No; Tobacco Cessation Education Requested by Patient: No Hx Alcohol Use: No Hx Substance Use: No Preferred Language: Beninese Communication Ability: Effective Hearing Ability: Normal Manager Winter Required: No Beliefs That Will Affect Care: None marital status: / Current Living Situation: Personal Care Facility Current Living Situation Comment: [facility]. current occupational status: retired Other Information That Helps Us Care for You: No Feels Safe at Home: Yes Safety Concerns: Feels Safe At This Time Childhood Exposure to Second-Hand Smoke: No Diet: regular caffeine: Yes during the past year weight has: remained stable Dental Care, Regularly: Yes Physical Activity Frequency: 1-2 Times per Week Seatbelt Use: always Sunscreen Use: Yes Assistive Devices: Glasses and Wheelchair Assistive Devices Comment: Glasses are readers. Allergies Allergies Allergy/AdvReac Type Severity Reaction Status Date / Time verapamil Allergy Severe RASH Verified 06/15/23 16:26 latex Allergy Intermediate ITCHING Verified 06/15/23 16:26 oxybutynin Allergy Intermediate ITCHING Verified 06/15/23 16:26 adhesive Allergy Mild redness Verified 06/15/23 16:26 meperidine AdvReac Severe HYPOTENSION Verified 06/15/23 16:26 sodium phosphate AdvReac Severe DECREASED Verified 06/15/23 16:26 [From OsmoPrep] KIDNEY FUNCTION atenolol AdvReac Intermediate tachycardia; Verified 06/15/23 16:26 nervousness diazepam AdvReac Intermediate crying; Verified 06/15/23 16:26 depression fluoxetine AdvReac Intermediate crying; Verified 06/15/23 16:26 depression ibuprofen AdvReac Intermediate low kidney Verified 06/15/23 16:26 function Iodinated Contrast Media AdvReac Intermediate IVP DYE - Verified 06/15/23 16:26 low kidney function lidocaine AdvReac Intermediate Altered Verified 06/15/23 16:26 Mental Status with ointment ONLY naproxen AdvReac Intermediate Low kidney Verified 06/15/23 16:26 function sertraline AdvReac Intermediate crying; Verified 06/15/23 16:26 depression tramadol AdvReac Intermediate dizziness Verified 06/15/23 16:26 venlafaxine AdvReac Intermediate Nervous Verified 06/15/23 16:26 Home Meds Home Medications Medication Instructions Recorded Confirmed bismuth subsalicylate 262 mg/15 mL 524 mg PO Q6H PRN 03/14/22 06/15/23 oral suspension (Pepto-Bismol) HEARTBURN/DIARRHEA diclofenac sodium 1 % topical gel 2 g topical QID 03/14/22 06/15/23 furosemide 40 mg tablet (Lasix) 40 mg PO QAM 03/14/22 06/15/23 loperamide 2 mg tablet 2 mg PO Q4H PRN Diarrhea 03/14/22 06/15/23 nitroglycerin 0.4 mg sublingual 0.4 mg sublingual DIRECTED PRN 04/08/22 06/15/23 tablet Chest Pain potassium chloride 20 mEq 20 meq PO DAILY 08/29/22 06/15/23 tablet,extended release acetaminophen 325 mg tablet 650 mg PO Q6H PRN PAIN/FEVER 06/15/23 06/15/23 (Tylenol) calcium carbonate 500 mg-vitamin 1 tab PO DAILY 06/15/23 06/15/23 D3 5 mcg (200 unit) tablet (Calcium 500 + D) duloxetine 20 mg capsule,delayed 20 mg PO BIDM 06/15/23 06/15/23 release methyl salicylate 15 %-menthol 10 1 applic topical TID 06/15/23 06/15/23 % topical cream mineral oil-isopropyl myristat 1 applic topical BID 06/15/23 06/15/23 lotion oxycodone 5 mg tablet 5 mg PO Q6H PRN PAIN (5-10) 06/15/23 06/15/23 pantoprazole 40 mg tablet,delayed 40 mg PO BID 06/15/23 06/15/23 release peg 400-propylene glycol 0.4 %-0.3 2 drp OPB TID 06/15/23 06/15/23 % eye drops (Systane (propylene glycol)) polyethylene glycol 3350 17 17 g PO DAILY 06/15/23 06/15/23 gram/dose oral powder (Miralax) zinc oxide-cod liver oil 40 % 1 applic topical DAILY 06/15/23 06/15/23 topical paste (Desitin) Previous Rx's Medication Instructions Recorded docusate sodium 100 mg capsule 100 mg PO BID #60 caps 06/01/19 (Stool Softener) gabapentin 300 mg capsule 300 mg PO HS Pain #90 caps 05/09/21 levothyroxine 50 mcg tablet 50 mcg PO DAILYBB #90 tabs 11/15/21 isosorbide mononitrate 120 mg 120 mg PO DAILY #90 tabs 11/16/21 tablet,extended release 24 hr nadolol 40 mg tablet 40 mg PO QAM #30 tabs 01/08/22 famotidine 40 mg tablet (Pepcid) 40 mg PO DAILY #90 tabs 01/09/22 atorvastatin 40 mg tablet 40 mg PO HS #90 tabs 01/28/22 sitagliptin phosphate 25 mg tablet 25 mg PO DAILY #30 tabs 03/22/22 (Januvia) donepezil 10 mg tablet (Aricept) 10 mg PO DAILY 30 days #30 tabs 04/06/22 Results & Data (ED) Vital Signs Vital Signs - 24 hr 06/15/23 13:20 06/15/23 13:46 06/15/23 13:51 Temperature 36.5 C Temperature Source Oral Pulse Rate 65 58 L 59 L Pulse Rate from SpO2 Sensor 59 L Respiratory Rate 18 17 Respiratory Effort / Characteristics Non-Labored Spontaneous Respiratory Depth Normal Blood Pressure 110/65 Blood Pressure Mean 80 Pulse Oximetry 100 96 Oxygen Delivery Method Room Air Sepsis Recent Fever Within 48 Hours No Sepsis New/Unexplained Change in Mental Status N/A Sepsis Action Taken by Nursing No Action Required 06/15/23 14:00 06/15/23 14:30 06/15/23 14:37 Temperature Temperature Source Pulse Rate 55 L 65 Pulse Rate from SpO2 Sensor 55 L Respiratory Rate 27 H 15 20 Respiratory Effort / Characteristics Respiratory Depth Blood Pressure Blood Pressure Mean Pulse Oximetry 94 Oxygen Delivery Method Sepsis Recent Fever Within 48 Hours Sepsis New/Unexplained Change in Mental Status Sepsis Action Taken by Nursing 06/15/23 14:37 06/15/23 15:00 06/15/23 15:00 Temperature Temperature Source Pulse Rate 57 L Pulse Rate from SpO2 Sensor 57 L Respiratory Rate 19 Respiratory Effort / Characteristics Respiratory Depth Blood Pressure 102/62 106/62 Blood Pressure Mean 73 88 Pulse Oximetry 99 Oxygen Delivery Method Sepsis Recent Fever Within 48 Hours Sepsis New/Unexplained Change in Mental Status Sepsis Action Taken by Nursing 06/15/23 15:30 06/15/23 15:30 06/15/23 16:00 Temperature Temperature Source Pulse Rate 59 L 59 L Pulse Rate from SpO2 Sensor 59 L 59 L Respiratory Rate 20 18 Respiratory Effort / Characteristics Respiratory Depth Blood Pressure 119/70 Blood Pressure Mean 85 Pulse Oximetry 100 100 Oxygen Delivery Method Sepsis Recent Fever Within 48 Hours Sepsis New/Unexplained Change in Mental Status Sepsis Action Taken by Nursing 06/15/23 16:00 06/15/23 16:30 06/15/23 16:30 Temperature Temperature Source Pulse Rate 55 L Pulse Rate from SpO2 Sensor 54 L Respiratory Rate 12 Respiratory Effort / Characteristics Respiratory Depth Blood Pressure 107/58 L 112/60 Blood Pressure Mean 81 83 Pulse Oximetry 100 Oxygen Delivery Method Sepsis Recent Fever Within 48 Hours Sepsis New/Unexplained Change in Mental Status Sepsis Action Taken by Nursing 06/15/23 17:00 06/15/23 17:00 Temperature Temperature Source Pulse Rate 57 L Pulse Rate from SpO2 Sensor 58 L Respiratory Rate 14 Respiratory Effort / Characteristics Respiratory Depth Blood Pressure 108/61 Blood Pressure Mean 78 Pulse Oximetry 99 Oxygen Delivery Method Sepsis Recent Fever Within 48 Hours Sepsis New/Unexplained Change in Mental Status Sepsis Action Taken by Nursing Laboratory Data 06/16/23 05:21 06/16/23 05:21 Lab Results 06/15/23 06/15/23 Range/Units 14:13 14:30 WBC 9.53 (4.8-10.8) K/ul RBC 3.26 L (4.20-5.40) M/uL Hgb 10.5 L (12.0-16.0) g/dl Hct 32.5 L (37.0-47.0) % MCV 99.7 (80.0-100.0) fL MCH 32.2 (25.0-34.0) pg MCHC 32.3 (32.0-36.0) g/dL RDW Std Deviation 54.1 H (36.4-46.3) fL RDW Coeff of Shaji 14.9 H (11.5-14.5) % Plt Count 348 (130-400) K/uL MPV 8.9 L (9.4-12.4) fL Immature Gran % (Auto) 0.8 % Neut % (Auto) 62.9 % Lymph % (Auto) 22.4 % Archuleta % (Auto) 9.2 % Eos % (Auto) 4.1 % Baso % (Auto) 0.6 % Neut # (Auto) 5.99 (1.40-6.50) K/uL Lymph # (Auto) 2.13 (1.20-3.40) K/uL Archuleta # (Auto) 0.88 H (0.11-0.59) K/uL Eos # (Auto) 0.39 (0.00-0.50) K/uL Baso # (Auto) 0.06 (0.00-0.20) K/uL Immature Gran # (Auto) 0.08 (0.01-0.20) K/uL Sodium 136 (136-145) mmol/L Potassium 3.9 (3.5-5.1) mmol/L Chloride 95 L (98-107) mmol/L Carbon Dioxide 33 H (21-32) mmol/L Anion Gap 8 (3-11) BUN 39 H (6-23) mg/dl Creatinine 1.66 H (0.6-1.2) mg/dl Est Cr Clr Drug Dosing Not Reportable Est GFR ( Amer) 32.0 ml/min Est GFR (Non-Af Amer) 27.6 ml/min BUN/Creatinine Ratio 23.5 H (10-20) Glucose 275 H (70-99(Fasting)) mg/dl Lactate 1.9 (0.4-2.0) mmol/L Calcium 9.1 (8.6-10.3) mg/dl Magnesium 2.0 (1.7-2.4) mg/dl Total Bilirubin 0.8 (0.2-1.0) mg/dl Direct Bilirubin 0.2 (0-0.2) mg/dl AST 12 L (13-39) U/L ALT 11 (7-52) U/L Alkaline Phosphatase 95 (34-104) U/L Troponin I High Sens 5.4 (0-14) pg/ml Total Protein 6.8 (6.0-8.3) gm/dl Albumin 3.6 (3.4-5.0) gm/dl Procalcitonin 0.09 (0-0.5) ng/ml Urine Color Yellow Urine Appearance Turbid A (Clear) Urine pH 8.0 H (4.5-7.5) Ur Specific [place] 1.012 (1.000-1.030) Urine Protein 2+ H (Negative) Urine Glucose (UA) Negative (Negative) Urine Ketones Negative (Negative) Urine Blood 2+ H (Negative) Urine Nitrite Negative (Negative) Urine Bilirubin Negative (Negative) Urine Urobilinogen Negative (Negative) Ur Leukocyte Esterase 3+ H (Negative) Urine WBC (Auto) 0 (0-5) /hpf Urine RBC (Auto) 0-4 (0-4) /hpf U Hyaline Cast (Auto) 1-5 (0-5) /lpf U Epithel Cells (Auto) 10-20 H (0-5) /lpf Urine Bacteria (Auto) Negative (Negative) Administered Medications Atorvastatin Calcium (Atorvastatin 40 Mg Tab) 40 mg PO HS KAREN Stop: 07/15/23 21:27 Last Admin: 06/15/23 22:01 Dose: 40 mg Documented By: MAYANK Docusate Sodium (Docusate Sodium 100 Mg Cap) 100 mg PO BID KAREN Stop: 07/15/23 21:27 Last Admin: 06/15/23 22:05 Dose: 100 mg Documented By: MAYANK Donepezil HCl (Donepezil Hcl 10 Mg Tab) 10 mg PO DAILY KAREN Stop: 07/16/23 08:59 Last Admin: 06/16/23 08:53 Dose: 10 mg Documented By: SWAPNA Duloxetine HCl (Duloxetine Hcl 20 Mg Cap) 20 mg PO BIDM KAREN Stop: 07/16/23 07:59 Last Admin: 06/16/23 08:53 Dose: 20 mg Documented By: SWAPNA Famotidine (Famotidine 40 Mg Tablet) 40 mg PO DAILY [facility] Stop: 07/16/23 08:59 Last Admin: 06/16/23 08:53 Dose: 40 mg Documented By: SWAPNA Gabapentin (Gabapentin 300 Mg Cap) 300 mg PO HS [facility] Stop: 07/15/23 21:27 Last Admin: 06/15/23 22:01 Dose: 300 mg Documented By: MAYANK Piperacillin Sod/Tazobactam (Sod 4.5 gm/ Dextrose) 100 mls @ 25 mls/hr IV Q8H [facility]; Protocol Stop: 06/19/23 00:00 Last Admin: 06/16/23 09:12 Dose: 25 mls/hr Documented By: Infusion: 06/16/23 03:45 Dose: Infused Documented By: Admin: 06/15/23 23:43 Dose: 25 mls/hr Documented By: MAYANK Sodium Chloride (Nss) 1,000 mls @ 70 mls/hr IV .[id number] [facility] Stop: 07/16/23 08:14 Last Admin: 06/16/23 08:53 Dose: 70 mls/hr Documented By: SWAPNA Insulin Aspart (Insulin Aspart Per Unit Charge) 0 units SC Q6 [facility] Stop: 07/15/23 21:44 Last Admin: 06/16/23 06:10 Dose: 2 units Documented By: MAYANK Co-signed By: JOO Admin: 06/15/23 22:13 Dose: 2 units Documented By: MAYANK Co-signed By: NATHANIEL Levothyroxine Sodium (Levothyroxine Sodium 50 Mcg Tablet) 50 mcg PO DAILYBB [facility] Stop: 07/16/23 06:29 Last Admin: 06/16/23 06:10 Dose: 50 mcg Documented By: MAYANK Nadolol (Nadolol 40 Mg Tab) 40 mg PO QAM [facility] Stop: 07/16/23 08:59 Last Admin: 06/16/23 08:25 Dose: Not Given Documented By: SWAPNA Oxycodone HCl (Oxycodone Hcl Ir 5 Mg Tab (Immediate Release)) 5 mg PO Q6H PRN PRN Reason: PAIN (5-10) Stop: 06/29/23 21:27 Last Admin: 06/15/23 22:04 Dose: 5 mg Documented By: MAYANK Pantoprazole Sodium (Pantoprazole 40 Mg Tab) 40 mg PO BID KAREN Stop: 07/15/23 21:27 Last Admin: 06/16/23 08:53 Dose: 40 mg Documented By: Admin: 06/15/23 22:02 Dose: 40 mg Documented By: MAYANK Polyethylene Glycol (Polyethylene (Miralax) 17 Gm Pack) 17 gm PO DAILY KAREN Stop: 07/16/23 08:59 Last Admin: 06/16/23 08:25 Dose: Not Given Documented By: SWAPNA Discontinued Medications Hydromorphone HCl (Hydromorphone Inj 0.5 Mg/0.5 Ml Syr) 0.25 mg IV NOW STA Stop: 06/15/23 13:46 Last Admin: 06/15/23 14:24 Dose: 0.25 mg Documented By: MERLIN Hydromorphone HCl (Hydromorphone Inj 0.5 Mg/0.5 Ml Syr) 0.25 mg IV NOW STA Stop: 06/16/23 03:23 Last Admin: 06/16/23 03:39 Dose: 0.25 mg Documented By: MAYANK Sodium Chloride (Nss) 1,000 mls @ 999 mls/hr IV .Q1H1M ONE Stop: 06/15/23 14:45 Last Infusion: 06/15/23 15:35 Dose: Infused Documented By: Admin: 06/15/23 14:25 Dose: 999 mls/hr Documented By: MERLIN Piperacillin Sod/Tazobactam Sod (Zosyn) 4.5 gm in 100 mls @ 200 mls/hr IV NOW ONE Stop: 06/15/23 17:59 Last Infusion: 06/15/23 18:14 Dose: Infused Documented By: Admin: 06/15/23 17:30 Dose: 200 mls/hr Documented By: KAVIN Ondansetron HCl (Ondansetron Inj 2 Mg/Ml 2 Ml Vial) 4 mg IV NOW STA Stop: 06/15/23 13:46 Last Admin: 06/15/23 14:23 Dose: 4 mg Documented By: MERLIN Discharge Plan Visit Data Chief Complaint: Leg Injury/Pain ED Provider: Augusto Villegas Discharge Problem: Hematoma of right lower extremity, Generalized weakness, Ambulatory dysfunction Patient Disposition: Admitted As Inpatient Discharge Instructions Interventions: ED Discharge Assessment Last Done: 06/15/23 21:30 Discharge Problem: Hematoma of right lower extremity Qualifiers: Encounter type: initial encounter Qualified Code(s): S80.11XA - Contusion of right lower leg, initial encounter
[2023-06-15] MEDS: ONDANSETRON INJ 2 MG/ML 2 ML VIAL IV STA (14:23)
[2023-06-15] MEDS: HYDROmorphone INJ 0.5 MG/0.5 ML SYR IV STA (14:24)
[2023-06-15] MEDS: SODIUM CHLORIDE 0.9% 1,000 ML IV ONE (14:25)
[2023-06-15 14:43] LABS: Basophils # (auto) 0.06 K/uL (0.00-0.20); Basophils % (auto) 0.6 %; Eosinophils # (auto) 0.39 K/uL (0.00-0.50); Eosinophils % (auto) 4.1 %; Hematocrit (blood only) 32.5 % (37.0-47.0); Hemoglobin 10.5 g/dl (12.0-16.0); Immature Granulocytes # (auto) 0.08 K/uL (0.01-0.20); Immature Granulocytes % (auto) 0.8 %; Lymphocytes # (auto) 2.13 K/uL (1.20-3.40); Lymphocytes % (auto) 22.4 %; Mean Corpuscular Hemoglobin 32.2 pg (25.0-34.0); Mean Corpuscular Hgb Conc 32.3 g/dL (32.0-36.0); Mean Corpuscular Volume 99.7 fL (80.0-100.0); Mean Platelet Volume 8.9 fL (9.4-12.4); Monocytes # (auto) 0.88 K/uL (0.11-0.59); Monocytes % (auto) 9.2 %; Neutrophils # (auto) 5.99 K/uL (1.40-6.50); Neutrophils % (auto) 62.9 %; Platelet Count 348 K/uL (130-400); RDW Coefficient of Variation 14.9 % (11.5-14.5); RDW Standard Deviation 54.1 fL (36.4-46.3); Red Blood Count 3.26 M/uL (4.20-5.40); White Blood Count 9.53 K/ul (4.8-10.8)
[2023-06-15 15:02] LABS: Alanine Aminotransferase 11 U/L (7-52); Albumin Level 3.6 gm/dl (3.4-5.0); Alkaline Phosphatase 95 U/L (34-104); Anion Gap 8 (3-11); Aspartate Aminotransferase 12 U/L (13-39); BUN Creatinine Ratio 23.5 (10-20); Bilirubin Direct 0.2 mg/dl (0-0.2); Bilirubin,Total 0.8 mg/dl (0.2-1.0); Blood Urea Nitrogen 39 mg/dl (6-23); Calcium 9.1 mg/dl (8.6-10.3); Carbon Dioxide 33 mmol/L (21-32); Chloride 95 mmol/L (98-107); Est GFR (Non-African American) 27.6 ml/min; Glucose 275 mg/dl (70-99(Fasting)); Potassium 3.9 mmol/L (3.5-5.1); Sodium 136 mmol/L (136-145); Total Protein 6.8 gm/dl (6.0-8.3); Troponin I High Sensitivity 5.4 pg/ml (0-14)
--- NOTE | 2023-06-15 15:44 | XRay Report ---
XR tibia fibula RT 2V CLINICAL HISTORY: hematoma worsening TECHNIQUE: 2 radiographic views of the right leg were obtained. Comparison: None available at the time of this dictation. FINDINGS: There is no evidence of an acute fracture. Joint spaces are well-preserved. Soft tissue density in th e anterior leg is compatible with hematoma. No evidence of acute fracture. IMPRESSION: No evidence of acute osseous injury. ACT 112: Negative or not required by law. Electronically signed by: Ted Caraballo M.D. 06/15/2023 3:43 PM
--- NOTE | 2023-06-15 15:46 | XRay Report ---
XR chest 1V portable CLINICAL HISTORY: Sepsis TECHNIQUE: Single frontal radiograph of the chest was obtained. Comparison: Comparison is made to chest radiograph 04/27/2022 FINDINGS: No lines and tubes are seen. Calcified aortic knob is seen. The lungs are clear. No evidence of pleur al effusion or pneumothorax. Calcific tendinopathy. IMPRESSION: No acute abnormalities and in particular no radiographic evidence of pneumonia. ACT 112: Negative or not required by law. Electronically signed by: Ted Caraballo M.D. 06/15/2023 3:44 PM
[2023-06-15 15:56] LABS: Appearance Urine Turbid (Clear); Bacteria Urine Automated Negative (Negative); Bilirubin Urine Negative (Negative); Blood Urine 2+ (Negative); Color Urine Yellow; Glucose Urine UA Negative (Negative); Ketones Urine Negative (Negative); Leukocyte Esterase Urine 3+ (Negative); Nitrite Urine Negative (Negative); RBC Urine Automated 0-4 /hpf (0-4); Specific Gravity Urine 1.012 (1.000-1.030); Urobilinogen Urine Negative (Negative); WBC Urine Automated 0 /hpf (0-5)
[2023-06-15 15:58] LABS: Protein Urine 2+ (Negative)
--- NOTE | 2023-06-15 16:37 | History & Physical Report ---
Date of Service June 15, 2023 Assessment & Plan (1) Hematoma of right lower leg: Plan: Patient struck RLE on her bedpost 3 weeks ago, and bruise progressively worsened Rapid decompensation over the past 5 days; ambulation with walker --> wheelchair No leukocytosis; afebrile Hemodynamically stable on arrival; non-septic appearing Procalcitonin WNL MRSA nares ordered, pending Blood cultures ordered, pending General surgery consulted as hematoma will likely require I&D Cardiac risk index 6% (hx of CHF) Given extensive necrosis of RLE, patient may require wound VAC postop Prophylactic antibiotic coverage with Zosyn 4.5gm IV q8h; recommend continuing for 3 days assuming no perioperative infection Acetaminophen for fever/pain 1-5 Oxycodone 5 mg p.o. q6h as needed for pain 6-10 Wound care nurse consulted Daily wound care A.m. CBC, BMP (2) UTI (urinary tract infection): Plan: UA positive for leukocytes on arrival, unclear if true UTI Clinically, patient denies burning with urination, dysuria, but does endorse some mild suprapubic discomfort Per [facility] urine culture results, grew Proteus mirabilis and Klebsiella oxytoca; sensitivity to Zosyn Zosyn (as above) (3) Diabetes type 2, controlled: Plan: Last A1c at 8.4% on 05/29/2023 Glucose 275 on admission Hold home medications SSI; with target BSG range 110-140mg/dL, CF 50, carb ratio 15 T2DM diet BSG ACHS Adjust regimen as needed (4) Hypertension: Plan: Hold isosorbide mononitrate for now (preop) Hold Lasix / K supplementation for now (preop) Continue nadolol Plan Disposition: Admit to [facility] telemetry DNR/DNI T2DM, AHA diet; n.p.o. at midnight VTE PPx: Hold mechanical DVT PPx and chemical DVT PPx in the setting of RLE hematoma (recommend starting on Lovenox postop, as patient is high risk for DVT/PE); History of Present Illness Chief Complaint: Right leg injury/pain Primary Care Provider: [facility] Pura is an 87-year-old female with PMH of T2DM, CKD stage III, CAD, frequent falls, orthostatic hypotension, and colon cancer. She presented via EMS from [facility] for right leg pain and swelling x 3 weeks. Patient reports that she struck her right lower leg on the edge of her bed board 3 weeks ago, and that it has been worsening since. Patient's daughters are at the bedside and provide additional history. Per daughter, patient initially struck it on 05/28. It was black and blue initially, then developed weeping on Wednesday 06/07. Became black/necrotic at some point this week. Patient has been taking Tylenol and oxycodone as needed for the pain, which she reports helps. Patient describes the pain as a constant pain with a burning sensation and occasional sharp stabbing pain; rates it 8/10 at present. She also notes some itching. Patient has been unable to bear weight on the RLE over the past 2 days. She normally ambulates with a walker at baseline, but has recently started requiring a wheelchair to get to the bathroom. Patient endorses a history of falls in the past, but nothing within the past several weeks. She does not use supplemental oxygen at home. Patient reports that she took all her regular morning medications; no recent change in medications. Last BM was 3 days ago. Patient denies smoking, alcohol use, and tobacco use. Patient is mildly bradycardic at 55 bpm; SpO2 100% on 2L NC; vitals otherwise stable at time of admission. ED course: Dilaudid 0.25 mg IV Zofran 4 mg IV NSS 1000 mL IV ROS: Patient endorses night-sweats (ongoing), BAILON (ongoing), abdominal discomfort, loss of appetite, constipation, mild suprapubic tenderness, worsening of chronic back pain over the past week, and mild itching/tingling/numbness in the right lower extremity. Patient denies fever, chills, dizziness, lightheadedness, chest pain, pleuritic CP, cough, chest palpitations, N/V/D, burning with urination, dysuria, and blood in urine/stool. Allergies Allergy/AdvReac Type Severity Reaction Status Date / Time verapamil Allergy Severe RASH Verified 06/15/23 16:26 latex Allergy Intermediate ITCHING Verified 06/15/23 16:26 oxybutynin Allergy Intermediate ITCHING Verified 06/15/23 16:26 adhesive Allergy Mild redness Verified 06/15/23 16:26 meperidine AdvReac Severe HYPOTENSION Verified 06/15/23 16:26 sodium phosphate AdvReac Severe DECREASED Verified 06/15/23 16:26 [From OsmoPrep] KIDNEY FUNCTION atenolol AdvReac Intermediate tachycardia; Verified 06/15/23 16:26 nervousness diazepam AdvReac Intermediate crying; Verified 06/15/23 16:26 depression fluoxetine AdvReac Intermediate crying; Verified 06/15/23 16:26 depression ibuprofen AdvReac Intermediate low kidney Verified 06/15/23 16:26 function Iodinated Contrast Media AdvReac Intermediate IVP DYE - Verified 06/15/23 16:26 low kidney function lidocaine AdvReac Intermediate Altered Verified 06/15/23 16:26 Mental Status with ointment ONLY naproxen AdvReac Intermediate Low kidney Verified 06/15/23 16:26 function sertraline AdvReac Intermediate crying; Verified 06/15/23 16:26 depression tramadol AdvReac Intermediate dizziness Verified 06/15/23 16:26 venlafaxine AdvReac Intermediate Nervous Verified 06/15/23 16:26 Home Medications Medication Instructions Recorded Confirmed Type docusate sodium 100 mg capsule 100 mg PO BID #60 caps 06/01/19 06/15/23 Rx (Stool Softener) gabapentin 300 mg capsule 300 mg PO HS Pain #90 caps 05/09/21 06/15/23 Rx levothyroxine 50 mcg tablet 50 mcg PO DAILYBB #90 tabs 11/15/21 06/15/23 Rx isosorbide mononitrate 120 mg 120 mg PO DAILY #90 tabs 11/16/21 06/15/23 Rx tablet,extended release 24 hr nadolol 40 mg tablet 40 mg PO QAM #30 tabs 01/08/22 06/15/23 Rx famotidine 40 mg tablet (Pepcid) 40 mg PO DAILY #90 tabs 01/09/22 06/15/23 Rx atorvastatin 40 mg tablet 40 mg PO HS #90 tabs 01/28/22 06/15/23 Rx bismuth subsalicylate 262 mg/15 mL 524 mg PO Q6H PRN 03/14/22 06/15/23 History oral suspension (Pepto-Bismol) HEARTBURN/DIARRHEA diclofenac sodium 1 % topical gel 2 g topical QID 03/14/22 06/15/23 History furosemide 40 mg tablet (Lasix) 40 mg PO QAM 03/14/22 06/15/23 History loperamide 2 mg tablet 2 mg PO Q4H PRN Diarrhea 03/14/22 06/15/23 History sitagliptin phosphate 25 mg tablet 25 mg PO DAILY #30 tabs 03/22/22 06/15/23 Rx (Januvia) donepezil 10 mg tablet (Aricept) 10 mg PO DAILY 30 days #30 tabs 04/06/22 06/15/23 Rx nitroglycerin 0.4 mg sublingual 0.4 mg sublingual DIRECTED PRN 04/08/22 06/15/23 History tablet Chest Pain potassium chloride 20 mEq 20 meq PO DAILY 08/29/22 06/15/23 History tablet,extended release acetaminophen 325 mg tablet 650 mg PO Q6H PRN PAIN/FEVER 06/15/23 06/15/23 History (Tylenol) calcium carbonate 500 mg-vitamin 1 tab PO DAILY 06/15/23 06/15/23 History D3 5 mcg (200 unit) tablet (Calcium 500 + D) duloxetine 20 mg capsule,delayed 20 mg PO BIDM 06/15/23 06/15/23 History release methyl salicylate 15 %-menthol 10 1 applic topical TID 06/15/23 06/15/23 History % topical cream mineral oil-isopropyl myristat 1 applic topical BID 06/15/23 06/15/23 History lotion oxycodone 5 mg tablet 5 mg PO Q6H PRN PAIN (5-10) 06/15/23 06/15/23 History pantoprazole 40 mg tablet,delayed 40 mg PO BID 06/15/23 06/15/23 History release peg 400-propylene glycol 0.4 %-0.3 2 drp OPB TID 06/15/23 06/15/23 History % eye drops (Systane (propylene glycol)) polyethylene glycol 3350 17 17 g PO DAILY 06/15/23 06/15/23 History gram/dose oral powder (Miralax) zinc oxide-cod liver oil 40 % 1 applic topical DAILY 06/15/23 06/15/23 History topical paste (Desitin) Past Med/Surg History Medical History DVT prophylaxis Closed head injury Chronic throat clearing Small bowel obstruction due to adhesions CKD (chronic kidney disease), stage III Diverticular disease Osteoarthritis Chronic back pain Depression Anxiety Diabetes mellitus, type 2 NO MEDICATIONS. Hypothyroidism History of colon cancer 2012 -- COLON RESECTION. NO CHEMO/RADIATION Syncope HAS HAD CARDIAC WORK UP, EEG, AND MRI OF BRAIN WITH NO ABNORMALITIES Pneumonia hx of 2016 Stable angina LAST USED NITRO ~AUGUST 2017 Hyperlipidemia Hypertension SBO (small bowel obstruction) Abdominal pain (03/24/13) CAD (coronary artery disease) Diverticulitis Surgical History History of esophagogastroduodenoscopy (EGD) History of dilatation and curettage History of bilateral tubal ligation History of cataract surgery BILATERAL History of discectomy LUMBAR REGION History of hysterectomy JESUS WITH BSO H/O umbilical hernia repair History of bowel resection 2011 History of colonoscopy History of cardiac cath NO STENTS. (2007) Family History Mother Heart disease Breast cancer Cancer Myocardial infarction Sister Colorectal cancer Lung disease Cancer Father Hearing loss Heart disease Other Hypertension No family history of adverse response to anesthesia Denies family history of Ovarian cancer Prostate cancer Coronary heart disease Social History Smoking Status: Never smoker Second Hand Exposure: No; Do You Dip or Chew Tobacco: No; Tobacco Cessation Education Requested by Patient: No Hx Alcohol Use: No Hx Substance Use: No Preferred Language: Lao Communication Ability: Effective Hearing Ability: Normal Monitoring Engineer Required: No Beliefs That Will Affect Care: None marital status: / Current Living Situation: Personal Care Facility Current Living Situation Comment: [facility]. current occupational status: retired Other Information That Helps Us Care for You: No Feels Safe at Home: Yes Safety Concerns: Feels Safe At This Time Childhood Exposure to Second-Hand Smoke: No Diet: regular caffeine: Yes during the past year weight has: remained stable Dental Care, Regularly: Yes Physical Activity Frequency: 1-2 Times per Week Seatbelt Use: always Sunscreen Use: Yes Assistive Devices: Glasses and Wheelchair Assistive Devices Comment: Glasses are readers. Review of Systems 2 Review of Systems: See HPI above Physical Exam 2 Physical Exam: General: no acute distress; pleasant affect; non-toxic appearing; well- nourished; cooperative; 100% SpO2 on 2L NC HEENT: normocephalic, atraumatic; no scleral icterus; PERRLA; moist mucus membrane Neck: supple; no lymphadenopathy; trachea midline Skin: warm, dry without signs of tenting; no cyanosis; no rashes, bruising, lesions, or erythema noted CV: chest wall NTP; RRR; S1/S2 normal; no murmurs/rubs/gallops; pulses intact and symmetric at radial, DP, and PT Lungs: no acute respiratory distress; symmetrical chest wall expansion; clear breath sounds across all lung wallace w/o adventitious sounds; no wheezing ABD: Soft, NTP; BS present; no rebound/guarding MSK: no tics or fasciculations RLE: Significant RLE swelling and erythema with tissue necrosis on the medial aspect of the patient's lower leg (see photo below); not malodorous or warm to touch; no signs of drainage, infection, or weeping; patient demonstrates ability to wiggle toes and bend her right ankle without difficulty; right foot neurovascular intact Neuro: A&Ox3; normal mood and affect; fluent speech; no focal deficits; sensation intact in the LEs b/l, with some decreased sensation on the medial aspect of RLE Results & Data Results & Data Vital Signs (Past 12 Hours) Vital Signs Temp Pulse Resp BP Pulse Ox O2 Del Method 06/15/23 16:00 107/58 L 06/15/23 16:00 59 L 18 100 06/15/23 15:30 59 L 20 100 06/15/23 15:30 119/70 06/15/23 15:00 57 L 19 99 06/15/23 15:00 106/62 06/15/23 14:37 102/62 06/15/23 14:37 65 20 06/15/23 14:30 55 L 15 94 06/15/23 14:00 27 H 06/15/23 13:51 59 L 06/15/23 13:46 58 L 17 96 06/15/23 13:20 36.5 C 65 18 110/65 100 Room Air Laboratory Results Abnormal lab results 06/15/23 06/15/23 Range/Units 14:13 14:30 RBC 3.26 L (4.20-5.40) M/uL Hgb 10.5 L (12.0-16.0) g/dl Hct 32.5 L (37.0-47.0) % RDW Std Deviation 54.1 H (36.4-46.3) fL RDW Coeff of Shaji 14.9 H (11.5-14.5) % MPV 8.9 L (9.4-12.4) fL [place] # (Auto) 0.88 H (0.11-0.59) K/uL Chloride 95 L (98-107) mmol/L Carbon Dioxide 33 H (21-32) mmol/L BUN 39 H (6-23) mg/dl Creatinine 1.66 H (0.6-1.2) mg/dl BUN/Creatinine Ratio 23.5 H (10-20) Glucose 275 H (70-99(Fasting)) mg/dl AST 12 L (13-39) U/L Urine Appearance Turbid A (Clear) Urine pH 8.0 H (4.5-7.5) Urine Protein 2+ H (Negative) Urine Blood 2+ H (Negative) Ur Leukocyte Esterase 3+ H (Negative) U Epithel Cells (Auto) 10-20 H (0-5) /lpf Diagnostic Findings Tibia/Fibula X-Ray 06/15/23 13:45 XR tibia fibula RT 2V CLINICAL HISTORY: hematoma worsening TECHNIQUE: 2 radiographic views of the right leg were obtained. Comparison: None available at the time of this dictation. FINDINGS: There is no evidence of an acute fracture. Joint spaces are well-preserved. Soft tissue density in the anterior leg is compatible with hematoma. No evidence of acute fracture. IMPRESSION: No evidence of acute osseous injury. ACT 112: Negative or not required by law. Electronically signed by: Ted Caraballo M.D. 06/15/2023 3:43 PM Chest X-Ray 06/15/23 13:46 XR chest 1V portable CLINICAL HISTORY: Sepsis TECHNIQUE: Single frontal radiograph of the chest was obtained. Comparison: Comparison is made to chest radiograph 04/27/2022 FINDINGS: No lines and tubes are seen. Calcified aortic knob is seen. The lungs are clear. No evidence of pleural effusion or pneumothorax. Calcific tendinopathy. IMPRESSION: No acute abnormalities and in particular no radiographic evidence of pneumonia. ACT 112: Negative or not required by law. Electronically signed by: Ted Caraballo M.D. 06/15/2023 3:44 PM Supervising Physician Co-Signing Physician Notes I personally saw and examined the patient. I independently reviewed the labs, EKG, imaging, problem list, medication list, past medical history and family history. I verified all lehman points and agree with Javier Khan PA-C with the following exceptions and/or additions: 87 year old female presents to the ER from [facility] with right lower leg hematoma and skin necrosis. No fever or chills. Initial injury on May 28. Started becoming necrotic on Friday. O/E HS RRR, no murmurs, Chest CTAB, Abdo SNT, hematoma of right lower extremity with skin necrosis as per picture above. A/P Hematoma of right lower leg hematoma with skin necrosis - Prophylactic antibiotics with IV Zosyn, MRSA nasal swab negative, no overt cellulitis on exam, NPO after midnight for surgery potentially tomorrow PG Care Time/CCT Total # of Minutes Spent Total Time Spent with Patient: Total time spent is greater than 50% in coordination of care (as documented) at patient's floor/unit and/or counseling patient: [place] [address] INT INP/OBS CARE 3/75MIN Patient Type Established Medical Decision Making Moderate Complexity Diagnoses Hematoma of right lower leg S80.11XA UTI (urinary tract infection) N39.0 Diabetes type 2, controlled E11.9 Hypertension I10
[2023-06-15] MEDS: PIPERACILLIN/TAZOBACTAM 4.5 GM/100 ML BAG IV ONE (17:30)
--- NOTE | 2023-06-15 17:36 | Surgery Consultation ---
Date of Consultation June 15, 2023 Assessment & Plan (1) Hematoma of right lower leg: Will need debridement in OR given size/ necrotic tissue. Discussed that these wounds can be slow to heal and will require wound care. Will make npo after DAV Carrington to take over tomorrow and hopefully can get it drained/ debrided tomorrow or Friday. (2) UTI (urinary tract infection): On antibiotics as per medicine. History of Present Illness Reason for Consultation: right lower extremity hematoma Requesting Physician: Javier Khan MD Attending Physician: Javier Khan MD History of Present Illness 87 yr old resident of [facility] here with decline of functional status after hitting her right lower leg about 3 weeks ago. Bumped it on her bed, began seeping and developed a hematoma which has progressively worsened. Was very tender and having more difficulty with bearing weight on it. Taking pain medicine to help with the constant pain. PMH of T2DM, CKD stage III, CAD, frequent falls, orthostatic hypotension, and colon cancer. Also found to have a urine infection on culture done at [facility] - she denies dysuria. Has frequency but is on lasix. Baseline LE edema. Daughters at bedside. Allergies Allergy/AdvReac Type Severity Reaction Status Date / Time verapamil Allergy Severe RASH Verified 06/15/23 16:26 latex Allergy Intermediate ITCHING Verified 06/15/23 16:26 oxybutynin Allergy Intermediate ITCHING Verified 06/15/23 16:26 adhesive Allergy Mild redness Verified 06/15/23 16:26 meperidine AdvReac Severe HYPOTENSION Verified 06/15/23 16:26 sodium phosphate AdvReac Severe DECREASED Verified 06/15/23 16:26 [From OsmoPrep] KIDNEY FUNCTION atenolol AdvReac Intermediate tachycardia; Verified 06/15/23 16:26 nervousness diazepam AdvReac Intermediate crying; Verified 06/15/23 16:26 depression fluoxetine AdvReac Intermediate crying; Verified 06/15/23 16:26 depression ibuprofen AdvReac Intermediate low kidney Verified 06/15/23 16:26 function Iodinated Contrast Media AdvReac Intermediate IVP DYE - Verified 06/15/23 16:26 low kidney function lidocaine AdvReac Intermediate Altered Verified 06/15/23 16:26 Mental Status with ointment ONLY naproxen AdvReac Intermediate Low kidney Verified 04/07/24 16:26 function sertraline AdvReac Intermediate crying; Verified 06/15/23 16:26 depression tramadol AdvReac Intermediate dizziness Verified 06/15/23 16:26 venlafaxine AdvReac Intermediate Nervous Verified 06/15/23 16:26 Home Medications Medication Instructions Recorded Confirmed Type docusate sodium 100 mg capsule 100 mg PO BID #60 caps 05/31/06/15/23 Rx (Stool Softener) gabapentin 300 mg capsule 300 mg PO HS Pain #90 caps 05/09/21 06/15/23 Rx levothyroxine 50 mcg tablet 50 mcg PO DAILYBB #90 tabs 11/15/21 06/15/23 Rx isosorbide mononitrate 120 mg 120 mg PO DAILY #90 tabs 11/16/21 06/15/23 Rx tablet,extended release 24 hr nadolol 40 mg tablet 40 mg PO QAM #30 tabs 01/08/22 06/15/23 Rx famotidine 40 mg tablet (Pepcid) 40 mg PO DAILY #90 tabs 01/09/22 06/15/23 Rx atorvastatin 40 mg tablet 40 mg PO HS #90 tabs 01/28/22 06/15/23 Rx bismuth subsalicylate 262 mg/15 mL 524 mg PO Q6H PRN 03/14/22 06/15/23 History oral suspension (Pepto-Bismol) HEARTBURN/DIARRHEA diclofenac sodium 1 % topical gel 2 g topical QID 03/14/22 06/15/23 History furosemide 40 mg tablet (Lasix) 40 mg PO QAM 03/14/22 06/15/23 History loperamide 2 mg tablet 2 mg PO Q4H PRN Diarrhea 03/14/22 06/15/23 History sitagliptin phosphate 25 mg tablet 25 mg PO DAILY #30 tabs 03/22/22 06/15/23 Rx (Januvia) donepezil 10 mg tablet (Aricept) 10 mg PO DAILY 30 days #30 tabs 04/06/22 06/15/23 Rx nitroglycerin 0.4 mg sublingual 0.4 mg sublingual DIRECTED PRN 04/08/22 06/15/23 History tablet Chest Pain potassium chloride 20 mEq 20 meq PO DAILY 08/29/22 06/15/23 History tablet,extended release acetaminophen 325 mg tablet 650 mg PO Q6H PRN PAIN/FEVER 06/15/23 06/15/23 History (Tylenol) calcium carbonate 500 mg-vitamin 1 tab PO DAILY 06/15/23 06/15/23 History D3 5 mcg (200 unit) tablet (Calcium 500 + D) duloxetine 20 mg capsule,delayed 20 mg PO BIDM 06/15/23 06/15/23 History release methyl salicylate 15 %-menthol 10 1 applic topical TID 06/15/23 06/15/23 History % topical cream mineral oil-isopropyl myristat 1 applic topical BID 06/15/23 06/15/23 History lotion oxycodone 5 mg tablet 5 mg PO Q6H PRN PAIN (5-10) 06/15/23 06/15/23 History pantoprazole 40 mg tablet,delayed 40 mg PO BID 06/15/23 06/15/23 History release peg 400-propylene glycol 0.4 %-0.3 2 drp OPB TID 06/15/23 06/15/23 History % eye drops (Systane (propylene glycol)) polyethylene glycol 3350 17 17 g PO DAILY 06/15/23 06/15/23 History gram/dose oral powder (Miralax) zinc oxide-cod liver oil 40 % 1 applic topical DAILY 06/15/23 06/15/23 History topical paste (Desitin) Patient History Medical History DVT prophylaxis Closed head injury Chronic throat clearing Small bowel obstruction due to adhesions CKD (chronic kidney disease), stage III Diverticular disease Osteoarthritis Chronic back pain Depression Anxiety Diabetes mellitus, type 2 NO MEDICATIONS. Hypothyroidism History of colon cancer 2011 -- COLON RESECTION. NO CHEMO/RADIATION Syncope HAS HAD CARDIAC WORK UP, EEG, AND MRI OF BRAIN WITH NO ABNORMALITIES Pneumonia hx of 2015 Stable angina LAST USED NITRO ~AUGUST 2017 Hyperlipidemia Hypertension SBO (small bowel obstruction) Abdominal pain (03/24/13) CAD (coronary artery disease) Diverticulitis Surgical History History of esophagogastroduodenoscopy (EGD) History of dilatation and curettage History of bilateral tubal ligation History of cataract surgery BILATERAL History of discectomy LUMBAR REGION History of hysterectomy JESUS WITH BSO H/O umbilical hernia repair History of bowel resection 2011 History of colonoscopy History of cardiac cath NO STENTS. (2007) Family History Mother Heart disease Breast cancer Cancer Myocardial infarction Sister Colorectal cancer Lung disease Cancer Father Hearing loss Heart disease Other Hypertension No family history of adverse response to anesthesia Denies family history of Ovarian cancer Prostate cancer Coronary heart disease Social History Smoking Status: Never smoker Second Hand Exposure: No; Do You Dip or Chew Tobacco: No; Hx Alcohol Use: No Hx Substance Use: No Preferred Language: Chinese Communication Ability: Effective Hearing Ability: Normal Endocrinology Teacher Required: No Beliefs That Will Affect Care: None marital status: / Current Living Situation: Shelter and Personal Care Facility Current Living Situation Comment: [facility] current occupational status: retired Feels Safe at Home: Yes Childhood Exposure to Second-Hand Smoke: No Diet: regular caffeine: Yes during the past year weight has: remained stable Dental Care, Regularly: Yes Physical Activity Frequency: 1-2 Times per Week Seatbelt Use: always Sunscreen Use: Yes Assistive Devices: Glasses and Walker Physical Exam Skin: medial side of right lower extremity has a 10 x 12 cm area of black eschar overlying a large hematoma occupying much of anterior and medial lower leg. No pus or cellulitic changes. Results & Data Vital Signs (Past 12 Hours) Vital Signs Temp Pulse Resp BP Pulse Ox O2 Del Method 06/15/23 16:00 107/58 L 06/15/23 16:00 59 L 18 100 06/15/23 15:30 59 L 20 100 06/15/23 15:30 119/70 06/15/23 15:00 57 L 19 99 06/15/23 15:00 106/62 06/15/23 14:37 102/62 06/15/23 14:37 65 20 06/15/23 14:30 55 L 15 94 06/15/23 14:00 27 H 06/15/23 13:51 59 L 06/15/23 13:46 58 L 17 96 06/15/23 13:20 36.5 C 65 18 110/65 100 Room Air Laboratory Results Abnormal lab results 06/15/23 06/15/23 Range/Units 14:13 14:30 RBC 3.26 L (4.20-5.40) M/uL Hgb 10.5 L (12.0-16.0) g/dl Hct 32.5 L (37.0-47.0) % RDW Std Deviation 54.1 H (36.4-46.3) fL RDW Coeff of Shaji 14.9 H (11.5-14.5) % MPV 8.9 L (9.4-12.4) fL [place] # (Auto) 0.88 H (0.11-0.59) K/uL Chloride 95 L (98-107) mmol/L Carbon Dioxide 33 H (21-32) mmol/L BUN 39 H (6-23) mg/dl Creatinine 1.66 H (0.6-1.2) mg/dl BUN/Creatinine Ratio 23.5 H (10-20) Glucose 275 H (70-99(Fasting)) mg/dl AST 12 L (13-39) U/L Urine Appearance Turbid A (Clear) Urine pH 8.0 H (4.5-7.5) Urine Protein 2+ H (Negative) Urine Blood 2+ H (Negative) Ur Leukocyte Esterase 3+ H (Negative) U Epithel Cells (Auto) 10-20 H (0-5) /lpf Diagnostic Findings tib / fib xray shows no fracture, does show the large anterior soft tissue density c/w hematoma
[2023-06-15] MEDS ORDERED: GLUCAGON FOR INJ 1 MG VIAL SQ PRN (21:28)
[2023-06-15] MEDS ORDERED: DEXTROSE 50% 50 ML SYRINGE IV PRN (21:28)
[2023-06-15] MEDS ORDERED: CARBOHYDRATES FOR HYPOGLYCEMIA PO PRN (21:28)
[2023-06-15] MEDS ORDERED: ACETAMINOPHEN 325 MG TAB PO PRN (21:28)
[2023-06-15] MEDS ORDERED: ONDANSETRON INJ 2 MG/ML 2 ML VIAL IV PRN (21:28)
[2023-06-15] MEDS ORDERED: MELATONIN 3 MG TAB PO PRN (21:28)
[2023-06-15] MEDS ORDERED: GLUCOSE 40% GEL 15 GM TUBE PO PRN (21:28)
[2023-06-15] MEDS ORDERED: GLUCOSE 10 TAB/TUBE PO PRN (21:28)
[2023-06-15] MEDS: ATORVASTATIN 40 MG TAB PO SCH (22:01)
[2023-06-15] MEDS: GABAPENTIN 300 MG CAP PO SCH (22:01)
[2023-06-15] MEDS: PANTOprazole 40 MG TAB PO SCH (22:02)
[2023-06-15] MEDS: oxyCODONE HCL IR 5 MG TAB (IMMEDIATE RELEASE) PO PRN (22:04)
[2023-06-15] MEDS: DOCUSATE SODIUM 100 MG CAP PO SCH (22:05)
[2023-06-15] MEDS: INSULIN ASPART PER UNIT CHARGE SC SCH (22:13)
[2023-06-15] MEDS ORDERED: PIPERACILLIN/TAZOBACTAM 4.5 GM in DEXTROSE 5% MINI-B 100 ML IV SCH (23:00)
[2023-06-15] MEDS: PIPERACILLIN/TAZOBACTAM 4.5 GM in DEXTROSE 5% MINI-B 100 ML IV SCH (23:43)
[2023-06-16] MEDS: HYDROmorphone INJ 0.5 MG/0.5 ML SYR IV STA (03:39)
[2023-06-16 06:07] LABS: Basophils # (auto) 0.05 K/uL (0.00-0.20); Basophils % (auto) 0.6 %; Eosinophils # (auto) 0.41 K/uL (0.00-0.50); Eosinophils % (auto) 4.6 %; Hematocrit (blood only) 29.1 % (37.0-47.0); Hemoglobin 9.9 g/dl (12.0-16.0); Immature Granulocytes # (auto) 0.09 K/uL (0.01-0.20); Lymphocytes # (auto) 1.87 K/uL (1.20-3.40); Lymphocytes % (auto) 20.8 %; Mean Corpuscular Hemoglobin 32.8 pg (25.0-34.0); Mean Corpuscular Volume 96.4 fL (80.0-100.0); Mean Platelet Volume 8.9 fL (9.4-12.4); Monocytes # (auto) 0.92 K/uL (0.11-0.59); Monocytes % (auto) 10.2 %; Neutrophils # (auto) 5.67 K/uL (1.40-6.50); Neutrophils % (auto) 62.8 %; Platelet Count 327 K/uL (130-400); RDW Coefficient of Variation 14.9 % (11.5-14.5); RDW Standard Deviation 52.8 fL (36.4-46.3); Red Blood Count 3.02 M/uL (4.20-5.40); White Blood Count 9.01 K/ul (4.8-10.8)
[2023-06-16] MEDS: LEVOTHYROXINE SODIUM 50 MCG TABLET PO SCH (06:10)
--- NOTE | 2023-06-16 06:12 | Electrocardiogram Report ---
Test Reason : Blood Pressure : / mmHG Vent. Rate : 057 BPM Atrial Rate : 057 BPM P-R Int : 200 ms QRS Dur : 076 ms QT Int : 476 ms P-R-T Axes : -07 -06 020 degrees QTc Int : 463 ms Sinus bradycardia with Premature atrial complexes Nonspecific ST abnormality Abnormal ECG When compared with ECG of 27-APR-2022 11:59, Premature atrial complexes are now Present Confirmed by Tristan Felder ([id number]) on 06/16/2023 6:12:02 AM Referred By: Confirmed By:Tristan Felder
[2023-06-16 06:30] LABS: BUN Creatinine Ratio 16.4 (10-20); Calcium 8.8 mg/dl (8.6-10.3); Creatinine Clr Calc Pharmacy 17.2 ml/min; Est GFR (African American) 21.4 ml/min; Est GFR (Non-African American) 18.4 ml/min; Potassium 4.1 mmol/L (3.5-5.1)
--- NOTE | 2023-06-16 07:34 | Hospitalist Progress Note ---
Date of Service June 16, 2023 Assessment & Plan (1) Hematoma of right lower leg: Plan: Patient struck RLE on her bedpost 3 weeks ago, and bruise progressively worsened Rapid decompensation over the past 5 days; ambulation with walker --> wheelchair No leukocytosis; afebrile. Lactic wnl. Procal 0.09. Does have +UTI findings, cx from 06/12. Procalcitonin WNL MRSA nares NEGATIVE, denied any prior hx MRSA elsewhere as well General surgery consulted IV abx: Zosyn (also covering for urine, rec proph continuing for 3 days assuming no periop infxn) WBC wnl, afebrile Blood cultures pending NPO this morning for I&D w/ Dr Carrington in the next hour Added IVF while NPO given elevated Cr, dehydration on exam Hgb 9.5, noting patient did get 1L IV on admission and will monitor on repeat --> adding iron studies to AM labs, along w/ B12/folate given MCV borderline for completeness Pain control - Tylenol (added IV for today as unable to take pills without applesauce reported), oxycodone Bowel regimen-- no BM x 2 days reported but does have +BS on exam, soft/NT Need wound care/likely wound vac given extent of hematoma PT/OT consults following surgery (from [facility]) Monitor labs on repeat (2) UTI (urinary tract infection): Plan: Urine cx /5 w/ proteus, klebsiella Placed on Zosyn for above, will need f/u urine cx. De-escalate once ensuring no infection for above to cover (sensitive to Ceftriaxone), blood cultures pending Monitor UOP, cxs (3) Diabetes type 2, controlled: Plan: Last A1c at 8.4% on 05/29/2023 Home sitagliptin Glu 275 on admit, placed on BSG AC/HS, SSI while inpatient POC 210 this morning, SSI adjustments made and consult for pharmacy for additional assistance Monitor BSGs (4) Hypertension: Plan: BP stable/borderline, dehydrated on exam Holding ISMN (no CP reported), also holding lasix given dehydration/SHERLY Remains on nadolol Monitor (5) SHERLY (acute kidney injury): Plan: BUn/Cr elevation 38/2.32 today, suspect 2nd to hematoma/blood loss from such as well as UTI as above Holding home lasix, IVF ordered while NPO. check iron studies/b12/folate Avoid nephrotoxins, renal dose meds as able Monitor labs on repeat (6) Ambulatory dysfunction: Plan: suspected 2nd to UTI/SHERLY/hematoma as above Will need PT/OT consults ordered following I&D as above (from [facility], suspect will return to such at dc but will monitor) Plan DVT proph: no mechanical DVT proph for now given hematoma, chemoproph deferred in setting of hematoma. Patient is high risk for DVT/PE and can consider chemoproph when deemed safe from surgery perspective Disposition: NPO for OR this morning Updated daughter at bedside 06/15 Admission and Anticipated Discharge Date Admission Date: June 15, 2023 Subjective Patient evaluated this morning, daughter at bedside. R lower leg hematoma, had been on aspirin and bumped her leg and had been walking w/ walker and progressive pain/swelling and hematoma causing her not to be able to bear weight. She notes she had only been on baby aspirin and daughter believes last dose was May 28 unless [facility] resumed this following. Has not moved her bowels in 2 days, will add bowel regimen. Urine cloudy in purewick, continued on ABX. For OR this morning, pain ok but needing something and was going to get 2 tylenol but oral and she usually takes pills with applesauce and is NPO. Will order IV tylenol, to go to OR in next hour and notify if needing additional pain control. Will likely need wound vac and wound care follow up as discussed w/ patient and daughter in room. Patient denies any CP/SOB reported. Questions/concerns addressed at this time. Physical Exam Physical Exam: General: 87yo female sitting up in bed, daughter at bedside, NAD but having some mild pain to her R leg Head atraumatic, normocephalic, mm slightly dry, trachea midline Resp: diminished in the bases, no w/c/r, on room air CV: bradycardic to 50-60s, no significant m/r/g, LE w/o pitting edema, pulse present GI:+BS, soft/NT : purewick draining concentrated/cloudy yellow urine MSK/Neuro: no slurred speech/facial droop, answering questions appropriately LLE w/ significant hematoma to anterior/medial aspect along with associated necrotic tissue/eschar overlying, +swelling, no active drainage or cellulitic changes (see note from day prior) Results & Data Results & Data Vital Signs (Past 12 Hours) Vital Signs Temp Pulse Pulse Resp BP Pulse Ox O2 Del Method 06/16/23 07:16 36.8 C 54 L 16 113/61 92 Room Air 06/15/23 21:42 36.8 C 61 18 116/70 98 Room Air 06/15/23 21:20 Room Air 06/15/23 21:20 Room Air 06/15/23 21:20 36.8 C 61 18 116/70 98 Room Air 06/15/23 20:20 90 18 107/62 97 Laboratory Results 06/16/23 06/16/23 06/15/23 Range/Units 05:58 05:21 22:05 WBC 9.01 (4.8-10.8) K/ul RBC 3.02 L (4.20-5.40) M/uL Hgb 9.9 L (12.0-16.0) g/dl Hct 29.1 L (37.0-47.0) % MCV 96.4 (80.0-100.0) fL MCH 32.8 (25.0-34.0) pg MCHC 34.0 (32.0-36.0) g/dL RDW Std Deviation 52.8 H (36.4-46.3) fL RDW Coeff of Shaji 14.9 H (11.5-14.5) % Plt Count 327 (130-400) K/uL MPV 8.9 L (9.4-12.4) fL Immature Gran % (Auto) 1.0 % Neut % (Auto) 62.8 % Lymph % (Auto) 20.8 % [place] % (Auto) 10.2 % Eos % (Auto) 4.6 % Baso % (Auto) 0.6 % Neut # (Auto) 5.67 (1.40-6.50) K/uL Lymph # (Auto) 1.87 (1.20-3.40) K/uL [place] # (Auto) 0.92 H (0.11-0.59) K/uL Eos # (Auto) 0.41 (0.00-0.50) K/uL Baso # (Auto) 0.05 (0.00-0.20) K/uL Immature Gran # (Auto) 0.09 (0.01-0.20) K/uL Sodium 138 (136-145) mmol/L Potassium 4.1 (3.5-5.1) mmol/L Chloride 98 (98-107) mmol/L Carbon Dioxide 33 H (21-32) mmol/L Anion Gap 7 (3-11) BUN 38 H (6-23) mg/dl Creatinine 2.32 H D (0.6-1.2) mg/dl Est Cr Clr Drug Dosing 17.2 Est GFR ( Amer) 21.4 ml/min Est GFR (Non-Af Amer) 18.4 ml/min BUN/Creatinine Ratio 16.4 (10-20) Glucose 206 H (70-99(Fasting)) mg/dl POC Glucose 210 H 210 H (70-99) mg/dl Lactate (0.4-2.0) mmol/L Calcium 8.8 (8.6-10.3) mg/dl Magnesium (1.7-2.4) mg/dl Total Bilirubin (0.2-1.0) mg/dl Direct Bilirubin (0-0.2) mg/dl AST (13-39) U/L ALT (7-52) U/L Alkaline Phosphatase (34-104) U/L Troponin I High Sens (0-14) pg/ml Total Protein (6.0-8.3) gm/dl Albumin (3.4-5.0) gm/dl Procalcitonin (0-0.5) ng/ml Urine Color Urine Appearance (Clear) Urine pH (4.5-7.5) Ur Specific [place] (1.000-1.030) Urine Protein (Negative) Urine Glucose (UA) (Negative) Urine Ketones (Negative) Urine Blood (Negative) Urine Nitrite (Negative) Urine Bilirubin (Negative) Urine Urobilinogen (Negative) Ur Leukocyte Esterase (Negative) Urine WBC (Auto) (0-5) /hpf Urine RBC (Auto) (0-4) /hpf U Hyaline Cast (Auto) (0-5) /lpf U Epithel Cells (Auto) (0-5) /lpf Urine Bacteria (Auto) (Negative) Nasal Screen MRSA (PCR) (Negative) 06/15/23 06/15/23 06/15/23 Range/Units 18:25 17:55 14:30 WBC (4.8-10.8) K/ul RBC (4.20-5.40) M/uL Hgb (12.0-16.0) g/dl Hct (37.0-47.0) % MCV (80.0-100.0) fL MCH (25.0-34.0) pg MCHC (32.0-36.0) g/dL RDW Std Deviation (36.4-46.3) fL RDW Coeff of [place] (11.5-14.5) % Plt Count (130-400) K/uL MPV (9.4-12.4) fL Immature Gran % (Auto) % Neut % (Auto) % Lymph % (Auto) % [place] % (Auto) % Eos % (Auto) % Baso % (Auto) % Neut # (Auto) (1.40-6.50) K/uL Lymph # (Auto) (1.20-3.40) K/uL [place] # (Auto) (0.11-0.59) K/uL Eos # (Auto) (0.00-0.50) K/uL Baso # (Auto) (0.00-0.20) K/uL Immature Gran # (Auto) (0.01-0.20) K/uL Sodium (136-145) mmol/L Potassium (3.5-5.1) mmol/L Chloride (98-107) mmol/L Carbon Dioxide (21-32) mmol/L Anion Gap (3-11) BUN (6-23) mg/dl Creatinine (0.6-1.2) mg/dl Est Cr Clr Drug Dosing Est GFR ( Amer) ml/min Est GFR (Non-Af Amer) ml/min BUN/Creatinine Ratio (10-20) Glucose (70-99(Fasting)) mg/dl POC Glucose 219 H (70-99) mg/dl Lactate (0.4-2.0) mmol/L Calcium (8.6-10.3) mg/dl Magnesium (1.7-2.4) mg/dl Total Bilirubin (0.2-1.0) mg/dl Direct Bilirubin (0-0.2) mg/dl AST (13-39) U/L ALT (7-52) U/L Alkaline Phosphatase (34-104) U/L Troponin I High Sens (0-14) pg/ml Total Protein (6.0-8.3) gm/dl Albumin (3.4-5.0) gm/dl Procalcitonin (0-0.5) ng/ml Urine Color Yellow Urine Appearance Turbid A (Clear) Urine pH 8.0 H (4.5-7.5) Ur Specific [place] 1.012 (1.000-1.030) Urine Protein 2+ H (Negative) Urine Glucose (UA) Negative (Negative) Urine Ketones Negative (Negative) Urine Blood 2+ H (Negative) Urine Nitrite Negative (Negative) Urine Bilirubin Negative (Negative) Urine Urobilinogen Negative (Negative) Ur Leukocyte Esterase 3+ H (Negative) Urine WBC (Auto) 0 (0-5) /hpf Urine RBC (Auto) 0-4 (0-4) /hpf U Hyaline Cast (Auto) 1-5 (0-5) /lpf U Epithel Cells (Auto) 10-20 H (0-5) /lpf Urine Bacteria (Auto) Negative (Negative) Nasal Screen MRSA (PCR) Negative (Negative) 06/15/23 Range/Units 14:13 WBC 9.53 (4.8-10.8) K/ul RBC 3.26 L (4.20-5.40) M/uL Hgb 10.5 L (12.0-16.0) g/dl Hct 32.5 L (37.0-47.0) % MCV 99.7 (80.0-100.0) fL MCH 32.2 (25.0-34.0) pg MCHC 32.3 (32.0-36.0) g/dL RDW Std Deviation 54.1 H (36.4-46.3) fL RDW Coeff of [place] 14.9 H (11.5-14.5) % Plt Count 348 (130-400) K/uL MPV 8.9 L (9.4-12.4) fL Immature Gran % (Auto) 0.8 % Neut % (Auto) 62.9 % Lymph % (Auto) 22.4 % [place] % (Auto) 9.2 % Eos % (Auto) 4.1 % Baso % (Auto) 0.6 % Neut # (Auto) 5.99 (1.40-6.50) K/uL Lymph # (Auto) 2.13 (1.20-3.40) K/uL [place] # (Auto) 0.88 H (0.11-0.59) K/uL Eos # (Auto) 0.39 (0.00-0.50) K/uL Baso # (Auto) 0.06 (0.00-0.20) K/uL Immature Gran # (Auto) 0.08 (0.01-0.20) K/uL Sodium 136 (136-145) mmol/L Potassium 3.9 (3.5-5.1) mmol/L Chloride 95 L (98-107) mmol/L Carbon Dioxide 33 H (21-32) mmol/L Anion Gap 8 (3-11) BUN 39 H (6-23) mg/dl Creatinine 1.66 H (0.6-1.2) mg/dl Est Cr Clr Drug Dosing Not Reportable Est GFR ( Amer) 32.0 ml/min Est GFR (Non-Af Amer) 27.6 ml/min BUN/Creatinine Ratio 23.5 H (10-20) Glucose 275 H (70-99(Fasting)) mg/dl POC Glucose (70-99) mg/dl Lactate 1.9 (0.4-2.0) mmol/L Calcium 9.1 (8.6-10.3) mg/dl Magnesium 2.0 (1.7-2.4) mg/dl Total Bilirubin 0.8 (0.2-1.0) mg/dl Direct Bilirubin 0.2 (0-0.2) mg/dl AST 12 L (13-39) U/L ALT 11 (7-52) U/L Alkaline Phosphatase 95 (34-104) U/L Troponin I High Sens 5.4 (0-14) pg/ml Total Protein 6.8 (6.0-8.3) gm/dl Albumin 3.6 (3.4-5.0) gm/dl Procalcitonin 0.09 (0-0.5) ng/ml Urine Color Urine Appearance (Clear) Urine pH (4.5-7.5) Ur Specific [place] (1.000-1.030) Urine Protein (Negative) Urine Glucose (UA) (Negative) Urine Ketones (Negative) Urine Blood (Negative) Urine Nitrite (Negative) Urine Bilirubin (Negative) Urine Urobilinogen (Negative) Ur Leukocyte Esterase (Negative) Urine WBC (Auto) (0-5) /hpf Urine RBC (Auto) (0-4) /hpf U Hyaline Cast (Auto) (0-5) /lpf U Epithel Cells (Auto) (0-5) /lpf Urine Bacteria (Auto) (Negative) Nasal Screen MRSA (PCR) (Negative) Diagnostic Findings Tibia/Fibula X-Ray 06/15/23 13:45 XR tibia fibula RT 2V CLINICAL HISTORY: hematoma worsening TECHNIQUE: 2 radiographic views of the right leg were obtained. Comparison: None available at the time of this dictation. FINDINGS: There is no evidence of an acute fracture. Joint spaces are well-preserved. Soft tissue density in the anterior leg is compatible with hematoma. No evidence of acute fracture. IMPRESSION: No evidence of acute osseous injury. ACT 112: Negative or not required by law. Electronically signed by: Ted Caraballo M.D. 06/15/2023 3:43 PM Chest X-Ray 06/15/23 13:46 XR chest 1V portable CLINICAL HISTORY: Sepsis TECHNIQUE: Single frontal radiograph of the chest was obtained. Comparison: Comparison is made to chest radiograph 04/27/2022 FINDINGS: No lines and tubes are seen. Calcified aortic knob is seen. The lungs are clear. No evidence of pleural effusion or pneumothorax. Calcific tendinopathy. IMPRESSION: No acute abnormalities and in particular no radiographic evidence of pneumonia. ACT 112: Negative or not required by law. Electronically signed by: Ted Caraballo M.D. 06/15/2023 3:44 PM PG Care Time/CCT Total # of Minutes Spent Total Time Spent with Patient: Total time spent is greater than 50% in coordination of care (as documented) at patient's floor/unit and/or counseling patient: Coding Level of Care Code 14262 SUB INP/OBS CARE 3/50MIN Diagnoses Hematoma of right lower leg S80.11XA UTI (urinary tract infection) N39.0 Diabetes type 2, controlled E11.9 Hypertension I10 SHERLY (acute kidney injury) N17.9 Ambulatory dysfunction R26.2
[2023-06-16] MEDS: POLYETHYLENE (MIRALAX) 17 GM PACK PO SCH (08:25)
[2023-06-16] MEDS: nadoloL 40 MG TAB PO SCH (08:25)
[2023-06-16 08:53] LABS: Ferritin 79.1 ng/ml (8-388)
[2023-06-16] MEDS: SODIUM CHLORIDE 0.9% 1,000 ML IV SCH (08:53)
[2023-06-16] MEDS: FAMOTIDINE 40 MG TABLET PO SCH (08:53)
[2023-06-16] MEDS: DONEPEZIL HCL 10 MG TAB PO SCH (08:53)
[2023-06-16] MEDS: DULoxetine HCL 20 MG CAP PO SCH (08:53)
[2023-06-16 09:36] LABS: Folate (Folic Acid),Ser orPlas 13.49 ng/ml (>5.38)
[2023-06-16] MEDS ORDERED: PHARMACY GLYCEMIC MGMT CONSULT PRN (09:45)
--- NOTE | 2023-06-16 09:59 | Surgery Progress Note ---
Date of Service June 16, 2023 Assessment & Plan (1) Hematoma of right lower leg: Plan: Will need debridement in OR given size/ necrotic tissue. Discussed that these wounds can be slow to heal and will require wound care. Will plan for OR today for incision and debridement of the hematoma right lower extremity. All questions answered, she is agreeable with the plan. Consent will be obtained in the preoperative area (2) UTI (urinary tract infection): Plan: On antibiotics as per medicine. Admission and Anticipated Discharge Date Admission Date: June 15, 2023 Subjective feeling okay this morning, still with pain in the right lower extremity. Physical Exam Physical Exam: NAD AFVSS A&Ox3 Resp: diminished in the bases, no w/c/r, on room air CV: bradycardic to 50-60s, no significant m/r/g, LE w/o pitting edema, pulse present LLE w/ significant hematoma to anterior/medial aspect along with associated necrotic tissue/eschar overlying, +swelling, no active drainage or cellulitic changes Results & Data Vital Signs (Past 12 Hours) Vital Signs Temp Pulse Resp BP Pulse Ox O2 Del Method 06/16/23 07:16 36.8 C 54 L 16 113/61 92 Room Air
--- NOTE | 2023-06-16 09:59 | History & Physical Bridge Note ---
Date of Service June 16, 2023 History & Physical Bridge Note I have examined the patient, reviewed the History & Physical and in the interval since the performance of the History & Physical I have noted the following changes of clinical significance: no changes noted
[2023-06-16] MEDS: ACETAMINOPHEN 1,000 MG/100 ML VIAL IV PRN (10:33)
--- NOTE | 2023-06-16 11:31 | Pharmacy Report ---
Pharmacy Glycemic Short Note 2 - Date of Service June 16, 2023 - Glycemic Short BSG Results (Last 24 hours): 06/15/23 06/15/23 06/15/23 14:13 18:25 22:05 Glucose 275 H POC Glucose 219 H 210 H 06/16/23 06/16/23 06/16/23 05:21 05:58 11:04 Glucose 206 H POC Glucose 210 H 168 H OUTPATIENT ANTIDIABETIC REGIMEN: * januvia 25 mg daily ASSESSMENT: * 87 year old admitted with RLE hematoma/UTI. Likely requiring debridement, NPO - Pharmacy consulted for glycemic management. Patient only on oral agent at home for DM. BSG >200 this AM, however trending down to 160s at lunch time check. Reasonable to tighten novolog more. Will hold basal as patient is NPO currently. PLAN FOR INPATIENT GLYCEMIC CONTROL: * Hold outpatient oral diabetes medications * Basal insulin * Lantus - hold * Bolus insulin * NovoLog per scale ACHS or Q6hrs while NPO * Goal Range: Low 110 mg/dL - High 140 mg/dL * Correction Factor: 20 mg/dL/unit * Nutritional / Prandial insulin per carb ratio of 1 unit per 11 grams CHO consumed
[2023-06-16] MEDS ORDERED: fentaNYL citrate PF 100 MCG/2 ML VIAL ONE (11:39)
--- NOTE | 2023-06-16 11:45 | Anesthesiology Consultation ---
Date of Service June 16, 2023 Assessment & Plan (1) Encounter for pre-operative examination: Chart Review Chart Review: Acceptable Risk for Surgery History Surgery Operation Date: 06/16/23 09:25 Proposed Procedures p Incision and Debridement Right Lower Extremity Wound - Ashu Carrington MD Height/Weight Height: 5 ft 4 in Weight: 74.4 kg Allergies Allergy/AdvReac Type Severity Reaction Status Date / Time verapamil Allergy Severe RASH Verified 06/15/23 16:26 latex Allergy Intermediate ITCHING Verified 06/15/23 16:26 oxybutynin Allergy Intermediate ITCHING Verified 06/15/23 16:26 adhesive Allergy Mild redness Verified 06/15/23 16:26 meperidine AdvReac Severe HYPOTENSION Verified 06/15/23 16:26 sodium phosphate AdvReac Severe DECREASED Verified 06/15/23 16:26 [From OsmoPrep] KIDNEY FUNCTION atenolol AdvReac Intermediate tachycardia; Verified 06/15/23 16:26 nervousness diazepam AdvReac Intermediate crying; Verified 06/15/23 16:26 depression fluoxetine AdvReac Intermediate crying; Verified 06/15/23 16:26 depression ibuprofen AdvReac Intermediate low kidney Verified 06/15/23 16:26 function Iodinated Contrast Media AdvReac Intermediate IVP DYE - Verified 06/15/23 16:26 low kidney function lidocaine AdvReac Intermediate Altered Verified 06/15/23 16:26 Mental Status with ointment ONLY naproxen AdvReac Intermediate Low kidney Verified 06/15/23 16:26 function sertraline AdvReac Intermediate crying; Verified 06/15/23 16:26 depression tramadol AdvReac Intermediate dizziness Verified 06/15/23 16:26 venlafaxine AdvReac Intermediate Nervous Verified 06/15/23 16:26 Medications Home Medications Medication Instructions Recorded Confirmed Last Taken docusate sodium 100 mg capsule 100 mg PO BID #60 caps 06/01/19 06/15/23 06/15/23 08:30 (Stool Softener) gabapentin 300 mg capsule 300 mg PO HS Pain #90 caps 05/09/21 06/15/23 06/14/23 levothyroxine 50 mcg tablet 50 mcg PO DAILYBB #90 tabs 11/15/21 06/15/23 06/15/23 isosorbide mononitrate 120 mg 120 mg PO DAILY #90 tabs 11/16/21 06/15/23 06/15/23 tablet,extended release 24 hr nadolol 40 mg tablet 40 mg PO QAM #30 tabs 01/08/22 06/15/23 06/15/23 famotidine 40 mg tablet (Pepcid) 40 mg PO DAILY #90 tabs 01/09/22 06/15/23 06/15/23 atorvastatin 40 mg tablet 40 mg PO HS #90 tabs 01/28/22 06/15/23 06/14/23 bismuth subsalicylate 262 mg/15 mL 524 mg PO Q6H PRN 03/14/22 06/15/23 Unknown oral suspension (Pepto-Bismol) HEARTBURN/DIARRHEA diclofenac sodium 1 % topical gel 2 g topical QID 03/14/22 06/15/23 06/15/23 12:30 furosemide 40 mg tablet (Lasix) 40 mg PO QAM 03/14/22 06/15/23 06/15/23 loperamide 2 mg tablet 2 mg PO Q4H PRN Diarrhea 03/14/22 06/15/23 Unknown sitagliptin phosphate 25 mg tablet 25 mg PO DAILY #30 tabs 03/22/22 06/15/23 06/15/23 (Januvia) donepezil 10 mg tablet (Aricept) 10 mg PO DAILY 30 days #30 tabs 04/06/22 06/15/23 06/15/23 nitroglycerin 0.4 mg sublingual 0.4 mg sublingual DIRECTED PRN 04/08/22 06/15/23 Unknown tablet Chest Pain potassium chloride 20 mEq 20 meq PO DAILY 08/29/22 06/15/23 06/15/23 tablet,extended release acetaminophen 325 mg tablet 650 mg PO Q6H PRN PAIN/FEVER 06/15/23 06/15/23 Unknown (Tylenol) calcium carbonate 500 mg-vitamin 1 tab PO DAILY 06/15/23 06/15/23 06/15/23 D3 5 mcg (200 unit) tablet (Calcium 500 + D) duloxetine 20 mg capsule,delayed 20 mg PO BIDM 06/15/23 06/15/23 06/15/23 08:30 release methyl salicylate 15 %-menthol 10 1 applic topical TID 06/15/23 06/15/23 06/15/23 08:30 % topical cream mineral oil-isopropyl myristat 1 applic topical BID 06/15/23 06/15/23 06/15/23 09:00 lotion oxycodone 5 mg tablet 5 mg PO Q6H PRN PAIN (5-10) 06/15/23 06/15/23 06/14/23 pantoprazole 40 mg tablet,delayed 40 mg PO BID 06/15/23 06/15/23 06/15/23 08:30 release peg 400-propylene glycol 0.4 %-0.3 2 drp OPB TID 06/15/23 06/15/23 06/15/23 06:30 % eye drops (Systane (propylene glycol)) polyethylene glycol 3350 17 17 g PO DAILY 06/15/23 06/15/23 06/15/23 gram/dose oral powder (Miralax) zinc oxide-cod liver oil 40 % 1 applic topical DAILY 06/15/23 06/15/23 06/15/23 topical paste (Desitin) Active Medications Generic Name Dose Route Start Last Admin Trade Name Freq PRN Reason Stop Dose Admin Atorvastatin Calcium 40 mg 06/15/23 21:28 06/15/23 22:01 Atorvastatin 40 Mg Tab PO 07/15/23 21:27 40 mg HS KAREN Administration Docusate Sodium 100 mg 06/15/23 21:28 06/15/23 22:05 Docusate Sodium 100 Mg Cap PO 07/15/23 21:27 100 mg BID KAREN Administration Gabapentin 300 mg 06/15/23 21:28 06/15/23 22:01 Gabapentin 300 Mg Cap PO 07/15/23 21:27 300 mg HS KAREN Administration Sodium Chloride 1,000 mls @ 70 mls/hr 06/16/23 08:15 06/16/23 08:53 Nss IV 07/16/23 08:14 70 mls/hr .[id number] KAREN Administration Acetaminophen 1,000 mg in 100 mls @ 400 mls/hr 06/16/23 09:33 06/16/23 11:07 Ofirmev IV 06/19/23 09:32 Infused Q8H PRN Infusion Pain or Fever Insulin Aspart 0 units 06/15/23 21:45 06/16/23 06:10 Insulin Aspart Per Unit Charge SC 07/15/23 21:44 2 units Q6 KAREN Administration Levothyroxine Sodium 50 mcg 06/16/23 06:30 06/16/23 06:10 Levothyroxine Sodium 50 Mcg Tablet PO 07/16/23 06:29 50 mcg DAILYBB KAREN Administration Nadolol 40 mg 06/16/23 09:00 06/16/23 08:25 Nadolol 40 Mg Tab PO 07/16/23 08:59 Not Given QAM KAREN Oxycodone HCl 5 mg 06/15/23 21:28 06/15/23 22:04 Oxycodone Hcl Ir 5 Mg Tab (Immediate Release) PO 06/29/23 21:27 5 mg Q6H PRN Administration PAIN (5-10) Pantoprazole Sodium 40 mg 06/15/23 21:28 06/15/23 22:02 Pantoprazole 40 Mg Tab PO 07/15/23 21:27 40 mg BID KAREN Administration Polyethylene Glycol 17 gm 06/16/23 09:00 06/16/23 08:25 Polyethylene (Miralax) 17 Gm Pack PO 07/16/23 08:59 Not Given DAILY KAREN NPO Date Last Intake of Fluids: 06/15/23 Time Last Intake of Fluids: 18:30 Date Last Intake of Solids: 06/15/23 Time Last Intake of Solids: 18:30 Past Medical History Medical History DVT prophylaxis Closed head injury Chronic throat clearing Small bowel obstruction due to adhesions CKD (chronic kidney disease), stage III Diverticular disease Osteoarthritis Chronic back pain Depression Anxiety Diabetes mellitus, type 2 NO MEDICATIONS. Hypothyroidism History of colon cancer 2011 -- COLON RESECTION. NO CHEMO/RADIATION Syncope HAS HAD CARDIAC WORK UP, EEG, AND MRI OF BRAIN WITH NO ABNORMALITIES Pneumonia hx of 2015 Stable angina LAST USED NITRO ~AUGUST 2017 Hyperlipidemia Hypertension SBO (small bowel obstruction) Abdominal pain (03/24/13) CAD (coronary artery disease) Diverticulitis Past Family History Family History Mother Heart disease Breast cancer Cancer Myocardial infarction Sister Colorectal cancer Lung disease Cancer Father Hearing loss Heart disease Other Hypertension No family history of adverse response to anesthesia Denies family history of Ovarian cancer Prostate cancer Coronary heart disease Past Surgical History Surgical History History of esophagogastroduodenoscopy (EGD) History of dilatation and curettage History of bilateral tubal ligation History of cataract surgery BILATERAL History of discectomy LUMBAR REGION History of hysterectomy JESUS WITH BSO H/O umbilical hernia repair History of bowel resection 2012 History of colonoscopy History of cardiac cath NO STENTS. (2007) Social History Smoking Status: Never smoker Do You Dip or Chew Tobacco: No Hx Alcohol Use: No Hx Substance Use: No substance use type: does not use Physical Exam Vital Signs Last Vital Signs Temp 36.7 C 06/16/23 11:09 Pulse 53 L 06/16/23 11:09 Resp 20 06/16/23 11:09 BP 111/55 L 06/16/23 11:09 Pulse Ox 93 06/16/23 11:09 O2 Del Method Room Air 06/16/23 11:09 Testing Laboratory Results 06/16/23 05:21 06/16/23 05:21 Urine Color Yellow 06/15/23 14:30 Urine Appearance Turbid (Clear) A 06/15/23 14:30 Urine pH 8.0 (4.5-7.5) H 06/15/23 14:30 Ur Specific [place] 1.012 (1.000-1.030) 06/15/23 14:30 Urine Protein 2+ (Negative) H 06/15/23 14:30 Urine Glucose (UA) Negative (Negative) 06/15/23 14:30 Urine Ketones Negative (Negative) 06/15/23 14:30 Urine Nitrite Negative (Negative) 06/15/23 14:30 Ur Leukocyte Esterase 3+ (Negative) H 06/15/23 14:30 Urine WBC (Auto) 0 /hpf (0-5) 06/15/23 14:30 Urine RBC (Auto) 0-4 /hpf (0-4) 06/15/23 14:30 U Hyaline Cast (Auto) 1-5 /lpf (0-5) 06/15/23 14:30 U Epithel Cells (Auto) 10-20 /lpf (0-5) H 06/15/23 14:30 Urine Bacteria (Auto) Negative (Negative) 06/15/23 14:30 06/16/23 06/16/23 11:04 05:58 POC Glucose 168 H 210 H
[2023-06-16] MEDS ORDERED: ATROPINE SULFATE 0.1 MG/ML 10ML SYR IV PRN (11:54)
[2023-06-16] MEDS ORDERED: ONDANSETRON INJ 2 MG/ML 2 ML VIAL IV PRN (11:54)
[2023-06-16] MEDS ORDERED: ONDANSETRON INJ 2 MG/ML 2 ML VIAL ONE (12:33)
[2023-06-16] MEDS ORDERED: PROPOFOL IV EMULSION 10 MG/ML 20 ML VIAL IV ONE (12:33)
[2023-06-16] MEDS ORDERED: DEXAMETHASONE SOD INJ 4 MG/ML VIAL ONE (12:33)
[2023-06-16] MEDS ORDERED: LIDOCAINE 2% 2 ML VIAL/AMP(20MG/ML) INFIL ONE (12:33)
[2023-06-16] MEDS ORDERED: GLYCOPYRROLATE 0.2 MG/ML VIAL ONE (12:33)
--- NOTE | 2023-06-16 12:47 | Post Operative Brief Note ---
Immediate Post Op Note v1 Date of Surgery June 16, 2023 Pre & Post Diagnosis Operation Date: 06/16/23 09:25 Pre-Op Diagnosis: Right lower extremity Hematoma Post-Op Diagnosis: Right lower extremity Hematoma I identified the patient and participated in the time-out.: Yes Procedure Operation Date: 06/16/23 09:25 Actual Procedures p Incision and Debridement Right Lower Extremity Wound(Right) - Ashu Carrington MD Surgeon Ashu Carrington MD Barrel Assembler ADOLFO Dewitt assisted with tissue retraction, camera op, closure Estimated Blood Loss 5 Findings Consistent with Post-Op Diagnosis
--- NOTE | 2023-06-16 12:51 | Operative Report ---
Post Operative Report Pre & Post Diagnosis Operation Date: 06/16/23 09:25 Pre-Op Diagnosis: Right lower extremity Hematoma Post-Op Diagnosis: Right lower extremity Hematoma I identified the patient and participated in the time-out.: Yes Procedure Operation Date: 06/16/23 09:25 Actual Procedures p Incision and Debridement Right Lower Extremity Wound(Right) - Ashu Carrington MD Surgeon Ashu Carrington MD Dental Office Receptionist ADOLFO Dewitt assisted with tissue retraction, camera op, closure Estimated Blood Loss 5 Findings Consistent with Post-Op Diagnosis dry gangrene eschar overlying large hematoma right lower extremity. Area of excised eschar 13 cm x 7 cm. The wound has 3 cm of undermining superiorly and 4 cm of undermining laterally. Specimens Right lower extremity eschar Drains none Anesthesia Type General Complications none Description of Procedure patient was taken to the operating room, placed supine on the operating table. A timeout was performed, perioperative antibiotics were administered, ST boots were placed. After adequate anesthesia and analgesia was obtained, the area was prepped and draped in the normal sterile fashion. We began by excising the dry gangrenous eschar. This was done with 15 blade scalpel. The eschar was removed in 1 piece. This unroofed a large amount of coagulated blood. This was removed. Excess skin, appearing necrotic, was ex cised. A pulse field marketing director was then used to irrigate the wound. Further hematoma was removed. There was good granulation tissue at the base of the wound. The wound was then packed with saline soaked Curlex. A wet-to-dry dressing was applied. The wound was wrapped with Kerlix. The area of eschar was 13 x 7 cm in diameter. The wound undermined 3 cm superiorly and 4 cm laterally, for a grand total debridement area of 176 cm. patient tolerated the procedure without complication, transferred in stable condition to the PACU. All instrument, needle, and sponge counts were correct at the end of the case. My ophthalmic assistant was necessary throughout the procedure for tissue retraction, possible camera operation, and closure of the wounds. I understand that section 1842(b)(7)(D) of the Social Security act generally prohibits Medicare physician fee schedule payment for the services of assistants at surgery in teaching hospitals when qualified residents are available to furnish such services. I certify that the services for which payment is claimed were medically necessary and that no qualified resident was available to perform the services. I further understand that these services are subject to postpayment review by the Medicare carrier. I attest to the content of the Intraoperative Record and any orders documented therein. Any exceptions are noted below.
[2023-06-16] MEDS: BUPIVACAINE 0.5 % 5 MG/1 ML MPF 30ML VIAL ONE (12:52)
[2023-06-16] MEDS: HYDROmorphone INJ 1 MG/ML SYRINGE IV PRN (13:03)
--- NOTE | 2023-06-16 13:19 | Anesthesiology Progress Note ---
Date of Service June 16, 2023 Anesthesia Post Procedure Vital Signs Vital Signs: Temp Pulse Pulse Pulse Resp BP BP 06/16/23 13:10 66 16 87/48 L 06/16/23 13:00 70 14 91/51 L 06/16/23 12:49 36.2 C L 65 12 112/58 L 06/16/23 11:09 36.7 C 53 L 20 111/55 L 06/16/23 10:57 06/16/23 07:16 36.8 C 54 L 16 113/61 06/15/23 21:42 36.8 C 61 18 116/70 06/15/23 21:20 06/15/23 21:20 06/15/23 21:20 36.8 C 61 18 116/70 06/15/23 20:20 90 18 107/62 06/15/23 19:00 59 L 17 111/51 L 06/15/23 18:31 62 15 06/15/23 18:30 57 L 14 117/58 L 06/15/23 17:44 55 L 06/15/23 17:30 55 L 15 06/15/23 17:30 114/78 06/15/23 17:00 57 L 14 06/15/23 17:00 108/61 06/15/23 16:30 112/60 06/15/23 16:30 55 L 12 06/15/23 16:00 107/58 L 06/15/23 16:00 59 L 18 06/15/23 15:30 59 L 20 06/15/23 15:30 119/70 06/15/23 15:00 57 L 19 06/15/23 15:00 106/62 06/15/23 14:37 102/62 06/15/23 14:37 65 20 06/15/23 14:30 55 L 15 06/15/23 14:00 27 H 06/15/23 13:51 59 L 06/15/23 13:46 58 L 17 06/15/23 13:20 36.5 C 65 18 110/65 Pulse Ox O2 Del Method O2 Flow Rate 06/16/23 13:10 90 Room Air 06/16/23 13:00 100 Oxymask 4 06/16/23 12:49 100 Oxymask 8 06/16/23 11:09 93 Room Air 06/16/23 10:57 Room Air 06/16/23 07:16 92 Room Air 06/15/23 21:42 98 Room Air 06/15/23 21:20 Room Air 06/15/23 21:20 Room Air 06/15/23 21:20 98 Room Air 06/15/23 20:20 97 06/15/23 19:00 06/15/23 18:31 06/15/23 18:30 06/15/23 17:44 06/15/23 17:30 91 06/15/23 17:30 06/15/23 17:00 99 06/15/23 17:00 06/15/23 16:30 06/15/23 16:30 100 06/15/23 16:00 06/15/23 16:00 100 06/15/23 15:30 100 06/15/23 15:30 06/15/23 15:00 99 06/15/23 15:00 06/15/23 14:37 06/15/23 14:37 06/15/23 14:30 94 06/15/23 14:00 06/15/23 13:51 06/15/23 13:46 96 06/15/23 13:20 100 Room Air Pain Intensity Right Lower Leg: Pain Intensity: 8 Transfer of Care Handoff Completed per policy Notes Mental Status: alert / awake / arousable Patient Amnestic to Procedure: Yes Nausea / Vomiting: adequately controlled Pain: adequately controlled Airway Patency, RR, SpO2: stable & adequate BP & HR: stable & adequate Hydration State: stable & adequate Anesthetic Complications: no major complications apparent
[2023-06-16] MEDS ORDERED: Nursing to Pharmacy Communication SCH (16:45)
[2023-06-16] MEDS: LANTUS PER UNIT CHARGE SC SCH (17:27)
[2023-06-16] MEDS: INSULIN ASPART PER UNIT CHARGE SC SCH (17:27)
[2023-06-16] MEDS: PIPERACILLIN/TAZOBACTAM 4.5 GM in DEXTROSE 5% MINI-B 100 ML IV SCH (21:03)
[2023-06-17 06:17] LABS: Basophils # (auto) 0.06 K/uL (0.00-0.20); Basophils % (auto) 0.7 %; Eosinophils # (auto) 0.09 K/uL (0.00-0.50); Hematocrit (blood only) 27.5 % (37.0-47.0); Hemoglobin 8.9 g/dl (12.0-16.0); Immature Granulocytes # (auto) 0.17 K/uL (0.01-0.20); Immature Granulocytes % (auto) 1.9 %; Lymphocytes # (auto) 1.45 K/uL (1.20-3.40); Mean Corpuscular Hemoglobin 32.2 pg (25.0-34.0); Mean Corpuscular Hgb Conc 32.4 g/dL (32.0-36.0); Mean Corpuscular Volume 99.6 fL (80.0-100.0); Mean Platelet Volume 8.8 fL (9.4-12.4); Monocytes # (auto) 0.72 K/uL (0.11-0.59); Neutrophils # (auto) 6.56 K/uL (1.40-6.50); Neutrophils % (auto) 72.4 %; Platelet Count 284 K/uL (130-400); RDW Coefficient of Variation 14.7 % (11.5-14.5); RDW Standard Deviation 53.7 fL (36.4-46.3); Red Blood Count 2.76 M/uL (4.20-5.40); White Blood Count 9.05 K/ul (4.8-10.8)
[2023-06-17 06:23] LABS: BUN Creatinine Ratio 17.9 (10-20); Calcium 8.4 mg/dl (8.6-10.3); Creatinine Clr Calc Pharmacy 22.3 ml/min; Est GFR (African American) 29.2 ml/min; Est GFR (Non-African American) 25.2 ml/min; Potassium 4.1 mmol/L (3.5-5.1)
[2023-06-17] MEDS: LANTUS PER UNIT CHARGE SC SCH ×2 (09:13→21:51)
[2023-06-17] MEDS: CYANOCOBALAMIN (B-12) 500 MCG TABLET PO SCH (09:55)
--- NOTE | 2023-06-17 10:12 | Surgery Progress Note ---
Date of Service June 17, 2023 Assessment & Plan (1) Hematoma of right lower leg: Plan: POD # 1 s/p I&D of large RLE hematoma avss postop pain controlled wound vac placed Plan: continue pain management continue wound vac will need wound care follow-up continue medical management our services signing off, please call with questions/concerns Discussed with Dr. lopez who agrees with above. (2) UTI (urinary tract infection): Plan: On antibiotics as per medicine. Admission and Anticipated Discharge Date Admission Date: June 15, 2023 Subjective having some right lower extremity pain, controlled with meds tolerating diet wound vac placed by Nevin this morning Physical Exam Constitutional: WD/WN, vitals as above no acute distress and not ill appearing Musculoskeletal: Right lower extremity with wound vac present Psychiatric: Orientation: alert and oriented x 3 Results & Data Vital Signs (Past 12 Hours) Vital Signs Temp Pulse Resp BP Pulse Ox O2 Del Method 06/17/23 07:28 36.4 C L 61 16 115/65 99 Room Air 06/17/23 02:46 36.4 C L 62 16 96/62 L 99 Room Air 06/16/23 23:28 36.4 C L 70 16 99/63 L 98 Room Air Laboratory Results 06/17/23 06/17/23 06/16/23 Range/Units 07:31 05:30 20:40 WBC 9.05 (4.8-10.8) K/ul RBC 2.76 L (4.20-5.40) M/uL Hgb 8.9 L (12.0-16.0) g/dl Hct 27.5 L (37.0-47.0) % MCV 99.6 (80.0-100.0) fL MCH 32.2 (25.0-34.0) pg MCHC 32.4 (32.0-36.0) g/dL RDW Std Deviation 53.7 H (36.4-46.3) fL RDW Coeff of Shaji 14.7 H (11.5-14.5) % Plt Count 284 (130-400) K/uL MPV 8.8 L (9.4-12.4) fL Immature Gran % (Auto) 1.9 % Neut % (Auto) 72.4 % Lymph % (Auto) 16.0 % [place] % (Auto) 8.0 % Eos % (Auto) 1.0 % Baso % (Auto) 0.7 % Neut # (Auto) 6.56 H (1.40-6.50) K/uL Lymph # (Auto) 1.45 (1.20-3.40) K/uL [place] # (Auto) 0.72 H (0.11-0.59) K/uL Eos # (Auto) 0.09 (0.00-0.50) K/uL Baso # (Auto) 0.06 (0.00-0.20) K/uL Immature Gran # (Auto) 0.17 (0.01-0.20) K/uL Sodium 138 (136-145) mmol/L Potassium 4.1 (3.5-5.1) mmol/L Chloride 103 (98-107) mmol/L Carbon Dioxide 29 (21-32) mmol/L Anion Gap 6 (3-11) BUN 32 H (6-23) mg/dl Creatinine 1.79 H D (0.6-1.2) mg/dl Est Cr Clr Drug Dosing 22.3 ml/min Est GFR ( Amer) 29.2 ml/min Est GFR (Non-Af Amer) 25.2 ml/min BUN/Creatinine Ratio 17.9 (10-20) Glucose 166 H (70-99(Fasting)) mg/dl POC Glucose 160 H 278 H (70-99) mg/dl Calcium 8.4 L (8.6-10.3) mg/dl Magnesium 2.0 (1.7-2.4) mg/dl Vitamin B1 Pending 06/16/23 06/16/23 06/16/23 Range/Units 20:39 16:39 14:28 WBC (4.8-10.8) K/ul RBC (4.20-5.40) M/uL Hgb (12.0-16.0) g/dl Hct (37.0-47.0) % MCV (80.0-100.0) fL MCH (25.0-34.0) pg MCHC (32.0-36.0) g/dL RDW Std Deviation (36.4-46.3) fL RDW Coeff of Shaji (11.5-14.5) % Plt Count (130-400) K/uL MPV (9.4-12.4) fL Immature Gran % (Auto) % Neut % (Auto) % Lymph % (Auto) % [place] % (Auto) % Eos % (Auto) % Baso % (Auto) % Neut # (Auto) (1.40-6.50) K/uL Lymph # (Auto) (1.20-3.40) K/uL [place] # (Auto) (0.11-0.59) K/uL Eos # (Auto) (0.00-0.50) K/uL Baso # (Auto) (0.00-0.20) K/uL Immature Gran # (Auto) (0.01-0.20) K/uL Sodium (136-145) mmol/L Potassium (3.5-5.1) mmol/L Chloride (98-107) mmol/L Carbon Dioxide (21-32) mmol/L Anion Gap (3-11) BUN (6-23) mg/dl Creatinine (0.6-1.2) mg/dl Est Cr Clr Drug Dosing ml/min Est GFR ( Amer) ml/min Est GFR (Non-Af Amer) ml/min BUN/Creatinine Ratio (10-20) Glucose (70-99(Fasting)) mg/dl POC Glucose 305 H* 218 H 196 H (70-99) mg/dl Calcium (8.6-10.3) mg/dl Magnesium (1.7-2.4) mg/dl Vitamin B1 06/16/23 06/16/23 Range/Units 12:49 11:04 WBC (4.8-10.8) K/ul RBC (4.20-5.40) M/uL Hgb (12.0-16.0) g/dl Hct (37.0-47.0) % MCV (80.0-100.0) fL MCH (25.0-34.0) pg MCHC (32.0-36.0) g/dL RDW Std Deviation (36.4-46.3) fL RDW Coeff of Shaji (11.5-14.5) % Plt Count (130-400) K/uL MPV (9.4-12.4) fL Immature Gran % (Auto) % Neut % (Auto) % Lymph % (Auto) % [place] % (Auto) % Eos % (Auto) % Baso % (Auto) % Neut # (Auto) (1.40-6.50) K/uL Lymph # (Auto) (1.20-3.40) K/uL [place] # (Auto) (0.11-0.59) K/uL Eos # (Auto) (0.00-0.50) K/uL Baso # (Auto) (0.00-0.20) K/uL Immature Gran # (Auto) (0.01-0.20) K/uL Sodium (136-145) mmol/L Potassium (3.5-5.1) mmol/L Chloride (98-107) mmol/L Carbon Dioxide (21-32) mmol/L Anion Gap (3-11) BUN (6-23) mg/dl Creatinine (0.6-1.2) mg/dl Est Cr Clr Drug Dosing ml/min Est GFR ( Amer) ml/min Est GFR (Non-Af Amer) ml/min BUN/Creatinine Ratio (10-20) Glucose (70-99(Fasting)) mg/dl POC Glucose 207 H 168 H (70-99) mg/dl Calcium (8.6-10.3) mg/dl Magnesium (1.7-2.4) mg/dl Vitamin B1
--- NOTE | 2023-06-17 14:48 | Pharmacy Report ---
Pharmacy Glycemic Short Note 2 - Date of Service June 17, 2023 - Glycemic Short BSG Results (Last 24 hours): 06/16/23 06/16/23 06/16/23 16:39 20:39 20:40 Glucose POC Glucose 218 H 305 H* 278 H 06/17/23 06/17/23 06/17/23 05:30 07:31 11:24 Glucose 166 H POC Glucose 160 H 217 H OUTPATIENT ANTIDIABETIC REGIMEN: * Januvia 25 mg daily HbA1c: 8.4% (05/29/23) ASSESSMENT: 06/17/23: * Blood sugars elevated yesterday and increased throughout the day * Fasting blood sugar of 160 mg/dL this morning * Will plan to increase basal and tighten Novolog parameters today * Anticipated having to loosen Novolog parameters today w/ discontinuation of steroids, but blood sugars remain elevated so will continue w/ aggressive parameters 06/16/23: * 87 year old admitted with RLE hematoma/UTI. Likely requiring debridement, NPO - Pharmacy consulted for glycemic management. Patient only on oral agent at home for DM. BSG >200 this AM, however trending down to 160s at lunch time check. Reasonable to tighten novolog more. Will hold basal as patient is NPO currently. PLAN FOR INPATIENT GLYCEMIC CONTROL: * Hold outpatient oral diabetes medications * Basal insulin * Lantus 10 units SC this AM * Lantus 0-5-10 units SC HS (see EHR for details) * Reassess in AM * Bolus insulin * NovoLog per scale ACHS or Q6hrs while NPO * Goal Range: Low 110 mg/dL - High 140 mg/dL * Correction Factor: 20 mg/dL/unit * Nutritional / Prandial insulin per carb ratio of 1 unit per 7 grams CHO consumed
--- NOTE | 2023-06-17 17:08 | Hospitalist Progress Note ---
Date of Service June 17, 2023 Assessment & Plan (1) Hematoma of right lower leg: Plan: POD #1 s/p evacuation of hematoma and debridement of necrotic, devitalized skin Wound vac now in place looking at operative note the hematoma did not contain any purulence thus, zosyn can be d/c schedule tylenol 1gm TID for pain control oxycodone prn appreciate gen surg and wound care assistance (2) UTI (urinary tract infection): Plan: Urine cx 4/5 w/ proteus, klebsiella d/c zosyn start rocephin IV today is day #4 of effective abx therapy (3) Diabetes type 2, controlled: Plan: Last A1c 8.4% on 05/29/2023 Hold Home sitagliptin cont basal-bolus insulin pharmacy glycemic team assistance appreciated (4) Hypertension: Plan: BPs low today - HOLD nadalol moving forward uncertain why she is on this particular beta shahzad (5) SHERLY (acute kidney injury): Plan: Peak Cr 2.32 Hold lasix Cont IVF Cr today improved to 1.7 which is about baseline Due to low BPs today cont IV fluids overnight BMP in am (6) Ambulatory dysfunction: Plan: suspected 2nd to UTI/SHERLY/hematoma as above Obtain PT/OT evals (7) Chronic kidney disease, stage IV (severe): Plan: CrCl at baseline 20s Superimposed SHERLY this admission Cr improving with fluids BMP am (8) Hypothyroidism: Plan: TSH 05/2023 wnl cont synthroid Plan DVT proph - since hematoma is resolved and woundvac is in place will ask surgery about heparin low-dose for DVT proph Admission and Anticipated Discharge Date Admission Date: June 15, 2023 Subjective only complaint is that of right leg pain no bowel movement (normal BM) since admission; last documented was "pebb les/hard" on 06/15/23 eating fair-good denies dyspnea Review of Systems Review of Systems: gen - no fevers or chills cv - no chest pain pulm - no dyspnea or cough Physical Exam Physical Exam: gen - pleasant, NAD mouth - MMM neck - no JVD heart - RRR, s1 s2 lungs - CTA b/l abd - mildly distended, BS+, NT, no HSM ext - mild R ankle/foot edema, none on left; pulses 2+ b/l feet skin - woundvac in place right distal gaspar; no surrounding cellulitis Results & Data Results & Data Vital Signs (Past 12 Hours) Vital Signs Temp Pulse Resp BP Pulse Ox O2 Del Method 06/17/23 16:56 58 L 99/60 L 06/17/23 15:32 36.4 C L 51 L 14 87/52 L 99 Room Air 06/17/23 11:28 Room Air 06/17/23 11:15 36.4 C L 52 L 18 112/64 100 Room Air 06/17/23 07:28 36.4 C L 61 16 115/65 99 Room Air Laboratory Results Laboratory Results - last 48 hr 06/16/23 06/16/23 06/16/23 05:21 11:04 12:49 WBC RBC Hgb Hct MCV MCH MCHC RDW Std Deviation RDW Coeff of Shaji Plt Count MPV Immature Gran % (Auto) Neut % (Auto) Lymph % (Auto) [place] % (Auto) Eos % (Auto) Baso % (Auto) Neut # (Auto) Lymph # (Auto) [place] # (Auto) Eos # (Auto) Baso # (Auto) Immature Gran # (Auto) Sodium Potassium Chloride Carbon Dioxide Anion Gap BUN Creatinine Est Cr Clr Drug Dosing Est GFR ( Amer) Est GFR (Non-Af Amer) BUN/Creatinine Ratio Glucose POC Glucose 168 H 207 H Calcium Magnesium Iron 53 TIBC 239 L Unsaturated IBC 186 Transferrin % Sat 22 Ferritin 79.1 Vitamin B12 296 Folate 13.49 06/16/23 06/16/23 06/16/23 14:28 16:39 20:39 WBC RBC Hgb Hct MCV MCH MCHC RDW Std Deviation RDW Coeff of Shaji Plt Count MPV Immature Gran % (Auto) Neut % (Auto) Lymph % (Auto) [place] % (Auto) Eos % (Auto) Baso % (Auto) Neut # (Auto) Lymph # (Auto) [place] # (Auto) Eos # (Auto) Baso # (Auto) Immature Gran # (Auto) Sodium Potassium Chloride Carbon Dioxide Anion Gap BUN Creatinine Est Cr Clr Drug Dosing Est GFR ( Amer) Est GFR (Non-Af Amer) BUN/Creatinine Ratio Glucose POC Glucose 196 H 218 H 305 H* Calcium Magnesium Iron TIBC Unsaturated IBC Transferrin % Sat Ferritin Vitamin B12 Folate 06/16/23 06/17/23 06/17/23 20:40 05:30 07:31 WBC 9.05 RBC 2.76 L Hgb 8.9 L Hct 27.5 L MCV 99.6 MCH 32.2 MCHC 32.4 RDW Std Deviation 53.7 H RDW Coeff of Shaji 14.7 H Plt Count 284 MPV 8.8 L Immature Gran % (Auto) 1.9 Neut % (Auto) 72.4 Lymph % (Auto) 16.0 [place] % (Auto) 8.0 Eos % (Auto) 1.0 Baso % (Auto) 0.7 Neut # (Auto) 6.56 H Lymph # (Auto) 1.45 [place] # (Auto) 0.72 H Eos # (Auto) 0.09 Baso # (Auto) 0.06 Immature Gran # (Auto) 0.17 Sodium 138 Potassium 4.1 Chloride 103 Carbon Dioxide 29 Anion Gap 6 BUN 32 H Creatinine 1.79 H D Est Cr Clr Drug Dosing 22.3 Est GFR ( Amer) 29.2 Est GFR (Non-Af Amer) 25.2 BUN/Creatinine Ratio 17.9 Glucose 166 H POC Glucose 278 H 160 H Calcium 8.4 L Magnesium 2.0 Iron TIBC Unsaturated IBC Transferrin % Sat Ferritin Vitamin B12 Folate 06/17/23 06/17/23 06/17/23 11:24 16:17 20:26 WBC RBC Hgb Hct MCV MCH MCHC RDW Std Deviation RDW Coeff of Shaji Plt Count MPV Immature Gran % (Auto) Neut % (Auto) Lymph % (Auto) [place] % (Auto) Eos % (Auto) Baso % (Auto) Neut # (Auto) Lymph # (Auto) [place] # (Auto) Eos # (Auto) Baso # (Auto) Immature Gran # (Auto) Sodium Potassium Chloride Carbon Dioxide Anion Gap BUN Creatinine Est Cr Clr Drug Dosing Est GFR ( Amer) Est GFR (Non-Af Amer) BUN/Creatinine Ratio Glucose POC Glucose 217 H 150 H 185 H Calcium Magnesium Iron TIBC Unsaturated IBC Transferrin % Sat Ferritin Vitamin B12 Folate Diagnostic Findings blood cx's negative urine cx (this admission) negative PG Care Time/CCT Total # of Minutes Spent Total Time Spent with Patient: Total time spent is greater than 50% in coordination of care (as documented) at patient's floor/unit and/or counseling patient: Coding Level of Care Code 20858 SUB INP/OBS CARE 2/35MIN Diagnoses Hematoma of right lower leg S80.11XA UTI (urinary tract infection) N39.0 Diabetes type 2, controlled E11.9 Hypertension I10 SHERLY (acute kidney injury) N17.9 Ambulatory dysfunction R26.2 Chronic kidney disease, stage IV (severe) N18.4 Hypothyroidism E03.9
[2023-06-17] MEDS: ACETAMINOPHEN 500 MG TAB PO SCH (21:47)
[2023-06-17] MEDS: cefTRIAXone SODIUM 1,000 MG in DEXTROSE 5 % MINI-B 50 ML IV SCH (22:26)
[2023-06-18 06:41] LABS: Basophils # (auto) 0.04 K/uL (0.00-0.20); Basophils % (auto) 0.5 %; Eosinophils # (auto) 0.34 K/uL (0.00-0.50); Eosinophils % (auto) 4.6 %; Hematocrit (blood only) 28.3 % (37.0-47.0); Hemoglobin 9.3 g/dl (12.0-16.0); Immature Granulocytes # (auto) 0.21 K/uL (0.01-0.20); Immature Granulocytes % (auto) 2.8 %; Lymphocytes # (auto) 2.22 K/uL (1.20-3.40); Lymphocytes % (auto) 30.1 %; Mean Corpuscular Hemoglobin 32.5 pg (25.0-34.0); Mean Corpuscular Hgb Conc 32.9 g/dL (32.0-36.0); Monocytes # (auto) 0.65 K/uL (0.11-0.59); Monocytes % (auto) 8.8 %; Neutrophils # (auto) 3.92 K/uL (1.40-6.50); Neutrophils % (auto) 53.2 %; Platelet Count 275 K/uL (130-400); RDW Coefficient of Variation 14.9 % (11.5-14.5); RDW Standard Deviation 53.2 fL (36.4-46.3); Red Blood Count 2.86 M/uL (4.20-5.40); White Blood Count 7.38 K/ul (4.8-10.8)
[2023-06-18 07:11] LABS: BUN Creatinine Ratio 15.2 (10-20); Calcium 8.2 mg/dl (8.6-10.3); Creatinine Clr Calc Pharmacy 20.7 ml/min; Est GFR (African American) 29.4 ml/min; Est GFR (Non-African American) 25.4 ml/min; Potassium 3.9 mmol/L (3.5-5.1)
[2023-06-18] MEDS: bisacodyL 10 MG SUPP PR STA (09:24)
[2023-06-18] MEDS: LANTUS PER UNIT CHARGE SC SCH ×2 (10:06→20:44)
--- NOTE | 2023-06-18 17:58 | Hospitalist Progress Note ---
Date of Service June 18, 2023 Assessment & Plan (1) Hematoma of right lower leg: Plan: POD #2 s/p evacuation of hematoma and debridement of necrotic, devitalized skin Wound vac now in place looking at operative note the hematoma did not contain any purulence thus, zosyn d/c cont scheduled tylenol TID for pain control change oxycodone prn to norco prn - former may be contributing to confusion appreciate gen surg and wound care assistance (2) UTI (urinary tract infection): Plan: Urine cx 4/5 w/ proteus, klebsiella d/c zosyn start rocephin IV today is day #5 of effective abx therapy plan 7 days in total of Rx (3) Diabetes type 2, controlled: Plan: Last A1c 8.4% on 05/29/2023 Hold Home sitagliptin cont basal-bolus insulin pharmacy glycemic team assistance appreciated (4) Hypertension: Plan: cont to HOLD nadalol daughter reports she has been on such for 30+ years resume when BPs allow (5) SHERLY (acute kidney injury): Plan: Peak Cr 2.32 Cont to hold lasix Cr improved to 1.7 which is about baseline stop fluids BMP in am for stability (6) Ambulatory dysfunction: Plan: suspected 2nd to UTI/SHERLY/hematoma as above deconditioned significantly Obtain PT/OT evals (7) Chronic kidney disease, stage IV (severe): Plan: CrCl at baseline 20s Superimposed SHERLY this admission SHERLY resolved stop fluids BMP am (8) Hypothyroidism: Plan: TSH 05/2023 wnl cont synthroid (9) Constipation: Plan: mod-severe did move bowels this am with suppos, but still bloated obtained KUB x-ray - my reading - no ileus, but copious left-sided stool all the way to rectum increase miralax to BID dosing add senna 2 tabs daily (10) Acute metabolic encephalopathy: Plan: 2nd to recent surgery, UTI, SHERLY, ?oxycodone, constipation, etc supportive care avoid benzos needs better sleep -- add melatonin HS Plan DVT proph - since hematoma is resolved and woundvac is in place surgery ok with low-dose heparin for DVT proph daughter updated at bedside today Admission and Anticipated Discharge Date Admission Date: June 15, 2023 Subjective did not eat well today tired did not sleep well last pm had moderate BM with the suppository today but still feels bloated and uncomfortable in her abdomen mild confusion noted by daughter today mild pain in right leg daughter at bedside during the visit Review of Systems Review of Systems: cv - no chest pain pulm - no dyspnea or cough GI - no vomiting, just bloated/distended; no pain Physical Exam Physical Exam: gen - pleasant, NAD, resting comfortably in bed; was sleeping initially, easily awoke mouth - MMM neck - no JVD heart - RRR, s1 s2, no murmur lungs - CTA b/l abd - mildly distended -slightly better than yesterday, BS+, NT, no HSM ext - minimal R ankle/foot edema, none on left; pulses 2+ b/l feet skin - woundvac in place right distal gaspar; no surrounding cellulitis Results & Data Results & Data Vital Signs (Past 12 Hours) Vital Signs Temp Pulse Pulse Resp BP Pulse Ox O2 Del Method 06/18/23 16:28 36.7 C 54 L 14 118/72 95 Room Air 06/18/23 11:41 36.6 C 56 L 12 118/72 95 Room Air 06/18/23 09:35 Room Air 06/18/23 08:39 36.5 C 54 L 12 156/72 H 98 Room Air Laboratory Results Laboratory Results - last 24 hr 06/18/23 06/18/23 06/18/23 11:31 16:49 20:30 POC Glucose 169 H 139 H 164 H 06/19/23 07:31 POC Glucose 126 H PG Care Time/CCT Total # of Minutes Spent Total Time Spent with Patient: Total time spent is greater than 50% in coordination of care (as documented) at patient's floor/unit and/or counseling patient: Coding Level of Care Code 18542 SUB INP/OBS CARE 2/35MIN Diagnoses Hematoma of right lower leg S80.11XA UTI (urinary tract infection) N39.0 Diabetes type 2, controlled E11.9 Hypertension I10 SHERLY (acute kidney injury) N17.9 Ambulatory dysfunction R26.2 Chronic kidney disease, stage IV (severe) N18.4 Hypothyroidism E03.9 Constipation K59.00 Acute metabolic encephalopathy G93.41
[2023-06-18] MEDS: HYDROCODONE/ACETAMOPHEN 5/325MG TAB PO PRN (20:04)
[2023-06-18] MEDS: ACETAMINOPHEN 500 MG TAB PO SCH (20:04)
[2023-06-18] MEDS: MELATONIN 3 MG TAB PO SCH (20:48)
[2023-06-18] MEDS: POLYETHYLENE (MIRALAX) 17 GM PACK PO SCH (21:13)
[2023-06-18] MEDS: SENNA 8.6 MG TAB PO SCH (21:13)
--- NOTE | 2023-06-19 07:49 | XRay Report ---
KUB HISTORY: abd bloating and pain COMPARISON: KUB 10/11/2021. FINDINGS: The bowel gas pattern is unremarkable. There are no dilated loops of small bowel to suggest an obstruction. No renal calculi. No ureteral calculi. Calcifications in the deep pelvis likely rep resent phleboliths. These remain unchanged. Suture material within the right lower quadrant. Mild to moderate fecal retention. No pneumoperitoneum or pneumatosis. IMPRESSION: 1. Nonobstructive bowel gas pattern. 2. Mild to moderate fecal retention. ACT 112: Negative or not required by law. Electronically signed by: Javier Noriega M.D. 06/19/2023 7:48 AM
[2023-06-19 08:17] LABS: BUN Creatinine Ratio 18.3 (10-20); Calcium 8.6 mg/dl (8.6-10.3); Creatinine Clr Calc Pharmacy 25.9 ml/min; Est GFR (African American) 38.7 ml/min; Est GFR (Non-African American) 33.4 ml/min; Potassium 3.9 mmol/L (3.5-5.1)
[2023-06-19] MEDS: LANTUS PER UNIT CHARGE SC SCH (08:30)
[2023-06-19] MEDS: DICLOFENAC SOD 1% GEL 100 GM TUBE EXT SCH (12:45)
--- NOTE | 2023-06-19 14:20 | Hospitalist Progress Note ---
Date of Service June 19, 2023 Assessment & Plan (1) Hematoma of right lower leg: Plan: POD #3 s/p evacuation of hematoma and debridement of necrotic, devitalized skin Wound vac now in place looking at operative note the hematoma did not contain any purulence thus, zosyn d/c cont scheduled tylenol TID for pain control cont norco prn pain appreciate gen surg and wound care assistance (2) UTI (urinary tract infection): Plan: Urine cx 4/5 w/ proteus, klebsiella cont rocephin IV today is day #6 of effective abx therapy plan 7 days in total of Rx then stop all abx (3) Diabetes type 2, controlled: Plan: Last A1c 8.4% on 05/29/2023 Hold Home sitagliptin cont basal-bolus insulin pharmacy glycemic team assistance appreciated control very satisfactory (4) Hypertension: Plan: cont to HOLD nadalol but suspect we can resume such tomorrow but would resume at 1/2 the dose daughter reports she has been on such for 30+ years BPs over last 24 hours -- mostly 110s and 120s systolic off of the nadalol & lasix (5) SHERLY (acute kidney injury): Plan: Peak Cr 2.32 Cont to hold lasix Cr baseline is about 1.6-1.7 today - Cr 1.4 SHERLY resolved (6) Ambulatory dysfunction: Plan: suspected 2nd to UTI/SHERLY/hematoma as above deconditioned significantly Obtain PT/OT evals (7) Chronic kidney disease, stage IV (severe): Plan: CrCl at baseline 20s Superimposed SHERLY this admission SHERLY resolved (8) Hypothyroidism: Plan: TSH 05/2023 wnl cont synthroid (9) Constipation: Plan: mod-severe resolved cont miralax BID cont senna 2 tabs daily (10) Acute metabolic encephalopathy: Plan: 2nd to recent surgery, UTI, SHERLY, ?oxycodone, constipation, etc improved/resolving supportive care avoid benzos cont melatonin HS Plan DVT proph - since hematoma is resolved and woundvac is in place surgery ok with low-dose heparin for DVT proph daughter updated at bedside today d/c back to [facility] tomorrow or Friday Admission and Anticipated Discharge Date Admission Date: June 15, 2023 Subjective daughter at bedside during the visit pt reports sleeping better overnight better appetite today abd bloating is improved multiple stools finally pain in RLE stable no new complaints except for mild back pain which is chronic Review of Systems Review of Systems: cv - no cp, no orthopnea pulm - no dyspnea GI - no pain or N/V Physical Exam Physical Exam: gen - pleasant, NAD, looks better today mouth - MMM neck - no JVD heart - RRR, s1 s2, no murmur lungs - CTA b/l abd - soft, NT, ND, BS+, no HSM; bloating/distension resolved today ext - minimal R ankle/foot edema, none on left; pulses 2+ b/l feet skin - woundvac in place right distal gaspar; no surrounding cellulitis -- no changes psych - awake/alert, mild difficult in recalling certain details & names Results & Data Results & Data Vital Signs (Past 12 Hours) Vital Signs Temp Pulse Resp BP Pulse Ox O2 Del Method 06/19/23 07:15 36.5 C 57 L 16 121/74 99 Room Air Laboratory Results Laboratory Results - last 24 hr 06/19/23 06/19/23 06/19/23 07:18 07:31 11:34 Sodium 142 Potassium 3.9 Chloride 108 H Carbon Dioxide 29 Anion Gap 5 BUN 26 H Creatinine 1.42 H D Est Cr Clr Drug Dosing 25.9 Est GFR ( Amer) 38.7 Est GFR (Non-Af Amer) 33.4 BUN/Creatinine Ratio 18.3 Glucose 126 H POC Glucose 126 H 147 H Calcium 8.6 06/19/23 06/19/23 16:42 20:21 Sodium Potassium Chloride Carbon Dioxide Anion Gap BUN Creatinine Est Cr Clr Drug Dosing Est GFR ( Amer) Est GFR (Non-Af Amer) BUN/Creatinine Ratio Glucose POC Glucose 141 H 160 H Calcium PG Care Time/CCT Total # of Minutes Spent Total Time Spent with Patient: Total time spent is greater than 50% in coordination of care (as documented) at patient's floor/unit and/or counseling patient: Coding Level of Care Code 29773 SUB INP/OBS CARE 2/35MIN Diagnoses Hematoma of right lower leg S80.11XA UTI (urinary tract infection) N39.0 Diabetes type 2, controlled E11.9 Hypertension I10 SHERLY (acute kidney injury) N17.9 Ambulatory dysfunction R26.2 Chronic kidney disease, stage IV (severe) N18.4 Hypothyroidism E03.9 Constipation K59.00 Acute metabolic encephalopathy G93.41
--- NOTE | 2023-06-20 08:42 | Pharmacy Report ---
Pharmacy Glycemic Short Note 2 - Date of Service June 20, 2023 - Glycemic Short BSG Results (Last 24 hours): 06/19/23 06/19/23 06/19/23 11:34 16:42 20:21 POC Glucose 147 H 141 H 160 H 06/20/23 07:28 POC Glucose 144 H OUTPATIENT ANTIDIABETIC REGIMEN: * Januvia 25 mg daily HbA1c: 8.4% (05/29/23) ASSESSMENT: 06/20/23: * Blood sugars remain well-controlled, ranging 126-169 mg/dL over past 48 hours * Receiving ~45 units insulin/day * Will slightly adjust basal scale this evening to allow for increased dose, as fasting blood sugar of 144 mg/dL this morning 06/17/23: * Blood sugars elevated yesterday and increased throughout the day * Fasting blood sugar of 160 mg/dL this morning * Will plan to increase basal and tighten Novolog parameters today * Anticipated having to loosen Novolog parameters today w/ discontinuation of steroids, but blood sugars remain elevated so will continue w/ aggressive parameters 06/16/23: * 87 year old admitted with RLE hematoma/UTI. Likely requiring debridement, NPO - Pharmacy consulted for glycemic management. Patient only on oral agent at home for DM. BSG >200 this AM, however trending down to 160s at lunch time check. Reasonable to tighten novolog more. Will hold basal as patient is NPO currently. PLAN FOR INPATIENT GLYCEMIC CONTROL: * Hold outpatient oral diabetes medications * Basal insulin * Lantus 10 units SC this AM * Lantus 10-15 units SC HS (see EHR for details) * Bolus insulin * NovoLog per scale ACHS or Q6hrs while NPO * Goal Range: Low 110 mg/dL - High 140 mg/dL * Correction Factor: 20 mg/dL/unit * Nutritional / Prandial insulin per carb ratio of 1 unit per 6 grams CHO consumed
[2023-06-20] MEDS: HEPARIN SOD 5,000 UNIT/0.5 ML VIAL SQ SCH (09:09)
--- NOTE | 2023-06-20 13:42 | Hospitalist Progress Note ---
Date of Service June 20, 2023 Assessment & Plan (1) Hematoma of right lower leg: Plan: POD #4 s/p evacuation of hematoma and debridement of necrotic, devitalized skin Wound vac now in place looking at operative note the hematoma did not contain any purulence thus, zosyn d/c cont scheduled tylenol TID for pain control cont norco prn pain appreciate gen surg and wound care assistance plan is exchange of vac M/W/F and close wound care clinic f/u weekly (2) UTI (urinary tract infection): Plan: Urine cx 4/5 w/ proteus, klebsiella cont rocephin IV today is day #7 of effective abx therapy stop all abx after today's dose (3) Diabetes type 2, controlled: Plan: Last A1c 8.4% on 05/29/2023 Hold Home sitagliptin cont basal-bolus insulin pharmacy glycemic team assistance appreciated control very satisfactory (4) Hypertension: Plan: cont to HOLD nadalol but suspect we can resume such tomorrow but would resume at 1/2 the dose daughter reports she has been on such for 30+ years BPs over last 24 hours -- mostly 110s and 120s systolic off of the nadalol & lasix (5) SHERLY (acute kidney injury): Plan: Peak Cr 2.32 Cont to hold lasix Cr baseline is about 1.6-1.7 today - Cr 1.4 SHERLY resolved (6) Ambulatory dysfunction: Plan: suspected 2nd to UTI/SHERLY/hematoma as above deconditioned significantly Obtain PT/OT evals (7) Chronic kidney disease, stage IV (severe): Plan: CrCl at baseline 20s Superimposed SHERLY this admission SHERLY resolved (8) Hypothyroidism: Plan: TSH 05/2023 wnl cont synthroid (9) Constipation: Plan: mod-severe resolved cont miralax BID cont senna 2 tabs daily (10) Acute metabolic encephalopathy: Plan: 2nd to recent surgery, UTI, SHERLY, ?oxycodone, constipation, etc improved/resolving supportive care avoid benzos cont melatonin HS (11) Chronic headaches: Plan: do not suspect temporal arteritis sed rate/crp minimally elevated not tender over either TA b/l deserves imaging - will obtain MRI brain if negative -- due to severe cervical spine disease (has chronic neck pain)?? re-eval after MRI is done (12) Chronic fatigue: Plan: recurrence of colon ca which was dx in 2011? CEA checked - wnl (certainly doesn't rule out recurrent disease, however) depression? B1 def? combo of issues? (13) Thiamine deficiency: Plan: could be contributing to chronic fatigue, memory issues, etc level is undetectable start thiamine 500mg IV q8h x 2 days, then 200mg BID x 1 month after that Plan DVT proph - since hematoma is resolved and woundvac is in place surgery ok with low-dose heparin for DVT proph daughter updated at bedside yesterday no d/c due to numerous complaints today Admission and Anticipated Discharge Date Admission Date: June 15, 2023 Subjective patient states "why am I so tired?" reports chronic fatigue, frequent napping, etc - many months always cold nearly daily headaches - frontal; wakes up with them, last a lot of the day takes tylenol prn has chronic low back pain and chronic neck pain uses bengay on back had another BM this am appetite "off" but she also reports poor appetite at times at the correction declines getting out of bed to chair today cont with pain over right leg - woundvac was exchanged today Review of Systems Review of Systems: see HPI copious amounts of complaints today - fatigue, weakness, poor appetite, cold, abdominal bloating, headaches, etc Physical Exam Physical Exam: gen - pleasant, NAD, looks same as yesterday - comfortable head - no tenderness over either temporal artery; no sinus pain to palpation any sinus mouth - MMM neck - no JVD; poor mobility of neck with passive ROM heart - RRR, s1 s2, no murmur lungs - CTA b/l abd - soft, NT, ND, BS+, no HSM ext - minimal R ankle/foot edema, none on left; pulses 2+ b/l feet skin - woundvac in place right distal gaspar; no surrounding cellulitis -- no changes psych - awake/alert, flat affect Results & Data Results & Data Vital Signs (Past 12 Hours) Vital Signs Temp Pulse Resp BP Pulse Ox O2 Del Method 06/20/23 07:26 36.5 C 58 L 20 142/83 H 96 Room Air Laboratory Results Laboratory Results - last 48 hr 06/17/23 06/19/23 06/19/23 05:30 11:34 16:42 WBC RBC Hgb Hct MCV MCH MCHC RDW Std Deviation RDW Coeff of Shaji Plt Count MPV Immature Gran % (Auto) Neut % (Auto) Lymph % (Auto) [place] % (Auto) Eos % (Auto) Baso % (Auto) Neut # (Auto) Lymph # (Auto) [place] # (Auto) Eos # (Auto) Baso # (Auto) Immature Gran # (Auto) ESR Sodium Potassium Chloride Carbon Dioxide Anion Gap BUN Creatinine Est Cr Clr Drug Dosing Est GFR ( Amer) Est GFR (Non-Af Amer) BUN/Creatinine Ratio Glucose POC Glucose 147 H 141 H Calcium Ammonia C-Reactive Protein Carcinoembryonic Ag Vitamin B1 <6 L 06/19/23 06/20/23 06/20/23 20:21 07:28 11:23 WBC RBC Hgb Hct MCV MCH MCHC RDW Std Deviation RDW Coeff of Shaji Plt Count MPV Immature Gran % (Auto) Neut % (Auto) Lymph % (Auto) [place] % (Auto) Eos % (Auto) Baso % (Auto) Neut # (Auto) Lymph # (Auto) [place] # (Auto) Eos # (Auto) Baso # (Auto) Immature Gran # (Auto) ESR Sodium Potassium Chloride Carbon Dioxide Anion Gap BUN Creatinine Est Cr Clr Drug Dosing Est GFR ( Amer) Est GFR (Non-Af Amer) BUN/Creatinine Ratio Glucose POC Glucose 160 H 144 H 244 H Calcium Ammonia C-Reactive Protein Carcinoembryonic Ag 06/20/23 06/20/23 14:15 16:15 WBC 7.30 RBC 3.13 L Hgb 10.1 L Hct 31.9 L MCV 101.9 H MCH 32.3 MCHC 31.7 L RDW Std Deviation 56.6 H RDW Coeff of Shaji 15.3 H Plt Count 292 MPV 8.7 L Immature Gran % (Auto) 2.2 Neut % (Auto) 65.2 Lymph % (Auto) 22.1 [place] % (Auto) 6.8 Eos % (Auto) 3.2 Baso % (Auto) 0.5 Neut # (Auto) 4.76 Lymph # (Auto) 1.61 [place] # (Auto) 0.50 Eos # (Auto) 0.23 Baso # (Auto) 0.04 Immature Gran # (Auto) 0.16 ESR 38 H Sodium 142 Potassium 3.9 Chloride 108 H Carbon Dioxide 27 Anion Gap 7 BUN 27 H Creatinine 1.41 H Est Cr Clr Drug Dosing 26.1 Est GFR ( Amer) 39.0 Est GFR (Non-Af Amer) 33.6 BUN/Creatinine Ratio 19.1 Glucose 170 H POC Glucose 80 Calcium 9.0 Ammonia 19.0 C-Reactive Protein 1.48 H Carcinoembryonic Ag 2.5 PG Care Time/CCT Total # of Minutes Spent Total Time Spent with Patient: Total time spent is greater than 50% in coordination of care (as documented) at patient's floor/unit and/or counseling patient: Coding Level of Care Code 68114 SUB INP/OBS CARE 3/50MIN Diagnoses Hematoma of right lower leg S80.11XA UTI (urinary tract infection) N39.0 Diabetes type 2, controlled E11.9 Hypertension I10 SHERLY (acute kidney injury) N17.9 Ambulatory dysfunction R26.2 Chronic kidney disease, stage IV (severe) N18.4 Hypothyroidism E03.9 Constipation K59.00 Acute metabolic encephalopathy G93.41 Chronic headaches R51.9; G89.29 Chronic fatigue R53.82 Thiamine deficiency E51.9
[2023-06-20 15:19] LABS: Basophils # (auto) 0.04 K/uL (0.00-0.20); Basophils % (auto) 0.5 %; Eosinophils # (auto) 0.23 K/uL (0.00-0.50); Eosinophils % (auto) 3.2 %; Hematocrit (blood only) 31.9 % (37.0-47.0); Hemoglobin 10.1 g/dl (12.0-16.0); Immature Granulocytes # (auto) 0.16 K/uL (0.01-0.20); Immature Granulocytes % (auto) 2.2 %; Lymphocytes # (auto) 1.61 K/uL (1.20-3.40); Lymphocytes % (auto) 22.1 %; Mean Corpuscular Hemoglobin 32.3 pg (25.0-34.0); Mean Corpuscular Hgb Conc 31.7 g/dL (32.0-36.0); Mean Corpuscular Volume 101.9 fL (80.0-100.0); Mean Platelet Volume 8.7 fL (9.4-12.4); Monocytes % (auto) 6.8 %; Neutrophils # (auto) 4.76 K/uL (1.40-6.50); Neutrophils % (auto) 65.2 %; Platelet Count 292 K/uL (130-400); RDW Coefficient of Variation 15.3 % (11.5-14.5); RDW Standard Deviation 56.6 fL (36.4-46.3); Red Blood Count 3.13 M/uL (4.20-5.40)
[2023-06-20 16:01] LABS: Potassium 3.9 mmol/L (3.5-5.1)
[2023-06-20 16:07] LABS: BUN Creatinine Ratio 19.1 (10-20); C Reactive Protein 1.48 mg/dl (0-0.5); Creatinine Clr Calc Pharmacy 26.1 ml/min; Est GFR (Non-African American) 33.6 ml/min
[2023-06-20] MEDS: LORazepam 0.5 MG TAB PO ONE ×2 (20:20→20:22)
--- NOTE | 2023-06-20 21:59 | Magnetic Resonance Report ---
Exam(s): MRI HEAD Without Contrast EXAM: MR Head Without Intravenous Contrast CLINICAL HISTORY: Reason for exam: daily headaches x several months. TECHNIQUE: Magnetic resonance images of the head/brain without intravenous contrast in multiple planes. COMPARISON: CT head 04/27/22 FINDINGS: Brain: Central and cortical cerebral volume loss. Periventricular and deep cerebral white matter foci of FLAIR signal hyperintensity in keeping with chronic small vessel ischemic disease. No acute intracranial hemorrhage. No mass-effect or midline shift. No diffusion restriction to suggest acute cerebral ischemia. Proximal intracranial flow voids appear normal. Ventricles: Unremarkable. No ventriculomegaly. Bones/joints: Unremarkable. No acute fracture. Sinuses: Unremarkable as visualized. No acute sinusitis. Mastoid air cells: Unremarkable as visualized. No mastoid effusion. Orbits: Bilateral lens replacements. IMPRESSION: No acute findings in the head/brain. Electronically signed by: Elfego Monsalve M.D. 06/20/23 21:58 PM
[2023-06-21] MEDS: THIAMINE HCL 500 MG in SODIUM CHLORIDE 0.9% 50 ML IV SCH (12:31)
--- NOTE | 2023-06-21 16:27 | Hospitalist Progress Note ---
Date of Service June 21, 2023 Assessment & Plan (1) Hematoma of right lower leg: Plan: POD #5 s/p evacuation of hematoma and debridement of necrotic, devitalized skin Wound vac now in place looking at operative note the hematoma did not contain any purulence path did return that the skin that was removed was gangrenous cont scheduled tylenol TID for pain control cont norco prn pain appreciate gen surg and wound care assistance plan is exchange of vac M/W/F and close wound care clinic f/u weekly previously completed 7 days of zosyn, then rocephin plan for course of PO keflex in light of the gangrene she had had of the RLE plan 5-7 days (2) UTI (urinary tract infection): Plan: Urine cx 4/5 w/ proteus, klebsiella s/p 7 days of IV abx for such (3) Diabetes type 2, controlled: Plan: Last A1c 8.4% on 05/29/2023 Hold Home sitagliptin cont basal-bolus insulin pharmacy glycemic team assistance appreciated control very satisfactory (4) Hypertension: Plan: resume nadalol but at lower dose of 20mg daily (1/2 prior dose) daughter reports she has been on such for 30+ years BPs this admission have been very well-controlled hold lasix - no edema, no pulmonary edema (5) SHERLY (acute kidney injury): Plan: Peak Cr 2.32 Cont to hold lasix Cr baseline is about 1.6-1.7 last Cr 1.4 SHERLY resolved (6) Ambulatory dysfunction: Plan: suspected 2nd to UTI/SHERLY/hematoma as above deconditioned significantly also with severe l-spine and c-spine DJD cont PT/OT (7) Chronic kidney disease, stage IV (severe): Plan: CrCl at baseline 20s Superimposed SHERLY this admission SHERLY now resolved BMP am (8) Hypothyroidism: Plan: TSH 05/2023 wnl cont synthroid (9) Constipation: Plan: mod-severe initially but now resolved cont miralax BID cont senna 2 tabs daily (10) Acute metabolic encephalopathy: Plan: 2nd to recent surgery, UTI, SHERLY, ?oxycodone, constipation, etc resolved supportive care avoid benzos cont melatonin HS (11) Chronic headaches: Plan: do not suspect temporal arteritis sed rate/crp minimally elevated not tender over either TA b/l MRI brain negative if negative -- due to severe cervical spine disease (has chronic neck pain)?? reports headaches start first thing in am - night-time hypoxia from central apnea or other sleep-disordered breathing? check overnight pulse oximetry study for neck DJD - voltaren gel qid (12) Chronic fatigue: Plan: recurrence of colon ca which was dx in 2011? CEA checked - wnl (certainly doesn't 100% rule out recurrent disease, however) depression? B1 def? combo of issues? replace low B1 on 20mg BID of cymbalta - continue such; could add remeron low-dose - will help with sleep and appetite explained to daughter by phone this evening that additional work-up could be pursued (additional CTs, repeat colonoscopy, etc) but would defer for now in the setting of her acute RLE issues (13) Thiamine deficiency: Plan: could be contributing to chronic fatigue, memory issues, etc level is undetectable started thiamine 500mg IV q8h x 2 days, then 200mg BID x 1 month after that Plan DVT proph - low-dose SC heparin BID daughter updated by phone this evening back to [facility] on Friday, 06/21? Admission and Anticipated Discharge Date Admission Date: June 15, 2023 Subjective better day today still with mild headache but not terribly bothersome had better appetite today continues to have BMs no abd pain better spirits today cont with pain over RLE but no worse than prior Review of Systems Review of Systems: gen - no fevers or chills cv - no cp, no orthopnea pulm - no dyspnea GI - no N/V Physical Exam Physical Exam: gen - pleasant, NAD, comfortable; looks good today mouth - MMM neck - no JVD; poor mobility of neck with passive ROM heart - RRR, s1 s2, no murmur lungs - CTA b/l; no rales abd - soft, NT, ND, BS+, no HSM ext - minimal R ankle/foot edema, minimal edema of right gaspar; none on left; pulses 2+ b/l feet skin - woundvac in place right distal gaspar; no surrounding cellulitis -- no changes psych - awake/alert, more cheerful today Results & Data Results & Data Vital Signs (Past 12 Hours) Vital Signs Temp Pulse Resp BP Pulse Ox O2 Del Method 06/21/23 15:27 36.8 C 64 16 148/83 H 98 Room Air 06/21/23 11:56 Room Air 06/21/23 07:36 36.5 C 66 16 135/78 98 Room Air Laboratory Results Laboratory Results - last 48 hr 06/17/23 06/20/23 06/20/23 05:30 07:28 11:23 WBC RBC Hgb Hct MCV MCH MCHC RDW Std Deviation RDW Coeff of Shaji Plt Count MPV Immature Gran % (Auto) Neut % (Auto) Lymph % (Auto) [place] % (Auto) Eos % (Auto) Baso % (Auto) Neut # (Auto) Lymph # (Auto) [place] # (Auto) Eos # (Auto) Baso # (Auto) Immature Gran # (Auto) ESR Sodium Potassium Chloride Carbon Dioxide Anion Gap BUN Creatinine Est Cr Clr Drug Dosing Est GFR ( Amer) Est GFR (Non-Af Amer) BUN/Creatinine Ratio Glucose POC Glucose 144 H 244 H Calcium Ammonia C-Reactive Protein Carcinoembryonic Ag Vitamin B1 <6 L 06/20/23 06/20/23 06/20/23 14:15 16:15 20:52 WBC 7.30 RBC 3.13 L Hgb 10.1 L Hct 31.9 L MCV 101.9 H MCH 32.3 MCHC 31.7 L RDW Std Deviation 56.6 H RDW Coeff of Shaji 15.3 H Plt Count 292 MPV 8.7 L Immature Gran % (Auto) 2.2 Neut % (Auto) 65.2 Lymph % (Auto) 22.1 [place] % (Auto) 6.8 Eos % (Auto) 3.2 Baso % (Auto) 0.5 Neut # (Auto) 4.76 Lymph # (Auto) 1.61 [place] # (Auto) 0.50 Eos # (Auto) 0.23 Baso # (Auto) 0.04 Immature Gran # (Auto) 0.16 ESR 38 H Sodium 142 Potassium 3.9 Chloride 108 H Carbon Dioxide 27 Anion Gap 7 BUN 27 H Creatinine 1.41 H Est Cr Clr Drug Dosing 26.1 Est GFR ( Amer) 39.0 Est GFR (Non-Af Amer) 33.6 BUN/Creatinine Ratio 19.1 Glucose 170 H POC Glucose 80 144 H Calcium 9.0 Ammonia 19.0 C-Reactive Protein 1.48 H Carcinoembryonic Ag 2.5 Vitamin B1 06/21/23 06/21/23 06/21/23 07:39 11:28 16:25 WBC RBC Hgb Hct MCV MCH MCHC RDW Std Deviation RDW Coeff of Shaji Plt Count MPV Immature Gran % (Auto) Neut % (Auto) Lymph % (Auto) [place] % (Auto) Eos % (Auto) Baso % (Auto) Neut # (Auto) Lymph # (Auto) [place] # (Auto) Eos # (Auto) Baso # (Auto) Immature Gran # (Auto) ESR Sodium Potassium Chloride Carbon Dioxide Anion Gap BUN Creatinine Est Cr Clr Drug Dosing Est GFR ( Amer) Est GFR (Non-Af Amer) BUN/Creatinine Ratio Glucose POC Glucose 133 H 183 H 149 H Calcium Ammonia C-Reactive Protein Carcinoembryonic Ag Vitamin B1 PG Care Time/CCT Total # of Minutes Spent Total Time Spent with Patient: Total time spent is greater than 50% in coordination of care (as documented) at patient's floor/unit and/or counseling patient: Coding Level of Care Code 87762 SUB INP/OBS CARE 3/50MIN Diagnoses Hematoma of right lower leg S80.11XA UTI (urinary tract infection) N39.0 Diabetes type 2, controlled E11.9 Hypertension I10 SHERLY (acute kidney injury) N17.9 Ambulatory dysfunction R26.2 Chronic kidney disease, stage IV (severe) N18.4 Hypothyroidism E03.9 Constipation K59.00 Acute metabolic encephalopathy G93.41 Chronic headaches R51.9; G89.29 Chronic fatigue R53.82 Thiamine deficiency E51.9
[2023-06-21] MEDS: nadoloL 40 MG TAB PO SCH (17:25)
[2023-06-21] MEDS: DICLOFENAC SOD 1% GEL 100 GM TUBE EXT SCH (17:25)
[2023-06-21] MEDS: LIDOCAINE 5% 1 PATCH TD SCH (17:52)
[2023-06-21] MEDS: cephALEXin 500 MG CAP PO SCH (20:18)
[2023-06-22 06:22] LABS: BUN Creatinine Ratio 22.6 (10-20); Creatinine Clr Calc Pharmacy 26.9 ml/min; Est GFR (African American) 40.4 ml/min; Est GFR (Non-African American) 34.8 ml/min; Potassium 4.4 mmol/L (3.5-5.1)
[2023-06-22] MEDS: LANTUS PER UNIT CHARGE SC SCH (08:48)
--- NOTE | 2023-06-22 18:33 | Hospitalist Progress Note ---
Date of Service June 22, 2023 Assessment & Plan (1) Hematoma of right lower leg: Plan: POD #6 s/p evacuation of hematoma and debridement of necrotic, devitalized skin Wound vac now in place looking at operative note the hematoma did not contain any purulence path did return that the skin that was removed was gangrenous cont scheduled tylenol TID for pain control cont norco prn pain appreciate gen surg and wound care assistance plan is exchange of vac M/W/F and close wound care clinic f/u weekly previously completed 7 days of zosyn, then rocephin plan for course of PO keflex in light of the gangrene she had had of the RLE plan 5-7 days -- today is day #2 of keflex (2) UTI (urinary tract infection): Plan: Urine cx 4/5 w/ proteus, klebsiella s/p 7 days of IV abx for such clinically resolved (3) Diabetes type 2, controlled: Plan: Last A1c 8.4% on 05/29/2023 Hold Home sitagliptin cont basal-bolus insulin pharmacy glycemic team assistance appreciated controlled (4) Hypertension: Plan: resumed nadalol at lower dose of 20mg daily (1/2 prior dose) daughter reports she has been on such for 30+ years BPs this admission have been very well-controlled hold lasix - no peripheral edema, no pulmonary edema, no volume overload her creatinine is the best it has been in quite some time likely due to being off lasix (5) SHERLY (acute kidney injury): Plan: Peak Cr 2.32 Cont to hold lasix Cr baseline is about 1.6-1.7 Cr 1.3 today SHERLY resolved (6) Ambulatory dysfunction: Plan: suspected 2nd to UTI/SHERLY/hematoma as above deconditioned significantly also with severe l-spine and c-spine DJD cont PT/OT (7) Chronic kidney disease, stage IV (severe): Plan: CrCl at baseline 20s Superimposed SHERLY this admission SHERLY now resolved Cr today 1.3 & very stable (8) Hypothyroidism: Plan: TSH 05/2023 wnl cont synthroid (9) Constipation: Plan: mod-severe initially but now resolved cont miralax but cut back to once daily dosing from BID cont senna 2 tabs daily (10) Acute metabolic encephalopathy: Plan: 2nd to recent surgery, UTI, SHERLY, ?oxycodone, constipation, etc resolved supportive care avoid benzos cont melatonin HS (11) Chronic headaches: Plan: do not suspect temporal arteritis sed rate/crp minimally elevated not tender over either TA b/l MRI brain negative if negative -- due to severe cervical spine disease (has chronic neck pain)?? reports headaches start first thing in am - night-time hypoxia from central apnea or other sleep-disordered breathing ruled out -- overnight oximetry study normal for neck DJD - voltaren gel qid if headaches persist consider outpatient neuro eval (12) Chronic fatigue: Plan: recurrence of colon ca which was dx in 2011? CEA checked - wnl (certainly doesn't 100% rule out recurrent disease, however) depression? B1 def? combo of issues? replace low B1 on 20mg BID of cymbalta - continue such; could add remeron low-dose - will help with sleep and appetite explained to daughter that additional work-up could be pursued (additional CTs, repeat colonoscopy, etc) but would defer for now in the setting of her acute RLE issues (13) Thiamine deficiency: Plan: B1 level undetectable could be contributing to chronic fatigue, memory issues, etc started thiamine 500mg IV q8h x 2 days, then 200mg BID x 1 month after that Plan DVT proph - low-dose SC heparin BID daughter updated at bedside plan to d/c back to [facility] tomorrow after wound care evals the wound Admission and Anticipated Discharge Date Admission Date: June 15, 2023 Subjective no new events or complaints daughter at bedside during the visit we discussed the normal MRI brain and normal overnight oximetry study she states she still has a very mild frontal headache but no worse than previous neck pain better with voltaren gel ate well today really the only complaint is the right leg hurts with movement at rest she is comfortable Review of Systems Review of Systems: gen - no fevers or chills; just chronic fatigue cv - no cp pulm - no dyspnea GI - ongoing stools; constipation resolved; no n/v Physical Exam Physical Exam: gen - pleasant, NAD, comfortable mouth - MMM neck - no JVD heart - RRR, s1 s2, no murmur lungs - CTA b/l; no rales abd - soft, NT, ND, BS+, no HSM ext - minimal edema of right gaspar; none on left; pulses 2+ b/l feet skin - woundvac in place right distal gaspar; no surrounding cellulitis psych - awake/alert Results & Data Results & Data Vital Signs (Past 12 Hours) Vital Signs Temp Pulse Pulse Resp BP Pulse Ox O2 Del Method 06/22/23 15:09 36.8 C 58 L 18 133/72 95 Room Air 06/22/23 07:32 36.5 C 61 18 133/78 98 Room Air Laboratory Results Laboratory Results - last 24 hr 06/21/23 06/22/23 06/22/23 20:15 05:43 07:32 Sodium 140 Potassium 4.4 Chloride 108 H Carbon Dioxide 28 Anion Gap 4 BUN 31 H Creatinine 1.37 H Est Cr Clr Drug Dosing 26.9 Est GFR ( Amer) 40.4 Est GFR (Non-Af Amer) 34.8 BUN/Creatinine Ratio 22.6 H Glucose 141 H POC Glucose 154 H 149 H Calcium 9.0 06/22/23 06/22/23 11:23 16:17 Sodium Potassium Chloride Carbon Dioxide Anion Gap BUN Creatinine Est Cr Clr Drug Dosing Est GFR ( Amer) Est GFR (Non-Af Amer) BUN/Creatinine Ratio Glucose POC Glucose 209 H 136 H Calcium PG Care Time/CCT Total # of Minutes Spent Total Time Spent with Patient: Total time spent is greater than 50% in coordination of care (as documented) at patient's floor/unit and/or counseling patient: Coding Level of Care Code 88173 SUB INP/OBS CARE 2/35MIN Diagnoses Hematoma of right lower leg S80.11XA UTI (urinary tract infection) N39.0 Diabetes type 2, controlled E11.9 Hypertension I10 SHERLY (acute kidney injury) N17.9 Ambulatory dysfunction R26.2 Chronic kidney disease, stage IV (severe) N18.4 Hypothyroidism E03.9 Constipation K59.00 Acute metabolic encephalopathy G93.41 Chronic headaches R51.9; G89.29 Chronic fatigue R53.82 Thiamine deficiency E51.9
--- NOTE | 2023-06-23 09:39 | Pharmacy Report ---
Pharmacy Glycemic Short Note 2 - Date of Service June 23, 2023 - Glycemic Short BSG Results (Last 24 hours): 06/22/23 06/22/23 06/22/23 11:23 16:17 20:39 POC Glucose 209 H 136 H 184 H 06/23/23 07:38 POC Glucose 122 H OUTPATIENT ANTIDIABETIC REGIMEN: * Januvia 25 mg daily HbA1c: 8.4% (05/29/23) ASSESSMENT: 06/23/23: * Patient received total of 55 units of insulin yesterday, of which 20 units were basal insulin * Fasting BSG 122 mg/dl - reasonable to continue same basal insulin * Lunch BSG tends to be highest BSG of the day, could consider tightening with breakfast tomorrow AM * Will plan to keep same novolog parameters today 06/20/23: * Blood sugars remain well-controlled, ranging 126-169 mg/dL over past 48 hours * Receiving ~45 units insulin/day * Will slightly adjust basal scale this evening to allow for increased dose, as fasting blood sugar of 144 mg/dL this morning 06/17/23: * Blood sugars elevated yesterday and increased throughout the day * Fasting blood sugar of 160 mg/dL this morning * Will plan to increase basal and tighten Novolog parameters today * Anticipated having to loosen Novolog parameters today w/ discontinuation of steroids, but blood sugars remain elevated so will continue w/ aggressive parameters 06/16/23: * 87 year old admitted with RLE hematoma/UTI. Likely requiring debridement, NPO - Pharmacy consulted for glycemic management. Patient only on oral agent at home for DM. BSG >200 this AM, however trending down to 160s at lunch time check. Reasonable to tighten novolog more. Will hold basal as patient is NPO currently. PLAN FOR INPATIENT GLYCEMIC CONTROL: * Hold outpatient oral diabetes medications * Basal insulin * Lantus 20 units daily * Bolus insulin * NovoLog per scale ACHS or Q6hrs while NPO * Goal Range: Low 110 mg/dL - High 140 mg/dL * Correction Factor: 30 mg/dL/unit * Nutritional / Prandial insulin per carb ratio of 1 unit per 6 grams CHO consumed
--- NOTE | 2023-06-23 15:41 | Discharge Summary ---
Date of Service June 23, 2023 Admission HPI Per Admitting Provider Pura is an 87-year-old female with PMH of T2DM, CKD stage III, CAD, frequent falls, orthostatic hypotension, and colon cancer. She presented via EMS from [facility] for right leg pain and swelling x 3 weeks. Patient reports that she struck her right lower leg on the edge of her bed board 3 weeks ago, and that it has been worsening since. Patient's daughters are at the bedside and provide additional history. Per daughter, patient initially struck it on 05/28. It was black and blue initially, then developed weeping on Wednesday 06/07. Became black/necrotic at some point this week. Patient has been taking Tylenol and oxycodone as needed for the pain, which she reports helps. Patient describes the pain as a constant pain with a burning sensation and occasional sharp stabbing pain; rates it 8/10 at present. She also notes some itching. Patient has been unable to bear weight on the RLE over the past 2 days. She normally ambulates with a walker at baseline, but has recently started requiring a wheelchair to get to the bathroom. Patient endorses a history of falls in the past, but nothing within the past several weeks. She does not use supplemental oxygen at home. Patient reports that she took all her regular morning medications; no recent change in medications. Last BM was 3 days ago. Patient denies smoking, alcohol use, and tobacco use. Patient is mildly bradycardic at 55 bpm; SpO2 100% on 2L NC; vitals otherwise stable at time of admission. ED course: Dilaudid 0.25 mg IV Zofran 4 mg IV NSS 1000 mL IV ROS: Patient endorses night-sweats (ongoing), BAILON (ongoing), abdominal discomfort, loss of appetite, constipation, mild suprapubic tenderness, worsening of chronic back pain over the past week, and mild itching/tingling/numbness in the right lower extremity. Patient denies fever, chills, dizziness, lightheadedness, chest pain, pleuritic CP, cough, chest palpitations, N/V/D, burning with urination, dysuria, and blood in urine/stool. Discharge Exam gen - pleasant, NAD, comfortable mouth - MMM neck - no JVD heart - RRR, s1 s2, no murmur lungs - CTA b/l; no rales abd - soft, NT, ND, BS+, no HSM ext - minimal edema of right gaspar; none on left; pulses 2+ b/l feet skin - woundvac in place right distal gaspar; no surrounding cellulitis psych - awake/alert Discharge Data Allergies Allergy/AdvReac Type Severity Reaction Status Date / Time verapamil Allergy Severe RASH Verified 06/17/23 09:58 latex Allergy Intermediate ITCHING Verified 06/17/23 09:58 oxybutynin Allergy Intermediate ITCHING Verified 06/17/23 09:58 adhesive Allergy Mild redness Verified 06/17/23 09:58 meperidine AdvReac Severe HYPOTENSION Verified 06/17/23 09:58 sodium phosphate AdvReac Severe DECREASED Verified 06/17/23 09:58 [From OsmoPrep] KIDNEY FUNCTION atenolol AdvReac Intermediate tachycardia; Verified 06/17/23 09:58 nervousness diazepam AdvReac Intermediate crying; Verified 06/17/23 09:58 depression fluoxetine AdvReac Intermediate crying; Verified 06/17/23 09:58 depression ibuprofen AdvReac Intermediate low kidney Verified 06/17/23 09:58 function Iodinated Contrast Media AdvReac Intermediate IVP DYE - Verified 06/17/23 09:58 low kidney function lidocaine AdvReac Intermediate Altered Verified 06/17/23 09:58 Mental Status with ointment ONLY naproxen AdvReac Intermediate Low kidney Verified 06/17/23 09:58 function sertraline AdvReac Intermediate crying; Verified 06/17/23 09:58 depression tramadol AdvReac Intermediate dizziness Verified 06/17/23 09:58 venlafaxine AdvReac Intermediate Nervous Verified 06/17/23 09:58 Consultations 06/15/23 16:47 ED Decision to Admit Stat 06/15/23 17:15 Consult General Surgery Routine Procedures Performed Operation Date: 06/16/23 09:25 Actual Procedures p Incision and Debridement Right Lower Extremity Wound(Right) - Ashu Carrington MD Ordered Studies 06/20/23 13:17 MR brain wo con Routine Hospital Course (1) Hematoma of right lower leg: POD #6 s/p evacuation of hematoma and debridement of necrotic, devitalized skin Wound vac now in place looking at operative note the hematoma did not contain any purulence path did return that the skin that was removed was gangrenous cont scheduled tylenol TID for pain control cont norco prn pain appreciate gen surg and wound care assistance plan is exchange of vac M/W/F and close wound care clinic f/u weekly previously completed 7 days of zosyn, then rocephin plan for course of PO keflex in light of the gangrene she had had of the RLE plan 5-7 days -- today is day #2 of keflex (2) UTI (urinary tract infection): Urine cx 4/5 w/ proteus, klebsiella s/p 7 days of IV abx for such clinically resolved (3) Diabetes type 2, controlled: Last A1c 8.4% on 05/29/2023 Hold Home sitagliptin cont basal-bolus insulin pharmacy glycemic team assistance appreciated controlled (4) Hypertension: resumed nadalol at lower dose of 20mg daily (1/2 prior dose) daughter reports she has been on such for 30+ years BPs this admission have been very well-controlled hold lasix - no peripheral edema, no pulmonary edema, no volume overload her creatinine is the best it has been in quite some time likely due to being off lasix (5) SHERLY (acute kidney injury): Peak Cr 2.32 Cont to hold lasix Cr baseline is about 1.6-1.7 Cr 1.3 today SHERLY resolved (6) Ambulatory dysfunction: suspected 2nd to UTI/SHERLY/hematoma as above deconditioned significantly also with severe l-spine and c-spine DJD cont PT/OT (7) Chronic kidney disease, stage IV (severe): CrCl at baseline 20s Superimposed SHERLY this admission SHERLY now resolved Cr today 1.3 & very stable (8) Hypothyroidism: TSH 05/2023 wnl cont synthroid (9) Constipation: mod-severe initially but now resolved cont miralax but cut back to once daily dosing from BID cont senna 2 tabs daily (10) Acute metabolic encephalopathy: 2nd to recent surgery, UTI, SHERLY, ?oxycodone, constipation, etc resolved supportive care avoid benzos cont melatonin HS (11) Chronic headaches: do not suspect temporal arteritis sed rate/crp minimally elevated not tender over either TA b/l MRI brain negative if negative -- due to severe cervical spine disease (has chronic neck pain)?? reports headaches start first thing in am - night-time hypoxia from central apnea or other sleep-disordered breathing ruled out -- overnight oximetry study normal for neck DJD - voltaren gel qid if headaches persist consider outpatient neuro eval (12) Chronic fatigue: recurrence of colon ca which was dx in 2011? CEA checked - wnl (certainly doesn't 100% rule out recurrent disease, however) depression? B1 def? combo of issues? replace low B1 on 20mg BID of cymbalta - continue such; could add remeron low-dose - will help with sleep and appetite explained to daughter that additional work-up could be pursued (additional CTs, repeat colonoscopy, etc) but would defer for now in the setting of her acute RLE issues (13) Thiamine deficiency: B1 level undetectable could be contributing to chronic fatigue, memory issues, etc started thiamine 500mg IV q8h x 2 days, then 200mg BID x 1 month after that Plan DVT proph - low-dose SC heparin BID daughter updated at bedside plan to d/c back to [facility] tomorrow after wound care evals the wound Discharge Plan Discharge Items Patient Disposition: Transfer Long Term Fac Reason For Visit: RLE HEMATOMA Discharge Diagnosis: 1. right leg hematoma requiring evacuation and debridement of nonviable skin - 06/16/23 - by Dr Ashu Carrington 2. placement of woundvac on ulcer 3. urinary tract infection - resolved 4. chronic frontal headaches - negative MRI brain for acute or chronic pathology 5. chronic fatigue 6. chronic neck pain due to DJD 7. chronic low back pain due to DJD 8. thiamine deficiency 9. history of colon cancer s/p hemicolectomy; CEA level this admission wnl 10. CKD stage 3 11. T2DM 12. hypothyroidism 13. mild left ankle pain - x-rays negative for fracture Activity: Resume your previous activity Activity Comment: as tolerated Bathing Comment: keep woundvac clean and dry during any shower Non-emergency contact: Primary Care Provider and Specialist Call non-emergency contact if: you have any medication questions, you have a fever, your wound has increased redness, your wound has increased drainage and your wound pain has increased Follow-up/Referrals: Pat Soriano DO, FACEP [Physician] - 06/30/23 8:00 am (Wound Care Center) [facility] [Primary Care Provider] - Diet: Carb Consistent or DM2 Addtl Attending Provider Instructions: Recommendations - 1. CBC, BMP in 4-5 days for stability. Results to district medical examiner. 2. WoundVac to right lower extremity wound at all times. WoundVac exchanges on Mondays, Wednesdays, and Fridays. 3. PT/OT - eval and Rx. 4. Fingerstick blood sugar checks before meals and at bedtime. 5. On Friday, Friday, and Friday please give 1 tablet of hydrocodone 5mg/acetaminophen approximately 1 hour prior to the WoundVac exchanges to help with pain. It was our pleasure to care for Mrs Marinelli! -Dr Mendiola Pending Studies at Discharge: No Stand-Alone Forms: [facility] Skilled Items Patient informed of condition?: Yes DNR: Yes Discharge Level of Care: Skilled Communicable Disease: No Discharge Prognosis: Stable Lines: None Urinary Catheter: No Medications and DC Order Prescriptions: New hydrocodone-acetaminophen 5-325 mg Tablet 1 tab PO Q6H PRN (Reason: pain) Qty: 30 0RF acetaminophen [Tylenol Extra Strength] 500 mg Tablet 500 mg PO TID 14 Days Qty: 42 0RF cephalexin 500 mg Capsule 500 mg PO BID 1 Days Qty: 2 0RF sennosides [Senokot] 8.6 mg Tablet 17.2 mg PO DAILY Qty: 60 0RF melatonin 3 mg Tablet 3 mg PO HS Qty: 30 0RF insulin glargine [Lantus U-100 Insulin] 100 unit/mL Solution 15 unit SC DAILY Qty: 10 0RF lidocaine 5 % Adhesive Patch,Medicated 2 patch transdermal QAM Qty: 30 0RF Rx Instructions: may apply to any area of pain - neck, low back, hips, etc. insulin aspart U-100 [Novolog U-100 Insulin aspart] 100 unit/mL Solution See Rx Instructions .ROUTE .COMPLEX Qty: 10 0RF Rx Instructions: sliding scale instructions, use with MEALS only; do not give at bedtime. For BSG of 140-180 give 5 units. For BSG of 181-220 give 7 units. For BSG of 221-260 give 9 units. For BSG of 261-300 give 11 units. thiamine HCl (vitamin B1) 100 mg tablet 200 mg PO BID 30 Days Qty: 120 0RF Continued docusate sodium [Stool Softener] 100 mg capsule 100 mg PO BID Qty: 60 2RF gabapentin 300 mg capsule 300 mg PO HS Qty: 90 3RF levothyroxine 50 mcg tablet 50 mcg PO DAILYBB Qty: 90 1RF Rx Instructions: TAKE 1 TABLET BY MOUTH EVERY DAY famotidine [Pepcid] 40 mg tablet 40 mg PO DAILY Qty: 90 2RF atorvastatin 40 mg tablet 40 mg PO HS Qty: 90 3RF Hold Instructions: leg pain donepezil [Aricept] 10 mg tablet 10 mg PO DAILY 30 Days Qty: 30 2RF loperamide 2 mg Tablet 2 mg PO Q4H PRN (Reason: Diarrhea) bismuth subsalicylate [Pepto-Bismol] 262 mg/15 mL Suspension 524 mg PO Q6H PRN (Reason: HEARTBURN/DIARRHEA) nitroglycerin 0.4 mg tablet, sublingual 0.4 mg sublingual DIRECTED PRN (Reason: Chest Pain) Rx Instructions: 1 TAB UNDER THE TONGUE EVERY 5 MIN FOR UP TO 3 DOSE NEEDED FOR CHEST PAIN. CALL 911 PAIN PERSISTS Not for independent use. Needs supervision. pantoprazole 40 mg Tablet,Delayed Release (Dr/Ec) 40 mg PO BID polyethylene glycol 3350 [Miralax] 17 gram/dose Powder 17 g PO DAILY Eucerin Lotion 1 applic TOPICAL BID Rx Instructions: BILATERAL LEGS/ARMS AND FACE Systane (propylene glycol) 0.4-0.3 % Drops 2 drp OPB TID Rx Instructions: 0630, 1430, 2230 duloxetine 20 mg Capsule,Delayed Release(Dr/Ec) 20 mg PO BIDM calcium carbonate-vitamin D3 [Calcium 500 + D] 500 mg-5 mcg (200 unit) Tablet 1 tab PO DAILY Bengay Greaseless 15-10 % Cream 1 applic TOPICAL TID Rx Instructions: APPLY TO LOWER BACK Desitin 40 % Paste 1 applic TOPICAL DAILY Rx Instructions: APPLY UNDER BREAST diclofenac sodium 1 % Gel 2 g TOPICAL QID Qty: 100 0RF Rx Instructions: APPLY LEFT KNEE, RIGHT SHOULDER, POSTERIOR NECK, OR LOW BACK. Changed furosemide [Lasix] 40 mg Tablet 20 mg PO DIRECTED Qty: 30 0RF Rx Instructions: TAKE on Friday AM, Friday AM, and Friday AM only. potassium chloride 10 mEq tablet extended release 10 meq PO DIRECTED Qty: 30 0RF Rx Instructions: TAKE only on Mondays, Wednesdays, and Fridays. nadolol 40 mg tablet 20 mg PO QAM Qty: 30 3RF Held isosorbide mononitrate 120 mg tablet extended release 24 hr 120 mg PO DAILY Qty: 90 3RF Hold Instructions: hold unless district medical examiner of SNF recommends resumption Rx Instructions: TAKE 1 TABLET BY MOUTH EVERY DAY Januvia 25 mg tablet 25 mg PO DAILY Qty: 30 11RF Hold Instructions: hold unless district medical examiner recommends resumption Discontinued acetaminophen [Tylenol] 325 mg Tablet 650 mg PO Q6H MDD 3 GRAMS APAP/24 HOURS PRN (Reason: PAIN/FEVER) oxycodone 5 mg Tablet 5 mg PO Q6H PRN (Reason: PAIN (5-10)) Discharge Orders: Discharge Order (Routine); Ordered 06/23/23 Ordered By: Naif Mendiola Admission Data Admit Date/Time: 06/15/23 17:27 Attending Provider: Naif Mendiola Admit Provider: Naif White Primary Care Provider: [facility] Other Providers: Naif White; Amber Monroy Other Interventions: Discharge Summary Assessment (RN) Last Done: 06/23/23 14:50 Coding Diagnoses Hematoma of right lower leg S80.11XA UTI (urinary tract infection) N39.0 Diabetes type 2, controlled E11.9 Hypertension I10 SHERLY (acute kidney injury) N17.9 Ambulatory dysfunction R26.2 Chronic kidney disease, stage IV (severe) N18.4 Hypothyroidism E03.9 Constipation K59.00 Acute metabolic encephalopathy G93.41 Chronic headaches R51.9; G89.29 Chronic fatigue R53.82 Thiamine deficiency E51.9
--- NOTE | 2023-06-23 16:09 | XRay Report ---
LEFT ANKLE 3 VIEWS CLINICAL HISTORY: Lateral malleolar pain. FINDINGS: 3 views of the left ankle are compared to study dated 06/18/2016. The skeletal structures ar e osteopenic. No fracture is seen. The ankle mortise is intact. There is a small plantar heel spur. N o ankle joint effusion is identified. Soft tissue swelling is present throughout the imaged left leg. IMPRESSION: Soft tissue swelling with no acute bony abnormality identified. Electronically signed by: Hilton Moon M.D. 06/23/2023 4:08 PM
== END 2023-06-23 17:00 | DRG 570 ==
LOC: ED 13:19 → SUATTDRO 17:27 → 3E 17:27

== ENCOUNTER 2024-04-18 13:41 | Inpatient (IN) ==
[2024-04-18 14:20] LABS: Basophils # (auto) 0.01 K/uL (0.00-0.20); Basophils % (auto) 0.1 %; Eosinophils # (auto) 0.01 K/uL (0.00-0.50); Eosinophils % (auto) 0.1 %; Hematocrit (blood only) 35.3 % (37.0-47.0); Hemoglobin 11.5 g/dl (12.0-16.0); Immature Granulocytes # (auto) 0.02 K/uL (0.01-0.20); Immature Granulocytes % (auto) 0.3 %; Lymphocytes # (auto) 1.47 K/uL (1.20-3.40); Lymphocytes % (auto) 18.8 %; Mean Corpuscular Hemoglobin 30.5 pg (25.0-34.0); Mean Corpuscular Hgb Conc 32.6 g/dL (32.0-36.0); Mean Corpuscular Volume 93.6 fL (80.0-100.0); Monocytes # (auto) 0.71 K/uL (0.11-0.59); Monocytes % (auto) 9.1 %; Neutrophils % (auto) 71.6 %; Platelet Count 138 K/uL (130-400); RDW Coefficient of Variation 16.1 % (11.5-14.5); RDW Standard Deviation 55.9 fL (36.4-46.3); Red Blood Count 3.77 M/uL (4.20-5.40); White Blood Count 7.82 K/ul (4.8-10.8)
--- NOTE | 2024-04-18 14:24 | XRay Report ---
EXAM: Radiograph of the Chest 1 View INDICATION: Cough and congestion. TECHNIQUE: Frontal view of the chest. COMPARISON: 06/15/2023 FINDINGS: Lungs and pleural spaces: Chronic interstitial scarring stable. No consolidation or pulmonary edema. No pleural effusion or pneumothorax. Heart: Stable cardiomegaly. Mediastinum: Normal contour. Bones/joints: Small osteochondroma associated with the right shoulder. No acute osseous abnormality. Soft tissues: No abnormality noted. No radiopaque foreign body noted. Vasculature: Stable ectatic calcified aorta. Upper abdomen: No abnormality noted. IMPRESSION: Stable chronic changes. No acute disease. ACT 112: Negative or not required by law. Electronically signed by Belkis Alcala 04-18-2024 2:23 PM
[2024-04-18 14:37] LABS: Albumin Globulin Ratio 1.3 (0.9-2); Albumin Level 3.5 gm/dl (3.4-5.0); BUN Creatinine Ratio 13.7 (10-20); Bilirubin,Total 0.5 mg/dl (0.2-1.0); Calcium 8.2 mg/dl (8.6-10.3); Creatinine Clr Calc Pharmacy 28.3 ml/min; Globulin 2.8 gm/dl (2.5-4.0); Potassium 3.9 mmol/L (3.5-5.1); Total Protein 6.3 gm/dl (6.0-8.3)
[2024-04-18 15:09] LABS: Adenovirus PCR Not Detected (NotDetected); Bordetella parapertussis PCR Not Detected (NotDetected); Bordetella pertussis PCR Not Detected (NotDetected); Chlamydia pneumoniae PCR Not Detected (NotDetected); Coronavirus 229E PCR Not Detected (NotDetected); Coronavirus CoV-2 (COVID19)PCR Not Detected (NotDetected); Coronavirus HKU1 PCR Not Detected (NotDetected); Coronavirus NL63 PCR Not Detected (NotDetected); Coronavirus OC43PCR Not Detected (NotDetected); Human Metapneumovirus PCR Not Detected (NotDetected); Influenza A (H3) PCR DETECTED (NotDetected); Influenza B PCR Not Detected (NotDetected); Mycoplasma pneumoniae PCR Not Detected (NotDetected); Parainfluenza Virus 1 PCR Not Detected (NotDetected); Parainfluenza Virus 2 PCR Not Detected (NotDetected); Parainfluenza Virus 3 PCR Not Detected (NotDetected); Parainfluenza Virus 4 PCR Not Detected (NotDetected); Respiratory Syncytial VirusPCR Not Detected (NotDetected); Rhinovirus/Enterovirus PCR Not Detected (NotDetected)
--- NOTE | 2024-04-18 16:12 | Emergency Department Note ---
Impression & Plan Influenza A, Weakness, Acute hypoxemic respiratory failure ED Provider Note NAME: MICHELLE STEWART AGE: 88 SEX: F : 1935 ARRIVES VIA: Ambulance INFORMANT: Patient, ED PROVIDER(S): Kari Contreras MD CHIEF COMPLAINT: Cough, chest congestion, headache HPI: This is a 88-year-old female presenting for cough, congestion. Patient notes that she has had generalized weakness and illness for the past few days. She has had chest congestion, headache, sore throat and shortness of breath. She has had chills. She has felt weak and has loss of appetite with diarrhea. She has diarrhea. Going on for multiple weeks but the other symptoms are new. She reports sick contacts at her nursing facility. ROS: See above HPI for pertinent positives & negatives. A total of 10 systems reviewed and were otherwise negative. PAST MEDICAL HISTORY: See Below PAST SURGICAL HISTORY: See Below FAMILY HISTORY: See Below SOCIAL HISTORY: See Below HOME MEDICATIONS: See Below ALLERGIES: See Below VITALS: See Below PHYSICAL EXAMINATION: General: resting comfortably in no acute distress Head: Normocephalic and atraumatic Eyes: Normal inspection, extraocular muscles intact Ear, nose, throat: Normal external exam Neck: Normal range of motion Respiratory: lungs clear to auscultation bilaterally Cardiovascular: Regular rate/rhythm, no murmur GI: soft, nontender, no guarding or rebound Extremities: nontender, moves all extremities Neuro: The patient awake and alert, appropriately conversive, no focal deficits, symmetric faces Skin: Warm, dry, and intact MEDICAL DECISION MAKING: This is AN 88-year-old female present for cough and congestion. Patient appears well however does appear somewhat sick. She is hypoxic requiring oxygen. She was 87% on room air. We have taken the oxygen off and she goes down to about 87 to 90%. Otherwise bloodwork is reviewed showing no significant leukocytosis, anemia, electrolyte or creatinine abnormality. Daughters mention that patient has had reduced p.o. intake over the past few days -Chest Xray independently interpreted by me showing no pneumothorax, focal opacity, or pleural effusions. -Patient positive for influenza A -As patient is hypoxic at this time, will admit for oxygen and further treatment Differential diagnosis: Upper respiratory infection, pneumonia, PE, weakness Independent History obtained from: Daughter Diagnostics interpreted by me: ECG: None Cardiac Monitoring: An order was placed for continuous cardiac monitoring. The monitor shows a rate of 56 with sinus rhythm. Past Med/Surg History Problem List (Updated 04/18/24 @ 17:09 by Kari Contreras MD) Acute hypoxemic respiratory failure (Acute) Weakness (Acute) Influenza A (Acute) Left knee DJD Left cervical radiculopathy Bursitis of right shoulder Bursitis of left shoulder Thiamine deficiency Chronic fatigue Chronic headaches Acute metabolic encephalopathy SHERLY (acute kidney injury) Ambulatory dysfunction (Acute) Generalized weakness (Acute) Hematoma of right lower extremity (Acute) Hematoma of right lower leg UTI (urinary tract infection) Right leg pain Right rotator cuff tear arthropathy Left hip pain Bilateral knee pain Frequent falls History of colon cancer 2011 -- COLON RESECTION. NO CHEMO/RADIATION Diabetes mellitus, type 2 NO MEDICATIONS. Chronic kidney disease, stage IV (severe) Hypothyroidism COVID CAD (coronary artery disease) (Chronic) Abdominal pain (03/24/13) Cellulitis (Acute) CKD (chronic kidney disease), stage III (Chronic) Diabetes type 2, controlled (Chronic) Hypertension (Chronic) Dyslipidemia (Chronic) Hypothyroidism (Chronic) Vitamin D deficiency (Acute) Urge incontinence of urine (Acute) Spinal stenosis (Acute) Rectocele (Acute) Proteinuria (Acute) Palpitations (Acute) Osteoarthritis (Acute) Orthostatic hypotension (Acute) History of syncope (Acute) History of malignant neoplasm of colon (Acute) Eczematous dermatitis (Acute) Depression (Acute) Cystocele, midline (Acute) Vitamin B12 deficiency Antiplatelet or antithrombotic long-term use Osteoarthritis of patellofemoral joints, bilateral Screening for colon cancer Postural lightheadedness Edema (Acute) Fatigue Gait abnormality (Acute) Hypokalemia Diabetic neuropathy Lab test negative for COVID-19 virus (Acute) Osteopenia Cognitive impairment COVID-19 (Acute) Weakness (Acute) Acute hypokalemia (Acute) Medical History DVT prophylaxis Closed head injury Chronic throat clearing Small bowel obstruction due to adhesions Diverticular disease Osteoarthritis Chronic back pain Depression Anxiety Syncope Pneumonia Stable angina Hyperlipidemia Hypertension SBO (small bowel obstruction) Diverticulitis Surgical History History of esophagogastroduodenoscopy (EGD) History of dilatation and curettage History of bilateral tubal ligation History of cataract surgery History of discectomy History of hysterectomy H/O umbilical hernia repair History of bowel resection History of colonoscopy History of cardiac cath Family History Mother Heart disease Breast cancer Cancer Myocardial infarction Sister Colorectal cancer Lung disease Cancer Father Hearing loss Heart disease Other Hypertension No family history of adverse response to anesthesia Denies family history of Ovarian cancer Prostate cancer Coronary heart disease Social History Smoking Status: Never smoker Second Hand Exposure: No; Do You Dip or Chew Tobacco: No; Hx Alcohol Use: No Hx Substance Use: No Preferred Language: Kiswahili Communication Ability: Effective Hearing Ability: Normal 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 current occupational status: retired Feels Safe at Home: Yes Childhood Exposure to Second-Hand Smoke: No Diet: regular caffeine: Yes during the past year weight has: remained stable Dental Care, Regularly: Yes Physical Activity Frequency: 1-2 Times per Week Seatbelt Use: always Sunscreen Use: Yes Assistive Devices: Walker Allergies Allergies Allergy/AdvReac Type Severity Reaction Status Date / Time verapamil Allergy Severe RASH Verified 04/06/24 11:01 latex Allergy Intermediate ITCHING Verified 04/06/24 11:01 oxybutynin Allergy Intermediate ITCHING Verified 04/06/24 11:01 adhesive Allergy Mild redness Verified 04/06/24 11:01 meperidine AdvReac Severe HYPOTENSION Verified 04/06/24 11:01 sodium phosphate AdvReac Severe DECREASED Verified 04/06/24 11:01 [From OsmoPrep] KIDNEY FUNCTION atenolol AdvReac Intermediate tachycardia; Verified 04/06/24 11:01 nervousness diazepam AdvReac Intermediate crying; Verified 04/06/24 11:01 depression fluoxetine AdvReac Intermediate crying; Verified 04/06/24 11:01 depression ibuprofen AdvReac Intermediate low kidney Verified 04/06/24 11:01 function Iodinated Contrast Media AdvReac Intermediate IVP DYE - Verified 04/06/24 11:01 low kidney function lidocaine AdvReac Intermediate Altered Verified 04/06/24 11:01 Mental Status with ointment ONLY naproxen AdvReac Intermediate Low kidney Verified 04/06/24 11:01 function sertraline AdvReac Intermediate crying; Verified 04/06/24 11:01 depression tramadol AdvReac Intermediate dizziness Verified 04/06/24 11:01 venlafaxine AdvReac Intermediate Nervous Verified 04/06/24 11:01 Home Meds Home Medications Medication Instructions Recorded Confirmed bismuth subsalicylate 262 mg/15 mL 524 mg PO Q6H PRN 03/14/22 04/18/24 oral suspension (Pepto-Bismol) HEARTBURN/DIARRHEA loperamide 2 mg tablet 2 mg PO Q4H PRN Diarrhea 03/14/22 04/18/24 nitroglycerin 0.4 mg sublingual 0.4 mg sublingual DIRECTED PRN 04/08/22 04/18/24 tablet Chest Pain calcium 500 mg (as 1 tab PO DAILY 06/15/23 04/18/24 carbonate)-vitamin D3 5 mcg (200 unit) tablet (Calcium 500 + D) duloxetine 20 mg capsule,delayed 20 mg PO BIDM 06/15/23 04/18/24 release methyl salicylate 15 %-menthol 10 1 applic topical TID 06/15/23 04/18/24 % topical cream pantoprazole 40 mg tablet,delayed 40 mg PO BID 06/15/23 04/18/24 release peg 400-propylene glycol 0.4 %-0.3 2 drp OPB TID 06/15/23 04/18/24 % eye drops (Systane (propylene glycol)) polyethylene glycol 3350 17 17 g PO DAILY 06/15/23 04/18/24 gram/dose oral powder (Miralax) aspirin 81 mg tablet,delayed 81 mg PO DAILY 04/06/24 04/18/24 release (Adult Low Dose Aspirin) benzonatate 200 mg capsule 200 mg PO TID 04/18/24 04/18/24 bisacodyl 10 mg rectal suppository 10 mg WA DAILY PRN Constipation 04/18/24 04/18/24 (Dulcolax (bisacodyl)) carboxymethylcellulose sodium 1 % 1 drp ophthalmic (eye) BID 04/18/24 04/18/24 eye liquid gel drops dextromethorphan-guaifenesin 10 10 ml PO Q6H PRN Cough 04/18/24 04/18/24 mg-100 mg/5 mL oral syrup hydrocodone 5 mg-acetaminophen 325 1 tab PO BID PAIN MANAGEMENT 04/18/24 04/18/24 mg tablet hydrocortisone 2.5 % topical cream 1 applic topical BID PRN 04/18/24 04/18/24 with perineal applicator Hemorrhoids ipratropium bromide 0.02 % 3 ml inhalation Q2H PRN sob 04/18/24 04/18/24 solution for inhalation magnesium hydroxide 400 mg/5 mL 30 ml PO DAILY PRN Constipation 04/18/24 04/18/24 oral suspension (Milk of Magnesia) thiamine HCl (vitamin B1) 100 mg 100 mg PO DAILY 04/18/24 04/18/24 tablet triamcinolone acetonide 0.1 % 1 applic topical TID PRN Rash 04/18/24 04/18/24 topical cream Previous Rx's Medication Instructions Recorded docusate sodium 100 mg capsule 100 mg PO BID #60 caps 06/01/19 (Stool Softener) gabapentin 300 mg capsule 300 mg PO HS Pain #90 caps 05/09/21 levothyroxine 50 mcg tablet 50 mcg PO DAILYBB #90 tabs 11/15/21 famotidine 40 mg tablet (Pepcid) 40 mg PO DAILY #90 tabs 01/09/22 atorvastatin 40 mg tablet 40 mg PO HS #90 tabs 01/28/22 donepezil 10 mg tablet (Aricept) 10 mg PO DAILY 30 days #30 tabs 04/06/22 diclofenac sodium 1 % topical gel 2 g topical QID #100 grams 06/23/23 furosemide 40 mg tablet (Lasix) 20 mg (1/2 x 40 mg) PO DIRECTED 06/23/23 #30 tabs hydrocodone 5 mg-acetaminophen 325 1 tab PO Q6H PRN pain #30 tabs 06/23/23 mg tablet insulin aspart U-100 100 unit/mL See Rx Instructions .Route 06/23/23 subcutaneous solution (Novolog .COMPLEX #10 mL U-100 Insulin aspart) insulin glargine 100 unit/mL 15 unit (0.15 mL) SC DAILY #10 mL 06/23/23 subcutaneous solution (Lantus U-100 Insulin) melatonin 3 mg tablet 3 mg PO HS #30 tabs 06/23/23 nadolol 40 mg tablet 20 mg (1/2 x 40 mg) PO QAM #30 tabs 06/23/23 potassium chloride 10 mEq 10 meq PO DIRECTED #30 tabs 06/23/23 tablet,extended release sennosides 8.6 mg tablet (Senokot) 17.2 mg (2 x 8.6 mg) PO DAILY #60 06/23/23 tabs Results & Data (ED) Vital Signs Vital Signs - 24 hr 04/18/24 13:50 04/18/24 13:50 04/18/24 14:10 Temperature 36.5 C Temperature Source Oral Pulse Rate 58 L Pulse Rate [Apical] 58 L Pulse Rhythm [Apical] Pulse Strength [Apical] Respiratory Rate 17 17 Respiratory Effort / Characteristics Non-Labored Spontaneous Respiratory Depth Normal Respiratory Pattern Blood Pressure 154/85 H Blood Pressure [Left Arm] 154/85 H Blood Pressure Mean 108 Blood Pressure Mean [Left Arm] 108 Blood Pressure Position [Left Arm] Pulse Oximetry 95 95 87 L Oxygen Delivery Method Room Air Room Air Sepsis Recent Fever Within 48 Hours No Sepsis New/Unexplained Change in Mental Status No Sepsis Action Taken by Nursing No Action Required Oxygen Flow Rate - Titration 2 Pulse Oximetry Post Tiitration 97 04/18/24 14:28 04/18/24 15:36 Temperature Temperature Source Pulse Rate 59 L Pulse Rate [Apical] 56 L Pulse Rhythm [Apical] Regular Pulse Strength [Apical] Normal Respiratory Rate 16 Respiratory Effort / Characteristics Non-Labored Respiratory Depth Normal Respiratory Pattern Regular Blood Pressure Blood Pressure [Left Arm] 151/75 H Blood Pressure Mean Blood Pressure Mean [Left Arm] 100 Blood Pressure Position [Left Arm] Lying Pulse Oximetry 90 Oxygen Delivery Method Room Air Sepsis Recent Fever Within 48 Hours Sepsis New/Unexplained Change in Mental Status Sepsis Action Taken by Nursing Oxygen Flow Rate - Titration Pulse Oximetry Post Tiitration Laboratory Data 04/18/24 14:06 04/18/24 14:06 Lab Results 04/18/24 Range/Units 14:06 WBC 7.82 (4.8-10.8) K/ul RBC 3.77 L (4.20-5.40) M/uL Hgb 11.5 L (12.0-16.0) g/dl Hct 35.3 L (37.0-47.0) % MCV 93.6 (80.0-100.0) fL MCH 30.5 (25.0-34.0) pg MCHC 32.6 (32.0-36.0) g/dL RDW Std Deviation 55.9 H (36.4-46.3) fL RDW Coeff of Shaji 16.1 H (11.5-14.5) % Plt Count 138 (130-400) K/uL MPV 9.0 L (9.4-12.4) fL Immature Gran % (Auto) 0.3 % Neut % (Auto) 71.6 % Lymph % (Auto) 18.8 % Toole % (Auto) 9.1 % Eos % (Auto) 0.1 % Baso % (Auto) 0.1 % Neut # (Auto) 5.60 (1.40-6.50) K/uL Lymph # (Auto) 1.47 (1.20-3.40) K/uL Toole # (Auto) 0.71 H (0.11-0.59) K/uL Eos # (Auto) 0.01 (0.00-0.50) K/uL Baso # (Auto) 0.01 (0.00-0.20) K/uL Immature Gran # (Auto) 0.02 (0.01-0.20) K/uL Sodium 139 (136-145) mmol/L Potassium 3.9 (3.5-5.1) mmol/L Chloride 104 (98-107) mmol/L Carbon Dioxide 28 (21-32) mmol/L Anion Gap 7 (3-11) BUN 19 (6-23) mg/dl Creatinine 1.39 H (0.6-1.2) mg/dl Est Cr Clr Drug Dosing 28.3 ml/min eGFR 36.73 BUN/Creatinine Ratio 13.7 (10-20) Glucose 180 H (70-99(Fasting)) mg/dl Calcium 8.2 L (8.6-10.3) mg/dl Total Bilirubin 0.5 (0.2-1.0) mg/dl AST 15 (13-39) U/L ALT 10 (7-52) U/L Alkaline Phosphatase 76 (34-104) U/L Total Protein 6.3 (6.0-8.3) gm/dl Albumin 3.5 (3.4-5.0) gm/dl Globulin 2.8 (2.5-4.0) gm/dl Albumin/Globulin Ratio 1.3 (0.9-2) Adenovirus (PCR) Not Detected (NotDetected) B. pertussis DNA (PCR) Not Detected (NotDetected) B.parapertussis DNA PCR Not Detected (NotDetected) C. pneumoniae DNA (PCR) Not Detected (NotDetected) Coronavirus OC43 (PCR) Not Detected (NotDetected) Coronavirus HKU1 (PCR) Not Detected (NotDetected) Coronavirus 229E (PCR) Not Detected (NotDetected) SARS-CoV-2 (PCR) Not Detected (NotDetected) Coronavirus NL63 (PCR) Not Detected (NotDetected) Human Metapneumovir PCR Not Detected (NotDetected) Influenza A (H3) PCR DETECTED A (NotDetected) Influenza Type B (PCR) Not Detected (NotDetected) M. pneumoniae (PCR) Not Detected (NotDetected) Parainfluenza 1 (PCR) Not Detected (NotDetected) Parainfluenza 2 (PCR) Not Detected (NotDetected) Parainfluenza 3 (PCR) Not Detected (NotDetected) Parainfluenza 4 (PCR) Not Detected (NotDetected) RSV (PCR) Not Detected (NotDetected) Entero/Rhino (PCR) Not Detected (NotDetected) Imaging Data Radiologist's Impression: Chest X-Ray 04/18/24 14:06 EXAM: Radiograph of the Chest 1 View INDICATION: Cough and congestion. TECHNIQUE: Frontal view of the chest. COMPARISON: 06/15/2023 FINDINGS: Lungs and pleural spaces: Chronic interstitial scarring stable. No consolidation or pulmonary edema. No pleural effusion or pneumothorax. Heart: Stable cardiomegaly. Mediastinum: Normal contour. Bones/joints: Small osteochondroma associated with the right shoulder. No acute osseous abnormality. Soft tissues: No abnormality noted. No radiopaque foreign body noted. Vasculature: Stable ectatic calcified aorta. Upper abdomen: No abnormality noted. IMPRESSION: Stable chronic changes. No acute disease. ACT 112: Negative or not required by law. Electronically signed by Belkis Alcala 04-18-2024 2:23 PM Discharge Plan Visit Data Chief Complaint: Illness ED Provider: Kari Contreras Discharge Problem: Influenza A, Weakness, Acute hypoxemic respiratory failure Forms Stand Alone Forms: My [facility] Prescriptions Prescriptions: No Action docusate sodium [Stool Softener] 100 mg capsule 100 mg PO BID Qty: 60 2RF gabapentin 300 mg capsule 300 mg PO HS Qty: 90 3RF levothyroxine 50 mcg tablet 50 mcg PO DAILYBB Qty: 90 1RF Rx Instructions: TAKE 1 TABLET BY MOUTH EVERY DAY famotidine [Pepcid] 40 mg tablet 40 mg PO DAILY Qty: 90 2RF atorvastatin 40 mg tablet 40 mg PO HS Qty: 90 3RF Hold Instructions: leg pain donepezil [Aricept] 10 mg tablet 10 mg PO DAILY 30 Days Qty: 30 2RF aspirin [Adult Low Dose Aspirin] 81 mg tablet,delayed release (DR/EC) 81 mg PO DAILY loperamide 2 mg Tablet 2 mg PO Q4H PRN (Reason: Diarrhea) bismuth subsalicylate [Pepto-Bismol] 262 mg/15 mL Suspension 524 mg PO Q6H PRN (Reason: HEARTBURN/DIARRHEA) nitroglycerin 0.4 mg tablet, sublingual 0.4 mg sublingual DIRECTED PRN (Reason: Chest Pain) Rx Instructions: 1 TAB UNDER THE TONGUE EVERY 5 MIN FOR UP TO 3 DOSE NEEDED FOR CHEST PAIN. CALL 911 PAIN PERSISTS Not for independent use. Needs supervision. pantoprazole 40 mg Tablet,Delayed Release (Dr/Ec) 40 mg PO BID polyethylene glycol 3350 [Miralax] 17 gram/dose Powder 17 g PO DAILY Systane (propylene glycol) 0.4-0.3 % Drops 2 drp OPB TID Rx Instructions: 0630, 1430, 2230 duloxetine 20 mg Capsule,Delayed Release(Dr/Ec) 20 mg PO BIDM calcium carbonate-vitamin D3 [Calcium 500 + D] 500 mg-5 mcg (200 unit) Tablet 1 tab PO DAILY methyl salicylate-menthol 15-10 % Cream 1 applic TOPICAL TID Rx Instructions: APPLY TO LOWER BACK hydrocodone-acetaminophen 5-325 mg Tablet 1 tab PO Q6H PRN (Reason: pain) Qty: 30 0RF sennosides [Senokot] 8.6 mg Tablet 17.2 mg PO DAILY Qty: 60 0RF melatonin 3 mg Tablet 3 mg PO HS Qty: 30 0RF insulin glargine [Lantus U-100 Insulin] 100 unit/mL Solution 15 unit SC DAILY Qty: 10 0RF insulin aspart U-100 [Novolog U-100 Insulin aspart] 100 unit/mL Solution See Rx Instructions .ROUTE .COMPLEX Qty: 10 0RF Rx Instructions: sliding scale instructions, before meals and at bedtime 350-400 = 8 UNITS 401-450 = 12 UNITS 451-500 = 16 UNITS 501-550 = 18 UNITS CHECK AGAIN IN TWO HOURS 551+ = 20 UNITS RECHECK IN 1 HOUR. furosemide [Lasix] 40 mg Tablet 20 mg PO DIRECTED Qty: 30 0RF Rx Instructions: TAKE on Friday AM, Friday AM, and Friday AM only. potassium chloride 10 mEq tablet extended release 10 meq PO DIRECTED Qty: 30 0RF Rx Instructions: TAKE only on Mondays, Wednesdays, and Fridays. nadolol 40 mg tablet 20 mg PO QAM Qty: 30 3RF diclofenac sodium 1 % Gel 2 g TOPICAL QID Qty: 100 0RF Rx Instructions: APPLY LEFT KNEE, RIGHT SHOULDER, POSTERIOR NECK, OR LOW BACK. benzonatate 200 mg Capsule 200 mg PO TID hydrocodone-acetaminophen 5-325 mg tablet 1 tab PO BID thiamine HCl (vitamin B1) 100 mg Tablet 100 mg PO DAILY dextromethorphan-guaifenesin [Guaifenesin DM] 10-100 mg/5 mL Syrup 10 ml PO Q6H PRN (Reason: Cough) triamcinolone acetonide 0.1 % cream 1 applic TOPICAL TID PRN (Reason: Rash) hydrocortisone 2.5 % cream with perineal applicator 1 applic topical BID PRN (Reason: Hemorrhoids) magnesium hydroxide [Milk of Magnesia] 400 mg/5 mL Suspension 30 ml PO DAILY PRN (Reason: Constipation) bisacodyl [Dulcolax (bisacodyl)] 10 mg Suppository 10 mg WA DAILY PRN (Reason: Constipation) ipratropium bromide 0.02 % solution 3 ml inhalation Q2H PRN (Reason: sob) carboxymethylcellulose sodium [Refresh] 1 % Drops, Liquid Gel 1 drp OPHTHALMIC (EYE) BID Referrals Referrals: Chris Espitia III, MD [Primary Care Provider] -
[2024-04-18] MEDS ORDERED: ONDANSETRON INJ 2 MG/ML 2 ML VIAL IV PRN (16:56)
--- NOTE | 2024-04-18 17:05 | History & Physical Report ---
Date of Service April 18, 2024 Assessment & Plan (1) Influenza A: (2) Acute hypoxemic respiratory failure: (3) Weakness: (4) Diabetes mellitus, type 2: Plan This is an 88 year old female with past medical history of right lower extremity hematoma, Type 2 diabetes, CKD stage 3, dyslipidemia, HTN, hypothyroidism, OA, depression, neuropathy who presented to the ED from [facility] on 04/18 for flu like symptoms. #Influenza A/hypoxia Biofire positive for Influenza A CBC w/o leukocytosis. BMP w/ stable renal function and electrolytes. Creatinine at baseline CXR w/o acute changes s/p Tamiflu in ED, continue upon admission Mucinex BID Hypertonic saline nebs BID Duonebs prn for ongoing SOB/wheezing On 2L of oxygen - wean when able back to room air 1L IVF overnight. #Type 2 Diabetes On Insulin outpatient - continue while inpatient 11/27/23 - A1c 7.4% Update A1c in AM Chronic conditions: HLD: statin Dementia: donepezil Mental health: duloxetine GERD: famotidine, PPI Neuropathy: gabapentin Hypothyroidism: Levothyroxine, TSH WNL 11/2023, update in AM CAD: nadolol DVT prophylaxis: heparin Code: DNR/DNI Update family at bedside 04/[address] White at time of admission ' History of Present Illness Primary Care Provider: Chris Espitia III, MD This is an 88 year old female with past medical history of right lower extremity hematoma, Type 2 diabetes, CKD stage 3, dyslipidemia, HTN, hypothyroidism, OA, depression, neuropathy who presented to the ED from [facility] on 04/18 for flu like symptoms. The patient was seen and examined at bedside. Family present. Patient reports that for ~ 1 week she has been having flu like symptoms including cough, congestion, fatigue, headaches, and diarrhea. Presently, she feels her most bothersome symptom is her cough and shortness of breath. She was found to be hypoxic on room air when admitted and she was given 2L of oxygen w/ improvement of saturation. She denies any chest pain. She denies any abdominal pain, nausea, or vomiting. Family member reports that patient is a [facility] resident at [facility] and she will return there after discharge. While in the ED patient tested positive for Flu A. CBC w/o leukocytosis. BMP w/ creatinine WNL. CXR w/ stable chronic changes, no acute disease. Allergies Allergy/AdvReac Type Severity Reaction Status Date / Time verapamil Allergy Severe RASH Verified 04/06/24 11:01 latex Allergy Intermediate ITCHING Verified 04/06/24 11:01 oxybutynin Allergy Intermediate ITCHING Verified 04/06/24 11:01 adhesive Allergy Mild redness Verified 04/06/24 11:01 meperidine AdvReac Severe HYPOTENSION Verified 04/06/24 11:01 sodium phosphate AdvReac Severe DECREASED Verified 04/06/24 11:01 [From OsmoPrep] KIDNEY FUNCTION atenolol AdvReac Intermediate tachycardia; Verified 04/06/24 11:01 nervousness diazepam AdvReac Intermediate crying; Verified 04/06/24 11:01 depression fluoxetine AdvReac Intermediate crying; Verified 04/06/24 11:01 depression ibuprofen AdvReac Intermediate low kidney Verified 04/06/24 11:01 function Iodinated Contrast Media AdvReac Intermediate IVP DYE - Verified 04/06/24 11:01 low kidney function lidocaine AdvReac Intermediate Altered Verified 04/06/24 11:01 Mental Status with ointment ONLY naproxen AdvReac Intermediate Low kidney Verified 04/06/24 11:01 function sertraline AdvReac Intermediate crying; Verified 04/06/24 11:01 depression tramadol AdvReac Intermediate dizziness Verified 04/06/24 11:01 venlafaxine AdvReac Intermediate Nervous Verified 04/06/24 11:01 Home Medications Medication Instructions Recorded Confirmed Type docusate sodium 100 mg capsule 100 mg PO BID #60 caps 06/01/19 04/18/24 Rx (Stool Softener) gabapentin 300 mg capsule 300 mg PO HS Pain #90 caps 05/09/21 04/18/24 Rx levothyroxine 50 mcg tablet 50 mcg PO DAILYBB #90 tabs 11/15/21 04/18/24 Rx famotidine 40 mg tablet (Pepcid) 40 mg PO DAILY #90 tabs 01/09/22 04/18/24 Rx atorvastatin 40 mg tablet 40 mg PO HS #90 tabs 01/28/22 04/18/24 Rx bismuth subsalicylate 262 mg/15 mL 524 mg PO Q6H PRN 03/14/22 04/18/24 History oral suspension (Pepto-Bismol) HEARTBURN/DIARRHEA loperamide 2 mg tablet 2 mg PO Q4H PRN Diarrhea 03/14/22 04/18/24 History donepezil 10 mg tablet (Aricept) 10 mg PO DAILY 30 days #30 tabs 04/06/22 04/18/24 Rx nitroglycerin 0.4 mg sublingual 0.4 mg sublingual DIRECTED PRN 04/08/22 04/18/24 History tablet Chest Pain calcium 500 mg (as 1 tab PO DAILY 06/15/23 04/18/24 History carbonate)-vitamin D3 5 mcg (200 unit) tablet (Calcium 500 + D) duloxetine 20 mg capsule,delayed 20 mg PO BIDM 06/15/23 04/18/24 History release methyl salicylate 15 %-menthol 10 1 applic topical TID 06/15/23 04/18/24 History % topical cream pantoprazole 40 mg tablet,delayed 40 mg PO BID 06/15/23 04/18/24 History release peg 400-propylene glycol 0.4 %-0.3 2 drp OPB TID 06/15/23 04/18/24 History % eye drops (Systane (propylene glycol)) polyethylene glycol 3350 17 17 g PO DAILY 06/15/23 04/18/24 History gram/dose oral powder (Miralax) diclofenac sodium 1 % topical gel 2 g topical QID #100 grams 06/23/23 04/18/24 Rx furosemide 40 mg tablet (Lasix) 20 mg (1/2 x 40 mg) PO DIRECTED 06/23/23 04/18/24 Rx #30 tabs hydrocodone 5 mg-acetaminophen 325 1 tab PO Q6H PRN pain #30 tabs 06/23/23 04/18/24 Rx mg tablet insulin aspart U-100 100 unit/mL See Rx Instructions .Route 06/23/23 04/18/24 Rx subcutaneous solution (Novolog .COMPLEX #10 mL U-100 Insulin aspart) insulin glargine 100 unit/mL 15 unit (0.15 mL) SC DAILY #10 mL 06/23/23 04/18/24 Rx subcutaneous solution (Lantus U-100 Insulin) melatonin 3 mg tablet 3 mg PO HS #30 tabs 06/23/23 04/18/24 Rx nadolol 40 mg tablet 20 mg (1/2 x 40 mg) PO QAM #30 tabs 06/23/23 04/18/24 Rx potassium chloride 10 mEq 10 meq PO DIRECTED #30 tabs 06/23/23 04/18/24 Rx tablet,extended release sennosides 8.6 mg tablet (Senokot) 17.2 mg (2 x 8.6 mg) PO DAILY #60 06/23/23 04/18/24 Rx tabs aspirin 81 mg tablet,delayed 81 mg PO DAILY 04/06/24 04/18/24 History release (Adult Low Dose Aspirin) benzonatate 200 mg capsule 200 mg PO TID 04/18/24 04/18/24 History bisacodyl 10 mg rectal suppository 10 mg IN DAILY PRN Constipation 04/18/24 04/18/24 History (Dulcolax (bisacodyl)) carboxymethylcellulose sodium 1 % 1 drp ophthalmic (eye) BID 04/18/24 04/18/24 History eye liquid gel drops dextromethorphan-guaifenesin 10 10 ml PO Q6H PRN Cough 04/18/24 04/18/24 History mg-100 mg/5 mL oral syrup hydrocodone 5 mg-acetaminophen 325 1 tab PO BID PAIN MANAGEMENT 04/18/24 04/18/24 History mg tablet hydrocortisone 2.5 % topical cream 1 applic topical BID PRN 04/18/24 04/18/24 History with perineal applicator Hemorrhoids ipratropium bromide 0.02 % 3 ml inhalation Q2H PRN sob 04/18/24 04/18/24 History solution for inhalation magnesium hydroxide 400 mg/5 mL 30 ml PO DAILY PRN Constipation 04/18/24 04/18/24 History oral suspension (Milk of Magnesia) thiamine HCl (vitamin B1) 100 mg 100 mg PO DAILY 04/18/24 04/18/24 History tablet triamcinolone acetonide 0.1 % 1 applic topical TID PRN Rash 04/18/24 04/18/24 History topical cream Past Med/Surg History Problem List (Updated 04/18/24 @ 17:09 by Kari Contreras MD) Acute hypoxemic respiratory failure (Acute) Weakness (Acute) Influenza A (Acute) Left knee DJD Left cervical radiculopathy Bursitis of right shoulder Bursitis of left shoulder Thiamine deficiency Chronic fatigue Chronic headaches Acute metabolic encephalopathy SHERLY (acute kidney injury) Ambulatory dysfunction (Acute) Generalized weakness (Acute) Hematoma of right lower extremity (Acute) Hematoma of right lower leg UTI (urinary tract infection) Right leg pain Right rotator cuff tear arthropathy Left hip pain Bilateral knee pain Frequent falls History of colon cancer 2011 -- COLON RESECTION. NO CHEMO/RADIATION Diabetes mellitus, type 2 NO MEDICATIONS. Chronic kidney disease, stage IV (severe) Hypothyroidism COVID CAD (coronary artery disease) (Chronic) Abdominal pain (03/24/13) Cellulitis (Acute) CKD (chronic kidney disease), stage III (Chronic) Diabetes type 2, controlled (Chronic) Hypertension (Chronic) Dyslipidemia (Chronic) Hypothyroidism (Chronic) Vitamin D deficiency (Acute) Urge incontinence of urine (Acute) Spinal stenosis (Acute) Rectocele (Acute) Proteinuria (Acute) Palpitations (Acute) Osteoarthritis (Acute) Orthostatic hypotension (Acute) History of syncope (Acute) History of malignant neoplasm of colon (Acute) Eczematous dermatitis (Acute) Depression (Acute) Cystocele, midline (Acute) Vitamin B12 deficiency Antiplatelet or antithrombotic long-term use Osteoarthritis of patellofemoral joints, bilateral Screening for colon cancer Postural lightheadedness Edema (Acute) Fatigue Gait abnormality (Acute) Hypokalemia Diabetic neuropathy Lab test negative for COVID-19 virus (Acute) Osteopenia Cognitive impairment COVID-19 (Acute) Weakness (Acute) Acute hypokalemia (Acute) Medical History DVT prophylaxis Closed head injury Chronic throat clearing Small bowel obstruction due to adhesions Diverticular disease Osteoarthritis Chronic back pain Depression Anxiety Syncope Pneumonia Stable angina Hyperlipidemia Hypertension SBO (small bowel obstruction) Diverticulitis Surgical History History of esophagogastroduodenoscopy (EGD) History of dilatation and curettage History of bilateral tubal ligation History of cataract surgery History of discectomy History of hysterectomy H/O umbilical hernia repair History of bowel resection History of colonoscopy History of cardiac cath Family History Mother Heart disease Breast cancer Cancer Myocardial infarction Sister Colorectal cancer Lung disease Cancer Father Hearing loss Heart disease Other Hypertension No family history of adverse response to anesthesia Denies family history of Ovarian cancer Prostate cancer Coronary heart disease Social History Smoking Status: Never smoker Second Hand Exposure: No; Do You Dip or Chew Tobacco: No; Hx Alcohol Use: No Hx Substance Use: No Preferred Language: Slovenian Communication Ability: Effective Hearing Ability: Normal 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 current occupational status: retired Feels Safe at Home: Yes Safety Concerns: Feels Safe At This Time Childhood Exposure to Second-Hand Smoke: No Diet: regular caffeine: Yes during the past year weight has: remained stable Dental Care, Regularly: Yes Physical Activity Frequency: 1-2 Times per Week Seatbelt Use: always Sunscreen Use: Yes Assistive Devices: Walker and Wheelchair Physical Exam Constitutional: WD/WN, vitals as above Eyes: PERRL, conjunctivae normal, anicteric sclerae Respiratory: coarse breath sounds in upper lung wallace. Cardiovascular: RRR, no murmur, no edema scar right lower leg Musculoskeletal: moves all extremities Psychiatric: A+Ox3, euthymic affect Results & Data Results & Data Vital Signs (Past 12 Hours) Vital Signs Temp Pulse Pulse Resp BP BP Pulse Ox 04/18/24 15:36 56 L 16 151/75 H 90 04/18/24 14:28 59 L 04/18/24 14:10 87 L 04/18/24 13:50 58 L 17 154/85 H 95 04/18/24 13:50 36.5 C 58 L 17 154/85 H 95 O2 Del Method 04/18/24 15:36 Room Air 04/18/24 14:28 04/18/24 14:10 Room Air 04/18/24 13:50 04/18/24 13:50 Room Air Code Status & VTE Plan VTE Prophylaxis Plan VTE Prophylaxis will be ordered: Yes Supervising Physician Co-Signing Physician Notes I personally saw and examined the patient. I independently reviewed the labs, EKG, imaging, problem list, medication list, past medical history and family history. I verified all lehman points and agree with Kamryn Stevens PA-C with the following exceptions and/or additions: 88-year-old female presents to the ER with upper respiratory symptoms. Unknown how long she has been unwell for as unable to get a good history from the patient. O/E Alert but not orientated x3, HS RRR, no murmurs, bilateral rhonchi throughout, Abdo SNT A/P Influenza A / hypoxia without respiratory failure - Tamiflu, hypertonic saline neb BID, guaifenesin, incentive spirometer, flutter valve, admission mainly due to new onset hypoxia, PT/OT PG Care Time/CCT Total # of Minutes Spent Total Time Spent with Patient: Total time spent is greater than 50% in coordination of care (as documented) at patient's floor/unit and/or counseling patient: Coding Level of Care Code 48365 INT INP/OBS CARE 3/75MIN Diagnoses Influenza A J10.1 Acute hypoxemic respiratory failure J96.01 Weakness R53.1 Diabetes mellitus, type 2 E11.9
[2024-04-18] MEDS: OSELTAMIVIR PHOSPHATE 75 MG CAP PO STA (17:33)
[2024-04-18] MEDS: LACTATED RINGER'S 1,000 ML IV SCH (17:35)
[2024-04-18] MEDS: ALBUT/IPRATROP 3MG/0.5MG NEB 3 ML VIAL NEB STA (17:36)
[2024-04-18] MEDS ORDERED: MAGNESIUM HYDROXIDE SUSP 30 ML UDC PO PRN (19:21)
[2024-04-18] MEDS ORDERED: ALBUT/IPRATROP 3MG/0.5MG NEB 3 ML VIAL NEB PRN (19:21)
[2024-04-18] MEDS ORDERED: INSULIN ASPART PER UNIT CHARGE SC SCH (19:21)
[2024-04-18] MEDS: guaiFENesin 600 MG TABCR PO SCH (21:03)
[2024-04-18] MEDS: DULoxetine HCL 20 MG CAP PO SCH (21:03)
[2024-04-18] MEDS: DOCUSATE SODIUM 100 MG CAP PO SCH (21:03)
[2024-04-18] MEDS: HYDROCODONE/ACETAMOPHEN 5/325MG TAB PO SCH (21:03)
[2024-04-18] MEDS: PANTOprazole 40 MG TAB PO SCH (21:03)
[2024-04-18] MEDS: MELATONIN 3 MG TAB PO SCH (21:03)
[2024-04-18] MEDS: GABAPENTIN 300 MG CAP PO SCH (21:07)
[2024-04-18] MEDS: ATORVASTATIN 40 MG TAB PO SCH (21:07)
[2024-04-18] MEDS: HEPARIN SOD 5,000 UNIT/0.5 ML VIAL SQ SCH (21:07)
[2024-04-18] MEDS: SODIUM CHLOR 7% 4 ML NEB NEB SCH (22:05)
[2024-04-18] MEDS: INSULIN ASPART PER UNIT CHARGE SC SCH (23:07)
[2024-04-18] MEDS: ARTIFICIAL TEARS OP SCH (23:11)
[2024-04-18] MEDS: ACETAMINOPHEN 325 MG TAB PO PRN (23:12)
[2024-04-19] MEDS: LEVOTHYROXINE SODIUM 50 MCG TABLET PO SCH (05:26)
[2024-04-19] MEDS: COUGH DROP (SUGAR FREE) LOZ 24 LOZ/1 BOX BUCCAL PRN (06:03)
[2024-04-19] MEDS: BENZONATATE 100 MG CAPSULE PO PRN (06:03)
[2024-04-19] MEDS: DONEPEZIL HCL 10 MG TAB PO SCH (07:30)
[2024-04-19] MEDS: FAMOTIDINE 40 MG TABLET PO SCH (07:31)
[2024-04-19] MEDS: nadoloL 40 MG TAB PO SCH (07:31)
[2024-04-19] MEDS: THIAMINE HCL 100 MG TAB PO SCH (07:32)
[2024-04-19 08:10] LABS: Hematocrit (blood only) 33.5 % (37.0-47.0); Hemoglobin 10.8 g/dl (12.0-16.0); Mean Corpuscular Hemoglobin 30.5 pg (25.0-34.0); Mean Corpuscular Hgb Conc 32.2 g/dL (32.0-36.0); Mean Corpuscular Volume 94.6 fL (80.0-100.0); Mean Platelet Volume 9.2 fL (9.4-12.4); Platelet Count 127 K/uL (130-400); RDW Coefficient of Variation 16.1 % (11.5-14.5); RDW Standard Deviation 56.2 fL (36.4-46.3); Red Blood Count 3.54 M/uL (4.20-5.40); White Blood Count 5.75 K/ul (4.8-10.8)
[2024-04-19] MEDS: OSELTAMIVIR PHOSPHATE SUSP 30 MG/5 ML UDP PO SCH ×2 (08:22→21:52)
[2024-04-19] MEDS: LANTUS PER UNIT CHARGE SC SCH (08:22)
[2024-04-19] MEDS: POLYETHYLENE (MIRALAX) 17 GM PACK PO SCH (08:22)
[2024-04-19] MEDS: SENNA 8.6 MG TAB PO SCH (08:24)
[2024-04-19 08:34] LABS: BUN Creatinine Ratio 15.4 (10-20); Calcium 8.2 mg/dl (8.6-10.3); Creatinine Clr Calc Pharmacy 31.3 ml/min; Potassium 3.7 mmol/L (3.5-5.1)
[2024-04-19 08:48] LABS: Thyroid Stimulating Hormone 0.897 uIu/ml (0.300-4.500)
[2024-04-19 11:46] LABS: Estimated Average Glucose 183 mg/dl
--- NOTE | 2024-04-19 19:31 | Hospitalist Progress Note ---
Date of Service April 19, 2024 Assessment & Plan (1) Influenza A: (2) Acute hypoxemic respiratory failure: (3) Weakness: (4) Diabetes mellitus, type 2: Plan This is an 88 year old female with past medical history of right lower extremity hematoma, Type 2 diabetes, CKD stage 3, dyslipidemia, HTN, hypothyroidism, OA, depression, neuropathy who presented to the ED from [facility] on 04/18 for flu like symptoms. #Influenza A/hypoxia Biofire positive for Influenza A CBC w/o leukocytosis. BMP w/ stable renal function and electrolytes. Creatinine improved after IV fluids given at admission, 1.3 today which is better than her usual baseline CXR w/o acute changes. no evidence of bacterial pneumonia continue oseltamavir, discussed with pharmacist adjusted dosing for renal function antiemetics as needed Mucinex BID Hypertonic saline nebs BID Duonebs prn On 2L of oxygen but satting 97% this evening and may not need it anymore at this point she is doing fine with expected influenza symptoms and she can be managed safely at her nursing facility #Type 2 Diabetes On Insulin outpatient - continue while inpatient A1c is 8.0% which is at goal for her advanced age Chronic conditions: HLD: statin Dementia: donepezil Mental health: duloxetine GERD: famotidine, PPI Neuropathy: gabapentin Hypothyroidism: Levothyroxine, TSH normal at 0.89 CAD: nadolol DVT prophylaxis: heparin Code: DNR/DNI admitting team updated family at bedside 04/18 Admission and Anticipated Discharge Date Admission Date: April 18, 2024 Subjective Feels run down/tired, has cough, has nausea She (or her daughter) reported vomiting today but RN said she did not vomit Physical Exam 2 Physical Exam: PHYSICAL EXAMINATION Last 24h vital signs reviewed, see documentation in flowsheet General: comfortable appearing, no distress, resting in bed HEENT: Normocephalic, atraumatic, pupils round and equal, sclerae anicteric, no conjunctival injection, moist mucus membranes Lungs: Normal respiratory effort. scattered coarse breath sounds and cough, no wheezing, nonlabored, on minimal oxygen. Heart: Regular rate and rhythm, no murmurs. No JVD Abdomen: Soft, nontender, nondistended. Bowel sounds present. Extremities: Warm, dry, well-perfused. mild bilateral ankle edema. Neuro: Alert and oriented x 4, face symmetric, moves 4 extremities well Psych: Normal affect and behavior Results & Data Results & Data Vital Signs (Past 12 Hours) Vital Signs Temp Pulse Resp BP Pulse Ox O2 Del Method O2 Flow Rate 04/19/24 15:44 97.5 F L 51 L 18 158/68 H 97 Nasal Cannula 2 04/19/24 11:24 97.9 F 57 L 16 156/78 H 98 04/19/24 11:17 Nasal Cannula 1.5 04/19/24 07:55 57 L 16 98 Nasal Cannula 2 Laboratory Results 04/19/24 07:28 04/19/24 07:28 PG Care Time/CCT Total # of Minutes Spent Total Time Spent with Patient: Total time spent is greater than 50% in coordination of care (as documented) at patient's floor/unit and/or counseling patient: Coding Level of Care Code 20703 SUB INP/OBS CARE 2/35MIN Diagnoses Influenza A J10.1 Acute hypoxemic respiratory failure J96.01 Weakness R53.1 Diabetes mellitus, type 2 E11.9
[2024-04-19] MEDS: LOPERAMIDE HCL 2 MG CAP PO PRN (21:43)
[2024-04-20 10:01] LABS: Basophils # (auto) 0.01 K/uL (0.00-0.20); Basophils % (auto) 0.2 %; Eosinophils # (auto) 0.11 K/uL (0.00-0.50); Eosinophils % (auto) 1.9 %; Hematocrit (blood only) 33.5 % (37.0-47.0); Hemoglobin 10.9 g/dl (12.0-16.0); Immature Granulocytes # (auto) 0.02 K/uL (0.01-0.20); Immature Granulocytes % (auto) 0.3 %; Lymphocytes # (auto) 1.84 K/uL (1.20-3.40); Mean Corpuscular Hemoglobin 30.3 pg (25.0-34.0); Mean Corpuscular Hgb Conc 32.5 g/dL (32.0-36.0); Mean Corpuscular Volume 93.1 fL (80.0-100.0); Monocytes # (auto) 0.41 K/uL (0.11-0.59); Monocytes % (auto) 6.9 %; Neutrophils # (auto) 3.54 K/uL (1.40-6.50); Neutrophils % (auto) 59.7 %; Platelet Count 132 K/uL (130-400); RDW Coefficient of Variation 15.7 % (11.5-14.5); RDW Standard Deviation 53.9 fL (36.4-46.3); White Blood Count 5.93 K/ul (4.8-10.8)
[2024-04-20 10:17] LABS: BUN Creatinine Ratio 14.9 (10-20); Creatinine Clr Calc Pharmacy 31.8 ml/min; Magnesium 1.8 mg/dl (1.7-2.4); Potassium 3.4 mmol/L (3.5-5.1)
[2024-04-20] MEDS: POTASSIUM CHLORIDE CRTAB 20 MEQ TABCR PO STA (14:01)
--- NOTE | 2024-04-20 14:05 | Hospitalist Progress Note ---
Date of Service April 20, 2024 Assessment & Plan (1) Influenza A: Plan: day #3 of 5 of Tamiflu cont droplet precautions extensive wheezing c/w acute bronchitis from the flu add scheduled duonebs QID cont saline nebs BID add flutter valve add incentive haresh cont mucinex make tessalon TID scheduled repeat a 2-view cxr today - r/o bacterial pneumonia (2) Acute hypoxemic respiratory failure: Plan: had transient O2 requirement on hospital day #1 - resolved, stable in room air 2nd to #1 (3) Weakness: Plan: 2nd to #1 will improve with time & resolution of her flu A infection cont PT/OT (4) Diabetes mellitus, type 2: Plan: a1c 8% cont lantus cont novolog SSI Plan Mildly low potassium - replace, repeat BMP am mag level wnl Chronic conditions: Hyperlipidemia: cont statin Dementia: cont donepezil Mental health: cont duloxetine GERD: cont famotidine, PPI Neuropathy: cont gabapentin Hypothyroidism: cont Levothyroxine; TSH wnl (0.89) CAD: cont nadolol; cont statin; no evidence of CHF; no evidence of ischemic symptoms DVT prophylaxis: heparin 5000 BID updated pt's daughter by phone this pm, 04/20 d/c back to SNF on 04/21? Admission and Anticipated Discharge Date Admission Date: April 18, 2024 Subjective meal consumption 25-50% only complaint is that of cough "moist, wet" per staff some wheezing no dyspnea no fevers tele overnight wnl Review of Systems Review of Systems: gen - no fevers or chills cv - no chest pain GI - no N/V/abd pain Physical Exam Physical Exam: gen - laying in bed comfortably, NAD, coughing at times neck - no JVD mouth - MMM heart - RRR, s1 s2 lungs - fine dry rales b/l bases; wheezes b/l; no increased work of breathing abd - soft NT ND BS+ ext - no edema, pulses b/l feet 2+ Results & Data Results & Data Vital Signs (Past 12 Hours) Vital Signs Temp Pulse Resp BP Pulse Ox O2 Del Method 04/20/24 07:33 36.3 C L 55 L 18 152/79 H 96 Room Air 04/20/24 07:25 Room Air 04/20/24 07:16 53 L 16 90 Room Air Laboratory Results Laboratory Results - last 24 hr 04/20/24 04/20/24 04/20/24 09:01 09:35 11:44 WBC 5.93 RBC 3.60 L Hgb 10.9 L Hct 33.5 L MCV 93.1 MCH 30.3 MCHC 32.5 RDW Std Deviation 53.9 H RDW Coeff of Shaji 15.7 H Plt Count 132 MPV 9.0 L Immature Gran % (Auto) 0.3 Neut % (Auto) 59.7 Lymph % (Auto) 31.0 Chaves % (Auto) 6.9 Eos % (Auto) 1.9 Baso % (Auto) 0.2 Neut # (Auto) 3.54 Lymph # (Auto) 1.84 Chaves # (Auto) 0.41 Eos # (Auto) 0.11 Baso # (Auto) 0.01 Immature Gran # (Auto) 0.02 Sodium 140 Potassium 3.4 L Chloride 103 Carbon Dioxide 31 Anion Gap 6 BUN 18 Creatinine 1.21 H Est Cr Clr Drug Dosing 31.8 eGFR 43.38 BUN/Creatinine Ratio 14.9 Glucose 120 H POC Glucose 95 164 H Calcium 8.0 L Magnesium 1.8 Nasal Screen MRSA (PCR) PG Care Time/CCT Total # of Minutes Spent Total Time Spent with Patient: Total time spent is greater than 50% in coordination of care (as documented) at patient's floor/unit and/or counseling patient: Coding Level of Care Code 27120 SUB INP/OBS CARE 2/35MIN Diagnoses Influenza A J10.1 Acute hypoxemic respiratory failure J96.01 Weakness R53.1 Diabetes mellitus, type 2 E11.9
[2024-04-20] MEDS ORDERED: ALBUT/IPRATROP 3MG/0.5MG NEB 3 ML VIAL NEB PRN (14:07)
[2024-04-20] MEDS: BENZONATATE 100 MG CAPSULE PO SCH (14:48)
[2024-04-20] MEDS: ALBUT/IPRATROP 3MG/0.5MG NEB 3 ML VIAL NEB SCH (15:35)
--- NOTE | 2024-04-20 15:35 | XRay Report ---
XR chest 2V PA/lateral CLINICAL HISTORY: fluA, RLL rales COMPARISON STUDY: Chest radiograph June 15, 2023. FINDINGS: There is no pneumothorax or pleural effusion. There is no consolidation to suggest pneumoni a. Cardiomegaly is unchanged. Pulmonary vascularity is normal. IMPRESSION: No acute cardiopulmonary findings. No significant change in appearance of the chest. ACT 112: Negative or not required by law. Electronically signed by: José Luis Hudson M.D. 04/20/2024 3:33 PM
[2024-04-21 08:11] LABS: BUN Creatinine Ratio 11.5 (10-20); Calcium 8.5 mg/dl (8.6-10.3); Creatinine Clr Calc Pharmacy 31.5 ml/min; Potassium 3.6 mmol/L (3.5-5.1)
[2024-04-21] MEDS: dexAMETHasone 6 MG in SYRINGE 0 ML IV SCH (14:37)
--- NOTE | 2024-04-21 17:45 | Hospitalist Progress Note ---
Date of Service April 21, 2024 Assessment & Plan (1) Influenza A: Plan: stable day #4 of 5 of Tamiflu cont droplet precautions extensive wheezing c/w acute bronchitis from the flu cont scheduled duonebs QID cont saline nebs BID cont flutter valve cont incentive haresh cont mucinex cont tessalon TID scheduled cxr at admission, and repeat cxr yesterday - no complicating bacterial pneumonia seen due to severity of her bronchospasm will add (cautiously) dexamethasone 6mg IV daily remains stable in room air despite the above (2) Acute hypoxemic respiratory failure: Plan: had transient O2 requirement on hospital day #1 - resolved, stable in room air since then 2nd to #1 (3) Weakness: Plan: 2nd to #1 will improve with time & resolution of her flu A infection cont PT/OT (4) Diabetes mellitus, type 2: Plan: a1c 8% cont lantus cont novolog SSI likely to need dose adjustments w/ addition of steroid Plan Mildly low potassium - replaced, resolved mag level wnl Chronic conditions: Hyperlipidemia: cont statin Dementia: cont donepezil Mental health: cont duloxetine GERD: cont famotidine, PPI Neuropathy: cont gabapentin Hypothyroidism: cont Levothyroxine; TSH wnl (0.89) CAD: cont nadolol; cont statin; no evidence of CHF; no evidence of ischemic symptoms DVT prophylaxis: heparin 5000 BID updated pt's daughter by phone this pm, 04/21 as well as 04/20 d/c back to SNF on 04/22 if stable overnight Admission and Anticipated Discharge Date Admission Date: April 18, 2024 Subjective patient was transferred from 2nd floor to 3rd floor about midnight last pm she then didn't fall asleep until 4am she reports feeling very tired continues with cough/congestion no dyspnea no new complaints Review of Systems Review of Systems: gen - fatigue/weakness; but no fevers cv - no chest pain pulm - some sputum GI - no N/V Physical Exam Physical Exam: gen - laying in bed comfortably, NAD, looks good; occasional bronchial cough neck - no JVD mouth - MMM heart - RRR, s1 s2, no murmur lungs - course BS b/l; scattered rhonchi; wheezes b/l; no increased work of breathing; airation improved vs yesterday's exam abd - soft NT ND BS+ ext - no edema, pulses b/l feet 2+ Results & Data Results & Data Vital Signs (Past 12 Hours) Vital Signs Temp Pulse Resp BP Pulse Ox O2 Del Method 04/21/24 15:53 Room Air 04/21/24 14:09 36.4 C L 53 L 16 156/82 H 94 Room Air 04/21/24 11:09 61 16 97 Room Air 04/21/24 07:21 80 18 95 Room Air 04/21/24 07:11 36.4 C L 51 L 17 179/86 H 94 Room Air Laboratory Results Laboratory Results - last 24 hr 04/21/24 04/21/24 04/21/24 07:05 07:29 11:25 Sodium 141 Potassium 3.6 Chloride 102 Carbon Dioxide 31 Anion Gap 8 BUN 14 Creatinine 1.22 H Est Cr Clr Drug Dosing 31.5 eGFR 42.95 BUN/Creatinine Ratio 11.5 Glucose 98 POC Glucose 103 H 118 H Calcium 8.5 L 04/21/24 16:44 Sodium Potassium Chloride Carbon Dioxide Anion Gap BUN Creatinine Est Cr Clr Drug Dosing eGFR BUN/Creatinine Ratio Glucose POC Glucose 131 H Calcium PG Care Time/CCT Total # of Minutes Spent Total Time Spent with Patient: Total time spent is greater than 50% in coordination of care (as documented) at patient's floor/unit and/or counseling patient: Coding Level of Care Code 11183 SUB INP/OBS CARE 2/35MIN Diagnoses Influenza A J10.1 Acute hypoxemic respiratory failure J96.01 Weakness R53.1 Diabetes mellitus, type 2 E11.9
[2024-04-22 07:12] VITALS: TEMP 97.5
[2024-04-22] MEDS: LIDOCAINE 5% 1 PATCH TD STA (10:18)
[2024-04-22 11:06] VITALS: RESP 18; O2SAT 98
[2024-04-22 11:20] VITALS: BP 156/80; PULSE 51
[2024-04-22] MEDS: dexAMETHasone 4 MG TAB PO ONE (11:25)
--- NOTE | 2024-04-22 11:30 | Discharge Summary ---
Discharge Summary Date of Service April 22, 2024 Principal Dx & Hospital Course #1 = Principal Diagnosis (1) Influenza A: stable day #4 of 5 of Tamiflu cont droplet precautions extensive wheezing c/w acute bronchitis from the flu cont scheduled duonebs QID cont saline nebs BID cont flutter valve cont incentive haresh cont mucinex cont tessalon TID scheduled cxr at admission, and repeat cxr yesterday - no complicating bacterial pneumonia seen due to severity of her bronchospasm will add (cautiously) dexamethasone 6mg IV daily remains stable in room air despite the above (2) Acute hypoxemic respiratory failure: had transient O2 requirement on hospital day #1 - resolved, stable in room air since then 2nd to #1 (3) Weakness: 2nd to #1 will improve with time & resolution of her flu A infection cont PT/OT (4) Diabetes mellitus, type 2: a1c 8% cont lantus cont novolog SSI likely to need dose adjustments w/ addition of steroid Plan Mildly low potassium - replaced, resolved mag level wnl Chronic conditions: Hyperlipidemia: cont statin Dementia: cont donepezil Mental health: cont duloxetine GERD: cont famotidine, PPI Neuropathy: cont gabapentin Hypothyroidism: cont Levothyroxine; TSH wnl (0.89) CAD: cont nadolol; cont statin; no evidence of CHF; no evidence of ischemic s ymptoms DVT prophylaxis: heparin 5000 BID updated pt's daughter by phone this pm, 04/21 as well as 04/20 d/c back to SNF on 04/22 if stable overnight Admission HPI Per Admitting Provider This is an 88 year old female with past medical history of right lower extremity hematoma, Type 2 diabetes, CKD stage 3, dyslipidemia, HTN, hypothyroidism, OA, depression, neuropathy who presented to the ED from [facility] on 04/18 for flu like symptoms. The patient was seen and examined at bedside. Family present. Patient reports that for ~ 1 week she has been having flu like symptoms including cough, congestion, fatigue, headaches, and diarrhea. Presently, she feels her most bothersome symptom is her cough and shortness of breath. She was found to be hypoxic on room air when admitted and she was given 2L of oxygen w/ improvement of saturation. She denies any chest pain. She denies any abdominal pain, nausea, or vomiting. 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 While in the ED patient tested positive for Flu A. CBC w/o leukocytosis. BMP w/ creatinine WNL. CXR w/ stable chronic changes, no acute disease. Discharge Exam gen - laying in bed comfortably, NAD, looks good; occasional bronchial cough neck - no JVD mouth - MMM heart - RRR, s1 s2, no murmur lungs - course BS b/l; scattered rhonchi; wheezes b/l; no increased work of breathing; airation improved vs yesterday's exam abd - soft NT ND BS+ ext - no edema, pulses b/l feet 2+ Discharge Plan Discharge Items Patient Disposition: Transfer Shelter Fac Reason For Visit: FLU LIKE SYMPTOMS Discharge Diagnosis: Influenza A infection with acute bronchitis Mildly low platelets likely 2nd to influenza Activity: Resume your previous activity Non-emergency contact: Primary Care Provider Call non-emergency contact if: you have any medication questions, your symptoms worsen and your temperature is above 101 Follow-up/Referrals: Chris Espitia III, MD [Primary Care Provider] - Diet: Carb Consistent or DM2 Addtl Attending Provider Instructions: Ms Marinelli was admitted for Influenza A infection. Has acute bronchitis 2nd to such. Had transient O2 requirement hospital day #1 - none since that time. Chest x-ray x 2 -- both free of pneumonia. Treated with dexamethasone, nebs, saline nebs, and Tamiflu. pulmonary symptoms improved with such. Recommendations - 1. BSGs ac/hs 2. PT and OT - evaluate and treat 3. Repeat CBC in 1 week to make sure thrombocytopenia resolved (mildly low platelets likely due to fluA infection itself) 4. Droplet precautions per SNF protocol It was our pleasure to care for Ms Marinelli! -Dr Mendiola Pending Studies at Discharge: No Stand-Alone Forms: My [facility] Skilled Items Patient informed of condition?: Yes DNR: Yes Discharge Level of Care: Skilled Communicable Disease: Yes Discharge Prognosis: Stable Lines: None Urinary Catheter: No Medications and DC Order Prescriptions: New acetaminophen 325 mg Tablet 650 mg PO Q4H PRNQty: 0 0RF guaifenesin [Mucinex] 600 mg Tablet Extended Release 12hr 600 mg PO Q12 Qty: 0 0RF oseltamivir [Tamiflu] 6 mg/mL Suspension For Reconstitution 30 mg PO BID 2 Days Qty: 20 0RF Rx Instructions: first dose PM of 04/22/24 ipratropium-albuterol 0.5 mg-3 mg(2.5 mg base)/3 mL Solution For Nebulization 3 ml NEB QID 7 Days Qty: 90 0RF Rx Instructions: use for 7 days then stop sodium chloride 7 % Solution For Nebulization 4 ml NEB BID 7 Days Qty: 120 0RF Rx Instructions: use for 7 days then stop dexamethasone 4 mg tablet 4 mg PO DAILY 5 Days Qty: 5 0RF Rx Instructions: start 04/23/24, take with food lidocaine [Lidoderm] 5 % adhesive patch,medicated 2 patch topical DAILY PRN (Reason: neck or back pain) Qty: 30 0RF Rx Instructions: leave on most painful area for up to 12 hrs Continued docusate sodium [Stool Softener] 100 mg capsule 100 mg PO BID Qty: 60 2RF levothyroxine 50 mcg tablet 50 mcg PO DAILYBB Qty: 90 1RF Rx Instructions: TAKE 1 TABLET BY MOUTH EVERY DAY famotidine [Pepcid] 40 mg tablet 40 mg PO DAILY Qty: 90 2RF atorvastatin 40 mg tablet 40 mg PO HS Qty: 90 3RF Hold Instructions: leg pain donepezil [Aricept] 10 mg tablet 10 mg PO DAILY 30 Days Qty: 30 2RF aspirin [Adult Low Dose Aspirin] 81 mg tablet,delayed release (DR/EC) 81 mg PO DAILY loperamide 2 mg Tablet 2 mg PO Q4H PRN (Reason: Diarrhea) bismuth subsalicylate [Pepto-Bismol] 262 mg/15 mL Suspension 524 mg PO Q6H PRN (Reason: HEARTBURN/DIARRHEA) nitroglycerin 0.4 mg tablet, sublingual 0.4 mg sublingual DIRECTED PRN (Reason: Chest Pain) Rx Instructions: 1 TAB UNDER THE TONGUE EVERY 5 MIN FOR UP TO 3 DOSE NEEDED FOR CHEST PAIN. CALL 911 PAIN PERSISTS Not for independent use. Needs supervision. pantoprazole 40 mg Tablet,Delayed Release (Dr/Ec) 40 mg PO BID polyethylene glycol 3350 [Miralax] 17 gram/dose Powder 17 g PO DAILY Systane (propylene glycol) 0.4-0.3 % Drops 2 drp OPB TID Rx Instructions: 0630, 1430, 2230 duloxetine 20 mg Capsule,Delayed Release(Dr/Ec) 20 mg PO BIDM calcium carbonate-vitamin D3 [Calcium 500 + D] 500 mg-5 mcg (200 unit) Tablet 1 tab PO DAILY methyl salicylate-menthol 15-10 % Cream 1 applic TOPICAL TID Rx Instructions: APPLY TO LOWER BACK sennosides [Senokot] 8.6 mg Tablet 17.2 mg PO DAILY Qty: 60 0RF melatonin 3 mg Tablet 3 mg PO HS Qty: 30 0RF insulin glargine [Lantus U-100 Insulin] 100 unit/mL Solution 15 unit SC DAILY Qty: 10 0RF insulin aspart U-100 [Novolog U-100 Insulin aspart] 100 unit/mL Solution See Rx Instructions .ROUTE .COMPLEX Qty: 10 0RF Rx Instructions: sliding scale instructions, before meals and at bedtime 350-400 = 8 UNITS 401-450 = 12 UNITS 451-500 = 16 UNITS 501-550 = 18 UNITS CHECK AGAIN IN TWO HOURS 551+ = 20 UNITS RECHECK IN 1 HOUR. potassium chloride 10 mEq tablet extended release 10 meq PO DIRECTED Qty: 30 0RF Rx Instructions: TAKE only on Mondays, Wednesdays, and Fridays. nadolol 40 mg tablet 20 mg PO QAM Qty: 30 3RF diclofenac sodium 1 % Gel 2 g TOPICAL QID Qty: 100 0RF Rx Instructions: APPLY LEFT KNEE, RIGHT SHOULDER, POSTERIOR NECK, OR LOW BACK. benzonatate 200 mg Capsule 200 mg PO TID thiamine HCl (vitamin B1) 100 mg Tablet 100 mg PO DAILY dextromethorphan-guaifenesin 10-100 mg/5 mL Syrup 10 ml PO Q6H PRN (Reason: Cough) triamcinolone acetonide 0.1 % cream 1 applic TOPICAL TID PRN (Reason: Rash) hydrocortisone 2.5 % cream with perineal applicator 1 applic topical BID PRN (Reason: Hemorrhoids) magnesium hydroxide [Milk of Magnesia] 400 mg/5 mL Suspension 30 ml PO DAILY PRN (Reason: Constipation) bisacodyl [Dulcolax (bisacodyl)] 10 mg Suppository 10 mg IN DAILY PRN (Reason: Constipation) ipratropium bromide 0.02 % solution 3 ml inhalation Q2H PRN (Reason: sob) carboxymethylcellulose sodium 1 % Drops, Liquid Gel 1 drp OPHTHALMIC (EYE) BID hydrocodone-acetaminophen 5-325 mg tablet 1 tab PO BID Qty: 30 0RF hydrocodone-acetaminophen 5-325 mg Tablet 1 tab PO Q6H PRN (Reason: pain) Qty: 30 0RF gabapentin 300 mg capsule 300 mg PO HS Qty: 90 3RF Held furosemide [Lasix] 40 mg Tablet 20 mg PO DIRECTED Qty: 30 0RF Hold Instructions: Resume on 04/26/24. resume once influenza symptom improve and normal oral intake Rx Instructions: TAKE on Friday AM, Friday AM, and Friday AM only. Discharge Orders: Discharge Order (Routine); Ordered 04/22/24 Ordered By: Naif Nuñez/Other Patient Handouts: Managing Type 2 Diabetes Admission Data Admit Date/Time: 04/18/24 16:56 Attending Provider: Naif Mendiola Admit Provider: Naif White Primary Care Provider: Chris Espitia III Other Providers: Naif White; [place] Other Interventions: Discharge Summary Assessment (RN) Last Done: 04/19/24 11:24 Hospital Stay Data Consultations 04/18/24 16:36 ED Decision to Admit Stat Pending Results Patient Have Any Pending Studies at Discharge: No Discharge Instructions Given to Patient (Per Discharging Provider) Ms Marinelli was admitted for Influenza A infection. Has acute bronchitis 2nd to such. Had transient O2 requirement hospital day #1 - none since that time. Chest x-ray x 2 -- both free of pneumonia. Treated with dexamethasone, nebs, saline nebs, and Tamiflu. pulmonary symptoms improved with such. Recommendations - 1. BSGs ac/hs 2. PT and OT - evaluate and treat 3. Repeat CBC in 1 week to make sure thrombocytopenia resolved (mildly low platelets likely due to fluA infection itself) 4. Droplet precautions per SNF protocol It was our pleasure to care for Ms Marinelli! -Dr Mendiola Coding Diagnoses Influenza A J10.1 Acute hypoxemic respiratory failure J96.01 Weakness R53.1 Diabetes mellitus, type 2 E11.9
== END 2024-04-22 11:35 | DRG 193 ==
LOC: ED 13:41 → SUATTDRO 16:56 → EDINP 16:56 → 2W 19:21 → 3N 04-21 00:41

== ENCOUNTER 2024-07-25 08:49 | Inpatient (IN) ==
--- NOTE | 2024-07-25 08:59 | Emergency Department Note ---
Impression & Plan Chest pain ED Provider Note HISTORY OF PRESENT ILLNESS: Patient is an 88-year-old female presenting with chest pain and shortness of breath. Patient reportedly went to bed last night around 10 PM and woke up at around midnight with substernal crushing chest pain. Reports the pain continued throughout the night and her facility called 911 this morning. Patient rates her pain an 8 out of 10. She describes it as a pressure sensation diffusely across her chest. Denies any DVT or PE history. Denies any history of cardiac stents. She is on a baby aspirin daily. Reports associated shortness of breath with the chest pain. She does report she has been short of breath with some exertion over the last few days. She has chronic lower extremity edema. Patient was given 324 mg of aspirin and 1 nitro prehospital with EMS. ROS: as above PHYSICAL EXAM: Constitutional: Patient appears in no acute distress. HENT: Head: Normocephalic and atraumatic. Eyes: EOMI, PERRL Mouth/Throat: Mucous membranes moist. Neck: Trachea midline. Neck supple. Cardiovascular: RRR, No murmurs, rubs or gallops. Intact distal pulses. Pulmonary/Chest: No respiratory distress. Breath sounds clear and equal bilaterally. No wheezes or rales. Abdominal: Abdomen soft, no tenderness, rebound or guarding. Musculoskeletal: No tenderness or deformity noted. +2 pitting edema of bilateral lower extremities Skin: Warm and dry. No rash, erythema, pallor or cyanosis Psychiatric: Appropriate mood and affect for situation. Neurological: Alert and keenly responsive. CN II-XII grossly intact, moving all extremities equally and fully. MDM: - Vitals signs showed hypertension - History obtained via patient. History as above. - Chronic conditions affecting care: HTN; HLD; CAD; hypothyroidism; CKD - Differential diagnoses include, but are not limited to: Acute coronary syndrome; pulmonary embolism; dissection; tension pneumothorax; esophageal rupture; pneumonia - Order placed for continuous cardiac monitoring. At this time, monitor showed rate of 61 bpm with normal sinus rhythm, per my interpretation. - External medical records reviewed. Cardiology visit note dated 04/06/2024 was reviewed. Patient follows in the clinic for her longstanding history of CAD. - EKG image interpreted by myself showed normal sinus rhythm. Rate 60 bpm. QT 458. No acute ischemic changes. - Laboratory workup interpreted by myself showed normal WBC; normal PT/INR; stable electrolytes; CKD; normal troponin; normal BNP; normal lipase - CXR image reviewed by myself negative for pneumonia, per my interpretation. - Patient given 25 mcg IV fentanyl for pain control - On reassessment, patient reports she still having chest pain but it has improved slightly. Repeat troponin within normal limits. - Patient has had 2 normal troponins after having hours of chest pain. ACS deemed less likely, but patient has not had a formal CAD workup in a while. Given that she is having continued pain, will admit to hospitalist service. - Discussion was had with case checker about patient's case and need for admission - Hospitalist consulted for admission - Patient admitted to [facility] hospitalist service for further evaluation and management. ASSESSMENT AND PLAN: Diagnosis: Chest pain Plan: Admit Past Med/Surg History Problem List (Updated 07/25/24 @ 13:01 by Denise Churchill MD) Chest pain (Acute) Cervical myofascial pain syndrome Thrombocytopenia Influenza A (Acute) Left knee DJD Left cervical radiculopathy Bursitis of right shoulder Bursitis of left shoulder Thiamine deficiency Chronic fatigue Chronic headaches Acute metabolic encephalopathy SHERLY (acute kidney injury) Ambulatory dysfunction (Acute) Generalized weakness (Acute) Hematoma of right lower extremity (Acute) Hematoma of right lower leg UTI (urinary tract infection) Right leg pain Right rotator cuff tear arthropathy Left hip pain Bilateral knee pain Frequent falls History of colon cancer 2011 -- COLON RESECTION. NO CHEMO/RADIATION Diabetes mellitus, type 2 Chronic kidney disease, stage IV (severe) Hypothyroidism COVID CAD (coronary artery disease) (Chronic) Abdominal pain (03/24/13) Cellulitis (Acute) CKD (chronic kidney disease), stage III (Chronic) Diabetes type 2, controlled (Chronic) Hypertension (Chronic) Dyslipidemia (Chronic) Hypothyroidism (Chronic) Vitamin D deficiency (Acute) Urge incontinence of urine (Acute) Spinal stenosis (Acute) Rectocele (Acute) Proteinuria (Acute) Palpitations (Acute) Osteoarthritis (Acute) Orthostatic hypotension (Acute) History of syncope (Acute) History of malignant neoplasm of colon (Acute) Eczematous dermatitis (Acute) Depression (Acute) Cystocele, midline (Acute) Vitamin B12 deficiency Antiplatelet or antithrombotic long-term use Osteoarthritis of patellofemoral joints, bilateral Screening for colon cancer Postural lightheadedness Edema (Acute) Fatigue Gait abnormality (Acute) Hypokalemia Diabetic neuropathy Lab test negative for COVID-19 virus (Acute) Osteopenia Cognitive impairment COVID-19 (Acute) Weakness (Acute) Acute hypokalemia (Acute) Medical History DVT prophylaxis Closed head injury Chronic throat clearing Small bowel obstruction due to adhesions Diverticular disease Osteoarthritis Chronic back pain Depression Anxiety Syncope HAS HAD CARDIAC WORK UP, EEG, AND MRI OF BRAIN WITH NO ABNORMALITIES Pneumonia hx of 2015 Stable angina LAST USED NITRO ~AUGUST 2017 Hyperlipidemia Hypertension SBO (small bowel obstruction) Diverticulitis Surgical History History of esophagogastroduodenoscopy (EGD) History of dilatation and curettage History of bilateral tubal ligation History of cataract surgery BILATERAL History of discectomy LUMBAR REGION History of hysterectomy JESUS WITH BSO H/O umbilical hernia repair History of bowel resection 2011 History of colonoscopy History of cardiac cath NO STENTS. (2007) Family History Mother Heart disease Breast cancer Cancer Myocardial infarction Sister Colorectal cancer Lung disease Cancer Father Hearing loss Heart disease Other Hypertension No family history of adverse response to anesthesia Denies family history of Ovarian cancer Prostate cancer Coronary heart disease Social History Smoking Status: Never smoker Second Hand Exposure: No; Do You Dip or Chew Tobacco: No; Hx Alcohol Use: No Hx Substance Use: No Preferred Language: Ukrainian Communication Ability: Effective Hearing Ability: Normal Zig Zag Stitcher Required: No Beliefs That Will Affect Care: None marital status: / Current Living Situation: Long-Term Current Living Situation Comment: [facility]. current occupational status: retired Feels Safe at Home: Yes Childhood Exposure to Second-Hand Smoke: No Diet: regular caffeine: Yes during the past year weight has: remained stable Dental Care, Regularly: Yes Physical Activity Frequency: 1-2 Times per Week Seatbelt Use: always Sunscreen Use: Yes Assistive Devices: Walker and Wheelchair Allergies Allergies Allergy/AdvReac Type Severity Reaction Status Date / Time verapamil Allergy Severe RASH Verified 07/25/24 11:54 latex Allergy Intermediate ITCHING Verified 07/25/24 11:54 oxybutynin Allergy Intermediate ITCHING Verified 07/25/24 11:54 adhesive Allergy Mild redness Verified 07/25/24 11:54 meperidine AdvReac Severe HYPOTENSION Verified 07/25/24 11:54 sodium phosphate AdvReac Severe DECREASED Verified 07/25/24 11:54 [From OsmoPrep] KIDNEY FUNCTION atenolol AdvReac Intermediate tachycardia; Verified 07/25/24 11:54 nervousness diazepam AdvReac Intermediate crying; Verified 07/25/24 11:54 depression fluoxetine AdvReac Intermediate crying; Verified 07/25/24 11:54 depression ibuprofen AdvReac Intermediate low kidney Verified 07/25/24 11:54 function Iodinated Contrast Media AdvReac Intermediate IVP DYE - Verified 07/25/24 11:54 low kidney function lidocaine AdvReac Intermediate Altered Verified 07/25/24 11:54 Mental Status with ointment ONLY naproxen AdvReac Intermediate Low kidney Verified 07/25/24 11:54 function sertraline AdvReac Intermediate crying; Verified 07/25/24 11:54 depression tramadol AdvReac Intermediate dizziness Verified 07/25/24 11:54 venlafaxine AdvReac Intermediate Nervous Verified 07/25/24 11:54 Home Meds Home Medications Medication Instructions Recorded Confirmed bismuth subsalicylate 262 mg/15 mL 524 mg PO Q6H PRN 03/14/22 07/25/24 oral suspension (Pepto-Bismol) HEARTBURN/DIARRHEA loperamide 2 mg tablet 2 mg PO Q4H PRN Diarrhea 03/14/22 07/25/24 nitroglycerin 0.4 mg sublingual 0.4 mg sublingual DIRECTED PRN 04/08/22 07/25/24 tablet Chest Pain calcium 500 mg (as 1 tab PO QAM 06/15/23 07/25/24 carbonate)-vitamin D3 5 mcg (200 unit) tablet (Calcium 500 + D) duloxetine 20 mg capsule,delayed 20 mg PO BIDM 06/15/23 07/25/24 release pantoprazole 40 mg tablet,delayed 40 mg PO BID 06/15/23 07/25/24 release peg 400-propylene glycol 0.4 %-0.3 2 drp OPB TID 06/15/23 07/25/24 % eye drops (Systane (propylene glycol)) polyethylene glycol 3350 17 17 g PO QAM 06/15/23 07/25/24 gram/dose oral powder (Miralax) aspirin 81 mg tablet,delayed 81 mg PO QAM 04/06/24 07/25/24 release (Adult Low Dose Aspirin) bisacodyl 10 mg rectal suppository 10 mg IN DAILY PRN Constipation 04/18/24 07/25/24 (Dulcolax (bisacodyl)) magnesium hydroxide 400 mg/5 mL 2,400 mg PO DAILY PRN Constipation 04/18/24 07/25/24 oral suspension (Milk of Magnesia) thiamine HCl (vitamin B1) 100 mg 100 mg PO QAM 04/18/24 07/25/24 tablet camphor 4 %-methyl salicylate 30 1 applic topical TID 07/25/24 07/25/24 %-menthol 10 % topical cream (Bengay Ultra Strength) carboxymethylcellulose sodium 1 % 2 drp ophthalmic (eye) BID 07/25/24 07/25/24 eye liquid gel drops (Refresh Liquigel) diclofenac sodium 1 % topical gel 2 - 4 g topical QID 07/25/24 07/25/24 donepezil 10 mg tablet (Aricept) 10 mg PO QAM 07/25/24 07/25/24 famotidine 40 mg tablet (Pepcid) 40 mg PO QAM 07/25/24 07/25/24 furosemide 40 mg tablet (Lasix) 20 mg PO 3XWK 07/25/24 07/25/24 gabapentin 100 mg capsule 100 mg PO BID 07/25/24 07/25/24 insulin glargine 100 unit/mL 15 unit subcut QAM 07/25/24 07/25/24 subcutaneous solution (Lantus U-100 Insulin) lidocaine 5 % topical patch 2 patch topical DAILY neck/back 07/25/24 07/25/24 (Lidoderm) pain loratadine 10 mg tablet 10 mg PO QAM 07/25/24 07/25/24 nadolol 20 mg tablet 20 mg PO QAM 07/25/24 07/25/24 potassium chloride 10 mEq 10 meq PO 3XWK 07/25/24 07/25/24 tablet,extended release sennosides 8.6 mg tablet (Senokot) 17.2 mg PO QPM 07/25/24 07/25/24 sodium phosphates 19 gram-7 118 ml IN DAILY PRN Constipation 07/25/24 07/25/24 gram/118 mL enema (Fleet Enema) tobramycin 0.3 % eye drops 2 drp OPR QID 07/25/24 07/25/24 Previous Rx's Medication Instructions Recorded docusate sodium 100 mg capsule 100 mg PO BID #60 caps 06/01/19 (Stool Softener) levothyroxine 50 mcg tablet 50 mcg PO DAILYBB #90 tabs 11/15/21 atorvastatin 40 mg tablet 40 mg PO HS #90 tabs 01/28/22 insulin aspart U-100 100 unit/mL See Rx Instructions .Route 06/23/23 subcutaneous solution (Novolog .COMPLEX #10 mL U-100 Insulin aspart) melatonin 3 mg tablet 3 mg PO HS #30 tabs 06/23/23 gabapentin 300 mg capsule 300 mg PO HS Pain #90 caps 04/22/24 hydrocodone 5 mg-acetaminophen 325 1 tab PO BID PAIN MANAGEMENT #30 25 mg tablet tabs hydrocodone 5 mg-acetaminophen 325 1 tab PO Q6H PRN pain #30 tabs 25 mg tablet Results & Data (ED) Vital Signs Vital Signs - 24 hr 07/25/24 09:07 07/25/24 09:17 07/25/24 09:17 Temperature 36.5 C Temperature Source Oral Pulse Rate 60 60 Pulse Rate [Apical] Pulse Rhythm Regular Regular Pulse Rhythm [Apical] Pulse Strength Normal Pulse Strength [Apical] Respiratory Rate 14 14 Respiratory Effort / Characteristics Non-Labored Spontaneous Respiratory Depth Normal Respiratory Pattern Regular Blood Pressure 145/74 H Blood Pressure [Right Arm] Blood Pressure Mean 97 Blood Pressure Mean [Right Arm] Blood Pressure Position Sitting Blood Pressure Position [Right Arm] Pulse Oximetry 98 98 98 Oxygen Delivery Method Room Air Room Air Room Air Sepsis Recent Fever Within 48 Hours No Sepsis New/Unexplained Change in Mental Status No Sepsis Action Taken by Nursing No Action Required 07/25/24 09:17 07/25/24 09:37 07/25/24 11:07 Temperature 36.5 C Temperature Source Oral Pulse Rate 61 Pulse Rate [Apical] 60 61 Pulse Rhythm Pulse Rhythm [Apical] Regular Regular Pulse Strength Pulse Strength [Apical] Normal Normal Respiratory Rate 14 20 Respiratory Effort / Characteristics Non-Labored Spontaneous Respiratory Depth Normal Respiratory Pattern Regular Blood Pressure Blood Pressure [Right Arm] 145/74 H 165/83 H Blood Pressure Mean Blood Pressure Mean [Right Arm] 97 110 Blood Pressure Position Blood Pressure Position [Right Arm] Sitting Sitting Pulse Oximetry 98 100 Oxygen Delivery Method Room Air Room Air Sepsis Recent Fever Within 48 Hours Sepsis New/Unexplained Change in Mental Status Sepsis Action Taken by Nursing Laboratory Data 07/25/24 09:04 07/25/24 09:04 Lab Results 07/25/24 07/25/24 Range/Units 09:04 11:34 WBC 6.40 (4.8-10.8) K/ul RBC 3.50 L (4.20-5.40) M/uL Hgb 10.7 L (12.0-16.0) g/dl Hct 33.3 L (37.0-47.0) % MCV 95.1 (80.0-100.0) fL MCH 30.6 (25.0-34.0) pg MCHC 32.1 (32.0-36.0) g/dL RDW Std Deviation 49.9 H (36.4-46.3) fL RDW Coeff of Shaji 14.3 (11.5-14.5) % Plt Count 187 (130-400) K/uL MPV 9.2 L (9.4-12.4) fL Immature Gran % (Auto) 0.2 % Neut % (Auto) 39.7 % Lymph % (Auto) 45.0 % [place] % (Auto) 9.7 % Eos % (Auto) 4.5 % Baso % (Auto) 0.9 % Neut # (Auto) 2.54 (1.40-6.50) K/uL Lymph # (Auto) 2.88 (1.20-3.40) K/uL [place] # (Auto) 0.62 H (0.11-0.59) K/uL Eos # (Auto) 0.29 (0.00-0.50) K/uL Baso # (Auto) 0.06 (0.00-0.20) K/uL Immature Gran # (Auto) 0.01 (0.01-0.20) K/uL PT 10.7 (9.0-12.0) Seconds INR 1.0 (0.9-1.1) Sodium 141 (136-145) mmol/L Potassium 4.2 (3.5-5.1) mmol/L Chloride 104 (98-107) mmol/L Carbon Dioxide 30 (21-32) mmol/L Anion Gap 7 (3-11) BUN 19 (6-23) mg/dl Creatinine 1.47 H (0.6-1.2) mg/dl Est Cr Clr Drug Dosing 27.4 ml/min eGFR 34.34 BUN/Creatinine Ratio 12.9 (10-20) Glucose 189 H (70-99(Fasting)) mg/dl Calcium 9.0 (8.6-10.3) mg/dl Total Bilirubin 0.5 (0.2-1.0) mg/dl AST 12 L (13-39) U/L ALT 9 (7-52) U/L Alkaline Phosphatase 76 (34-104) U/L Troponin I High Sens 4.2 4.2 (0-14) pg/ml B-Natriuretic Peptide 94 (0-100) pg/ml Total Protein 5.8 L (6.0-8.3) gm/dl Albumin 3.5 (3.4-5.0) gm/dl Globulin 2.3 L (2.5-4.0) gm/dl Albumin/Globulin Ratio 1.5 (0.9-2) Lipase 12 (11-82) U/L Administered Medications Discontinued Medications Fentanyl Citrate (Fentanyl Citrate Pf 100 Mcg/2 Ml Vial) 25 mcg IV NOW STA Stop: 07/25/24 09:31 Last Admin: 07/25/24 09:37 Dose: 25 mcg Documented By: RENEE Morphine Sulfate (Morphine Sulfate 4 Mg/Ml 1 Ml Carp\Vial) 4 mg IV NOW STA Stop: 07/25/24 08:57 Last Admin: 07/25/24 09:47 Dose: Not Given Documented By: MPD Imaging Data Radiologist's Impression: Chest X-Ray 07/25/24 08:56 XR chest 1V portable HISTORY: 88 years-old Female Chest pain, nonspecific COMPARISON: 04/20/2024 TECHNIQUE: AP view of the chest FINDINGS: Cardiac silhouette is enlarged. Atherosclerosis of the aorta. Eventration of the right hemidiaphragm. Mild chronic interstitial coarsening. No pneumothorax, pleural effusion or overt pulmonary edema. Mild linear left basilar atelectasis versus scarring. IMPRESSION: Cardiomegaly without acute process. ACT 112: Negative or not required by law. The above report was generated using voice recognition software. It may contain grammatical, syntax or spelling errors. Electronically signed by: Frakn Andrade M.D. 07/25/2024 9:40 AM Discharge Plan Visit Data Chief Complaint: Chest Pain Stated Complaint: CHEST PAIN, SOB ED Provider: Denise Churchill Discharge Problem: Chest pain Condition: Fair Forms Stand Alone Forms: [facility] Prescriptions Prescriptions: No Action docusate sodium [Stool Softener] 100 mg capsule 100 mg PO BID Qty: 60 2RF levothyroxine 50 mcg tablet 50 mcg PO DAILYBB Qty: 90 1RF Rx Instructions: TAKE 1 TABLET BY MOUTH EVERY DAY atorvastatin 40 mg tablet 40 mg PO HS Qty: 90 3RF Hold Instructions: leg pain aspirin [Adult Low Dose Aspirin] 81 mg tablet,delayed release (DR/EC) 81 mg PO QAM loperamide 2 mg Tablet 2 mg PO Q4H PRN (Reason: Diarrhea) bismuth subsalicylate [Pepto-Bismol] 262 mg/15 mL Suspension 524 mg PO Q6H PRN (Reason: HEARTBURN/DIARRHEA) nitroglycerin 0.4 mg tablet, sublingual 0.4 mg sublingual DIRECTED PRN (Reason: Chest Pain) Rx Instructions: 1 TAB UNDER THE TONGUE EVERY 5 MIN FOR UP TO 3 DOSE NEEDED FOR CHEST PAIN. CALL 911 PAIN PERSISTS Not for independent use. Needs supervision. nadolol 20 mg Tablet 20 mg PO QAM tobramycin 0.3 % Drops 2 drp OPR QID Rx Instructions: Start Date 07/14/24 x2 weeks Fleet Enema 19-7 gram/118 mL Enema 118 ml IN DAILY PRN (Reason: Constipation) Rx Instructions: Insert 1 unit rectally as needed for constipation if no BM after dulcolax administer fleets on 7-3 shift, day four gabapentin 100 mg capsule 100 mg PO BID loratadine 10 mg Tablet 10 mg PO QAM carboxymethylcellulose sodium [Refresh Liquigel] 1 % Drops, Liquid Gel 2 drp OPHTHALMIC (EYE) BID Bengay Ultra Strength 4-30-10 % Cream 1 applic TOPICAL TID furosemide [Lasix] 40 mg tablet 20 mg PO 3XWK Rx Instructions: TAKE on Friday AM, Friday AM, and Friday AM only. sennosides [Senokot] 8.6 mg tablet 17.2 mg PO QPM insulin glargine [Lantus U-100 Insulin] 100 unit/mL solution 15 unit subcut QAM donepezil [Aricept] 10 mg tablet 10 mg PO QAM famotidine [Pepcid] 40 mg tablet 40 mg PO QAM potassium chloride 10 mEq tablet extended release 10 meq PO 3XWK Rx Instructions: TAKE only on Mondays, Wednesdays, and Fridays in thr mornings lidocaine [Lidoderm] 5 % adhesive patch,medicated 2 patch topical DAILY Rx Instructions: Apply 1 patch to neck and 1 patch to back each morning and remove each evening. leave on most painful area for up to 12 hrs diclofenac sodium 1 % gel 2 - 4 g TOPICAL QID Rx Instructions: Apply 4 grams to knee and 2 grams to shoulder/post neck pantoprazole 40 mg Tablet,Delayed Release (Dr/Ec) 40 mg PO BID polyethylene glycol 3350 [Miralax] 17 gram/dose Powder 17 g PO QAM Rx Instructions: Mix w/ 8 ounces of fluid of choice Systane (propylene glycol) 0.4-0.3 % Drops 2 drp OPB TID Rx Instructions: 0630, 1430, 2230 duloxetine 20 mg Capsule,Delayed Release(Dr/Ec) 20 mg PO BIDM calcium carbonate-vitamin D3 [Calcium 500 + D] 500 mg-5 mcg (200 unit) Tablet 1 tab PO QAM melatonin 3 mg Tablet 3 mg PO HS Qty: 30 0RF insulin aspart U-100 [Novolog U-100 Insulin aspart] 100 unit/mL Solution See Rx Instructions .ROUTE .COMPLEX Qty: 10 0RF Rx Instructions: sliding scale instructions, before meals and at bedtime 350-400 = 8 UNITS 401-450 = 12 UNITS 451-500 = 16 UNITS 501-550 = 18 UNITS CHECK AGAIN IN TWO HOURS 551+ = 20 UNITS RECHECK IN 1 HOUR. thiamine HCl (vitamin B1) 100 mg Tablet 100 mg PO QAM magnesium hydroxide [Milk of Magnesia] 400 mg/5 mL Suspension 2,400 mg PO DAILY PRN (Reason: Constipation) Rx Instructions: Administer after 3 days of no BM on 7-3 shift bisacodyl [Dulcolax (bisacodyl)] 10 mg Suppository 10 mg IN DAILY PRN (Reason: Constipation) Rx Instructions: Insert 1 unit rectally as needed for constipation, give suppository on day 3; 3-11 shift if no BM after MOM hydrocodone-acetaminophen 5-325 mg tablet 1 tab PO BID Qty: 30 0RF hydrocodone-acetaminophen 5-325 mg Tablet 1 tab PO Q6H PRN (Reason: pain) Qty: 30 0RF gabapentin 300 mg capsule 300 mg PO HS Qty: 90 3RF Referrals Referrals: Chris Espitia III, MD [Primary Care Provider] -
[2024-07-25 09:22] LABS: Basophils # (auto) 0.06 K/uL (0.00-0.20); Basophils % (auto) 0.9 %; Eosinophils # (auto) 0.29 K/uL (0.00-0.50); Eosinophils % (auto) 4.5 %; Hematocrit (blood only) 33.3 % (37.0-47.0); Hemoglobin 10.7 g/dl (12.0-16.0); Immature Granulocytes # (auto) 0.01 K/uL (0.01-0.20); Immature Granulocytes % (auto) 0.2 %; Lymphocytes # (auto) 2.88 K/uL (1.20-3.40); Mean Corpuscular Hemoglobin 30.6 pg (25.0-34.0); Mean Corpuscular Hgb Conc 32.1 g/dL (32.0-36.0); Mean Corpuscular Volume 95.1 fL (80.0-100.0); Mean Platelet Volume 9.2 fL (9.4-12.4); Monocytes # (auto) 0.62 K/uL (0.11-0.59); Monocytes % (auto) 9.7 %; Neutrophils # (auto) 2.54 K/uL (1.40-6.50); Neutrophils % (auto) 39.7 %; Platelet Count 187 K/uL (130-400); RDW Coefficient of Variation 14.3 % (11.5-14.5); RDW Standard Deviation 49.9 fL (36.4-46.3)
[2024-07-25 09:32] LABS: Prothrombin Time 10.7 Seconds (9.0-12.0)
[2024-07-25] MEDS: fentaNYL citrate PF 100 MCG/2 ML VIAL IV STA (09:37)
--- NOTE | 2024-07-25 09:42 | XRay Report ---
XR chest 1V portable HISTORY: 88 years-old Female Chest pain, nonspecific COMPARISON: 04/20/2024 TECHNIQUE: AP view of the chest FINDINGS: Cardiac silhouette is enlarged. Atherosclerosis of the aorta. Eventration of the right hemidiaphragm. Mild chronic interstitial coarsening. No pneumothorax, pleural effusion or overt pulmonary edema. Mi ld linear left basilar atelectasis versus scarring. IMPRESSION: Cardiomegaly without acute process. ACT 112: Negative or not required by law. The above report was generated using voice recognition software. It may contain grammatical, syntax o r spelling errors. Electronically signed by: Frank Andrade M.D. 07/25/2024 9:40 AM
[2024-07-25] MEDS: MoRPHine SULFATE 4 MG/ML 1 ML CARP\\VIAL IV STA (09:47)
[2024-07-25 10:01] LABS: Albumin Globulin Ratio 1.5 (0.9-2); Albumin Level 3.5 gm/dl (3.4-5.0); BUN Creatinine Ratio 12.9 (10-20); Bilirubin,Total 0.5 mg/dl (0.2-1.0); Creatinine Clr Calc Pharmacy 27.4 ml/min; Globulin 2.3 gm/dl (2.5-4.0); Potassium 4.2 mmol/L (3.5-5.1); Total Protein 5.8 gm/dl (6.0-8.3)
[2024-07-25 10:07] LABS: Troponin I High Sensitivity 4.2 pg/ml (0-14)
[2024-07-25] MEDS ORDERED: POLYETHYLENE (MIRALAX) 17 GM PACK PO PRN (14:06)
[2024-07-25] MEDS ORDERED: ONDANSETRON INJ 2 MG/ML 2 ML VIAL IV PRN (14:06)
--- NOTE | 2024-07-25 14:13 | History & Physical Report ---
Date of Service July 25, 2024 Assessment & Plan (1) Chest pain: Plan: Pt is a 88 yo female with PMH of CAD, depression, anxiety, and HTN presenting d/t chest pain. Chest pain - pt with chest pain that awoke her from sleep; no associated symptoms - EKG w/o ischemia; trop neg x2- low suspicion for ACS - pt has had multiple cardiac caths in the past with most recent in 2007 - last stress test performed in 2016 which was normal - last echo 2020; repeat ordered - consider repeat stress echo but this can most likely occur as an outpatient - will monitor for further symptoms overnight DM - last A1c 8% - will cover with 15u glargine and SSI PRN HLD - continue statin GERD - continue PPI, famotidine Hypothyroidism - continue levothyroxine VTE ppx: heparin to start tomorrow night Diet: carb consistent/heart healthy Code: DNR/DNI (2) Diabetes mellitus, type 2: History of Present Illness Chief Complaint: chest pain Primary Care Provider: Chris Espitia III, MD Pt is a 88 yo female with PMH of CAD, depression, anxiety, and HTN presenting d/t chest pain. Pt notes she had chest pain that awoke her from sleep last night ~midnight. She struggled to sleep the rest of the night d/t this chest pain. She called her a nurse to come help her but per her report they never came. This morning 911 was called to bring her in for evaluation. At the time of our discussion, pt notes continued chest pain but much better than it was overnight. She describes the pain as "painful" and across her chest and radiating into her left and right shoulder (although she does have chronic right shoulder pain). She notes she has an extensive cardiac history and follows with Dr. Aaron. She notes she has never had a heart attack. She denies N/V, sweating, and lightheadedness during her chest pain episode. Pt also notes a headache during our conversation. 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 In the ER, she was given fentanyl 25mcg. Allergies Allergy/AdvReac Type Severity Reaction Status Date / Time verapamil Allergy Severe RASH Verified 07/25/24 11:54 latex Allergy Intermediate ITCHING Verified 07/25/24 11:54 oxybutynin Allergy Intermediate ITCHING Verified 07/25/24 11:54 adhesive Allergy Mild redness Verified 07/25/24 11:54 meperidine AdvReac Severe HYPOTENSION Verified 07/25/24 11:54 sodium phosphate AdvReac Severe DECREASED Verified 07/25/24 11:54 [From OsmoPrep] KIDNEY FUNCTION atenolol AdvReac Intermediate tachycardia; Verified 07/25/24 11:54 nervousness diazepam AdvReac Intermediate crying; Verified 07/25/24 11:54 depression fluoxetine AdvReac Intermediate crying; Verified 07/25/24 11:54 depression ibuprofen AdvReac Intermediate low kidney Verified 07/25/24 11:54 function Iodinated Contrast Media AdvReac Intermediate IVP DYE - Verified 07/25/24 11:54 low kidney function lidocaine AdvReac Intermediate Altered Verified 07/25/24 11:54 Mental Status with ointment ONLY naproxen AdvReac Intermediate Low kidney Verified 07/25/24 11:54 function sertraline AdvReac Intermediate crying; Verified 07/25/24 11:54 depression tramadol AdvReac Intermediate dizziness Verified 07/25/24 11:54 venlafaxine AdvReac Intermediate Nervous Verified 07/25/24 11:54 Home Medications Medication Instructions Recorded Confirmed Type docusate sodium 100 mg capsule 100 mg PO BID #60 caps 06/01/19 07/25/24 Rx (Stool Softener) levothyroxine 50 mcg tablet 50 mcg PO DAILYBB #90 tabs 11/15/21 07/25/24 Rx atorvastatin 40 mg tablet 40 mg PO HS #90 tabs 01/28/22 07/25/24 Rx bismuth subsalicylate 262 mg/15 mL 524 mg PO Q6H PRN 03/14/22 07/25/24 History oral suspension (Pepto-Bismol) HEARTBURN/DIARRHEA loperamide 2 mg tablet 2 mg PO Q4H PRN Diarrhea 03/14/22 07/25/24 History nitroglycerin 0.4 mg sublingual 0.4 mg sublingual DIRECTED PRN 04/08/22 07/25/24 History tablet Chest Pain calcium 500 mg (as 1 tab PO QAM 06/15/23 07/25/24 History carbonate)-vitamin D3 5 mcg (200 unit) tablet (Calcium 500 + D) duloxetine 20 mg capsule,delayed 20 mg PO BIDM 06/15/23 07/25/24 History release pantoprazole 40 mg tablet,delayed 40 mg PO BID 06/15/23 07/25/24 History release peg 400-propylene glycol 0.4 %-0.3 2 drp OPB TID 06/15/23 07/25/24 History % eye drops (Systane (propylene glycol)) polyethylene glycol 3350 17 17 g PO QAM 06/15/23 07/25/24 History gram/dose oral powder (Miralax) insulin aspart U-100 100 unit/mL See Rx Instructions .Route 06/23/23 07/25/24 Rx subcutaneous solution (Novolog .COMPLEX #10 mL U-100 Insulin aspart) melatonin 3 mg tablet 3 mg PO HS #30 tabs 06/23/23 07/25/24 Rx aspirin 81 mg tablet,delayed 81 mg PO QAM 04/06/24 07/25/24 History release (Adult Low Dose Aspirin) bisacodyl 10 mg rectal suppository 10 mg [place] DAILY PRN Constipation 04/18/24 07/25/24 History (Dulcolax (bisacodyl)) magnesium hydroxide 400 mg/5 mL 2,400 mg PO DAILY PRN Constipation 04/18/24 07/25/24 History oral suspension (Milk of Magnesia) thiamine HCl (vitamin B1) 100 mg 100 mg PO QAM 04/18/24 07/25/24 History tablet gabapentin 300 mg capsule 300 mg PO HS Pain #90 caps 04/22/24 07/25/24 Rx hydrocodone 5 mg-acetaminophen 325 1 tab PO BID PAIN MANAGEMENT #30 04/22/24 07/25/24 Rx mg tablet tabs hydrocodone 5 mg-acetaminophen 325 1 tab PO Q6H PRN pain #30 tabs 04/22/24 07/25/24 Rx mg tablet camphor 4 %-methyl salicylate 30 1 applic topical TID 07/25/24 07/25/24 History %-menthol 10 % topical cream (Bengay Ultra Strength) carboxymethylcellulose sodium 1 % 2 drp ophthalmic (eye) BID 07/25/24 07/25/24 History eye liquid gel drops (Refresh Liquigel) diclofenac sodium 1 % topical gel 2 - 4 g topical QID 07/25/24 07/25/24 History donepezil 10 mg tablet (Aricept) 10 mg PO QAM 07/25/24 07/25/24 History famotidine 40 mg tablet (Pepcid) 40 mg PO QAM 07/25/24 07/25/24 History furosemide 40 mg tablet (Lasix) 20 mg PO 3XWK 07/25/24 07/25/24 History gabapentin 100 mg capsule 100 mg PO BID 07/25/24 07/25/24 History insulin glargine 100 unit/mL 15 unit subcut QAM 07/25/24 07/25/24 History subcutaneous solution (Lantus U-100 Insulin) lidocaine 5 % topical patch 2 patch topical DAILY neck/back 07/25/24 07/25/24 History (Lidoderm) pain loratadine 10 mg tablet 10 mg PO QAM 07/25/24 07/25/24 History nadolol 20 mg tablet 20 mg PO QAM 07/25/24 07/25/24 History potassium chloride 10 mEq 10 meq PO 3XWK 07/25/24 07/25/24 History tablet,extended release sennosides 8.6 mg tablet (Senokot) 17.2 mg PO QPM 07/25/24 07/25/24 History sodium phosphates 19 gram-7 118 ml [place] DAILY PRN Constipation 07/25/24 07/25/24 History gram/118 mL enema (Fleet Enema) tobramycin 0.3 % eye drops 2 drp OPR QID 07/25/24 07/25/24 History Past Med/Surg History Problem List (Updated 07/25/24 @ 13:01 by Denise Churchill MD) Chest pain (Acute) Cervical myofascial pain syndrome Thrombocytopenia Influenza A (Acute) Left knee DJD Left cervical radiculopathy Bursitis of right shoulder Bursitis of left shoulder Thiamine deficiency Chronic fatigue Chronic headaches Acute metabolic encephalopathy SHERLY (acute kidney injury) Ambulatory dysfunction (Acute) Generalized weakness (Acute) Hematoma of right lower extremity (Acute) Hematoma of right lower leg UTI (urinary tract infection) Right leg pain Right rotator cuff tear arthropathy Left hip pain Bilateral knee pain Frequent falls History of colon cancer 2011 -- COLON RESECTION. NO CHEMO/RADIATION Diabetes mellitus, type 2 Chronic kidney disease, stage IV (severe) Hypothyroidism COVID CAD (coronary artery disease) (Chronic) Abdominal pain (03/24/13) Cellulitis (Acute) CKD (chronic kidney disease), stage III (Chronic) Diabetes type 2, controlled (Chronic) Hypertension (Chronic) Dyslipidemia (Chronic) Hypothyroidism (Chronic) Vitamin D deficiency (Acute) Urge incontinence of urine (Acute) Spinal stenosis (Acute) Rectocele (Acute) Proteinuria (Acute) Palpitations (Acute) Osteoarthritis (Acute) Orthostatic hypotension (Acute) History of syncope (Acute) History of malignant neoplasm of colon (Acute) Eczematous dermatitis (Acute) Depression (Acute) Cystocele, midline (Acute) Vitamin B12 deficiency Antiplatelet or antithrombotic long-term use Osteoarthritis of patellofemoral joints, bilateral Screening for colon cancer Postural lightheadedness Edema (Acute) Fatigue Gait abnormality (Acute) Hypokalemia Diabetic neuropathy Lab test negative for COVID-19 virus (Acute) Osteopenia Cognitive impairment COVID-19 (Acute) Weakness (Acute) Acute hypokalemia (Acute) Medical History DVT prophylaxis Closed head injury Chronic throat clearing Small bowel obstruction due to adhesions Diverticular disease Osteoarthritis Chronic back pain Depression Anxiety Syncope HAS HAD CARDIAC WORK UP, EEG, AND MRI OF BRAIN WITH NO ABNORMALITIES Pneumonia hx of 2015 Stable angina LAST USED NITRO ~AUGUST 2017 Hyperlipidemia Hypertension SBO (small bowel obstruction) Diverticulitis Surgical History History of esophagogastroduodenoscopy (EGD) History of dilatation and curettage History of bilateral tubal ligation History of cataract surgery BILATERAL History of discectomy LUMBAR REGION History of hysterectomy JESUS WITH BSO H/O umbilical hernia repair History of bowel resection 2011 History of colonoscopy History of cardiac cath NO STENTS. (2007) Family History Mother Heart disease Breast cancer Cancer Myocardial infarction Sister Colorectal cancer Lung disease Cancer Father Hearing loss Heart disease Other Hypertension No family history of adverse response to anesthesia Denies family history of Ovarian cancer Prostate cancer Coronary heart disease Social History Smoking Status: Never smoker Second Hand Exposure: No; Do You Dip or Chew Tobacco: No; Hx Alcohol Use: No Hx Substance Use: No Preferred Language: Chinese Communication Ability: Effective Hearing Ability: Normal Mexican Food Maker Required: No Beliefs That Will Affect Care: None marital status: / Current Living Situation: [facility] Current Living Situation Comment: [facility]. current occupational status: retired Feels Safe at Home: Yes Childhood Exposure to Second-Hand Smoke: No Diet: regular caffeine: Yes during the past year weight has: remained stable Dental Care, Regularly: Yes Physical Activity Frequency: 1-2 Times per Week Seatbelt Use: always Sunscreen Use: Yes Assistive Devices: Walker and Wheelchair Review of Systems Review of Systems: As per HPI Physical Exam Constitutional: NAD, vitals WNL. Eyes: Conjunctivae normal. Respiratory: CTA bilaterally. Non labored breathing. No rhonchi, wheezing, or crackles. Cardiovascular: RRR. No murmurs noted. No LE edema. Gastrointestinal (Abdomen): Nontender, +BS. No masses noted. Skin: No rashes or skin lesions noted. Neurologic: Sensation grossly intact. No FND appreciated. Psychiatric: Speech of normal pace and content but occasionally tangential. Mood and affect congruent. Results & Data Results & Data Vital Signs (Past 12 Hours) Vital Signs Temp Pulse Pulse Resp BP BP Pulse Ox 07/25/24 13:48 71 07/25/24 13:00 76 19 172/90 H 96 07/25/24 11:07 61 20 165/83 H 100 07/25/24 09:37 61 07/25/24 09:17 36.5 C 60 14 145/74 H 98 07/25/24 09:17 98 07/25/24 09:17 60 14 98 07/25/24 09:07 36.5 C 60 14 145/74 H 98 O2 Del Method 07/25/24 13:48 07/25/24 13:00 Room Air 07/25/24 11:07 Room Air 07/25/24 09:37 07/25/24 09:17 Room Air 07/25/24 09:17 Room Air 07/25/24 09:17 Room Air 07/25/24 09:07 Room Air Supervising Physician Co-Signing Physician Notes I personally examined the patient and verified lehman points of history and exam, discussed case, and agree with decision making and plan documented by Dr. Boone. Patient is a 88-year-old female with CAD, HTN, CKD 3, dyslipidemia, type 2 diabetes, hypothyroidism, dementia, neuropathy on admission for chest pain. Patient reports chest pain woke her up at night. ECG without acute changes, troponin x 2 negative in ED. Reviewed cardiac history with patient and her 2 daughters. Patient appears comfortable, lungs clear b/l to auscultation, regular rate and rhythm, trace bilateral lower extremity edema, no acute distress. Agree with repeat echocardiogram. Monitor on telemetry. Resident Activity Tracking Resident Involvement: Resident Care Provided Care Provided: Adult Hospital Medicine
[2024-07-25] MEDS ORDERED: NITROGLYCERIN SL 0.4 MG/TAB TAB SL PRN (17:03)
[2024-07-25] MEDS ORDERED: DEXTROSE 50% 50 ML SYRINGE IV PRN (17:03)
[2024-07-25] MEDS ORDERED: CARBOHYDRATES FOR HYPOGLYCEMIA PO PRN (17:03)
[2024-07-25] MEDS ORDERED: GLUCOSE 10 TAB/TUBE PO PRN (17:03)
[2024-07-25] MEDS ORDERED: bisacodyL 10 MG SUPP PR PRN (17:03)
[2024-07-25] MEDS ORDERED: GLUCAGON FOR INJ 1 MG VIAL SQ PRN (17:03)
[2024-07-25] MEDS ORDERED: GLUCOSE 40% GEL 15 GM TUBE PO PRN (17:03)
[2024-07-25] MEDS: DULoxetine HCL 20 MG CAP PO SCH (18:07)
[2024-07-25] MEDS: INSULIN ASPART PER UNIT CHARGE SC SCH (18:11)
[2024-07-25] MEDS: GABAPENTIN 100 MG CAP PO SCH (21:35)
[2024-07-25] MEDS: PANTOprazole 40 MG TAB PO SCH (21:35)
[2024-07-25] MEDS: ARTIFICIAL TEARS OP SCH (21:35)
[2024-07-25] MEDS: GABAPENTIN 300 MG CAP PO SCH (21:35)
[2024-07-25] MEDS: ATORVASTATIN 40 MG TAB PO SCH (21:35)
[2024-07-25] MEDS: MELATONIN 3 MG TAB PO PRN (21:36)
[2024-07-25] MEDS: HYDROCODONE/ACETAMOPHEN 5/325MG TAB PO SCH (21:36)
[2024-07-25] MEDS: DOCUSATE SODIUM 100 MG CAP PO SCH (21:41)
[2024-07-26] MEDS: LEVOTHYROXINE SODIUM 50 MCG TABLET PO SCH (05:52)
[2024-07-26 07:56] VITALS: RESP 18
[2024-07-26 08:24] LABS: Hematocrit (blood only) 33.4 % (37.0-47.0); Hemoglobin 10.7 g/dl (12.0-16.0); Mean Corpuscular Volume 93.6 fL (80.0-100.0); Mean Platelet Volume 8.9 fL (9.4-12.4); Platelet Count 161 K/uL (130-400); RDW Coefficient of Variation 14.2 % (11.5-14.5); RDW Standard Deviation 48.7 fL (36.4-46.3); Red Blood Count 3.57 M/uL (4.20-5.40); White Blood Count 6.44 K/ul (4.8-10.8)
[2024-07-26 08:45] LABS: BUN Creatinine Ratio 12.3 (10-20); Calcium 8.8 mg/dl (8.6-10.3); Creatinine Clr Calc Pharmacy 21.5 ml/min; Potassium 4.6 mmol/L (3.5-5.1)
--- NOTE | 2024-07-26 09:07 | XCELERA ---
[id number] [id number]
--- NOTE | 2024-07-26 09:13 | Hospitalist Progress Note ---
Date of Service July 26, 2024 Assessment & Plan (1) Chest pain: Plan: Pt is a 88 yo female with PMH of CAD, depression, anxiety, and HTN presenting d/t chest pain. Chest pain - pt with chest pain that awoke her from sleep; no associated symptoms - EKG w/o ischemia; trop neg x2- low suspicion for ACS - pt has had multiple cardiac caths in the past with most recent in 2007 - last stress test performed in 2016 which was normal - last echo 2020; repeat ordered - consider repeat stress echo but this can most likely occur as an outpatient - will monitor for further symptoms overnight DM - last A1c 8% - will cover with 15u glargine and SSI PRN HLD - continue statin GERD - continue PPI, famotidine Hypothyroidism - continue levothyroxine VTE ppx: heparin to start tomorrow night Diet: carb consistent/heart healthy Code: DNR/DNI (2) Diabetes mellitus, type 2: Admission and Anticipated Discharge Date Admission Date: July 25, 2024 Results & Data Results & Data Vital Signs (Past 12 Hours) Vital Signs Temp Pulse Pulse Resp BP Pulse Ox O2 Del Method 07/26/24 07:55 36.6 C 58 L 18 152/84 H 96 Room Air 07/26/24 07:06 61 07/26/24 03:41 37 C 55 L 16 127/70 93 Room Air 07/25/24 23:24 36.5 C 57 L 16 124/72 95 Room Air 07/25/24 22:23 60
[2024-07-26] MEDS: nadoloL 40 MG TAB PO SCH (09:45)
[2024-07-26] MEDS: POTASSIUM CHLORIDE 10 MEQ TABCR PO SCH (09:45)
[2024-07-26] MEDS: FAMOTIDINE 40 MG TABLET PO SCH (09:46)
[2024-07-26] MEDS: LORATADINE 10 MG TAB PO SCH (09:46)
[2024-07-26] MEDS: ASPIRIN 81 MG ECTAB PO SCH (09:47)
[2024-07-26] MEDS: THIAMINE HCL 100 MG TAB PO SCH (09:47)
[2024-07-26] MEDS: DONEPEZIL HCL 10 MG TAB PO SCH (09:47)
[2024-07-26] MEDS: FUROSEMIDE 20 MG TAB PO SCH (09:47)
[2024-07-26] MEDS: LIDOCAINE 5% 1 PATCH TD SCH (09:51)
[2024-07-26] MEDS: LANTUS PER UNIT CHARGE SQ SCH (10:03)
--- NOTE | 2024-07-26 11:37 | Electrocardiogram Report ---
Test Reason : Blood Pressure : */* mmHG Vent. Rate : 60 BPM Atrial Rate : * BPM P-R Int : * ms QRS Dur : 72 ms QT Int : 458 ms P-R-T Axes : * -14 27 degrees QTcB Int : 458 ms Normal sinus rhythm Low voltage QRS Poor R wave progression, consider anterior AR vs. lead placement vs. LVH Abnormal ECG When compared with ECG of 15-Jun-2023 13:28, Confirmed by Jacoby Vilchis ([id number]) on 07/26/2024 11:37:09 AM Referred By: Confirmed By: Jacoby Viclhis
--- NOTE | 2024-07-26 14:29 | Discharge Summary ---
Date of Service July 26, 2024 Admission HPI Per Admitting Provider Pt is a 88 yo female with PMH of CAD, depression, anxiety, and HTN presenting d/t chest pain. Pt notes she had chest pain that awoke her from sleep last night ~midnight. She struggled to sleep the rest of the night d/t this chest pain. She called her a nurse to come help her but per her report they never came. This morning 911 was called to bring her in for evaluation. At the time of our discussion, pt notes continued chest pain but much better than it was overnight. She describes the pain as "painful" and across her chest and radiating into her left and right shoulder (although she does have chronic right shoulder pain). She notes she has an extensive cardiac history and follows with Dr. Aaron. She notes she has never had a heart attack. She denies N/V, sweating, and lightheadedness during her chest pain episode. Pt also notes a headache during our conversation. 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 In the ER, she was given fentanyl 25mcg. Principal Diagnosis Chest pain Discharge Data Allergies Allergy/AdvReac Type Severity Reaction Status Date / Time verapamil Allergy Severe RASH Verified 07/25/24 11:54 latex Allergy Intermediate ITCHING Verified 07/25/24 11:54 oxybutynin Allergy Intermediate ITCHING Verified 07/25/24 11:54 adhesive Allergy Mild redness Verified 07/25/24 11:54 meperidine AdvReac Severe HYPOTENSION Verified 07/25/24 11:54 sodium phosphate AdvReac Severe DECREASED Verified 07/25/24 11:54 [From OsmoPrep] KIDNEY FUNCTION atenolol AdvReac Intermediate tachycardia; Verified 07/25/24 11:54 nervousness diazepam AdvReac Intermediate crying; Verified 07/25/24 11:54 depression fluoxetine AdvReac Intermediate crying; Verified 07/25/24 11:54 depression ibuprofen AdvReac Intermediate low kidney Verified 07/25/24 11:54 function Iodinated Contrast Media AdvReac Intermediate IVP DYE - Verified 07/25/24 11:54 low kidney function lidocaine AdvReac Intermediate Altered Verified 07/25/24 11:54 Mental Status with ointment ONLY naproxen AdvReac Intermediate Low kidney Verified 07/25/24 11:54 function sertraline AdvReac Intermediate crying; Verified 07/25/24 11:54 depression tramadol AdvReac Intermediate dizziness Verified 07/25/24 11:54 venlafaxine AdvReac Intermediate Nervous Verified 07/25/24 11:54 Consultations 07/25/24 13:01 ED Decision to Admit Stat Hospital Course (1) Chest pain: (2) Diabetes mellitus, type 2: Plan Pt is a 88 yo female with PMH of CAD, depression, anxiety, and HTN presenting d/t chest pain. Chest pain - pt with chest pain that awoke her from sleep; no associated symptoms - EKG w/o ischemia; trop neg x2- low suspicion for ACS - last stress test performed in 2016 which was normal - consider repeat stress echo but this can most likely occur as a - Echocardiogram - Left ventricular systolic function normal. No regional wall motion abnormalities. No significant changed from previous - Pain likely musculoskeletal, consider trigger point injection as an outpatient. DM - last A1c 8% - will cover with 15u glargine - continue home regimen HLD - continue statin GERD - continue PPI, famotidine Hypothyroidism - continue levothyroxine Total Time Total Time Spent Total Time Spent (In Minutes): <30 Discharge Plan Discharge Items Patient Disposition: Transfer Half-Way Fac Reason For Visit: CHEST PAIN Discharge Diagnosis: Chest pain Condition on Discharge: Fair Activity: Per Instructions section Non-emergency contact: Primary Care Provider Call non-emergency contact if: you have any medication questions and your symptoms worsen Follow-up/Referrals: Chris Espitia III, MD [Primary Care Provider] - Diet: Regular Addtl Attending Provider Instructions: Pt is a 88 yo female with PMH of CAD, depression, anxiety, and HTN presenting d/t chest pain. Chest pain - pt with chest pain that awoke her from sleep; no associated symptoms - EKG w/o ischemia; trop neg x2- low suspicion for ACS - last stress test performed in 2016 which was normal - consider repeat stress echo but this can most likely occur as a - Echocardiogram - Left ventricular systolic function normal. No regional wall motion abnormalities. No significant changed from previous - Pain likely musculoskeletal, consider trigger point injection as an outpatient. DM - last A1c 8% - will cover with 15u glargine - continue lemuel regimen HLD - continue statin GERD - continue PPI, famotidine Hypothyroidism - continue levothyroxine Pending Studies at Discharge: No Stand-Alone Forms: [employer], Smoking Cessation Skilled Items Patient informed of condition?: Yes DNR: Yes Discharge Level of Care: Other Communicable Disease: No Discharge Prognosis: Stable Lines: None Urinary Catheter: No Medications and DC Order Prescriptions: Continued docusate sodium [Stool Softener] 100 mg capsule 100 mg PO BID Qty: 60 2RF levothyroxine 50 mcg tablet 50 mcg PO DAILYBB Qty: 90 1RF Rx Instructions: TAKE 1 TABLET BY MOUTH EVERY DAY atorvastatin 40 mg tablet 40 mg PO HS Qty: 90 3RF Hold Instructions: leg pain aspirin [Adult Low Dose Aspirin] 81 mg tablet,delayed release (DR/EC) 81 mg PO QAM loperamide 2 mg Tablet 2 mg PO Q4H PRN (Reason: Diarrhea) bismuth subsalicylate [Pepto-Bismol] 262 mg/15 mL Suspension 524 mg PO Q6H PRN (Reason: HEARTBURN/DIARRHEA) nitroglycerin 0.4 mg tablet, sublingual 0.4 mg sublingual DIRECTED PRN (Reason: Chest Pain) Rx Instructions: 1 TAB UNDER THE TONGUE EVERY 5 MIN FOR UP TO 3 DOSE NEEDED FOR CHEST PAIN. CALL 911 PAIN PERSISTS Not for independent use. Needs supervision. nadolol 20 mg Tablet 20 mg PO QAM tobramycin 0.3 % Drops 2 drp OPR QID Rx Instructions: Start Date 07/14/24 x2 weeks Fleet Enema 19-7 gram/118 mL Enema 118 ml [place] DAILY PRN (Reason: Constipation) Rx Instructions: Insert 1 unit rectally as needed for constipation if no BM after dulcolax administer fleets on 7-3 shift, day four gabapentin 100 mg capsule 100 mg PO BID loratadine 10 mg Tablet 10 mg PO QAM carboxymethylcellulose sodium [Refresh Liquigel] 1 % Drops, Liquid Gel 2 drp OPHTHALMIC (EYE) BID Bengay Ultra Strength 4-30-10 % Cream 1 applic TOPICAL TID furosemide [Lasix] 40 mg tablet 20 mg PO 3XWK Rx Instructions: TAKE on Friday AM, Friday AM, and Friday AM only. sennosides [Senokot] 8.6 mg tablet 17.2 mg PO QPM insulin glargine [Lantus U-100 Insulin] 100 unit/mL solution 15 unit subcut QAM donepezil [Aricept] 10 mg tablet 10 mg PO QAM famotidine [Pepcid] 40 mg tablet 40 mg PO QAM potassium chloride 10 mEq tablet extended release 10 meq PO 3XWK Rx Instructions: TAKE only on Mondays, Wednesdays, and Fridays in thr mornings lidocaine [Lidoderm] 5 % adhesive patch,medicated 2 patch topical DAILY Rx Instructions: Apply 1 patch to neck and 1 patch to back each morning and remove each evening. leave on most painful area for up to 12 hrs diclofenac sodium 1 % gel 2 - 4 g TOPICAL QID Rx Instructions: Apply 4 grams to knee and 2 grams to shoulder/post neck pantoprazole 40 mg Tablet,Delayed Release (Dr/Ec) 40 mg PO BID polyethylene glycol 3350 [Miralax] 17 gram/dose Powder 17 g PO QAM Rx Instructions: Mix w/ 8 ounces of fluid of choice Systane (propylene glycol) 0.4-0.3 % Drops 2 drp OPB TID Rx Instructions: 0630, 1430, 2230 duloxetine 20 mg Capsule,Delayed Release(Dr/Ec) 20 mg PO BIDM calcium carbonate-vitamin D3 [Calcium 500 + D] 500 mg-5 mcg (200 unit) Tablet 1 tab PO QAM melatonin 3 mg Tablet 3 mg PO HS Qty: 30 0RF insulin aspart U-100 [Novolog U-100 Insulin aspart] 100 unit/mL Solution See Rx Instructions .ROUTE .COMPLEX Qty: 10 0RF Rx Instructions: sliding scale instructions, before meals and at bedtime 350-400 = 8 UNITS 401-450 = 12 UNITS 451-500 = 16 UNITS 501-550 = 18 UNITS CHECK AGAIN IN TWO HOURS 551+ = 20 UNITS RECHECK IN 1 HOUR. thiamine HCl (vitamin B1) 100 mg Tablet 100 mg PO QAM magnesium hydroxide [Milk of Magnesia] 400 mg/5 mL Suspension 2,400 mg PO DAILY PRN (Reason: Constipation) Rx Instructions: Administer after 3 days of no BM on 7-3 shift bisacodyl [Dulcolax (bisacodyl)] 10 mg Suppository 10 mg [place] DAILY PRN (Reason: Constipation) Rx Instructions: Insert 1 unit rectally as needed for constipation, give suppository on day 3; 3-11 shift if no BM after MOM hydrocodone-acetaminophen 5-325 mg tablet 1 tab PO BID Qty: 30 0RF hydrocodone-acetaminophen 5-325 mg Tablet 1 tab PO Q6H PRN (Reason: pain) Qty: 30 0RF gabapentin 300 mg capsule 300 mg PO HS Qty: 90 3RF Discharge Orders: Discharge Order (Routine); Ordered 07/27/24 Ordered By: Dami Funes Admission Data Admit Date/Time: 07/25/24 14:06 Attending Provider: Dillan Baer Admit Provider: Letty Boone Primary Care Provider: Chris Espitia III Other Providers: Manisha Houston; [facility] Supervising Physician Co-Signing Physician Notes I personally examined the patient and verified all lehman points of history and exam, discussed case, and agree with decision making with Dr Eliud Funes resting comfortably, for transport to [facility] this am. Vitals noted, resting appearing comfortable no distress. HEENT normocephalic atraumatic. Breathing unlabored no accessory muscle use good effort. Skin without rashes pallor or icterus. Neuro without asymmetry at rest. Chest paincardiac workup very reassuring. Likely musculoskeletal. Trigger point injections with pain management of helped in the past. May need to revisit. Safe/stable for dischargetransportation not able to be set up yesterday - set up for today. Resident Activity Tracking Resident Involvement: Resident Care Provided Care Provided: Adult Hospital Medicine
--- NOTE | 2024-07-26 15:32 | Hospitalist Progress Note ---
Date of Service July 26, 2024 Assessment & Plan (1) Chest pain: (2) Diabetes mellitus, type 2: Plan Pt is a 88 yo female with PMH of CAD, depression, anxiety, and HTN presenting d/t chest pain. Chest pain - pt with chest pain that awoke her from sleep; no associated symptoms - EKG w/o ischemia; trop neg x2- low suspicion for ACS - pt has had multiple cardiac caths in the past with most recent in 2007 - last stress test performed in 2017 which was normal - Echo resulted- no motion wall abnormalities, no new findings compared to prev - consider repeat stress echo but this can most likely occur as an outpatient - will monitor for further symptoms overnight - Discharge am DM - last A1c 8% - will cover with 15u glargine and SSI PRN HLD - continue statin GERD - continue PPI, famotidine Hypothyroidism - continue levothyroxine VTE ppx: heparin to start tomorrow night Diet: carb consistent/heart healthy Code: DNR/DNI Admission and Anticipated Discharge Date Admission Date: July 25, 2024 Supervising Physician Co-Signing Physician Notes I personally examined the patient and verified all lehman points of history and exam, discussed case, and agree with decision making with Dr Eliud Funes Feeling okay now. Discussed reassuring cardiac workup with patient and daughter. Vitals noted, in general she is awake and alert pleasant no distress. HEENT normocephalic atraumatic mucous membranes moist. Breathing unlabored no accessory muscle use good effort. Skin without rashes pallor or icterus. Neuro without focal deficits. Chest paincardiac workup very reassuring. Likely musculoskeletal. Trigger point injections with pain management of helped in the past. May need to revisit. Safe/stable for dischargetransportation not able to be set up until tomorrow morning. Subjective Seen this am. Pain had improved. Pending Echocardiogram Denied chest pain, SOB, palpitations, abdominal pain or any other symptoms Review of Systems Review of Systems: As per HPI Physical Exam Constitutional: NAD, vitals WNL. Eyes: Conjunctivae normal. Respiratory: CTA bilaterally. Non labored breathing. No rhonchi, wheezing, or crackles. Cardiovascular: RRR. No murmurs noted. No LE edema. Gastrointestinal (Abdomen): Nontender, +BS. No masses noted. Skin: No rashes or skin lesions noted. Neurologic: Sensation grossly intact. No FND appreciated. Psychiatric: Speech of normal pace and content but occasionally tangential. Mood and affect congruent. Results & Data Results & Data Vital Signs (Past 12 Hours) Vital Signs Temp Pulse Pulse Resp BP Pulse Ox O2 Del Method 07/26/24 15:13 36.5 C 60 18 133/83 96 Room Air 07/26/24 11:43 36.4 C L 61 18 154/85 H 95 Room Air 07/26/24 07:55 36.6 C 58 L 18 152/84 H 96 Room Air 07/26/24 07:06 61 07/26/24 03:41 37 C 55 L 16 127/70 93 Room Air Resident Activity Tracking Resident Involvement: Resident Care Provided Care Provided: Adult Hospital Medicine
--- NOTE | 2024-07-26 17:04 | Billing Data ---
Date of Service July 26, 2024 Coding Level of Care Code 98278 SUB INP/OBS CARE
[2024-07-26] MEDS: ACETAMINOPHEN 325 MG TAB PO PRN (18:08)
[2024-07-26] MEDS: TROLAMINE SALICYLATE 10% CRM 255 APPLN/85 GM TUBE EXT PRN (20:54)
[2024-07-26] MEDS: HEPARIN SOD 5,000 UNIT/0.5 ML VIAL SQ SCH (20:54)
[2024-07-27 07:50] VITALS: BP 162/79; TEMP 97.7; O2SAT 96
[2024-07-27 08:26] VITALS: PULSE 60
--- NOTE | 2024-07-27 08:45 | Billing Data ---
Date of Service July 27, 2024 Coding Level of Care Code 98104 IN/OBS DISCH 30 MIN/LESS
== END 2024-07-27 10:02 | DRG 313 ==
LOC: ED 08:49 → SUATTDRO 14:06 → 2N 14:06